=== PATIENT | female | born 1965 | race Caucasian/White ===

== ENCOUNTER → 2022-08-24 | Outpatient (CLI) | payer OTHER, SELFPAY ==
--- NOTE | 2022-08-24 | IMM_PTH ---
PATIENT: EMIGDIO KAPOOR LOC: [facility] U#:[id number] AGE/SX: 57/F ROOM: RE08/24/[address]: Dr. Lilly Mae MD : 1965 BED: DIS: 08/24/2022 SPEC #: [id number] RECD: 08/26/22 11:33 STATUS: JESS REQ #: [id number] RAMIRO: 08/24/22 00:[address]: Lilly Mae DEPT: IMMUNOHISTOCHEMISTRY RECD BY: Isabel Pan ENTERED: 08/26/22 11:35 SP TYPE: IMMUNO OTHR DR: No Primary Care Phys Tissues: Left breast, NOS Procedures: CALPONIN-1 (add) CK5-6 (add) CK8 (add) TERRAZAS-2 (add) E-CAD (add) HER2 WALLACE (add) KI-67 (add) P53 (add) CA (add) P40 (add) ER (initial) PHYSICIAN & INSTITUTION [address] [address] SPECIMEN INFORMATION: Tissue Source: Left breast mass at 1 o?clock Clinical Info: Left breast mass Specimen Number: [id number] CPT code: 00904, 94973 x7, 47822 x3 METHODOLOGY: Deparaffinized sections of prefer/formalin-fixed tissue or PAP/DQ stained slides are incubated with monoclonal/polyclonal antibodies/oligonucleotide probes. Localization is made via biotin free immunoperoxidase method. Appropriate controls are performed and reacted as expected. Results on target cell population are indicated in the following table: RESULTS: ANTIBODY / CLONE RESULT P53 (DO-7) negative, null pattern Ki-67 (30-9) positive, 30% CK8 (49tacxF11) positive CK5-6 (D5 & 1684) negative Calponin-1 (UX481L) negative P40 (BC28) negative E-Cad (ECH-6) positive TERRAZAS-2 (SP21) positive MORPHOMETRIC ANALYSIS ER (clone 6F11) >95%, strong intensity CA (clone 16/1E2) >95%, moderate to strong intensity Her-2Neu (clone CB11) 0 The prognostic test for HER2 is performed on formalin-fixed paraffin embedded tissue. A 3+ (positive) staining pattern is defined as intense, homogeneous, complete, circumferential membranous staining in >10% of contiguous tumor cells. A similar weak (2+) staining pattern is interpreted as equivocal. MARIANA follow-up testing is recommended for all equivocal cases. Positivity/negativity for ER/CA is reported if > or < 1% of the tumor cells are immuno- reactive, respectively. The ASCO/CAP criteria is used for scoring. Reference: Journal of Clinical Oncology, 2013; 31:0620-6174 & 2010; 16:0180-7660. Duration of fixation: 29.5 Hrs; Sample Adequate: Yes. These assays have not been validated on decalcified tissues. Results should be interpreted with caution given the likelihood of false negativity on decalcified specimens. These tests were developed and their performance characteristics determined by [facility]. They may not have been cleared or approved by the U.S. Food and Drug Administration. The FDA has determined that such clearance or approval is not necessary. The above immunohistochemical/dualISH markers are ordered and reviewed by the Pathologist. INTERPRETATION: Left breast mass at 1 o?clock, needle core biopsy: Invasive ductal carcinoma, nuclear grade 1. Positive for estrogen receptors (favorable prognostic indicator). Positive for progesterone receptors (favorable prognostic indicator). Negative for overexpression of RLD9ocf. AM:channing 08/27/2022
--- NOTE | 2022-08-24 14:00 | BRBX_PTH ---
PATIENT: EMIGDIO KAPOOR LOC: [facility] U#:[id number] AGE/SX: 57/F ROOM: RE08/24/[address]: Dr. Lilly Mae MD : 1965 BED: DIS: 08/24/2022 SPEC #: [id number] RECD: 08/24/22 16:38 STATUS: JESS REJovi #: [id number] RAMIRO: 08/24/22 14:[address]: Lilly Mae DEPT: SURGICAL PATHOLOGY RECD BY: Jamila Doty ENTERED: 08/25/22 07:50 SP TYPE: BREAST BX OTHR DR: No Primary Care Phys Tissues: Left breast, NOS Procedures: Surgery Specimen Level IV HEADER OPERATION: Biopsy left breast mass PRE-OP DIAGNOSIS: Left breast mass TISSUE SUBMITTED: Left breast mass tissue 1 o?clock, 2.0 cm from nipple MICROSCOPIC DIAGNOSIS Left breast mass at 1 o?clock, needle core biopsy: Invasive ductal carcinoma with the following characteristics: Nuclear grade ? 1 Maximal length ? 7.0 millimeters Other findings ? ductal carcinoma in situ (nuclear grade 1). See comment. AM:channing 08/26/2022 COMMENT Immunohistochemistry ([id number]) supports the above diagnosis. Case has been reviewed in consultation with Dr. Garrett who concurs with the above diagnosis. IDC:HAIR MICROSCOPIC DESCRIPTION Slides are reviewed. GROSS DESCRIPTION Received in fixative is one container labeled with the patient's name and designated left breast. The specimen consists of multiple elongated fragments of porter-yellow fibroadipose tissue that in aggregate measure 1.0 x 0.6 x 0.1 cm. The entire specimen is submitted in one cassette. / HAIR:channing 08/25/2022 TC:0 CPT: 67944
== END | disposition home or self-care (01) ==
LOC: LABSPEC 16:45
PROVIDERS: Referring Provider Surgery; Visit Provider Surgery
DX: N63.20 Unspecified lump in the left breast, unspecified quadrant (principal)
CPT/HCPCS: 88305; 88341; 88342

== ENCOUNTER → 2022-09-09 | Outpatient (CLI) | payer OTHER, SELFPAY ==
--- NOTE | 2022-09-09 12:37 | MRI_ITS ---
STUDY: BILATERAL BREAST MR WITHOUT AND WITH CONTRAST REASON FOR EXAM: Female, 57 years old. Breast cancer. Workup. TECHNIQUE: Multi-sequence multi-echo imaging of both breasts was performed with a dedicated breast coil. T1-weighted and T2-weighted images were performed before the administration of contrast. T1-weighted images were also performed after the intravenous administration of 25 mL of Clariscan. COMPARISON: Screening mammogram dated May 12, 2021, screening mammogram dated July 08, 2022, diagnostic mammogram dated August 12, 2022, left breast ultrasound dated August 12, 2022 and ultrasound-guided biopsy images dated August 24, 2022. FINDINGS: LEFT BREAST: Fatty replaced glandular tissue. 13 cm in diameter irregular enhancing mass at the 1:00 to 2:00 position of the left breast 7 cm behind the nipple corresponding to the mammographic and ultrasonographic findings. LEFT BREAST: Fatty replaced glandular tissue. No abnormal enhancing masses or areas of non-mass enhancement in the left breast. Shotty nodes in both axillae. No abnormal lymph nodes identified.. There is No abnormality in the visualized regions of the chest or liver. MRI/Breast Bilateral W/O and W IMPRESSION: 1.3 cm irregular enhancing mass at the 1:00 to 2:00 position of the left breast 7 cm behind the nipple corresponding to the index lesion noted on mammogram and ultrasound. Shotty lymph nodes in both axillary regions. No abnormal lymph nodes identified. CATEGORY: BIRADS Category 6: Known Biopsy-Proven Malignancy - Appropriate Action Should Be Taken. A letter regarding these results will be sent to the patient by the facility within 30 days. Electronically Signed: Travis Corbin MD at 10:46 EDT ,
[2022-09-09 13:07] LABS: CREATININE FINGERSTICK < 0.9 mg/dL (0.55-1.02); EGFR FINGERSTICK > 60.0000 mL/min (>60)
== END | disposition home or self-care (01) ==
PROVIDERS: PCP Nurse Practitioner Family; Referring Provider Surgery; Visit Provider Surgery
DX: C50.919 Malignant neoplasm of unspecified site of unspecified female breast (principal)
CPT/HCPCS: 77049; A9575; A4216; C8908

== ENCOUNTER 2022-09-30 08:39 | Day surgery (SDC) | payer OTHER, SELFPAY ==
--- NOTE | 2022-09-30 | IMM_PTH ---
PATIENT: EMIGDIO [place]APOOR [place] [facility] [place][id number] AGE/SX: 57/F ROOM: RE09/30/[address]: Dr. Lilly Mae MD : 1965 BED: DIS: 09/30/2022 SPEC #: [id number] RECD: 10/05/22 13:49 STATUS: JESS REQ #: [id number] RAMIRO: 09/30/22 00:[address]: Lilly Mae DEPT: IMMUNOHISTOCHEMISTRY RECD BY: Isabel Pan ENTERED: 10/05/22 13:49 SP TYPE: IMMUNO OTHR DR: Suresh Mcmullen, COMMUNICATIONS DIRECTOR-C Tissues: A - Axillary lymph node, NOS Procedures: CK8 (initial) Pankeratin (add) PHYSICIAN & INSTITUTION [place] [address] SPECIMEN INFORMATION: Tissue Source: A - Left axillary sentinel lymph node Clinical Info: Left breast cancer Specimen Number: [id number] CPT code: 13507, 50520 METHODOLOGY: Deparaffinized sections of prefer/formalin-fixed tissue or PAP/DQ stained slides are incubated with monoclonal/polyclonal antibodies/oligonucleotide probes. Localization is made via biotin free immunoperoxidase method. Appropriate controls are performed and reacted as expected. Results on target cell population are indicated in the following table: RESULTS: ANTIBODY / CLONE RESULT Block A CK8 (68ubzgZ72) negative AE1-3 (AE1/AE3/PCK26) negative These tests were developed and their performance characteristics determined by [facility]. They may not have been cleared or approved by the U.S. Food and Drug Administration. The FDA has determined that such clearance or approval is not necessary. The above immunohistochemical/dualISH markers are ordered and reviewed by the Pathologist. INTERPRETATION: A. Left axillary sentinel lymph node, biopsy: One out of one lymph node, negative for carcinoma. AM:channing 10/07/2022
--- NOTE | 2022-09-30 | AXNB_PTH ---
PATIENT: EMIGDIO KAPOOR LOC: [facility] U#:[id number] AGE/SX: 57/F ROOM: RE09/30/[address]: Dr. Lilly Mae MD : 1965 BED: DIS: 09/30/2022 SPEC #: [id number] RECD: 09/30/22 12:46 STATUS: JESS REJovi #: [id number] RAMIRO: 09/30/22 00:[address]: Lilly Mae DEPT: SURGICAL PATHOLOGY RECD BY: Isabel Pan ENTERED: 09/30/22 13:18 SP TYPE: AX NODE BX OTHR DR: Suresh Mcmullen, OPERATIONS MANAGER STATION-C Tissues: A - Axillary lymph node, NOS B - Left breast, NOS C - Left breast, NOS Procedures: Frozen Section (charge) Surgery Specimen Level IV Surgery Specimen Level V HEADER OPERATION: Left breast ultrasound wire loc with radiotracer with blue dye PRE-OP DIAGNOSIS: Left breast cancer TISSUE SUBMITTED: A - Left axillary sentinel node, frozen section, B - Left breast lump, long suture - lateral, short suture - superior, C - Left breast, new superior margin short stitch is new superior margin long stitch lateral FROZEN SECTION DIAGNOSIS A. Left axillary sentinel lymph node, biopsy: One lymph node, negative for metastatic carcinoma. SJ:channing 09/30/2022 MICROSCOPIC DIAGNOSIS A. Left axillary sentinel lymph node, biopsy: One out of one lymph node negative for metastatic carcinoma. See comment. B. Left breast, lumpectomy: Invasive ductal carcinoma. See cancer template below. C. Left breast, new superior margin, biopsy: Focal atypical intraductal hyperplasia. Usual intraductal hyperplasia. Mild fibrocystic change. Focal intraductal papilloma. No evidence of malignancy. AM:channing 10/05/2022 COMMENT A. Immunohistochemistry ([id number]) supports the above diagnosis. B. INVASIVE BREAST CANCER SUMMARY: Procedure - excision with wire guidance Specimen: Type - partial breast Size - 4.0 x 3.5 x 2.0 cm Laterality - left breast Tumor: Site - not specified Size - 1.2 x 1.2 x 1.0 cm Histologic type - invasive ductal carcinoma. Focality - single focus of carcinoma. Histologic Grade (Maryann grade): Glandular/tubular differentiation - score 3 Nuclear pleomorphism - score 2 Mitotic count - score 1 Overall grade - 1 (score of 6) Ductal carcinoma in situ - not present Lobular carcinoma in situ (LCIS) - not present Tumor extension: Skin - not applicable Nipple - not applicable Skeletal muscle - not present Margins: Distance of invasive carcinoma from closest margin (superior margin) - 10 mm from (inclusive of specimen C. Lymph nodes: Number of sentinel lymph nodes examined - 1 Total number of lymph nodes examined (sentinel and nonsentinel) - 1 Number of lymph nodes with macrometastases, micrometastases and isolated tumor cells - 0 Treatment effect - unknown Lymphvascular invasion - not identified Additional pathologic findings - usual intraductal hyperplasia with focal atypical intraductal hyperplasia, intraductal papilloma, fibrocystic change. Ancillary studies - previously performed ([id number] / [id number]) ER - positive (>95%, strong intensity) LA - positive (>95%, moderate to strong intensity) Her2 cristal - negative (0) Ki67 - positive (30%) Microcalcifications - present and associated with non-neoplastic tissue. Clinical history - mass of left breast. PATHOLOGIC STAGE: T1c N0 Mx The above summary is in compliance with [employer] [place] [employer] (CAP) Cancer Protocols Checklist and [place] Joint Committee on Cancer (AJCC), Staging Manual, 8th Ed. Case has been reviewed in consultation with Dr. Garrett who concurs with the above diagnosis. IDC:SJ MICROSCOPIC DESCRIPTION Slides are reviewed. GROSS DESCRIPTION A - Received fresh for frozen section diagnosis labeled with the patient's name is a specimen designated left axillary sentinel lymph node. The specimen consists of a pink-porter nodule measuring 1.5 x 1.0 x 0.7 cm. The specimen is bisected and submitted entirely for frozen section diagnosis in one cassette. / :channing 09/30/2022 B - Received fresh for intraoperative consultation labeled with the patient's name is a specimen designated left breast. The specimen consists of a piece of fibroadipose tissue with needle localization measuring 3.5 x 4.0 x 2.0 cm. The specimen is oriented as long suture - lateral, short suture - superior. The specimen is inked as follows: anterior - yellow, posterior - black, superior - blue, inferior - green, medial - red and lateral - orange. Serial sections reveal a porter, indurated tumor mass measuring 1.2 x 1.2 x 1.0 cm. This mass is 0.2 cm away from the closest superior margin. This information is conveyed to the surgeon intraoperatively. The rest of the specimen reveal porter-yellow adipose cut surfaces with scant fibrous areas. The entire specimen is submitted in 11 cassettes as follows: 1 & 2 - perpendicular margin, 3-5 - entire tumor closest superior margin, 6-11 - rest of the specimen. Sections are submitted after overnight fixation. / :channing 10/01/2022 C - Received in fixative is one container labeled with the patient's name and designated new left breast superior margin, long stitch - lateral, short stitch - superior. The specimen consists of a piece of yellow fibroadipose tissue measuring 3.0 x 2.0 x 1.0 cm. The new superior margin is inked blue, old margin is inked black, medial margin - red and lateral margin - orange. Sections do not reveal any mass lesion. The entire specimen is submitted in four cassettes from lateral to medial anterior. Sections will be submitted after overnight fixation. / SJ:channing 10/01/2022 TC:0 [facility]: 33263 x2, 32830 ADDENDUM ADDENDUM ADDENDUM ADDENDUM ADDENDUM ADDENDUM ADDENDUM ADDENDUM 10/23/2022 11:13 ADDENDUM 10/23/2022 11:13 ADDENDUM 10/23/2022 11:13 ADDENDUM 10/23/2022 11:13 ADDENDUM 10/23/2022 11:13 An order for Oncotype testing was received from Dr. Sorenson. This necessitated case review, block and slide selection by pathologist at [facility]. Breast Cancer Recurrence Score = 2 Results of the complete Oncotype testing ([employer] report) are viewable in EMR under: Reports - Pathology - Lab Pathology Report, Scanned.
--- NOTE | 2022-09-30 07:28 | NM_ITS ---
PROCEDURE: NUCLEAR MEDICINE Injection [place] Node - LEFT breast(s). REASON FOR EXAM: Female, 57 years old. History of left breast cancer. TECHNIQUE: [place] node localization using radionuclide methods of the LEFT breast(s) was performed following subcutaneous administration of 1.1 mCi of of sulfur colloid Tc-99m. FINDINGS: 1.1 mCi of technetium labeled sulfur colloid was injected subcutaneously in the periareolar region of the left breast in 4 equal aliquots. NM/Lymph Node Injection Only IMPRESSION: Subcutaneous injection of technetium labeled sulfur colloid for sentinel node imaging. Electronically Signed: Gagan Weathers MD at 10:21 EDT ,
[2022-09-30 09:11] VITALS: BP 151/72; PULSE 72; RESP 18; TEMP 36.8; O2SAT 98; BMI 44.2
[2022-09-30] MEDS: Lactated Ringers 1,000 ML 15 ML IV (09:25)
--- NOTE | 2022-09-30 10:12 | PCM.HP.BLA ---
History and Physical Date of Admission: 09/30/22 Date of Service: 09/17/22 MR#: [id number] Acct: [id number] Name: EMIGDIO KAPOOR Rep #: [id number] : 1965 Provider: Dr. Lilly Mae MD Age/Sex: 57/F Location: [facility] Status: Signed Intake Intake Visit Reasons: BIRADS 5 MRI F/U Chief Complaint: birads 5 Allergies No Known Allergies Allergy (Unverified 09/17/22 13:58) Medications cholecalciferol (vitamin D3) 125 mcg (5,000 unit) capsule 5,000 unit PO 08/24/22 [History Confirmed 09/17/22] cyanocobalamin (vitamin B-12) 1,000 mcg tablet 1,000 mcg PO 08/24/22 [History Confirmed 09/17/22] losartan 100 mg tablet 100 mg PO 08/24/22 [History Confirmed 09/17/22] zinc gluconate 50 mg tablet 50 mg PO DAILY 08/24/22 [History Confirmed 09/17/22] PFSH Medical History (Updated 09/18/22 @ 12:[address] Lilly Mae MD) Hypertension Surgical History (Updated 09/18/22 @ 12:[address] Lilly Mae MD) S/P section S/P tonsillectomy Family History (Updated 08/24/22 @ 15:39 by María Starr) Sister Thyroid disorder Social History (Updated 08/24/22 @ 15:40 by María Starr) Smoking Status: Former smoker alcohol intake: current HPI HPI HPI: 57-year-old female presents to discuss breast MRI results and surgical options for her left invasive ductal breast cancer. Patient's MRI did showed the 1 area we were aware of previously?did not comment on any abnormal lymph nodes called bilateral axillary lymph nodes shotty. Exam Const General: cooperative, healthy appearing and comfortable [facility] Head: normocephalic and atraumatic Neck Neck: supple Chest Other: Left breast?biopsy site healing well still some resolving ecchymosis. Assessment and Plan Assessment and Plan (1) Breast cancer, left breast: Status: Acute Plan I have given the patient options for initial surgical treatment. Options are the following: lumpectomy followed by radiation therapy vs. mastectomy vs. mastectomy followed by immediate reconstruction. I have described the procedures to the patient. I have described the advantages and disadvantages of the options, but I have told the patient that among the options, the survival rate for breast cancer is the same. I have told the patient that with all the surgeries that a sentinel lymph node biopsy is required. I have described the procedure of sentinel lymph node biopsy to the patient. I have told the patient that if the biopsy is positive for metastatic disease, then a full axillary lymph node dissection is required. I have told the patient that adjuvant chemotherapy will be required should the lymph nodes reveal metastatic disease. Also, a full lymph node dissection will increase the risk for lymphedema, especially if there are 4 or more lymph nodes positive for metastatic disease and radiation to the axilla is also required. I have told the patient the risks of surgery, including but not limited to: infection, bleeding, scar tissue, seroma and persistent seroma, lymph leak, injury to any blood vessels, injury to any nerves (particularly the long thoracic, the thoracodorsal, and the second intercostal brachial and the resultant sequelae), lymphedema, cosmetic deformity, dysesthesias, wound infections, further surgery (especially if margins are not clear), complications of anesthesia, etc. the patient understands. Patient is planned to undergo an left breast ultrasound-guided wire lumpectomy with sentinel lymph node biopsy with nuclear tracer and blue dye and possible axillary lymph node dissection. I have answered all the patient?s questions at this point to her satisfaction and she has no further questions. Lilly Mae M.D. Pager: [phone] [facility] [address] [place] [address], [address] [place] [address] Office: [phone] Coding Level of Care Code Off vis,est,level 4 Diagnoses Breast cancer, left breast C50.912 09/18/22 1252 <Electronically signed by Lilly Mae MD> Date Lilly Mae MD
[2022-09-30] MEDS: 0.9% Normal Saline (Pres. free 10 ML Vial (10:40)
[2022-09-30] MEDS: Isosulfan Blue 1% 5 ML Vial (11:45)
--- NOTE | 2022-09-30 13:12 | BI_ITS ---
SURGICAL BREAST SPECIMEN RADIOGRAPH CLINICAL: Document presence of tissue clip marker in biopsy specimen. FINDINGS: Specimen shows presence of tissue clip marker. Electronically Signed: Gagan Weathers MD at 8:58 EDT , BI/Breast Biopsy Specimen IMPRESSION: undefined
--- NOTE | 2022-09-30 13:17 | OP.PCM_ITS ---
Report of Operation Date of Procedure: 09/30/22 Pre-Operative Diagnosis: Left breast cancer Post-Operative Diagnosis: Same Surgery/Procedure Performed:: Left ultrasound-guided wire needle localization, sentinel lymph node biopsy with Lymphazurin and nuclear tracer Description of Surgical Findings:: 1 out of 1 sentinel node negative?blue and hot --10 count was 1173 Surgeon: Lilly Mae dimensional inspector: Phylicia Guzman Type of Anesthesia: General/Supplemental Anesthesiologist: Ze Palmer Special Medications: Ancef 3 g IV x1 Specimen's removed: 1. [place] lymph node?left, 2. Left lumpectomy Estimated Blood Loss (mL): 10 cc Fluids Replaced: per anesthesia Description of Procedure: Synoptic Portion: Element Response Options Operation performed with curative intent. Yes Tracer(s) used to identify sentinel nodes in the upfront surgery (non- neoadjuvant) setting (select all that apply). Lymphazurin and nuclear tracer Tracer(s) used to identify sentinel nodes in the neoadjuvant setting (select all that apply). N/A All nodes (colored or non-colored) present at the end of a dye-filled lymphatic channel were removed. Yes All significantly radioactive nodes were removed. Yes All palpably suspicious nodes were removed. Yes Biopsy-proven positive nodes marked with clips prior to chemotherapy were identified and removed. N/AA In radiology the breast tissue was injected with TC-9 9 sulfur colloid. 120 minutes later the patient was taken to the operating room and general anesthesia was induced. 5 cc of Lymphazurin 1% blue dye was injected in the 4 quadrants periareolar along with 10 cc of normal saline. This was massaged gently for 5 minutes. The left breast and axilla were prepped and draped in usual sterile fashion. A timeout was completed verifying correct patient, procedure, site, positioning, special equipment prior to beginning procedure. Handheld gamma probe was used to identify the location of the hottest spot in the axilla. Prior to the incision, the counts were 5. The incision was made in the blue and hot node was identified. The probe was placed in contact with the node in the 10 count was 1173. The bed of the node measured 5 counts. No additional blue or hot nodes were detected. Ultrasound used to place the Kopan's needle just inferior to the mass. Picture was taken. A curvilinear incision was planned in such a way as to minimize the amount of dissection to reach the mass. Flaps were raised in the location of the wire confirmed. The wire was delivered into the wound. 2 silk [id number]-[id number] stay suture was placed around the wire and used for traction. Dissection was then taken down circumferentially, taking care to include the entire localization needle and wide margin of grossly normal tissue. The specimen and entire localizing wire were removed. The specimen was oriented and sent to radiology with the localization studies. Confirmation was received that the entire target lesion had been resected. The cavities were irrigated. Hemostasis was checked. The breast and axillary incisions were closed with interrupted sutures of 3-0 Vicryl and subcuticular sutures of 4-0 Monocryl. No attempt was made to close the space. A dressing of fluff gauze and supportive bra placed. The patient tolerated procedure well was taken to the postanesthesia care in stable condition. Complications none
[2022-09-30] MEDS: Bupivacaine 0.25% 30 ML Vial (13:21)
--- NOTE | 2022-09-30 13:22 | EX.PCM.DISCH ---
Discharge Instructions Diet Discharge Diet: No restrictions Activity Discharge Activity: May Not Drive (for 2-3 days or while taking narcotic pain meds.) May shower in (days): 1 Lifting Restrictions: 10 pounds for 1 week. Dressing / Incision Call your doctor if your incision/area has: Continuous Slow Oozing, Sudden Increased Bleeding, Increased Pain/ Swelling and Increased Redness Call your doctor if you observe: Fever of 101 or Higher Suture Line Care: Avoid Pulling/Pushing and Avoid Pinching/Bending Remove Dressing in: 1 day Additional Dressing/Incision Instructions:: Remove bulky dressing tomorrow. May leave op-site dressing for 3-4 days. Dermabond (glue) was used at the axillary incision this may start to peel off in about 5 days. Okay to remove Steri-Strips from the breast incision in 7 to 10 days. Follow Up Care Please Follow Up With: Lilly Mae MD When: Please call [phone] for an appointment to be seen in 2 week. Test Results: Test results from this visit will be discussed in further detail at your follow-up appointment, if applicable. Discharge Plan Admission Attending Provider: Lilly Mae Primary Care Provider: Suresh Mcmullen NP Discharge Orders/Prescriptions Prescriptions: New oxycodone-acetaminophen 5-325 mg tablet 1 - 2 tab PO Q6H PRN (Reason: pain) 3 Days Qty: 14 0RF Continued losartan 100 mg tablet 100 mg PO DAILY Patient Comments: take 1 tablet by mouth once daily cholecalciferol (vitamin D3) 125 mcg (5,000 unit) capsule 5,000 unit PO DAILY Patient Comments: take 1 capsule by mouth once daily cyanocobalamin (vitamin B-12) 1,000 mcg tablet 1,000 mcg PO DAILY Patient Comments: take 1 tablet by mouth once daily zinc gluconate 50 mg tablet 50 mg PO DAILY Referrals / Follow Up: Suresh Mcmullen NP, [employer] [Primary Care Provider] - Disposition Disposition (needs filled in before D/C Order can be placed): Home, Self Care
[2022-09-30 14:04] VITALS: BP 131/80; BP 151/72; PULSE 94; RESP 16; TEMP 36.7; O2SAT 97
[2022-09-30 14:18] VITALS: BP 121/79; BP 151/72; PULSE 91; RESP 16; O2SAT 94
[2022-09-30 14:37] VITALS: BP 103/83; BP 151/72; PULSE 86; RESP 16; O2SAT 93
[2022-09-30 14:40] VITALS: BP 123/80; BP 151/72; PULSE 78; RESP 16; TEMP 36.6; O2SAT 94
[2022-09-30 14:59] VITALS: BP 151/72
== END 2022-09-30 15:54 | disposition home or self-care (01) ==
LOC: SDC 08:40 → AC 08:42
PROVIDERS: PCP Nurse Practitioner Family; Referring Provider Nurse Practitioner Family; Visit Provider Surgery
PROC: (CPT 19301; principal; 2022-09-30 11:15)
DX: C50.912 Malignant neoplasm of unspecified site of left female breast (principal); I10 Essential (primary) hypertension; G47.30 Sleep apnea, unspecified; Z79.899 Other long term (current) drug therapy; Z87.891 Personal history of nicotine dependence
CPT/HCPCS: 19285; 19301; 00400; 38792; 76098; 88305; 88307; 88331; 88341; 88342; A4648; A9541; J7120; J2405; J3490; Q9968

== ENCOUNTER 2022-10-22 13:39 | Outpatient (CLI) | payer OTHER, SELFPAY ==
--- NOTE | 2022-10-22 13:47 | BD_ITS ---
STUDY: DUAL ENERGY X-RAY ABSORPTIOMETRY / DXA REASON FOR EXAM: Female, 57 years old. SCREENING TECHNIQUE: Bone Mineral Density (BMD) measurements of lumbar spine and bilateral hips were obtained. COMPARISON: None. FINDINGS: Lumbar Spine (L1-L4): g/cm2 (0.938) / T-score (-1.0) / Z-score (0.3) Findings are suggestive of normal bone density with a low fracture risk. Left Femur Total: g/cm2 (0.919) / T-score (-0.2) / Z-score (0.7) Left Femoral Neck: g/cm2 (0.633) / T-score (-1.9) / Z-score (-0.7) Right Femur Total: g/cm2 (0.920) / T-score (-0.2) / Z-score (0.7) Right Femoral Neck: g/cm2 (0.770) / T-score (-0.7) / Z-score (0.5) BD/Dexa Bone Density Study IMPRESSION: The patient is considered osteopenic as outlined below according to World Shan Organization (WHO) criteria with a moderate fracture risk. Reference Information: The T-score is the number of standard deviations above or below the standard which is normal for young adults at their peak bone mineral density. The World Health Organization (WHO) interprets the T-scores as follows: Above -1 Normal bone density Between -1 and -2.5 Osteopenia Equal to / or below -2.5 Osteoporosis As a practical clinical guideline, osteopenia may be graded as follows: Mild -1 through -1.5 Moderate -1.6 through -2.0 Severe -2.1 through -2.4 The Z-score is the number of standard deviations above or below age-matched controls. A Z-score of less than -1.5 would be considered abnormal. References: 1. NIH Osteoporosis and Related Bone Diseases www osteo.org 2. International Society for Clinical Densitometry www iscd.org 3. National Osteoporosis Foundation www nof.org Electronically Signed: Gagan Weathers MD at 11:52 EDT ,
== END 2022-10-22 23:59 | disposition home or self-care (01) ==
PROVIDERS: PCP Nurse Practitioner Family; Referring Provider Internal Medicine Hematology & Oncology; Visit Provider Internal Medicine Hematology & Oncology
DX: M85.80 Other specified disorders of bone density and structure, unspecified site (principal)
CPT/HCPCS: 77080

== ENCOUNTER 2022-12-12 13:13 | Emergency (ER) | payer OTHER, SELFPAY ==
[2022-12-12 13:15] VITALS: BP 133/119; PULSE 113; RESP 18; TEMP 36.4; O2SAT 95
[2022-12-12 13:54] VITALS: BMI 43.9
--- NOTE | 2022-12-12 14:28 | EX.ED.DYSGE1 ---
HPI History of Present Illness Chief Complaint: Cellulitis Informant: patient Onset/Context/Timing Onset: Yesterday Narrative Narrative: Patient presents with cellulitis to the right lower extremity. She states she had a fever yesterday up to 101. When she got from a nap today she noted redness and warmth to her right lower leg. She went to urgent care who then sent her to the emergency room. Patient does have a history of breast cancer and is finishing up radiation treatments. She is not on chemotherapy or any agents to affect her immune system. [facility] Medical History Alcohol use Breast cancer CPAP (continuous positive airway pressure) dependence Hypertension Injury of head and neck Loss of consciousness Post-menopausal Sleep apnea Smoker Wears glasses Home Medications cholecalciferol (vitamin D3) 125 mcg (5,000 unit) capsule 5,000 unit PO DAILY 08/24/22 [History Last Taken Unknown] cyanocobalamin (vitamin B-12) 1,000 mcg tablet 1,000 mcg PO DAILY 08/24/22 [History Last Taken Unknown] losartan 100 mg tablet 100 mg PO DAILY 08/24/22 [History Last Taken 09/30/22 09:09] zinc gluconate 50 mg tablet 50 mg PO DAILY 08/24/22 [History Last Taken Unknown] calcium carbonate 600 mg calcium (1,500 mg) tablet 600 mg PO DAILY 12/02/22 [History Last Taken Unknown] cephalexin 500 mg capsule 500 mg PO Q6 #40 CAPSULES 12/12/22 [Rx Last Taken Unknown] sulfamethoxazole 800 mg-trimethoprim 160 mg tablet (Bactrim DS) 1 tab PO BID #20 tabs 12/12/22 [Rx Last Taken Unknown] Allergy/AdvReac Type Severity Reaction Status Date / Time No Known Allergies Allergy Verified 12/12/22 13:17 Family History Sister Thyroid disorder Surgical History Hx of hysterectomy S/P section S/P lumpectomy, left breast S/P tonsillectomy Social History Smoking Status: Former smoker alcohol intake: current alcohol intake frequency: a few times a week substance use type: does not use ROS ROS ED Constitutional Constitutional ED: Reports fever(s); Denies chills Eyes Eyes: Denies change in vision or discharge from eye(s) ENT ENT ED: Denies discharge from eye(s), rhinorrhea or sore throat Cardiovascular Cardiovascular: Denies chest pain or palpitations Respiratory/Chest Respiratory/Chest: Denies cough or dyspnea Gastrointestinal Gastrointestinal: Denies abdominal pain, diarrhea, nausea or vomiting Genitourinary Genitourinary ED: Denies dysuria Musculoskeletal Musculoskeletal: Denies back pain Integumentary Reports rash; Denies Abrasions Neurologic Neurologic: Denies headache(s) or weakness Psychiatric Psychiatric: Denies anxiety or depression Allergic/Immunologic Allergic/Immunologic ED: Denies lip swelling or urticaria EXAM Physical Exam Const Vital Signs: 12/12/22 13:15 Temperature 97.5 F L Temperature Source Temporal Pulse Rate 113 H Respiratory Rate 18 Blood Pressure 133/119 H Blood Pressure Mean 123 Pulse Ox 95 Oxygen Delivery Method Room Air Positive well nourished and well developed General Appearance ED: well developed HEENT Reports normocephalic and head/scalp atraumatic Eyes PERRL and EOMs intact bilaterally Neck supple Chest Wall inspection of chest normal and palpation of chest normal Resp normal respiratory effort and clear to auscultation bilaterally Cardio regular rate and regular rhythm GI normal to inspection, nondistended, normoactive bowel sounds Palpation: soft Extremity Extremity Narrative: Bilateral lower extremity edema, symmetric. Right lower extremity is erythematous and warm to the touch between the knee and the ankle. No erythema noted on her foot. No open wounds appreciated. Neuro oriented x3 and no sensory deficits noted Sensorium / Orientation: alert Motor Exam: strength 5/5 throughout Psych mental status grossly normal Skin Skin Narrative: As noted above. MDM MDM MDM Narrative Medical decision making narrative: Lab work will be obtained along blood cultures. Patient given Bactrim and Keflex. She presents on a Wednesday when I do not have anyone available for venous ultrasound. I will have her return tomorrow for a venous ultrasound of the leg. History & Record Review Discussion w/independent historian: Patient Additional record(s) reviewed:: Prior labs Lab Data Attestation: I reviewed the patient's lab results. Labs: Laboratory Results - last 24 hr 12/12/22 14:40 WBC 10.5 RBC 4.73 Hgb 16.2 H Hct 49.5 H MCV 104.7 H MCH 34.2 H MCHC 32.7 RDW Std Deviation 51.0 H RDW Coeff of [place] 13.1 Plt Count 174 MPV 10.9 Immature Gran % (Auto) 0.600 Neut % (Auto) 83.1 H Lymph % (Auto) 8.1 L [place] % (Auto) 7.3 Eos % (Auto) 0.7 Baso % (Auto) 0.2 Absolute Neuts (auto) 8.7 H Absolute Lymphs (auto) 0.85 Nucleated RBC % 0 Sodium 138 Potassium 4.3 Chloride 106 Carbon Dioxide 29.0 Anion Gap 3 L BUN 6 L Creatinine 0.68 Estim Creat Clear Calc 90.97 Est GFR (MDRD) Af Amer 114 Est GFR (MDRD) Non-Af 94 BUN/Creatinine Ratio 8.8 L Glucose 98 Calcium 9.2 Treatment and Re-Evaluation :: CBC was normal white count at 10.5 with 83% neutrophils. Hemoglobin is concentrated at 16.2. This appears consistent with her prior values. Chemistry studies are unremarkable. Patient has been given Bactrim and Keflex here. Blood cultures are pending. I will have her return tomorrow for a venous ultrasound of her leg to ensure no clot. Area of erythema is outlined with a surgical marker. Return instructions given. Discharge Plan Triage Chief Complaint: Cellulitis ED Provider: Constance Haas Dx/Rx/DC Orders Clinical Impression: Cellulitis Instructions: ED Cellulitis Prescriptions: New sulfamethoxazole-trimethoprim [Bactrim DS] 800-160 mg tablet 1 tab PO BID Qty: 20 0RF cephalexin 500 mg capsule 500 mg PO Q6 Qty: 40 0RF No Action losartan 100 mg tablet 100 mg PO DAILY Patient Comments: take 1 tablet by mouth once daily cholecalciferol (vitamin D3) 125 mcg (5,000 unit) capsule 5,000 unit PO DAILY Patient Comments: take 1 capsule by mouth once daily cyanocobalamin (vitamin B-12) 1,000 mcg tablet 1,000 mcg PO DAILY Patient Comments: take 1 tablet by mouth once daily zinc gluconate 50 mg tablet 50 mg PO DAILY calcium carbonate 600 mg calcium (1,500 mg) tablet 600 mg PO DAILY Other Ambulatory Orders: Venous Duplex US, Unilateral (Stat) Facility: [facility] - Location: [facility] Ordered By: Dr. Constance Haas Primary Care Provider: Suresh Mcmullen NP Referrals: Suresh Mcmullen NP, [employer] [Primary Care Provider] - 1 Week Disposition Disposition: Home, Self Care
[2022-12-12 14:54] LABS: Absolute Lymphocyte Count 0.85 X10^3/uL (0.83-4.51); Absolute Neutrophil Count 8.7 X10^3/uL (2.0-7.7); Basophil# 0.02 X10^3/uL; Basophil% 0.2 % (0-1); Eosinophil# 0.07 X10^3/uL; Eosinophils% 0.7 % (0-5); Hematocrit 49.5 % (37-47); Hemoglobin 16.2 g/dL (12.0-15.0); Lymphocyte # 0.85 X10^3/ul (0.83-4.51); Lymphocyte % 8.1 % (19-41); Mean Corp Hgb Conc 32.7 g/dL (32-36); Mean Corpuscular Hgb 34.2 pg (27.0-32.0); Mean Corpuscular Volume 104.7 fL (81-99); Mean Platelet Vol. 10.9 fl (6.2-12.0); Monocyte# 0.77 X10^3/uL; Monocyte% 7.3 % (0-10); NRBC Flagged by Analyzer 0 % (0-5); Neutrophil # 8.73 X10^3/uL (2.7-7.7); Neutrophil % 83.1 % (47-70); Platelet Count 174 K/mm3 (150-450); RBC Distribution Width CV 13.1 % (11.6-14.6); Red Blood Count 4.73 M/mm3 (4.2-5.4); White Blood Count 10.5 K/mm3 (4.4-11.0)
[2022-12-12] MEDS: Cephalexin 250 MG Capsule 500 MG PO (14:56)
[2022-12-12] MEDS: Smz/Tmp Ds Tablet 1 TABLET PO (14:56)
[2022-12-12 15:08] LABS: Anion Gap 3 (5-15); BUN 6 mg/dL (7-18); BUN/Creat Ratio 8.8 RATIO (10-20); Calcium,Total 9.2 mg/dL (8.5-10.1); Chloride 106 mmol/L (98-107); Creatinine, Serum 0.68 mg/dL (0.55-1.02); EST Glomerular Filtration Rate 94 mL/min (>60); Est Glom Filt Rate - Afr Amer 114 mL/min (>60); Estimated Creatinine Clearance 90.97 ml/min; Glucose 98 mg/dL (74-106); Potassium 4.3 mmol/L (3.5-5.1); Sodium Level 138 mmol/L (136-145)
[2022-12-12 15:46] VITALS: BP 145/82; PULSE 85; RESP 18; O2SAT 93
== END 2022-12-12 15:53 | disposition home or self-care (01) ==
PROVIDERS: Emergency Provider Emergency Medicine; PCP Nurse Practitioner Family; Visit Provider Emergency Medicine
DX: L03.115 Cellulitis of right lower limb (principal); I10 Essential (primary) hypertension; R60.0 Localized edema; Z79.899 Other long term (current) drug therapy; Z87.891 Personal history of nicotine dependence
CPT/HCPCS: 80048; 85025; 87040; 99284

== ENCOUNTER → 2022-12-13 | Outpatient (CLI) | payer OTHER, SELFPAY ==
--- NOTE | 2022-12-13 11:02 | VDLE_ITS ---
Reason For Study: RLE SWELING RIGHT GSV is normal. CFV is compressible, spontaneous, phasic, competent and demonstrates normal augmentation. FV is compressible, spontaneous, phasic, competent and demonstrates normal augmentation. POP V is compressible, spontaneous, phasic, competent and demonstrates normal augmentation. T/P Trunk is compressible. PTV is compressible. RT PerV is compressible. Procedure This is a venous duplex using B-mode, color flow and spectral Doppler. Exam performed in department. The exam was diagnostic. A preliminary report was called and/or faxed to [facility] MCMULLEN [employer] @ [phone] @ 11:40 AM. VL/Venous Duplex US, Unilateral Interpretation Summary Deep veins of the right lower extremity are patent and compressible segmentally . There is no evidence of right lower extremity deep vein thrombosis. Valvular competence ally ears intact within the proximal deep venous system on the right . The right great saphenous vein a ppears patent and compressible segmentally. Ordering Physician: Constance Haas Referring Physician: Suresh Mcmullen Performed By: Marion Allen, SERGEY, RVT
== END | disposition home or self-care (01) ==
LOC: US 11:02
PROVIDERS: PCP Nurse Practitioner Family; Visit Provider Emergency Medicine
DX: M79.89 Other specified soft tissue disorders (principal)
CPT/HCPCS: 93971

== ENCOUNTER → 2023-07-12 | Outpatient (CLI) | payer OTHER, SELFPAY ==
--- NOTE | 2023-07-12 07:04 | BI_ITS ---
MAMMOGRAPHY - BILATERAL SCREENING REASON FOR EXAM: Female, 57 years old. Routine annual screening examination. PERTINENT HISTORY: Personal history of breast cancer. Prior left lumpectomy with radiation treatment. TECHNIQUE: Digital bilateral breast juan (3D mammographic acquisition) in the CC and MLO projections. 2-D mediolateral oblique (MLO) and craniocaudad (CC) views of both breasts were obtained. CAD: Full Field Digital Mammography with Computer Added Detection was performed. COMPARISON: Comparison is made with prior outside examination dated July 08, 2022 and September 30, 2022. FINDINGS: Breast Composition: There are scattered areas of fibroglandular density. There are no dominant masses or suspicious calcifications. The patient status post lumpectomy in the upper lateral aspect of the left breast. The previously seen tiny nodular density has been resected. Postsurgical scarring is present at that site. Surgical clips are also seen in the left axilla. No other significant abnormalities are identified. BI/SCRN MAMM (CAD)W/JUAN BILAT IMPRESSION: Status post lumpectomy in the upper lateral aspect of the left breast with resultant postoperative scarring at the operative site. Surgical clips are also seen in the left axilla. Yearly follow-up mammogram recommended. (A) ASSESSMENT CATEGORY: BIRADS Category 2: Benign. A letter regarding these results will be sent to the patient by the facility within 30 days. Approximately 10% of breast cancers are not detected by mammography. A normal mammogram should not delay biopsy of a clinically suspicious abnormality. [id number] Electronically Signed: Gagan Weathers MD at 8:17 EDT ,
== END | disposition home or self-care (01) ==
LOC: OPBI 07:04
PROVIDERS: PCP Nurse Practitioner Family; Referring Provider Internal Medicine Hematology & Oncology; Visit Provider Internal Medicine Hematology & Oncology
DX: Z12.31 Encounter for screening mammogram for malignant neoplasm of breast (principal); Z85.3 Personal history of malignant neoplasm of breast
CPT/HCPCS: 77063; 77067

== ENCOUNTER → 2025-02-21 | Outpatient (CLI) | payer BC, SELFPAY ==
[2025-02-21 11:06] LABS: Immature Granulocytes Count 0.030 X10^3/uL (0.0-0.0); Mean Corp Hgb Conc 33.6 g/dL (32-36); Mean Corpuscular Volume 103.1 fL (81-99); Mean Platelet Vol. 11.1 fl (6.2-12.0); NRBC Flagged by Analyzer 0 % (0-5); Platelet Count 182 K/mm3 (150-450); RBC Distribution Width CV 13.8 % (11.6-14.6); RBC Distribution Width SD 53.6 fl (35.1-43.9); Red Blood Count 5.49 M/mm3 (4.2-5.4); White Blood Count 7.5 K/mm3 (4.4-11.0)
[2025-02-21 11:08] LABS: Hematocrit 56.6 % (37-47)
[2025-02-21 11:10] LABS: Hemoglobin 19.0 g/dL (12.0-15.0)
--- OUTSIDE RECORDS SUMMARY | 2025-02-21 11:11 | XMS RPT_ITS | CCD ---
Author Organization 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 Lilly Mae Attending Provider Benedict ASSISTANT COMMUNITY DIRECTOR, ASSISTANT COMMUNITY DIRECTOR-C Suresh Primary Care Provider Benedict ASSISTANT COMMUNITY DIRECTOR, ASSISTANT COMMUNITY DIRECTOR-C Suresh Referring Provider Dr. Lilly Mae Other Provider Dr. Noy Sorenson Attending Provider Dr. Bear Kapadia Attending Provider Dr. Bear Kapadia Referring Provider Benedict ASSISTANT COMMUNITY DIRECTOR, ASSISTANT COMMUNITY DIRECTOR-C Suresh Primary Care Provider Benedict ASSISTANT COMMUNITY DIRECTOR, ASSISTANT COMMUNITY DIRECTOR-C Suresh Referring Provider Dr. Noy Sorenson Attending Provider Dr. Lilly Mae Attending Provider Dr. Bear Kapadia Attending Provider Martha Ayala MD Primary Care Provider Martín SURETY BOND AGENT.Alisson RANGEL Unavailable Benedict SURETY BOND AGENT.Ganesh RANGELsse Unavailable ALISSON RESENDIZ Attending Unavailable MARTHA AYALA Primary Care Unavailable ZAIRE SIMMONS JR Attending Unavailable MARTHA AYALA Primary Care Unavailable HERNANDEZ RASCON Attending Unavailable ALISSON RESENDIZ Referring Unavailable MARTHA AYALA Primary Care Unavailable MARTHA AYALA Primary Care Unavailable ALISSON RESENDIZ Attending Unavailable MARTHA AYALA Primary Care Unavailable ALISSON RESENDIZ Referring Unavailable ALISSON RESENDIZ Attending Unavailable MARTHA AYALA Primary Care Unavailable Benedict, Suresh Primary Care Unavailable Isckarus, Mansour Attending Unavailable Benedict, Suresh Referring Unavailable Benedict, Suresh Primary Care Unavailable Bear Kapadia Attending Unavailable Benedict, Suresh Referring Unavailable Isckarus, Mansour Attending Unavailable Isckarus, Mansour Referring Unavailable Bear Kapadia Consulting Unavailable Benedict, Suresh Primary Care Unavailable Bear Kapadia Attending Unavailable Benedict, Suresh Primary Care Unavailable Benedict, Suresh Referring Unavailable Isckarus, Mansour Attending Unavailable Benedict, Suresh Primary Care Unavailable Benedict, Suresh Primary Care Unavailable Lilly Mae Attending Unavailable Benedict, Suresh Referring Unavailable Allergies Allergy Classification Reported Allergen(s) Allergy Type Date of Onset Reaction(s) Facility (18 sources) Erythromycin; Translations: [ERYTHROMYCIN] Drug Allergy 3 Other: See Comments [facility] (17 sources) Sulfamethoxazole / Trimethoprim; Translations: [SULFAMETHOXAZOLE-TR IMETHOPRIM] Drug Allergy 3 Rash [facility] (1 source) Sulfamethoxazole Drug Allergy 4 [facility] (1 source) Trimethoprim Drug Allergy 4 [facility] (1 source) Sulfamethoxazole Drug Allergy 4 [facility] (1 source) Trimethoprim Drug Allergy 4 [facility] Medications Current Medications Medication Drug Class(es) Dates Sig (Normalized) Sig (Original) amLODIPine 5 mg oral tablet (7 sources) Dihydropyridine Calcium Channel Gerry Start: 12-30-2023 End: 03-21-2025 take 1 tablet by mouth once daily amLODIPine (NORVASC) 5 mg tablet Indications: Essential hypertension Take 1 tablet by mouth once daily. 90 tablet 3 03/21/2024 03/21/2025 Active anastrozole 1 mg oral tablet (1 source) Aromatase Inhibitor Start: 12-24-2022 take 1 mg by mouth once daily Anastrozole Active 1 MG PO DAILY 90 December 24, 2022 12:00am Calcium (16 sources) Phosphate Binder, Calcium take 2 tablets by mouth once daily CALCIUM ORAL Take 2 tablets by mouth once daily. 1200 MG. Active take 2 tablets by mouth once yovany ly CALCIUM ORAL Take 2 tablets by mouth once daily. 1200 MG. 0 Active Comment on above: Take 2 tablets by mo ut once daily. 1200 MG. calcium carbonate 1500 mg oral tablet (3 sources) Start: 12-03-19 take 600 mg by mouth once daily Calcium Carbonate Active 600 MG PO DAILY December 02, 2022 12:00am cholecalciferol 0.125 mg oral capsule (20 sources) Vitamin D Start: 06-24-19 End: 01-27-20 take 1 capsule by mouth once daily Cholecalciferol, Vitamin D3, 125 mcg (5,000 unit) cap Indications: Vitamin D deficiency Take 1 capsule by mouth once daily. 90 capsule 3 01/27/2024 Active Comment on above: take 1 capsule by mo uth once daily Take 1 capsule by mo ut once daily. clindamycin 300 mg oral capsule (3 sources) Lincosamide Antibacterial Start: 12-25-19 take 300 mg by mouth every eight hours Clindamycin Hcl Active 300 MG PO Q8H December 24, 2022 12:00am Start: 12-23-2022 End: 01-02-2023 take 1 capsule by mouth three times daily clindamycin (CLEOCIN) 300 mg capsule Indications: Cellulitis, unspecified cellulitis site Take 1 capsule by mouth three times daily for 10 days. 30 capsule 0 12/23/2022 01/02/2023 Active Comment on above: Take 1 capsule by mo ut three times daily for 10 days. CPAP (20 sources) Start: 10-05-2018 CPAP CPAP 8 cm H2O, mask(pt pref), chin strap, heated tubing & humidity, filters. Lifetime supplies. Dx: G47.33. (Please provide supplies) 1 Device 10/05/2018 Active Start: 10-05-2018 CPAP CPAP 8 cm H2O, mask(pt pref), chin strap, heated tubing & humidity, filters. Lifetime supplies. Dx: G47.33. (Please provide supplies) 1 Device 0 10/05/2018 Active Comment on above: CPAP 8 cmH2O, mask(p t pref), chin strap, heated tubing & humidity, filters. Lifetime supplies. Dx: G47.33. (Please provide supplies) CPAP/BIPAP/OTHER (14 sources) Start: 02-05-2023 End: 06-22-2050 CPAP/BIPAP/OTHER CPAP 8 cmH2O [facility] 1 Each 02/05/2023 06/22/2050 Active Start: 02-05-2023 End: 06-22-2050 CPAP/BIPAP/OTHER CPAP 8 cmH2 O [facility] 1 Each 0 02/05/2023 06/22/2050 Active Comment on above: CPAP 8 cmH2O [facility] fluticasone propionate 0.05 mg/actuat metered dose nasal spray (20 sources) Corticosteroid Start : 09-30 take 2 spray(s) by mouth once daily fluticasone (FLONASE) 50 mcg/actuation nasal spray Indications: Cough Use 2 Sprays in each nostril once daily. Rinse mouth after use. 1 Bottle 3 09/30/2018 Active Comment on above: Use 2 Sprays in each nostril once daily. Rinse mouth after use. hydroCHLOROthiazide 12.5 mg oral capsule (7 sources) Thiazide Diuretic Start : 12-29 End: 03-21 take 1 capsule by mouth once daily hydroCHLOROthiazide 12.5 mg capsule Indications: Essential hypertension , Lower leg edema Take 1 capsule by mouth once daily. 90 capsule 3 03/21/2024 03/21/2025 Active losartan potassium 100 mg oral tablet (20 sources) Angiotensin 2 Receptor Gerry Start : 06-29 End: 07-07 take 1 tablet by mouth once daily losartan (COZAAR) 100 mg tablet Indications: Essential hypertension Take 1 tablet by mouth once daily. 90 tablet 3 07/07/2024 07/07/2025 Active Start: 06-23-2021 End: 06-29-2022 take 1 tablet by mouth once daily losartan (COZAAR) 50 mg tablet Indications: Essential hypertension take 1 tablet by mouth once daily 90 tablet 0 06/25/2022 06/29/2022 Discontinued Comment on above: take 1 tablet by brigida th once daily Take 1 tablet by brigida th once daily. MULTIVITAMIN ORAL (20 sources) MULTIVITAMIN ORA L Take by mouth. Active MULTIVITAMIN ORA L Take by mouth. 0 Active Comment on above: Take by mouth. polyethylene glycol 3350 211365 mg / potassium chloride 2980 mg / sodium bicarbonate 6720 mg / sodium chloride 5840 mg / sodium sulfate 36882 mg powder for oral solution (1 source) Osmotic Laxative Start: 06-29-2022 End: 06-29-2022 peg 3350-electrolytes (COLYTE) 240-22.72-6.72 -5.84 gram solution Indications: Special screening for malignant neoplasms, colon Take 4,000 mL by mouth one time only for 1 dose. 4000 mL 0 06/29/2022 06/29/2022 Active Comment on above: Take 4,000 mL by brigida th one time only for 1 dose. predniSONE 10 mg oral tablet (4 sources) Start: 12-24-2022 Prednisone Active 10 MG PO As Directed December 24, 2022 12:00am see taper instructions Start: 12-23-2022 End: 01-04-2023 predniSONE (DELTASONE) 10 mg tablet Indications: Allergic reaction, initial encounter Take 6 tabs for 3 days, then 4 tabs for 3 days, then 2 tabs for 3 days then 1 tab for 3 days with food. 39 tablet 0 12/23/2022 01/04/2023 Comment on above: Take 6 tabs for 3 da ys, then 4 tabs for 3 days, then 2 tabs for 3 days then 1 tab for 3 days with food. vitamin b12 1 mg oral tablet (20 sources) Vitamin B12 Start: 06-30-2021 End: 01-27-2024 take 1 tablet by mouth once daily cyanocobalamin (VITAMIN B-12) 1,000 mcg tab Indications: Vitamin B12 deficiency Take 1 tablet by mouth once daily. 90 tablet 3 01/27/2024 Active Comment on above: Take 1 tablet by brigida th once daily. Zinc (20 sources) take 1 tablet by mouth once daily ZINC ORAL Take 1 tablet by mouth once daily. Active take 1 tablet by mouth once anita y ZINC ORAL Take 1 tablet by mouth once daily. 0 Active Comment on above: Take 1 tablet by brigida th once daily. zinc gluconate 50 mg oral tablet (4 sources) Start: 08-24-2022 take 50 mg by mouth once daily Zinc Gluconate Active 50 MG PO DAILY August 24, 2022 12:00am Completed/Discontinued Medications Medication Drug Class(es) Dates Sig (Normalized) Sig (Original) acetaminophen 325 mg / oxyCODONE hydrochloride 5 mg oral tablet (4 sources) Opioid Agonist Start: 09-30-2022 End: 10-14-2022 take 1 tablet by mouth every six hours Oxycodone-Acetamin ophen Discontinued 1 - 2 TABLET PO EVERY 6 HOURS 14 September 30, 2022 October 14, 2022 3:44pm cephalexin 500 mg oral capsule (3 sources) Cephalosporin Antibacterial Start: 12-12-2022 End: 12-24-2022 take 500 mg by mouth every six hours Cephalexin Discontinued 500 MG PO EVERY 6 HOURS 40 December 12, 2022 12:00am December 24, 2022 3:00pm sulfamethoxazole 800 mg / trimethoprim 160 mg oral tablet (3 sources) Dihydrofolate Reductase Inhibitor Antibacterial, Sulfonamide Antimicrobial Start: 12-12-2022 End: 12-24-2022 take 1 tablet by mouth twice daily Sulfamethoxazole-T rimethoprim (Bactrim Ds) 800-160 mg tablet Discontinued 1 TABLET PO TWICE A DAY December 12, 2022 12:00am December 24, 2022 3:01pm 1 ml triamcinolone acetonide 40 mg/ml injection (1 source) Corticosteroid Start: 12-23-2022 End: 12-23-2022 triamcinolone acetonide 40 mg injection (KeNALog 40) Problems Active Problems Problem Classification Problem Date Documented Date Episodic/Chronic Abdominal pain (2 sources) Indigestion; Translations: [Epigastric pain] Onset: 07-07-2024 07-07-2024 Episodic Allergic reactions (3 sources) Allergic reaction; Translations: [Allergy, unspecified, initial encounter] 12-23-2022 Episodic Anxiety disorders (11 sources) Mixed anxiety and depressive disorder; Translations: [Anxiety disorder, unspecified] Onset: 06-20-2014 07-23-2023 Chronic Cancer of breast (20 sources) Malignant tumor of breast ; Translations: [Malignant neoplasm of unspecified site of left female breast] Onset: 09-14-2022 09-18-2022 Chronic Disorders of lipid metabolism (3 sources) Hyperlipidemia; Translations: [Hyperlipidemia, unspecified] Onset: 12-30-2023 12-30-2023 Chronic Essential hypertension (20 sources) Essential hypertension; Translations: [Essential (primary) hypertension] Onset: 06-01-2018 Chronic Malaise and fatigue (1 source) Fatigue; Translations: [Other fatigue] 06-29-2023 Episodic Nutritional deficiencies (3 sources) Vitamin D deficiency; Translations: [Vitamin D deficiency, unspecified] Chronic Nutritional deficiencies (3 sources) Cobalamin deficiency; Translations: [Deficiency of other specified B group vitamins] Episodic Other connective tissue disease (1 source) Cramp in lower limb; Translations: [Cramp and spasm] 02-09-2024 Episodic Other nutritional; endocrine; and metabolic disorders (20 sources) Morbid obesity; Translations: [Morbid (severe) obesity due to excess calories] Onset: 04-17-2018 04-17-2018 Chronic Other nutritional; endocrine; and metabolic disorders (11 sources) Body mass index 30+ - obesity; Translations: [Body mass index (BMI) 37.0-37.9, adult] Onset: 10-13-2013 07-23-2023 Chronic Other nutritional; endocrine; and metabolic disorders (1 source) Severe obesity; Translations: [Morbid (severe) obesity due to excess calories] 08-06-2023 Chronic Other nutritional; endocrine; and metabolic disorders (1 source) Morbid (severe) obesity due to excess calories; Translations: [Class 3 severe obesity with body mass index (BMI) of 40.0 to 44.9 in adult, unspecified obesity type, unspecified whether serious comorbidity present (HCC)] Onset: 08-06-2023 Chronic Other nutritional; endocrine; and metabolic disorders (1 source) Body mass index (BMI) 40.0-44.9, adult; Translations: [Class 3 severe obesity with body mass index (BMI) of 40.0 to 44.9 in adult, unspecified obesity type, unspecified whether serious comorbidity present (HCC)] Onset: 08-06-2023 Chronic Other nutritional; endocrine; and metabolic disorders (3 sources) History of Graves' disease; Translations: [Personal history of other endocrine, nutritional and metabolic disease] 12-30-2023 Episodic Other screening for suspected conditions (not mental disorders or infectious disease) (17 sources) Patient encounter status; Translations: [Encounter for screening mammogram for malignant neoplasm of breast] Onset: 07-23-2023 Episodic Residual codes; unclassified (20 sources) Obstructive sleep apnea syndrome; Translations: [Obstructive sleep apnea (adult) (pediatric)] Onset: 12-16-2017 12-16-2017 Chronic Residual codes; unclassified (2 sources) Obstructive sleep apnea (adult) (pediatric); Translations: [JOEY (obstructive sleep apnea)] Onset: 02-22-2023 Chronic Residual codes; unclassified (10 sources) Other specified postprocedural states; Translations: [Other postprocedural status] 10-16-2022 Episodic Residual codes; unclassified (3 sources) Edema of lower leg ; Translations: [Localized edema] 12-30-2023 Episodic Past or Other Problems Problem Classification Problem Date Documented Da te Episodic/Chronic Cancer of breast (3 sources) History of malignant neoplasm of breast; Translations: [Personal history of malignant neoplasm of breast] Onset: 12-30-2023 12-30-2023 Episodic Nonmalignant breast conditions (20 sources) Calcification of breast; Translations: [Mammographic calcification found on diagnostic imaging of breast] Onset: 06-22-2012 07-23-2023 Episodic Other aftercare (12 sources) Prophylactic aromatase inhibitors given; Translations: [emt intermediate (current) use of aromatase inhibitors] Onset: 07-23-2023 04-29-2023 Episodic Other bone disease and musculoskeletal deformities (12 sources) Osteopenia; Translations: [Other specified disorders of bone density and structure, unspecified site] Onset: 11-11-2022 04-29-2023 Episodic Other connective tissue disease (1 source) Cramp and spasm; Translations: [Leg cramp] Onset: 02-09-2024 Episodic Other nutritional; endocrine; and metabolic disorders (1 source) Personal history of other endocrine, nutritional and metabolic disease; Translations: [History of Graves' disease] Onset: 12-30-2023 Episodic Residual codes; unclassified (13 sources) History of left mastectomy; Translations: [Other specified postprocedural states] Onset: 11-13-2022 10-19-2022 Episodic Residual codes; unclassified (1 source) Localized edema; Translations: [Lower leg edema] Onset: 12-30-2023 Episodic Residual codes; unclassified (1 source) Estrogen receptor positive status [ER+]; Translations: [Estrogen receptor positive status [ER+]] Onset: 03-13-2024 Episodic Skin and subcutaneous tissue infections (16 sources) Cellulitis; Translations: [Cellulitis, unspecified] Onset: 12-17-2022 12-12-2022 Episodic Unclassified (1 source) Patient encounter status 07-07-2024 Results Test Name Value Interpretation Reference Range Facility CNOVon 07-07-2024 CNOV Office Visit (FAMPWS ) -------- EMIGDIO HAIDER ([id number]) 1965 F Date Time Provider Department 07/07/24 7:20 AM ALISSON RESENDIZ [facility] During your visit today, we recorded the following information about you: Pulse Respiration Blood pressure Weight 87/minute 16/minute 140/86 128.7 kg Height 1.665 m Alisson Resendiz APRN.PROFESSIONAL VOLLEYBALL PLAYER 07/07/2024 9:37 AM Signed This is a 58 year old female who presents today with: Patient presents with: Wellness HISTORY OF PRESENT ILLNESS: Emigdio Haider is a 58 year old female. Patient presents with: Wellness Wellness exam Diet: Eating a well balanced diet. Exercise: Walking a couple days per week. Vision: Had exam, wearing glasses. Dental: Had exam. Sleep: 7-8 hours per night. Mood: Increased stress with getting a new job. No SI/HI. GI virus this past Wednesday. Stomach still upset. Intermittent nausea. No vomiting or diarrhea. No heartburn but has noticed increased burping. BM this morning. Denies abdominal pain or urinary symptoms. HTN: Taking amlodipine 5 mg, hydrochlorothiazide 12.5 mg, and losartan 100 mg daily. Checking blood pressure at home, 130/70's. Denies chest pain, palpitations, dizziness, or edema. History of breast cancer, follow up yearly. Gets calcium infusion every 6 months. JOEY: CPAP, sleeping well. Waking up feeling refreshed. History of graves disease in the past, thyroid functioning was normal in the fall. TSH will be elevated at times, monitoring through labs. Mammogram: July 2023 w/juan normal. History of full hysterectomy. Colonoscopy: Due, order is in place. Vaccines: Denies wanting any vaccines at this time. PAST MEDICAL HISTORY: PAST MEDICAL HISTORY Diagnosis Date Breast cancer (HCC) Essential hypertension History of radiation therapy JOEY (obstructive sleep apnea) DME [facility] Standard fx. [phone] PAST SURGICAL HISTORY Procedure Laterality Date HYSTERECTOMY 2011 Total Hysterectomy-Dr. Gamble in [place] PAST SURGICAL HISTORY OF 09/30/2022 Lumpectomy at [facility] TONSILLECTOMY HX 1970 ALLERGIES Bactrim [Sulfamethoxazole-Trimet hoprim] and Erythromycin MEDICATIONS Current Outpatient Medications Medication Sig amLODIPine (NORVASC) 5 mg tablet Take 1 tablet by mouth once daily. hydroCHLOROthiazide 12.5 mg capsule Take 1 capsule by mouth once daily. Cholecalciferol, Vitamin D3, 125 mcg (5,000 unit) cap Take 1 capsule by mouth once daily. cyanocobalamin (VITAMIN B-12) 1,000 mcg tab Take 1 tablet by mouth once daily. losartan (COZAAR) 100 mg tablet Take 1 tablet by mouth once daily. CPAP/BIPAP/OTHER CPAP 8 cmH2O DME [facility] CALCIUM ORAL Take 2 tablets by mouth once daily. 1200 MG. ZINC ORAL Take 1 tablet by mouth once daily. CPAP CPAP 8 cmH2O, mask(pt pref), chin strap, heated tubing AND humidity, filters. Lifetime supplies. Dx: G47.33. (Please provide supplies) fluticasone (FLONASE) 50 mcg/actuation nasal spray Use 2 Sprays in each nostril once daily. Rinse mouth after use. MULTIVITAMIN ORAL Take by mouth. No current facility-administered medications for this visit. FAMILY HISTORY Problem Relation Age of Onset No Known Problems Mother No Known Problems Father Thyroid Sister No Known Problems Brother No Known Problems Sister Social History Tobacco Use Smoking status: Never Smokeless tobacco: Never Vaping Use Vaping status: Never Used Substance Use Topics Alcohol use: Yes Alcohol/week: 7.0 standard drinks of alcohol Types: 7 Glasses of Wine (5oz) per week Drug use: No REVIEW OF SYSTEMS GENERAL: No weight loss, malaise or fevers/chills HEENT: Negative for frequent or significant headaches, No changes in hearing or vision. NECK: Negative for lumps, goiter, pain and significant neck swelling RESPIRATORY: Negative for cough, hemoptysis, wheezing, dyspnea or shortness of breath CARDIOVASCULAR: Negative for chest pain, leg swelling, orthopnea, or palpitations GI: + Burping, nausea : No history of dysuria, frequency or incontinence MUSCULOSKELETAL: Negative for joint pain or swelling. SKIN: Negative for lesions, rash, and itching ENDOCRINE: Negative for cold or heat intolerance, polyuria, polydipsia and goiter NEURO: No history of headaches, syncope, paralysis, seizures or tremors MOOD: Negative for depression, anxiety, or suicidal ideation. EXAM: BP 140/86 Pulse 87 Resp 16 Ht 166.5 cm (5' 5.55") Wt 128.7 kg (283 lb 11.7 oz) SpO2 96% BMI 46.43 kg/m? PHYSICAL EXAM: General Appearance: Well appearing, alert, in no acute distress, well-hydrated, well nourished. Skin: Skin color, texture, turgor normal, no suspicious rashes or lesions. Head: Normocephalic, no masses, lesions, tenderness or abnormalities. Eyes: Anicteric sclera. Pupils are equally round and reactive to light. Extraocular movements are intact. Ears: External ears selwyn (more content not included)... Normal [facility] Radiation Oncology Visiton 1 05-14-2023 Radiation Oncology Visit [facility] [address] [place] [address]. [place] [address] OFFICE VISIT Date of Service: 03/13/24901 MR#: [id number] Acct: [id number] Name: EMIGDIO HAIDER GOLDEN Rep #: [id number] : 1965 From: Bear Kapadia DO Age/Sex: 58/F Location: [facility] [place] [facility] Status: Signed Intake Vital Signs 10/12/23 09:05 01/24/24 14:31 03/13/24 09:06 Height 5 ft 8 in 5 ft 8 in 5 ft 8 in Weight: 279 lb 4 oz BMI 42.4 BP 142/91 H Blood Pressure Location Rt brachial Position Sitting Respiration 18 Pulse 97 Pulse Source Monitor Temp 97.8 F Temperature Source Temporal Artery Pulse Oximetry (%) 95 Oxygen Delivery Method room air Intake Visit Reasons: 5 MONTH F/U BREAST Is patient in pain?: No Allergies sulfamethoxazole (From Sulfamethoxazole-Trimeth oprim) Allergy (Intermediate, Verified 03/13/24 09:05) Rash trimethoprim (From Sulfamethoxazole-Trimeth oprim) Allergy (Intermediate, Verified 03/13/24 09:05) Rash Medications ???Medication ???Instructions ???Recorded ???Confirmed ???Type cholecalciferol (vitamin D3) 125 5,000 unit PO DAILY 08/24/22 10/12/23 History mcg (5,000 unit) capsule cyanocobalamin (vitamin B-12) 1,000 mcg PO DAILY 08/24/22 10/12/23 History 1,000 mcg tablet zinc gluconate 50 mg tablet 50 mg PO DAILY 08/24/22 10/12/23 History calcium carbonate 600 mg PO DAILY 12/02/22 10/12/23 History losartan 100 mg tablet 125 mg PO DAILY 01/24/24 01/24/24 History anastrozole 1 mg tablet 1 mg PO DAILY #90 tabs 01/27/24 Rx amlodipine 5 mg tablet 5 mg PO QDAY 03/13/24 03/13/24 History ferrous sulfate 325 mg (65 mg 325 mg PO QDAY 03/13/24 03/13/24 History iron) tablet (FeroSul) hydrochlorothiazide 12.5 mg capsule 12.5 mg PO QDAY 03/13/24 03/13/24 History PFSH PFSH Medical History Use of aromatase inhibitors Osteopenia Breast cancer Wears glasses Post-menopausal Alcohol use Injury of head and neck Loss of consciousness Smoker CPAP (continuous positive airway pressure) dependence Sleep apnea Hypertension Home Medications ???Medication ???Instructions ???Recorded ???Last Taken ???Type cholecalciferol (vitamin D3) 125 5,000 unit PO DAILY 08/24/22 Unknown History mcg (5,000 unit) capsule cyanocobalamin (vitamin B-12) 1,000 mcg PO DAILY 08/24/22 Unknown History 1,000 mcg tablet zinc gluconate 50 mg tablet 50 mg PO DAILY 08/24/22 Unknown History calcium carbonate 600 mg PO DAILY 12/02/22 Unknown History losartan 100 mg tablet 125 mg PO DAILY 01/24/24 Unknown History anastrozole 1 mg tablet 1 mg PO DAILY #90 tabs 01/27/24 Unknown Rx amlodipine 5 mg tablet 5 mg PO QDAY 03/13/24 Unknown History ferrous sulfate 325 mg (65 mg 325 mg PO QDAY 03/13/24 Unknown History iron) tablet (FeroSul) hydrochlorothiazide 12.5 mg capsule 12.5 mg PO QDAY 03/13/24 Unknown History Allergy/AdvReac Type Severity Reaction Status Date / Time sulfamethoxazole (From Allergy Intermediate Rash Verified 03/13/24 09:05 Sulfamethoxazole-Trimeth oprim) trimethoprim (From Allergy Intermediate Rash Verified 03/13/24 09:05 Sulfamethoxazole-Trimeth oprim) Family History Sister Thyroid disorder Surgical History S/P lumpectomy, left breast Hx of hysterectomy S/P section S/P tonsillectomy Social History Smoking Status: Former smoker alcohol intake: current alcohol intake frequency: a few times a week substance use type: does not use Diagnosis: Emigdio Haider is a 58-year-old female diagnosed with pathologic stage IA (pT1c pN0 (sn) M0) grade 1 invasive ductal carcinoma (ER > 95%, MN > 95%, HER2 0+ IHC) of the left breast status post bilateral screening mammogram (07/09/2022), left diagnostic mammogram and ultrasound (08/12/2022), core needle biopsy of the left breast (08/24/2022), bilateral breast MRI (09/09/2022), completion of left breast lumpectomy and sentinel lymph node biopsy (09/30/2022), and evaluation by medical oncology (10/14/2022). From 11/23/2022 ??? 12/15/2022 she received adjuvant radiation therapy to the left breast. History of Present Illness: 07/09/2022: Patient completed bilateral screening mammography.??? This demonstrated focal asymmetry in the left breast upper outer aspect middle depth is indeterminant and additional views are recommended.??? BI-RADS Category 0. 08/12/2022: Patient completed left diagnostic mammogram which demonstrated a 1.2 cm irregular focal asymmetry with a spiculated margin in the left breast at the 1:00 middle depth position, no other abnormalities are noted.??? Patient completed limited ultrasound of the left breast.??? This (more content not included)... [facility] 02-10-2024 CNPN Telephone (FAMPWS) -------- EMIGDIO HAIDER ([id number]) 1965 F Date Time Provider Department 02/10/24 ALISSON RESENDIZ [facility] During your visit today, we recorded the following information about you: Alisson Resendiz APRN.CNP 02/10/2024 4:31 PM Signed Can you please call the patient and let her know that I reviewed her lab results. Electrolytes were normal. As discussed during office visit I would like her to ensure that she is getting adequate water during the day especially with using the hydrochlorothiazide. TSH was just mildly elevated. If she is not having any symptoms we can continue to monitor this and recheck labs in 6 to 8 weeks. Can you please ask if she ever saw an corporate risk analyst in the past? Thank you lAisson Resendiz APRN.Keira Henson MA 02/10/2024 4:45 PM Signed Pt notified. She denies any sx at this time, would prefer to just recheck labs as planned in June since she is not having any issues. She has seen Endo in [place] in past for Grave's Disease. WALT Singer Ashley, APRN.CNP 02/11/2024 2:30 PM Signed Noted, thank you Alisson Resendiz APRN.PROFESSIONAL VOLLEYBALL PLAYER Allergies As of Date: 02/10/2024 Noted Allergy Reaction BACTRIM (SULFAMETHOXAZOLE-TRIMET H*12/28/2022 2 - Rash ERYTHROMYCIN 08/18/2022 14 - Other: See Comments Comments: Happened when she was younger, cannot remember the reaction. Date Reviewed: 02/09/2024 Reviewed by: Renate Riley LPN - Fully Assessed Reason for Visit: Results [95] Cmt: Labs Prescriptions as of 02/11/2024 - Cholecalciferol, Vitamin D3, 125 mcg (5,000 unit) cap Take 1 capsule by mouth once daily. - cyanocobalamin (VITAMIN B-12) 1,000 mcg tab Take 1 tablet by mouth once daily. - amLODIPine (NORVASC) 5 mg tablet Take 1 tablet by mouth once daily. - losartan (COZAAR) 100 mg tablet Take 1 tablet by mouth once daily. - hydroCHLOROthiazide 12.5 mg capsule Take 1 capsule by mouth once daily. - CPAP/BIPAP/OTHER CPAP 8 cmH2O [facility] - CALCIUM ORAL Take 2 tablets by mouth once daily. 1200 MG. - ZINC ORAL Take 1 tablet by mouth once daily. - CPAP CPAP 8 cmH2O, mask(pt pref), chin strap, heated tubing AND humidity, filters. Lifetime supplies. Dx: G47.33. (Please provide supplies) - fluticasone (FLONASE) 50 mcg/actuation nasal spray Use 2 Sprays in each nostril once daily. Rinse mouth after use. - MULTIVITAMIN ORAL Take by mouth. Problem List As Of Date 02/10/2024 Noted Resolved JOEY (obstructive sleep apnea) [G47.33] 12/16/2017 Morbid obesity (HCC) [E66.01] 04/17/2018 Essential hypertension [I10] 06/01/2018 Anxiety and depression [F41.9, F32.A] 06/20/2014 Diagnosed: 07/23/2023 BMI 37.0-37.9, adult [Z68.37] 10/13/2013 Diagnosed: 07/23/2023 Breast calcification, right [R92.1] 06/22/2012 Diagnosed: 07/23/2023 Cellulitis [L03.90] 12/17/2022 Diagnosed: 07/23/2023 History of left mastectomy [Z90.12] 11/13/2022 Diagnosed: 07/23/2023 Malignant neoplasm of breast (HCC) [C50.919] 09/14/2022 Diagnosed: 07/23/2023 Mass of breast [N63.0] 08/29/2022 Diagnosed: 07/23/2023 Osteopenia [M85.80] 11/11/2022 Diagnosed: 07/23/2023 Prophylactic use of aromatase inhibitors [Z79.8*07/23/2023 Diagnosed: 07/23/2023 Encounter Status:Closed by ALISSON RESENDIZ on 02/11/24 Normal [facility] CNOVon 02-09-2024 CNOV Office Visit (FAMPWS ) -------- EMIGDIO HAIDER ([id number]) 1965 F Date Time Provider Department 02/09/24 7:40 AM [facility] During your visit today, we recorded the following information about you: Pulse Respiration Blood pressure Weight 100/minute 16/minute 126/86 125.2 kg Alisson Resendiz APRN.PROFESSIONAL VOLLEYBALL PLAYER 02/09/2024 8:11 AM Signed This is a 58 year old female who presents today with: Patient presents with: Follow Up: 1 month follow B HISTORY OF PRESENT ILLNESS: Emigdio Haider is a 58 year old female. Patient presents with: Follow Up: 1 month follow B Here in the office for 1 month blood pressure check. Last month added on Amlodipine 5 mg and HCTZ 12.5 mg daily. Still taking Losartan 100 mg daily. Checking blood pressure at home, 102/80's. The HCTZ has helped with lower leg swelling. Has noticed some night time cramping in bilateral calves. Refers that she does not drink much water. Denies chest pain, palpitations, or dizziness. PAST MEDICAL HISTORY: PAST MEDICAL HISTORY Diagnosis Date Breast cancer (HCC) Essential hypertension History of radiation therapy JOEY (obstructive sleep apnea) [facility] fx. [phone] PAST SURGICAL HISTORY Procedure Laterality Date HYSTERECTOMY 2011 Total Hysterectomy-Dr. Gamble in [place] PAST SURGICAL HISTORY OF 09/30/2022 Lumpectomy at [facility] TONSILLECTOMY HX 1970 ALLERGIES Bactrim [Sulfamethoxazole-Trimet hoprim] and Erythromycin MEDICATIONS Current Outpatient Medications Medication Sig Cholecalciferol, Vitamin D3, 125 mcg (5,000 unit) cap Take 1 capsule by mouth once daily. cyanocobalamin (VITAMIN B-12) 1,000 mcg tab Take 1 tablet by mouth once daily. amLODIPine (NORVASC) 5 mg tablet Take 1 tablet by mouth once daily. losartan (COZAAR) 100 mg tablet Take 1 tablet by mouth once daily. hydroCHLOROthiazide 12.5 mg capsule Take 1 capsule by mouth once daily. CPAP/BIPAP/OTHER CPAP 8 cmH2O [facility] CALCIUM ORAL Take 2 tablets by mouth once daily. 1200 MG. ZINC ORAL Take 1 tablet by mouth once daily. CPAP CPAP 8 cmH2O, mask(pt pref), chin strap, heated tubing AND humidity, filters. Lifetime supplies. Dx: G47.33. (Please provide supplies) fluticasone (FLONASE) 50 mcg/actuation nasal spray Use 2 Sprays in each nostril once daily. Rinse mouth after use. MULTIVITAMIN ORAL Take by mouth. No current facility-administered medications for this visit. FAMILY HISTORY Problem Relation Age of Onset No Known Problems Mother No Known Problems Father Thyroid Sister No Known Problems Brother No Known Problems Sister Social History Tobacco Use Smoking status: Never Smokeless tobacco: Never Vaping Use Vaping status: Never Used Substance Use Topics Alcohol use: Yes Alcohol/week: 7.0 standard drinks of alcohol Types: 7 Glasses of Wine (5oz) per week Drug use: No REVIEW OF SYSTEMS GENERAL: No weight loss, malaise or fevers/chills HEENT: Negative for frequent or significant headaches, No changes in hearing or vision. NECK: Negative for lumps, goiter, pain and significant neck swelling RESPIRATORY: Negative for cough, hemoptysis, wheezing, dyspnea or shortness of breath CARDIOVASCULAR: Negative for chest pain, leg swelling, orthopnea, or palpitations GI: No nausea, vomiting, or diarrhea/constipation. No hematochezia/melena. No heartburn or reflux symptoms. : No history of dysuria, frequency or incontinence MUSCULOSKELETAL: + Calf cramping SKIN: Negative for lesions, rash, and itching ENDOCRINE: Negative for cold or heat intolerance, polyuria, polydipsia and goiter NEURO: No history of headaches, syncope, paralysis, seizures or tremors MOOD: Negative for depression, anxiety, or suicidal ideation. EXAM: BP 126/86 Pulse 100 Resp 16 Wt 125.2 kg (276 lb) SpO2 97% BMI 44.62 kg/m? PHYSICAL EXAM: General Appearance: Well appearing, alert, in no acute distress, well-hydrated, well nourished. Skin: Skin color, texture, turgor normal, no suspicious rashes or lesions. Head: Normocephalic, no masses, lesions, tenderness or abnormalities. Eyes: Anicteric sclera. Extraocular movements are intact. Lungs: Lungs clear to auscultation. No wheezing, rhonchi, rales. Heart: RRR without murmur, gallop, or rubs. No ectopy. Extremities: +1 non-pitting edema noted to lower legs bilaterally. No erythema. Peripheral Pulses: Normal, Capillary refill <2secs, strong peripheral pulses, Pulses palpable. Neurologic: Gait normal. Sensation grossly intact.. ASSESSMENT/PLAN: 1. Essential hypertension - ICD9: 401.9, ICD10: I10 (primary diagnosis) - Controlled - Continue current medications - Recommend home blood pressure monitoring, to bring results to next visit - Encouraged sodium restriction, DASH or Mediterranean diet - Recommend regular aerobic exercise - Discussed need for and bene (more content not included)... Normal [facility] Comprehensive metabolic 2000 panelon 02-09-2024 Albumin [Mass/Vol] 3.9 g/dL Normal 3.9-4.9 [facility] Comment on above: Order Comment: Speci men Type: BLOOD SPECIMENOrdering Facility: [facility] Address: [address] [place] [address] Performed By: #### 2 4323-8, 3023-7, , 3 ####[facility] LABIA [id number] [place] [address] [place] ALP [Catalytic activity/Vol] 166 U/L High 34-123 [facility] Comment on above: Order Comment: Speci men Type: BLOOD SPECIMENOrdering Facility: [facility] Address: [address] [place] [address] Performed By: #### 2 4323-8, 4-7, 99992-9, 3 ####[facility] LABCLIA [id number] [place] [address] [place] ALT [Catalytic activity/Vol] 33 U/L Normal 7-38 [facility] Comment on above: Order Comment: Speci men Type: BLOOD SPECIMENOrdering Facility: [facility] Address: [address] [place] [address] Performed By: #### 2 4323-8, 3024-7, 15998-8, 6-3 ####[facility] LABCLIA [id number] [address] [address] [place] Anion gap [Moles/Vol] 15 mmol/L Normal 8-15 [facility] Comment on above: Order Comment: Speci men Type: BLOOD SPECIMENOrdering Facility: [facility] Address: [address] [place], [place] [address] Performed By: #### 2 4323-8, 3024-7, 69218-9, 6-3 ####[facility] LABCLIA [id number] [address] [address] [place] AST [Catalytic activity/Vol] 31 U/L Normal 13-35 [facility] Comment on above: Order Comment: Speci men Type: BLOOD SPECIMENOrdering Facility: [facility] Address: [address] [place] [address] Performed By: #### 2 4323-8, 3024-7, 82570-0, 6-3 ####[facility] LABCLIA [id number] [address] [address] [place] Bilirubin [Mass/Vol] 0.5 mg/dL Normal 0.2-1.3 [facility] Comment on above: Order Comment: Speci men Type: BLOOD SPECIMENOrdering Facility: [facility] Address: [address] [place] [address] Performed By: #### 2 4323-8, 4-7, 68319-3, 3015-3 ####[facility] LABCLIA [id number] [address] [address] [place] Calcium [Mass/Vol] 9.5 mg/dL Normal 8.5-10.2 [facility] Comment on above: Order Comment: Speci men Type: BLOOD SPECIMENOrdering Facility: [facility] Address: [address] [place] [address] Performed By: #### 2 4323-8, 3024-7, 51301-4, 6-3 ####[facility] LABCLIA [id number] [address] [address] [place] Chloride [Moles/Vol] 98 mmol/L Normal 98-107 [facility] Comment on above: Order Comment: Speci men Type: BLOOD SPECIMENOrdering Facility: [facility] Address: [address] [place] [address] Performed By: #### 2 4323-8, 3024-7, , 3015-3 ####[facility] LABCLIA [id number] [place] [address] [place] CO2 [Moles/Vol] 25 mmol/L Normal 22-30 [facility] Comment on above: Order Comment: Speci men Type: BLOOD SPECIMENOrdering Facility: [facility] Address: [address] [place] [address] Performed By: #### 2 4323-8, 3024-7, , 3015-3 ####[facility] LABCLIA [id number] [address] [address] [place] Creatinine [Mass/Vol] 0.61 mg/dL Normal 0.58-0.96 [facility] Comment on above: Order Comment: Speci men Type: BLOOD SPECIMENOrdering Facility: [facility] Address: [address] [place] [address] Performed By: #### 2 4323-8, 3024-7, , 3015-3 ####[facility] LABCLIA [id number] [address] [address] [place] Creatinine and Glomerular filtration rate.predicted panel (S/P/Bld) 103 mL/min/1.73m??? Normal >=60 [facility] Comment on above: Order Comment: Sybil pagan Type: BLOOD SPECIMENOrdering Facility: [facility] Address: [address] [place] [address] Result Comment: Padmini mated Glomerular Filtration Rate (eGFR) is calculated using the 2020 CKD-EPI creatinine equation. This equation utilizes serum creatinine, sex, and age as parameters. The creatinine assay has traceable calibration to isotope dilution-mass spectrometry. Refer to KDIGO guidelines for clinical interpretation. In patients with unstable renal function, e.g. those with acute kidney injury, the eGFR may not accurately reflect actual GFR. Performed By: #### 2 4323-8, 3024-7, 68848-7, 3015-3 ####[facility] LABIA [id number] [place] [address] [place] Glucose [Mass/Vol] 82 mg/dL Normal 74-99 [facility] Comment on above: Order Comment: Sybil pagan Type: BLOOD SPECIMENOrdering Facility: [facility] Address: [address] [place] [address] Result Comment: The [place] Diabetes Association (ADA) provides guidance for cutoff values for fasting glucose and random glucose. The ADA defines fasting as no caloric intake for at least 8 hours. Fasting plasma glucose results between 100 to 125 mg/dL indicate increased risk for diabetes (prediabetes). Fasting plasma glucose results greater than or equal to 126 mg/dL meet the criteria for diagnosis of diabetes. In the absence of unequivocal hyperglycemia, results should be confirmed by repeat testing. In a patient with classic symptoms of hyperglycemia or hyperglycemic crisis, random plasma glucose results greater than or equal to 200 mg/dL meet the criteria for diagnosis of diabetes. Reference: Standards of Medical Care in Diabetes 2016, [place] Diabetes Association. Diabetes Care. 2016.39(Suppl 1). Performed By: #### 2 4323-8, 3024-7, 85780-5, 3015-3 ####[facility] LABCLIA [id number] [address] [address] [place] Potassium [Moles/Vol] 4.0 mmol/L Normal 3.7-5.1 [facility] Comment on above: Order Comment: Speci men Type: BLOOD SPECIMENOrdering Facility: [facility] Address: [address] [place], [place] [address] Performed By: #### 2 4323-8, 3023-7, , 3015-3 ####[facility] LABCLIA [id number] [address] [address] [place] Protein [Mass/Vol] 7.1 g/dL Normal 6.3-8.0 [facility] Comment on above: Order Comment: Speci men Type: BLOOD SPECIMENOrdering Facility: [facility] Address: [address] [place] [address] Performed By: #### 2 4323-8, 3023-7, , 3 ####[facility] LABIA [id number] [place] [address] [place] Sodium [Moles/Vol] 138 mmol/L Normal 136-144 [facility] Comment on above: Order Comment: Speci men Type: BLOOD SPECIMENOrdering Facility: [facility] Address: [address] [place] [address] Performed By: #### 2 4323-8, 3023-7, , 3 ####[facility] LABIA [id number] [place] [id number] [place] Urea nitrogen [Mass/Vol] 7 mg/dL Normal 7-21 [facility] Comment on above: Order Comment: Speci men Type: BLOOD SPECIMENOrdering Facility: [facility] Address: [address] [place] [address] Performed By: #### 2 4323-8, 3023-7, , 3015-3 ####[facility] LABIA [id number] [address] [address] [place] Magnesium SerPl-mCncon 02-08 Magnesium [Mass/Vol] 1.8 mg/dL Normal 1.7-2.3 [facility] Comment on above: Order Comment: Speci men Type: BLOOD SPECIMENOrdering Facility: [facility] Address: [address] [place] [address] Performed By: #### 2 4323-8, 3024-7, 38133-6, 6-3 ####[facility] LABCLIA [id number] [place] [address] [place] T4 Free SerPl-mCncon 024 Free T4 [Mass/Vol] 1.1 ng/dL Normal 0.9-1.7 [facility] Comment on above: Order Comment: Speci men Type: BLOOD SPECIMENOrdering Facility: [facility] Address: [address] [place] [address] Performed By: #### 2 4323-8, 3024-7, 37125-9, 6-3 ####[facility] LABCLIA [id number] [place] [id number] [place] TSH SerPl-aCncon 02-09-2024 TSH Qn 4.260 m[IU]/L High 0.270-4.200 [facility] Comment on above: Order Comment: Speci men Type: BLOOD SPECIMENOrdering Facility: [facility] Address: [address] [place] [address] Performed By: #### 2 4323-8, 3024-7, 50007-5, 6-3 ####[facility] LABCLIA [id number] [place] [id number] [place] Oncology Visit Reporton 01-04 Oncology Visit Report [facility] [address] [place] [address] OFFICE VISIT Date of Service: 01/24/24 1426 MR#: [id number] Acct: [id number] Name: BARBBETZYEMIGDIO GOLDEN Rep #: [id number] : 1965 From: Noy Sorenson MD Age/Sex: 58/F Location: [facility] [place] Status: Signed HPI Subjective Date of Service 01/24/24 Chief Complaint Breast cancer History of Present Illness 58-year-old female, postmenopausal (status post hysterectomy and bilateral salpingo-oophorectomy) who presented after an abnormal screening mammogram. No first-degree relatives with breast cancer and she has been vigilant with annual screening mammography. August 24, 2022 Left breast mass at 1 o???clock, needle core biopsy: Invasive ductal carcinoma with the following characteristics: Nuclear grade ??? 1 Maximal length ??? 7.0 millimeters Other findings ??? ductal carcinoma in situ (nuclear grade 1) ANTIBODY / CLONE RESULT P53 (DO-7) negative, null pattern Ki-67 (30-9) positive, 30% CK8 (57ulhbW65) positive CK5-6 (D5 1684) negative Calponin-1 (WF630I) negative P40 (BC28) negative E-Cad (ECH-6) positive TERRAZAS-2 (SP21) positive MORPHOMETRIC ANALYSIS ER (clone 6F11) >95%, strong intensity MN (clone 16/1E2) >95%, moderate to strong intensity Her-2Neu (clone CB11) 0 September 30, 2022 left breast lumpectomy with left axillary sentinel lymph node dissection: FROZEN SECTION DIAGNOSIS A. Left axillary sentinel lymph node, biopsy: One lymph node, negative for metastatic carcinoma. SJ:channing 09/30/2022 MICROSCOPIC DIAGNOSIS A. Left axillary sentinel lymph node, biopsy: One out of one lymph node negative for metastatic carcinoma. See comment. B. Left breast, lumpectomy: Invasive ductal carcinoma. See cancer template below. C. Left breast, new superior margin, biopsy: Focal atypical intraductal hyperplasia. Usual intraductal hyperplasia. Mild fibrocystic change. Focal intraductal papilloma. No evidence of malignancy. AM:channing 10/05/2022 COMMENT A. Immunohistochemistry ([id number]) supports the above diagnosis. B. INVASIVE BREAST CANCER SUMMARY: Procedure - excision with wire guidance Specimen: Type - partial breast Size ??? 4.0 x 3.5 x 2.0 cm Laterality - left breast Tumor: Site ??? not specified Size ??? 1.2 x 1.2 x 1.0 cm Histologic type - invasive ductal carcinoma. Focality - single focus of carcinoma. Histologic Grade (Maryann grade): Glandular/tubular differentiation - score 3 Nuclear pleomorphism - score 2 Mitotic count ??? score 1 Overall grade - 1 (score of 6) Ductal carcinoma in situ ??? not present Lobular carcinoma in situ (LCIS) ??? not present Tumor extension: Skin ??? not applicable Nipple - not applicable Skeletal muscle ??? not present Margins: Distance of invasive carcinoma from closest margin (superior margin) - 10 mm from (inclusive of specimen C. Lymph nodes: Number of sentinel lymph nodes examined - 1 Total number of lymph nodes examined (sentinel and nonsentinel) - 1 Number of lymph nodes with macrometastases, micrometastases and isolated tumor cells - 0 Treatment effect ??? unknown Lymphvascular invasion ??? not identified Additional pathologic findings ??? usual intraductal hyperplasia with focal atypical intraductal hyperplasia, intraductal papilloma, fibrocystic change. Ancillary studies - previously performed ([id number] / [id number]) ER ??? positive (>95%, strong intensity) MN - positive (>95%, moderate to strong intensity) Her2 cristal ??? negative (0) Ki67 ??? positive (30%) Microcalcifications ??? present and associated with non-neoplastic tissue. Clinical history ??? mass of left breast. PATHOLOGIC STAGE: T1c N0 Mx Oncotype Dx score of 2 (low risk) Treatment summary and response: * September 30, 2022 left breast lumpectomy with left axillary sentinel lymph node dissection. * 11/23/2022 ??? 12/15/2022: received adjuvant radiation therapy to the left breast consisting of 4256 cGy delivered in 16 fractions. She was treated with a 3D conformal treatment plan using 10 and 15 MV photons. * December 2022: Adjuvant anastrozole PFSH Medical History Use of aromatase inhibitors Osteopenia Breast cancer Wears glasses Post-menopausal Alcohol use Injury of head and neck Loss of consciousness Smoker CPAP (continuous positive airway pressure) dependence Sleep apnea Hypertension Surgical History S/P lumpectomy, left breast Hx of hysterectomy S/P section S/P tonsillectomy Family History Sister Thyroid disorder Social History Smoking Status: Former smoker alcohol intake: current alcohol intake frequency: a few times a week substan (more content not included)... Normal [facility] CNOVon 12-30-2023 [facility] Office Visit (FAMPWS ) -------- EMIGDIO HAIDER ([id number]) 1965 F Date Time Provider Department 12/30/23 7:00 AM ALISSON RESENDIZ [facility] During your visit today, we recorded the following information about you: Pulse Respiration Blood pressure Weight 86/minute 16/minute 150/100 126.1 kg Height 1.675 m Alisson Resendiz APRN.PROFESSIONAL VOLLEYBALL PLAYER 12/30/2023 7:57 AM Signed This is a 58 year old female who presents today with: Patient presents with: 6 Month Exam HISTORY OF PRESENT ILLNESS: Emigdio Haider is a 58 year old female. Patient presents with: 6 Month Exam 6 month follow up HTN: Taking Cozaar 100 mg daily. Not currently checking blood pressure at home. Denies chest pain, palpitations, or dizziness. BP elevated today, did not take medication this morning. Usually takes with lunch. Has noticed some lower leg swelling. Refers that she stands most of the day at work. Has compression socks. Denies shortness of breath. History of breast cancer, follow up yearly. Gets calcium infusion every 6 months. JOEY: CPAP, sleeping well. Waking up feeling refreshed. History of graves disease in the past, thyroid functioning was normal in June Mammogram: July 2023 w/juan normal. History of full hysterectomy. Colonoscopy: Due, order is in place. Vaccines: Denies wanting any vaccines at this time. PAST MEDICAL HISTORY: PAST MEDICAL HISTORY Diagnosis Date Breast cancer (HCC) Essential hypertension History of radiation therapy JOEY (obstructive sleep apnea) DME [facility] fx. [phone] PAST SURGICAL HISTORY Procedure Laterality Date HYSTERECTOMY 2011 Total Hysterectomy-Dr. Gamble in [place] PAST SURGICAL HISTORY OF 09/30/2022 Lumpectomy at [facility] TONSILLECTOMY HX 1970 ALLERGIES Bactrim [Sulfamethoxazole-Trimet hoprim] and Erythromycin MEDICATIONS Current Outpatient Medications Medication Sig losartan (COZAAR) 100 mg tablet Take 1 tablet by mouth once daily. CPAP/BIPAP/OTHER CPAP 8 cmH2O [facility] CALCIUM ORAL Take 2 tablets by mouth once daily. 1200 MG. cyanocobalamin (VITAMIN B-12) 1,000 mcg tab Take 1 tablet by mouth once daily. Cholecalciferol, Vitamin D3, 125 mcg (5,000 unit) cap Take 1 capsule by mouth once daily. ZINC ORAL Take 1 tablet by mouth once daily. CPAP CPAP 8 cmH2O, mask(pt pref), chin strap, heated tubing AND humidity, filters. Lifetime supplies. Dx: G47.33. (Please provide supplies) fluticasone (FLONASE) 50 mcg/actuation nasal spray Use 2 Sprays in each nostril once daily. Rinse mouth after use. MULTIVITAMIN ORAL Take by mouth. No current facility-administered medications for this visit. FAMILY HISTORY Problem Relation Age of Onset No Known Problems Mother No Known Problems Father Thyroid Sister No Known Problems Brother No Known Problems Sister Social History Tobacco Use Smoking status: Never Smokeless tobacco: Never Vaping Use Vaping status: Never Used Substance Use Topics Alcohol use: Yes Alcohol/week: 7.0 standard drinks of alcohol Types: 7 Glasses of Wine (5oz) per week Drug use: No REVIEW OF SYSTEMS GENERAL: No weight loss, malaise or fevers/chills HEENT: Negative for frequent or significant headaches, No changes in hearing or vision. NECK: Negative for lumps, goiter, pain and significant neck swelling RESPIRATORY: Negative for cough, hemoptysis, wheezing, dyspnea or shortness of breath CARDIOVASCULAR: Negative for chest pain, orthopnea, or palpitations + Lower leg edema GI: No nausea, vomiting, or diarrhea/constipation. No hematochezia/melena. No heartburn or reflux symptoms. : No history of dysuria, frequency or incontinence MUSCULOSKELETAL: Negative for joint pain or swelling. SKIN: Negative for lesions, rash, and itching ENDOCRINE: Negative for cold or heat intolerance, polyuria, polydipsia and goiter NEURO: No history of headaches, syncope, paralysis, seizures or tremors MOOD: Negative for depression, anxiety, or suicidal ideation. EXAM: BP 169/116 Pulse 86 Resp 16 Ht 167.5 cm (5' 5.95") Wt 126.1 kg (278 lb) SpO2 97% BMI 44.95 kg/m? BP 150/100 Pulse 86 Resp 16 Ht 167.5 cm (5' 5.95") Wt 126.1 kg (278 lb) SpO2 97% BMI 44.95 kg/m? PHYSICAL EXAM: General Appearance: Well appearing, alert, in no acute distress, well-hydrated, well nourished. Skin: Skin color, texture, turgor normal, no suspicious rashes or lesions. Head: Normocephalic, no masses, lesions, tenderness or abnormalities. Eyes: Anicteric sclera. Extraocular movements are intact. Lungs: Lungs clear to auscultation. No wheezing, rhonchi, rales. Heart: RRR without murmur, gallop, or rubs. No ectopy. Extremities: +2 nonpitting edema to lower legs bilaterally, no erythema or color change noted. Musculoskeletal: No joint swelling, deformity, or tenderness. Peripheral Pulses: Normal, Capillary refill (more content not included)... Normal [facility] Surgery Visit Reporton 11-17 Surgery Visit Report [facility] [address] [place] [address] OFFICE VISIT Date of Service: 11/17/23 MR#: [id number] Acct: [id number] Name: EMIGDIO HAIDER GOLDEN Rep #: [id number] : 1965 Provider: Dr. Lilly gresham MD Age/Sex: 58/F Location: [facility] Status: Signed Intake Vital Signs 07/14/23 13:51 11/01/23 14:46 Height 5 ft 8 in 5 ft 8 in Intake Visit Reasons: 6 M BREAST CHECK Chief Complaint: Breast cancer Allergies sulfamethoxazole (From Sulfamethoxazole-Trimeth oprim) Allergy (Intermediate, Verified 11/01/23 14:00) Rash trimethoprim (From Sulfamethoxazole-Trimeth oprim) Allergy (Intermediate, Verified 11/01/23 14:00) Rash [facility] Medical History Use of aromatase inhibitors Osteopenia Breast cancer Wears glasses Post-menopausal Alcohol use Injury of head and neck Loss of consciousness Smoker CPAP (continuous positive airway pressure) dependence Sleep apnea Hypertension Surgical History S/P lumpectomy, left breast Hx of hysterectomy S/P section S/P tonsillectomy Family History Sister Thyroid disorder Social History Smoking Status: Former smoker alcohol intake: current alcohol intake frequency: a few times a week substance use type: does not use HPI HPI HPI: 58-year-old female presents status post left lumpectomy and sentinel lymph node biopsy. Status post radiation. Patient is doing well has no complaints or issues with incisions. Exam Const General: cooperative, healthy appearing and no acute distress [facility] Head: normal to inspection Chest Other: Breast inspection: Minimal tanning to the left breast Left breast: Incision healing well, residual minimal tanning from radiation, no mass on exam, no nipple discharge. Left axillary incision also healing well no lymphadenopathy on exam Resp Effort Inspection: normal respiratory effort Cardio Rate: regular rate GI Inspection: non-distended Palpation: soft Skin General: no rashes or lesions noted Neuro General: patient oriented x3 Extrem General: no clubbing, cyanosis or edema Psych Affect: normal affect Assessment and Plan Assessment and Plan (1) S/P lumpectomy, left breast: Status: Acute Comment: SNL- neg x 1 (2) Breast cancer, left breast: Status: Acute Qualifiers: Breast location: central portion of breast Estrogen receptor status: positive Patient sex: female Qualified Code(s): C50.112 - Malignant neoplasm of central portion of left female breast; Z17.0 - Estrogen receptor positive status [ER+] Plan Patient's incisions healing well patient has no complaints. Follow-up in 1 year. Patient is agreeable with plan. Lilly Mae M.D. Pager: [phone] [facility] [address] [place] [address], Outpatient Pavilion, [address] [place] [address] Office: [phone] Coding Level of Care Code Off vis,est,level 3 Diagnoses S/P lumpectomy, left breast Z98.890 Malignant neoplasm of central portion of left breast in female, estrogen receptor positive C50.112; Z17.0 Breast location: central portion of breast Estrogen receptor status: positive Patient sex: female 11/18/23 1120 Date Lilly Landonignchelsea Signature: Date (if applicable) CC: Normal [facility] Basic Metabolic Profile (BMP )on 11-01-2023 BUN/CRE 11.6 RATIO Normal 10-20 [facility] Comment on above: Performed By: #### L 500.2500 #### [facility] [address] [place], [address] CA,Total 9.3 mg/dL Normal 8.5-10.1 [facility] Comment on above: Performed By: #### L 500.2500 #### [facility] [address] [place], [address] Chloride [Moles/Vol] 105 mmol/L Normal 98-107 [facility] Comment on above: Performed By: #### L 500.2500 #### [facility] [address] [place], [address] CO2 [Moles/Vol] 29.0 mmol/L Normal 21.0-32.0 [facility] Comment on above: Performed By: #### L 500.2500 #### [facility] [address] [place], [address] Creatinine [Mass/Vol] 0.69 mg/dL Normal 0.55-1.02 [facility] Comment on above: Result Comment: The validity of the calculated GFR GFRAA in patients over 70 years has not been determined. Clinical correlation is essential. Performed By: #### L 500.2500 #### [facility] [address] [place], [address] ECRCL 123.04 ml/min Normal [facility] Comment on above: Performed By: #### L 500.2500 #### [facility] [address] [place], [address] EST GFR - AA 112 mL/min Normal >60 [facility] Comment on above: Result Comment: Afri can Taiwanese GFR Calc Performed By: #### L 500.2500 #### [facility] [address] [place], [address] GAP 4 Low 5-15 [facility] Comment on above: Performed By: #### L 500.2500 #### [facility] [address] [place], [address] GFR/1.73 sq M.predicted among non-blacks MDRD (S/P/Bld) [Vol rate/Area] 92 mL/min/{1.73_m2} Normal >60 [facility] Comment on above: Result Comment: Non- GFR Calc Performed By: #### L 500.2500 #### [facility] [address] [place], [address] Glucose [Mass/Vol] 99 mg/dL Normal 74-106 [facility] Comment on above: Performed By: #### L 500.2500 #### [facility] [address] [place], [address] Potassium [Moles/Vol] 3.4 mmol/L Low 3.5-5.1 [facility] Comment on above: Performed By: #### L 500.2500 #### [facility] [address] [place], [address] Sodium [Moles/Vol] 138 mmol/L Normal 136-145 [facility] Comment on above: Performed By: #### L 500.2500 #### [facility] [address] [place], [id number] Urea nitrogen [Mass/Vol] 8 mg/dL Normal 7-18 [facility] Comment on above: Performed By: #### L 500.2500 #### [facility] [address] [place], [address] Oncology Visit Reporton 10-04 Oncology Visit Report [facility] [address] [place], [place] [address] OFFICE VISIT Date of Service: 11/01/23 1357 MR#: [id number] Acct: [id number] Name: EMIGDIO HAIDER GOLDEN Rep #: [id number] : 1965 From: Noy Sorenson MD Age/Sex: 58/F Location: [facility] Status: Signed HPI Subjective Date of Service 11/01/23 Chief Complaint Breast cancer History of Present Illness 58-year-old female, postmenopausal (status post hysterectomy and bilateral salpingo-oophorectomy) who presented after an abnormal screening mammogram. No first-degree relatives with breast cancer and she has been vigilant with annual screening mammography. August 24, 2022 Left breast mass at 1 o???clock, needle core biopsy: Invasive ductal carcinoma with the following characteristics: Nuclear grade ??? 1 Maximal length ??? 7.0 millimeters Other findings ??? ductal carcinoma in situ (nuclear grade 1) ANTIBODY / CLONE RESULT P53 (DO-7) negative, null pattern Ki-67 (30-9) positive, 30% CK8 ([id number]) positive CK5-6 (D5 1684) negative Calponin-1 (LG655W) negative P40 (BC28) negative E-Cad (ECH-6) positive TERRAZAS-2 (SP21) positive MORPHOMETRIC ANALYSIS ER (clone 6F11) >95%, strong intensity MN (clone 16/1E2) >95%, moderate to strong intensity Her-2Neu (clone CB11) 0 September 30, 2022 left breast lumpectomy with left axillary sentinel lymph node dissection: FROZEN SECTION DIAGNOSIS A. Left axillary sentinel lymph node, biopsy: One lymph node, negative for metastatic carcinoma. SJ:channing 09/30/2022 MICROSCOPIC DIAGNOSIS A. Left axillary sentinel lymph node, biopsy: One out of one lymph node negative for metastatic carcinoma. See comment. B. Left breast, lumpectomy: Invasive ductal carcinoma. See cancer template below. C. Left breast, new superior margin, biopsy: Focal atypical intraductal hyperplasia. Usual intraductal hyperplasia. Mild fibrocystic change. Focal intraductal papilloma. No evidence of malignancy. AM:channing 10/05/2022 COMMENT A. Immunohistochemistry ([id number]) supports the above diagnosis. B. INVASIVE BREAST CANCER SUMMARY: Procedure - excision with wire guidance Specimen: Type - partial breast Size ??? 4.0 x 3.5 x 2.0 cm Laterality - left breast Tumor: Site ??? not specified Size ??? 1.2 x 1.2 x 1.0 cm Histologic type - invasive ductal carcinoma. Focality - single focus of carcinoma. Histologic Grade ([place] grade): Glandular/tubular differentiation - score 3 Nuclear pleomorphism - score 2 Mitotic count ??? score 1 Overall grade - 1 (score of 6) Ductal carcinoma in situ ??? not present Lobular carcinoma in situ (LCIS) ??? not present Tumor extension: Skin ??? not applicable Nipple - not applicable Skeletal muscle ??? not present Margins: Distance of invasive carcinoma from closest margin (superior margin) - 10 mm from (inclusive of specimen C. Lymph nodes: Number of sentinel lymph nodes examined - 1 Total number of lymph nodes examined (sentinel and nonsentinel) - 1 Number of lymph nodes with macrometastases, micrometastases and isolated tumor cells - 0 Treatment effect ??? unknown Lymphvascular invasion ??? not identified Additional pathologic findings ??? usual intraductal hyperplasia with focal atypical intraductal hyperplasia, intraductal papilloma, fibrocystic change. Ancillary studies - previously performed ([id number] / [id number]) ER ??? positive (>95%, strong intensity) MN - positive (>95%, moderate to strong intensity) Her2 cristal ??? negative (0) Ki67 ??? positive (30%) Microcalcifications ??? present and associated with non-neoplastic tissue. Clinical history ??? mass of left breast. PATHOLOGIC STAGE: T1c N0 Mx Oncotype Dx score of 2 (low risk) Treatment summary and response: * September 30, 2022 left breast lumpectomy with left axillary sentinel lymph node dissection. * 11/23/2022 ??? 12/15/2022: received adjuvant radiation therapy to the left breast consisting of 4256 cGy delivered in 16 fractions. She was treated with a 3D conformal treatment plan using 10 and 15 MV photons. * December 2022: Adjuvant anastrozole PFSH Medical History Use of aromatase inhibitors Osteopenia Breast cancer Wears glasses Post-menopausal Alcohol use Injury of head and neck Loss of consciousness Smoker CPAP (continuous positive airway pressure) dependence Sleep apnea Hypertension Surgical History S/P lumpectomy, left breast Hx of hysterectomy S/P section S/P tonsillectomy Family History Sister Thyroid disorder Social History Smoking Status: Former smoker alcohol intake: current alcohol intake frequency: a few times a week substan (more content not included)... Normal [facility] Radiation Oncology Visiton 0 10-12-2023 Radiation Oncology Visit [facility] [address] [place] [address] OFFICE VISIT Date of Service: 10/12/23900 MR#: [id number] Acct: [id number] Name: EMIGDIO HAIDER GOLDEN Rep #: [id number] : 1965 From: Bear Kapadia DO Age/Sex: 58/F Location: [facility] Status: Signed Intake Vital Signs 06/10/23 09:26 07/14/23 13:51 10/12/23 09:05 Height 5 ft 8 in 5 ft 8 in 5 ft 8 in Weight: 287 lb 276 lb 9 oz BMI 43.6 42.0 BP 150/92 H 156/94 H Blood Pressure Location Lt brachial Rt brachial Position Sitting Sitting Respiration 18 16 Pulse 107 H 81 Pulse Source Monitor Monitor Temp 98.0 F 97.9 F Temperature Source Temporal Artery Temporal Artery Pulse Oximetry (%) 96 94 Oxygen Delivery Method room air room air Intake Visit Reasons: 4 MONTH F/U BREAST Is patient in pain?: No Allergies sulfamethoxazole (From Sulfamethoxazole-Trimeth oprim) Allergy (Intermediate, Verified 10/12/23 09:04) Rash trimethoprim (From Sulfamethoxazole-Trimeth oprim) Allergy (Intermediate, Verified 10/12/23 09:04) Rash Medications ???Medication ???Instructions ???Recorded ???Confirmed ???Type cholecalciferol (vitamin D3) 125 5,000 unit PO DAILY 08/24/22 10/12/23 History mcg (5,000 unit) capsule cyanocobalamin (vitamin B-12) 1,000 mcg PO DAILY 08/24/22 10/12/23 History 1,000 mcg tablet losartan 100 mg tablet 100 mg PO DAILY 08/24/22 10/12/23 History zinc gluconate 50 mg tablet 50 mg PO DAILY 08/24/22 10/12/23 History calcium carbonate 600 mg PO DAILY 12/02/22 10/12/23 History anastrozole 1 mg tablet 1 mg PO DAILY #90 tabs 12/24/22 10/12/23 Rx clindamycin HCl 300 mg capsule 300 mg PO Q8H 12/24/22 10/12/23 History prednisone 10 mg tablet 10 mg PO DIRECTED 12/24/22 10/12/23 History PFSH PFSH Medical History Use of aromatase inhibitors Osteopenia Breast cancer Wears glasses Post-menopausal Alcohol use Injury of head and neck Loss of consciousness Smoker CPAP (continuous positive airway pressure) dependence Sleep apnea Hypertension Home Medications ???Medication ???Instructions ???Recorded ???Last Taken ???Type cholecalciferol (vitamin D3) 125 5,000 unit PO DAILY 08/24/22 Unknown History mcg (5,000 unit) capsule cyanocobalamin (vitamin B-12) 1,000 mcg PO DAILY 08/24/22 Unknown History 1,000 mcg tablet losartan 100 mg tablet 100 mg PO DAILY 08/24/22 09/30/22 09:09 History zinc gluconate 50 mg tablet 50 mg PO DAILY 08/24/22 Unknown History calcium carbonate 600 mg PO DAILY 12/02/22 Unknown History anastrozole 1 mg tablet 1 mg PO DAILY #90 tabs 12/24/22 Unknown Rx clindamycin HCl 300 mg capsule 300 mg PO Q8H 12/24/22 Unknown History prednisone 10 mg tablet 10 mg PO DIRECTED 12/24/22 Unknown History Allergy/AdvReac Type Severity Reaction Status Date / Time sulfamethoxazole (From Allergy Intermediate Rash Verified 10/12/23 09:04 Sulfamethoxazole-Trimeth oprim) trimethoprim (From Allergy Intermediate Rash Verified 10/12/23 09:04 Sulfamethoxazole-Trimeth oprim) Family History Sister Thyroid disorder Surgical History S/P lumpectomy, left breast Hx of hysterectomy S/P section S/P tonsillectomy Social History Smoking Status: Former smoker alcohol intake: current alcohol intake frequency: a few times a week substance use type: does not use Diagnosis: Emigdio Haider is a 58-year-old female diagnosed with pathologic stage IA (pT1c pN0 (sn) M0) grade 1 invasive ductal carcinoma (ER > 95%, MN > 95%, HER2 0+ IHC) of the left breast status post bilateral screening mammogram (07/09/2022), left diagnostic mammogram and ultrasound (08/12/2022), core needle biopsy of the left breast (08/24/2022), bilateral breast MRI (09/09/2022), completion of left breast lumpectomy and sentinel lymph node biopsy (09/30/2022), and evaluation by medical oncology (10/14/2022). From 11/23/2022 ??? 12/15/2022 she received adjuvant radiation therapy to the left breast. History of Present Illness: 07/09/2022: Patient completed bilateral screening mammography.??? This demonstrated focal asymmetry in the left breast upper outer aspect middle depth is indeterminant and additional views are recommended.??? BI-RADS Category 0. 08/12/2022: Patient completed left diagnostic mammogram which demonstrated a 1.2 cm irregular focal asymmetry with a spiculated margin in the left breast at the 1:00 middle depth position, no other abnormalities are noted.??? Patient completed limited ultrasound of the left breast.??? This demonstrated a 1.2 x 0.9 x 1.1 cm irregular mass in the left breast at the 1 o'clock po (more content not included)... Normal [facility] CNOVon 08-06-2023 CNOV Office Visit (YUMI ) -------- EMIGDIO HAIDER ([id number]) 1965 F Date Time Provider Department 08/06/23 3:20 PM ZAIRE SIMMONS JR During your visit today, we recorded the following information about you: Pulse Respiration Blood pressure Weight 101/minute 16/minute 126/72 128.1 kg Zaire Simmons Jr., MD 08/06/2023 4:04 PM Signed ESTABLISHED PATIENT VISIT CHIEF COMPLAINT: Follow Up JOEY HISTORY OF PRESENT ILLNESS: Emigdio Haider is a 58 year old female, BMI 42.94 kg/m2 with a PMH significant for JOEY. I have never sen patient in the past but records suggest patient seen by both Dr. Gonsalez in 2019 and Nahomy Gipson CNP on 02/05/23. Per note of Nahomy Gipson CNP: G47.33 JOEY on CPAP (primary encounter diagnosis) I10 Essential hypertension E66.01 Morbid obesity (HCC) Emigdio Haider is a 57 year old female with PMH of HTN, obesity who has moderate JOEY which is controlled with CPAP 8 cmH2O (residual AHI 0.9). She uses CPAP all night, every night. She is compliant and reports subjective benefits (better sleep, more rested, no snoring). - Continue CPAP at 8cmH2O. [facility]. Her Respironics machine had been recalled, she received a new CPAP about 2 mos ago. - Remember to clean your mask and equipment regularly, as directed. - You should be eligible for new supplies approximately every 3-6 months, depending on your insurance coverage. Contact your Durable Medical Equipment (DME) company for new supplies as needed. - Follow up in 1 yr We have no PAP data download available for review. Patient did get her PAP device refurbished but was not provided a new device. Still on CPAP 8 cmH2O. Patient feels doing fine with PAP. Some days feels a bit more tired but thinks may get less sleep on such nights. Typically going to bed about 10PM. Falling asleep in about <30 minutes. Wakes briefly at 4AM due to cats. Goes back to sleep and wakes to start the day about 6AM. Upon waking feels pretty good. Not tired during the day.No dozing off driving. ESS = 04/28 today (did not complete survey today). 7 pound weight loss since last visit. Cannot sleep without PAP. REVIEW OF SYSTEMS GENERAL:No weight loss, malaise or fevers. HEENT:Negative for frequent or significant headaches, No changes in hearing or vision, no nose bleeds or other nasal problems RESPIRATORY: Negative for cough, wheezing or shortness of breath. CARDIOVASCULAR: Negative for chest pain, leg swelling or palpitations. LAB/IMAGING: Those performed since patient's last visit have been reviewed. WBC (k/uL) Date Value 10/04/2020 7.04 RBC (m/uL) Date Value 10/04/2020 4.79 Hemoglobin (g/dL) Date Value 10/04/2020 15.8 (H) Hematocrit (%) Date Value 10/04/2020 48.9 (H) MCV (fL) Date Value 10/04/2020 102.1 (H) MCH (pG) Date Value 10/04/2020 33.0 MCHC (g/dL) Date Value 10/04/2020 32.3 RDW-CV (%) Date Value 10/04/2020 13.1 Platelet Count (k/uL) Date Value 10/04/2020 225 MPV (fL) Date Value 10/04/2020 11.7 Glucose (mg/dL) Date Value 06/29/2023 86 BUN (mg/dL) Date Value 06/29/2023 6 (L) Creatinine (mg/dL) Date Value 06/29/2023 0.59 Sodium (mmol/L) Date Value 06/29/2023 137 Potassium (mmol/L) Date Value 06/29/2023 4.0 Chloride (mmol/L) Date Value 06/29/2023 102 CO2 (mmol/L) Date Value 06/29/2023 23 Protein, Total (g/dL) Date Value 06/29/2023 7.3 Albumin (g/dL) Date Value 06/29/2023 4.2 Calcium, Total (mg/dL) Date Value 06/29/2023 10.2 Alkaline Phosphatase (U/L) Date Value 06/29/2023 122 Bilirubin, Total (mg/dL) Date Value 06/29/2023 0.6 AST (U/L) Date Value 06/29/2023 24 ALT (U/L) Date Value 06/29/2023 27 Hep C Antibody IA (no units) Date Value 12/16/2017 Negative MEDICATIONS: losartan (COZAAR) 100 mg tablet Take 1 tablet by mouth once daily. CPAP/BIPAP/OTHER CPAP 8 cmH2O [facility] CALCIUM ORAL Take 2 tablets by mouth once daily. 1200 MG. cyanocobalamin (VITAMIN B-12) 1,000 mcg tab Take 1 tablet by mouth once daily. Cholecalciferol, Vitamin D3, 125 mcg (5,000 unit) cap Take 1 capsule by mouth once daily. ZINC ORAL Take 1 tablet by mouth once daily. CPAP CPAP 8 cmH2O, mask(pt pref), chin strap, heated tubing AND humidity, filters. Lifetime supplies. Dx: G47.33. (Please provide supplies) fluticasone (FLONASE) 50 mcg/actuation nasal spray Use 2 Sprays in each nostril once daily. Rinse mouth after use. MULTIVITAMIN ORAL Take by mouth. HISTORIES PAST MEDICAL HISTORY Diagnosis Date Breast cancer (HCC) Essential hypertension History of radiation therapy JOEY (obstructive sleep apnea) [facility] AzaelAdeola Pierce fx. [phone] FAMILY HISTORY Problem Relation Age of Onset No Known Problems Mother No Known Problems Father Thyroid Sister No Known Problems Brother No Known Problems Sister SOCIAL HISTORY Social Hi (more content not included)... Normal [facility] 07-26-2023 CLAIREN Telephone (SLEWST) -------- ANTWONEMIGDIO ([id number]) 1965 F Date Time Provider Department 07/26/23 JENIFER GIPSON During your visit today, we recorded the following information about you: Shellie Dickey LPN 07/26/2023 2:55 PM Signed [employer] message sent patient SD Card CPAP download. LEN Day Lorinda, LPN 08/05/2023 4:49 PM Signed Faxed download compliance (SD card ) request, patient notified prior to drop off. Shellie Dickey LPN Allergies As of Date: 07/26/2023 Noted Allergy Reaction BACTRIM (SULFAMETHOXAZOLE-TRIMET H*12/28/2022 2 - Rash ERYTHROMYCIN 08/18/2022 14 - Other: See Comments Comments: Happened when she was younger, cannot remember the reaction. Date Reviewed: 07/23/2023 Reviewed by: April Barahona MA - Fully Assessed Prescriptions as of 08/05/2023 - losartan (COZAAR) 100 mg tablet Take 1 tablet by mouth once daily. - CPAP/BIPAP/OTHER CPAP 8 cmH2O [facility] - CALCIUM ORAL Take 2 tablets by mouth once daily. 1200 MG. - cyanocobalamin (VITAMIN B-12) 1,000 mcg tab Take 1 tablet by mouth once daily. - Cholecalciferol, Vitamin D3, 125 mcg (5,000 unit) cap Take 1 capsule by mouth once daily. - ZINC ORAL Take 1 tablet by mouth once daily. - CPAP CPAP 8 cmH2O, mask(pt pref), chin strap, heated tubing AND humidity, filters. Lifetime supplies. Dx: G47.33. (Please provide supplies) - fluticasone (FLONASE) 50 mcg/actuation nasal spray Use 2 Sprays in each nostril once daily. Rinse mouth after use. - MULTIVITAMIN ORAL Take by mouth. Problem List As Of Date 07/26/2023 Noted Resolved JOEY (obstructive sleep apnea) [G47.33] 12/16/2017 Morbid obesity (HCC) [E66.01] 04/17/2018 Essential hypertension [I10] 06/01/2018 Anxiety and depression [F41.9, F32.A] 06/20/2014 BMI 37.0-37.9, adult [Z68.37] 10/13/2013 Breast calcification, right [R92.1] 06/22/2012 Cellulitis [L03.90] 12/17/2022 History of left mastectomy [Z90.12] 11/13/2022 Malignant neoplasm of breast (HCC) [C50.919] 09/14/2022 Mass of breast [N63.0] 08/29/2022 Osteopenia [M85.80] 11/11/2022 Prophylactic use of aromatase inhibitors [Z79.8*07/23/2023 Encounter Status:Closed by SHELLIE DICKEY on 08/05/23 [facility] CNOVon 07-23-2023 CNOV Office Visit (GENSWS ) -------- EMIGDIO HAIDER ([id number]) 1965 F Date Time Provider Department 07/23/23 1:30 PM HERNANDEZ RASCON GENSWS During your visit today, we recorded the following information about you: Temperature Pulse Blood pressure Weight 97.4 degrees 114/minute 142/86 129.8 kg April Barahona MA 07/23/2023 1:43 PM Signed REVIEW OF SYSTEMS: General: The patient denies fatigue, denies weight loss, denies weight gain, denies feeling hot, and denies feelings of cold. Eyes: The patient denies glaucoma, denies eye injury/surgery, wears glasses or contacts. Ear/Nose/Throat: The patient denies allergies, denies hayfever, denies ear infections, and denies bloody noses. Cardiovascular: The patient denies chest pain, denies heart disease, NOTES high blood pressure,denies cardiac stent, denies prior heart attack, denies irregular heart beat, denies high cholesterol, denies poor circulation, denies heart failure, other cardiac issues, denies claudication, denies cold feet, denies peripheral arterial stent. Respiratory: The patient denies tuberculosis, denies pneumonia, denies frequent cough, denies pulmonary embolism, denies shortness of breath, and denies coughing up blood. Gastrointestinal: The patient denies difficulty swallowing, denies acid reflux, denies ulcers, denies vomiting, denies jaundice/hepatitis, denies gallbladder problems, denies black or tarry stools, denies hemorrhoids, denies bleeding from rectum, denies diverticulitis, denies constipation, denies diarrhea, denies loss of stool control, and denies hernias. Kidney/Bladder: The patient denies kidney stones, denies urine infections, and denies bloody urine. Skin: The patient denies a history of skin cancer, denies bleeding/changing moles, and denies a history of skin rash. Neurologic: The patient denies a history of epilepsy/convulsions, denies headaches, denies head/spinal injuries, and denies stroke/TIA. Psychiatric: The patient denies psychiatric medications, denies depression, and denies voices, denies substance abuse. Endocrine: The patient denies thyroid disorders, denies diabetes, and denies hormonal problems. Hematologic: The patient denies a history of bruising, denies bleeding, and denies anemia, denies blood clots. Infections: The patient denies a history of measles and mumps, denies rheumatic fever, and denies sexually transmitted diseases. Musculoskeletal: The patient denies back pain/injury, denies back problems, denies sciatica, denies knee/foot trouble, denies arthritis, or denies gout. When was patient's last Mammogram screening? 07/12/2023 Last Colonoscopy: 2011 [facility] Scanlon Richard T, MD 07/25/2023 5:55 AM Signed HISTORY AND PHYSICAL Emigdio Rizvisukhjinder 1965 REFERRING PHYSICIAN: Alisson Resendiz APRN.C* CHIEF COMPLAINT: Colon Consult HPI: The patient is a 58 year old female referred for endoscopy. Emigdio notes no history of colon complaints. The patient notes no history of upper GI complaints. Emigdio has undergone prior endoscopy. She presents for screening colonoscopy. The patient is being seen by me today at the request of Dr. Martha Ayala MD for my opinion and advice regarding screening colonoscopy. PAST MEDICAL HISTORY Diagnosis Date Breast cancer (HCC) Essential hypertension History of radiation therapy JOEY (obstructive sleep apnea) D[facility] Standard fx. [phone] PAST SURGICAL HISTORY Procedure Laterality Date HYSTERECTOMY 2011 Total Hysterectomy-Dr. Gamble in [place] PAST SURGICAL HISTORY OF 09/30/2022 Lumpectomy at [facility] TONSILLECTOMY HX 1970 Current Outpatient Medications Medication Sig losartan (COZAAR) 100 mg tablet Take 1 tablet by mouth once daily. CPAP/BIPAP/OTHER CPAP 8 cmH2O [facility] CALCIUM ORAL Take 2 tablets by mouth once daily. 1200 MG. cyanocobalamin (VITAMIN B-12) 1,000 mcg tab Take 1 tablet by mouth once daily. Cholecalciferol, Vitamin D3, 125 mcg (5,000 unit) cap Take 1 capsule by mouth once daily. ZINC ORAL Take 1 tablet by mouth once daily. CPAP CPAP 8 cmH2O, mask(pt pref), chin strap, heated tubing AND humidity, filters. Lifetime supplies. Dx: G47.33. (Please provide supplies) fluticasone (FLONASE) 50 mcg/actuation nasal spray Use 2 Sprays in each nostril once daily. Rinse mouth after use. MULTIVITAMIN ORAL Take by mouth. No current facility-administered medications for this visit. ALLERGIES: Bactrim [Sulfamethoxazole-Trimet hoprim] and Erythromycin PERSONAL HISTORY: Social History Tobacco Use Smoking status: Never Smokeless tobacco: Never Vaping Use Vaping Use: Never used Substance Use Topics Alcohol use: Yes Alcohol/week: 7.0 standard drinks of alcohol Types: 7 Glasses of Wine (5oz) per week Drug use: No FAMILY HISTORY: FAMILY HISTORY Problem Relation (more content not included)... Normal [facility] 07-23-2023 LATRICIA Telephone ([employer]) -------- EMIGDIO HAIDER ([id number]) 1965 F Date Time Provider Department 07/23/23 HERNANDEZ RASCON During your visit today, we recorded the following information about you: Yessenia Dejesus 07/23/2023 2:37 PM Signed 12/13/2023 COLON SANTAMARIA Allergies As of Date: 07/23/2023 Noted Allergy Reaction BACTRIM (SULFAMETHOXAZOLE-TRIMET H*12/28/2022 2 - Rash ERYTHROMYCIN 08/18/2022 14 - Other: See Comments Comments: Happened when she was younger, cannot remember the reaction. Date Reviewed: 07/23/2023 Reviewed by: April Barahona MA - Fully Assessed Reason for Visit: 12/13/2023 COLON SANTAMARIA [Other] Prescriptions as of 02/08/2024 - Cholecalciferol, Vitamin D3, 125 mcg (5,000 unit) cap Take 1 capsule by mouth once daily. - cyanocobalamin (VITAMIN B-12) 1,000 mcg tab Take 1 tablet by mouth once daily. - amLODIPine (NORVASC) 5 mg tablet Take 1 tablet by mouth once daily. - losartan (COZAAR) 100 mg tablet Take 1 tablet by mouth once daily. - hydroCHLOROthiazide 12.5 mg capsule Take 1 capsule by mouth once daily. - CPAP/BIPAP/OTHER CPAP 8 cmH2O [facility] - CALCIUM ORAL Take 2 tablets by mouth once daily. 1200 MG. - ZINC ORAL Take 1 tablet by mouth once daily. - CPAP CPAP 8 cmH2O, mask(pt pref), chin strap, heated tubing AND humidity, filters. Lifetime supplies. Dx: G47.33. (Please provide supplies) - fluticasone (FLONASE) 50 mcg/actuation nasal spray Use 2 Sprays in each nostril once daily. Rinse mouth after use. - MULTIVITAMIN ORAL Take by mouth. Problem List As Of Date 07/23/2023 Noted Resolved JOEY (obstructive sleep apnea) [G47.33] 12/16/2017 Morbid obesity (HCC) [E66.01] 04/17/2018 Essential hypertension [I10] 06/01/2018 Anxiety and depression [F41.9, F32.A] 06/20/2014 Diagnosed: 07/23/2023 BMI 37.0-37.9, adult [Z68.37] 10/13/2013 Diagnosed: 07/23/2023 Breast calcification, right [R92.1] 06/22/2012 Diagnosed: 07/23/2023 Cellulitis [L03.90] 12/17/2022 Diagnosed: 07/23/2023 History of left mastectomy [Z90.12] 11/13/2022 Diagnosed: 07/23/2023 Malignant neoplasm of breast (HCC) [C50.919] 09/14/2022 Diagnosed: 07/23/2023 Mass of breast [N63.0] 08/29/2022 Diagnosed: 07/23/2023 Osteopenia [M85.80] 11/11/2022 Diagnosed: 07/23/2023 Prophylactic use of aromatase inhibitors [Z79.8*07/23/2023 Diagnosed: 07/23/2023 Encounter Status:Closed by CHAPARRO CASTILLO on 02/08/24 [facility] Absolute lymphocyte countOrd ered By: Noy Sorenson on 04-14-2023 Lymphocytes Auto (Unsp spec) [#/Vol] 1.93 10*3/uL 0.83-4.51 [facility] Basophil percentageOrdered B y: Noy Sorenson on 04-14-2023 Basophils/100 WBC (Bld) 0.6 % 0-1 [facility] Bilirubin [Mass/Vol] 0.50 mg/dL 0.20-1.00 [facility] Comment on above: For patients on eltr ombopag therapy, use of Dimension [place]off TBIL is not recommended. Chloride [Moles/Vol] 107 mmol/L 98-107 [facility] Eosinophils/100 WBC (Bld) 1.5 % 0-5 [facility] Glucose [Mass/Vol] 95 mg/dL 74-106 [facility] Neutrophils (Bld) [#/Vol] 8.7 10*3/uL 2.0-7.7 [facility] Neutrophils/100 WBC (Bld) 75.1 % 47-70 [facility] Potassium [Moles/Vol] 4.0 mmol/L 3.5-5.1 [facility] Protein [Mass/Vol] 7.6 g/dL 6.4-8.2 [facility] Sodium [Moles/Vol] 140 mmol/L 136-145 [facility] WBC (Bld) [#/Vol] 11.5 10*3/uL 4.4-11.0 [facility] Blood erythrocytes count (nu mber/volume)Ordered By: Noy Sorenson on 04-14-2023 RBC (Bld) [#/Vol] 4.87 10*6/uL 4.2-5.4 [facility] Blood hemoglobin measurement (mass/volume)Ordered By: Noy Sorenson on 04-14-2023 Hemoglobin (Bld) [Mass/Vol] 16.5 g/dL 12.0-15.0 [facility] Blood lymphocytes/100 leukoc ytesOrdered By: Noy Sorenson on 04-14-2023 Lymphocytes/100 WBC (Bld) 16.8 % 19-41 [facility] Blood monocytes/100 leukocyt esOrdered By: Noy Sorenson on 04-14-2023 Monocytes/100 WBC (Bld) 5.5 % 0-10 [facility] Blood platelet mean volumeOr dered By: Noy Sorenson on 04-14-2023 Platelet mean volume (Bld) [Entitic vol] 10.3 fL 6.2-12.0 [facility] Determination of erythrocyte mean corpuscular volume (MCV)Ordered By: Noy Sorenson on 04-14-2023 MCV (RBC) [Entitic vol] 102.7 fL 81-99 [facility] Hematocrit Auto (Bld) [Volum e fraction]Ordered By: Noy Sorenson on 04-14-2023 Hematocrit (Bld) [Volume fraction] 50.0 % 37-47 [facility] Laboratory - Chemistry and C hemistry - challengeOrdered By: Noy Sorenson on 04-14-2023 ALP [Catalytic activity/Vol] 164 U/L 45-117 [facility] ALT [Catalytic activity/Vol] 26 U/L 13-56 [facility] CO2 [Moles/Vol] 28.0 mmol/L 21.0-32.0 [facility] Globulin (S) [Mass/Vol] 4.1 g/dL 2.2-4.2 [facility] Urea nitrogen/Creatinine [Mass ratio] 9.4 mg/mg 10-20 [facility] Laboratory - Hematology and Cell countsOrdered By: Noy Sorenson on 04-14-2023 Erythrocyte distribution width (RBC) [Entitic vol] 48.8 fL 35.1-43.9 [facility] Erythrocyte distribution width (RBC) [Ratio] 12.9 % 11.6-14.6 [facility] Immature granulocytes/100 WBC (Bld) 0.500 % 0.0-0.9 [facility] Comment on above: IG% - Immature Granu locytes (promyelocytes, myelocytes and metamyelocytes) > 1% indicates that a LEFT SHIFT is Present. MCH (RBC) [Entitic mass] 33.9 pg 27.0-32.0 [facility] Nucleated RBC/100 WBC (Bld) [Ratio] 0 % 0-5 [facility] MCHC Auto (RBC) [Mass/Vol]Or dered By: Noy Sorenson on 04-14-2023 MCHC (RBC) [Mass/Vol] 33.0 g/dL 32-36 [facility] No Panel InformationOrdered By: Noy Sorenson on 04-14-2023 Estimated GFR (MDRD) Amer 88 mL/min >60 [facility] Comment on above: GFR Calc Estimated GFR (MDRD) Non-Af Amer 73 mL/min >60 [facility] Comment on above: Non- GFR Calc Platelets bldOrdered By: Casimiro Sorenson on 04-14-2023 Platelets (Bld) [#/Vol] 232 10*3/uL 150-450 [facility] Serum or plasma albumin isabel urement (mass/volume)Ordered By: Noy Sorenson on 04-14-2023 Albumin [Mass/Vol] 3.5 g/dL 3.2-5.0 [facility] Serum or plasma albumin/glob ulin mass ratioOrdered By: Noy Sorenson on 04-14-2023 Albumin/Globulin [Mass ratio] 0.9 {ratio} 0.9-2.4 [facility] Serum or plasma calcium isabel urement (mass/volume)Ordered By: Noy Sorenson on 04-14-2023 Calcium [Mass/Vol] 9.4 mg/dL 8.5-10.1 [facility] Serum or plasma creatinine m easurement (mass/volume)Ordered By: Noy Sorenson on 04-14-2023 Creatinine [Mass/Vol] 0.85 mg/dL 0.55-1.02 [facility] Comment on above: The validity of the calculated GFR & GFRAA in patients over 70 years has not been determined. Clinical correlation is essential. Serum or plasma urea nitroge n measurement (mass/volume)Ordered By: Noy Sorenson on 04-14-2023 Urea nitrogen [Mass/Vol] 8 mg/dL 7-18 [facility] Thin prep Papanicolaou smear with manual screeningOrdered By: Noy Sorenson on 04-14-2023 Thin prep Papanicolaou smear with manual screening 17 U/L 15-37 [facility] Thin prep Papanicolaou smear with manual screening 5 5-15 [facility] Absolute lymphocyte countOrd ered By: Constance Haas on 12-12-2022 Lymphocytes Auto (Unsp spec) [#/Vol] 0.85 10*3/uL 0.83-4.51 [facility] Basophil percentageOrdered B y: Constance Haas on 12-12-2022 Basophils/100 WBC (Bld) 0.2 % 0-1 [facility] Chloride [Moles/Vol] 106 mmol/L 98-107 [facility] Eosinophils/100 WBC (Bld) 0.7 % 0-5 [facility] Glucose [Mass/Vol] 98 mg/dL 74-106 [facility] Neutrophils (Bld) [#/Vol] 8.7 10*3/uL 2.0-7.7 [facility] Neutrophils/100 WBC (Bld) 83.1 % 47-70 [facility] Potassium [Moles/Vol] 4.3 mmol/L 3.5-5.1 [facility] Sodium [Moles/Vol] 138 mmol/L 136-145 [facility] WBC (Bld) [#/Vol] 10.5 10*3/uL 4.4-11.0 [facility] Blood erythrocytes count (nu mber/volume)Ordered By: Constance Haas on 12-12-2022 RBC (Bld) [#/Vol] 4.73 10*6/uL 4.2-5.4 [facility] Blood hemoglobin measurement (mass/volume)Ordered By: Constance Haas on 12-12-2022 Hemoglobin (Bld) [Mass/Vol] 16.2 g/dL 12.0-15.0 [facility] Blood lymphocytes/100 leukoc ytesOrdered By: Constance Haas on 12-12-2022 Lymphocytes/100 WBC (Bld) 8.1 % 19-41 [facility] Blood monocytes/100 leukocyt esOrdered By: Constance Haas on 12-12-2022 Monocytes/100 WBC (Bld) 7.3 % 0-10 [facility] Blood platelet mean volumeOr dered By: Constance Haas on 12-12-2022 Platelet mean volume (Bld) [Entitic vol] 10.9 fL 6.2-12.0 [facility] Determination of erythrocyte mean corpuscular volume (MCV)Ordered By: Constance Haas on 12-12-2022 MCV (RBC) [Entitic vol] 104.7 fL 81-99 [facility] Hematocrit Auto (Bld) [Volum e fraction]Ordered By: Constance Haas on 12-12-2022 Hematocrit (Bld) [Volume fraction] 49.5 % 37-47 [facility] Laboratory - Chemistry and C hemistry - challengeOrdered By: Constance Haas on 12-12-2022 CO2 [Moles/Vol] 29.0 mmol/L 21.0-32.0 [facility] Urea nitrogen/Creatinine [Mass ratio] 8.8 mg/mg 10-20 [facility] Laboratory - Hematology and Cell countsOrdered By: Constance Haas on 12-12-2022 Erythrocyte distribution width (RBC) [Entitic vol] 51.0 fL 35.1-43.9 [facility] Erythrocyte distribution width (RBC) [Ratio] 13.1 % 11.6-14.6 [facility] Immature granulocytes/100 WBC (Bld) 0.600 % 0.0-0.9 [facility] Comment on above: IG% - Immature Granu locytes (promyelocytes, myelocytes and metamyelocytes) > 1% indicates that a LEFT SHIFT is Present. MCH (RBC) [Entitic mass] 34.2 pg 27.0-32.0 [facility] Nucleated RBC/100 WBC (Bld) [Ratio] 0 % 0-5 [facility] MCHC Auto (RBC) [Mass/Vol]Or dered By: Constance Haas on 12-12-2022 MCHC (RBC) [Mass/Vol] 32.7 g/dL 32-36 [facility] No Panel InformationOrdered By: Constance Haas on 12-12-2022 Estimated Creatinine Clearance Calc 90.97 ml/min [facility] Estimated GFR (MDRD) Amer 114 mL/min >60 [facility] Comment on above: GFR Calc Estimated GFR (MDRD) Non-Af Amer 94 mL/min >60 [facility] Comment on above: Non- GFR Calc Platelets bldOrdered By: Trish Haas on 12-12-2022 Platelets (Bld) [#/Vol] 174 10*3/uL 150-450 [facility] Serum or plasma calcium isabel urement (mass/volume)Ordered By: Constance Haas on 12-12-2022 Calcium [Mass/Vol] 9.2 mg/dL 8.5-10.1 [facility] Serum or plasma creatinine m easurement (mass/volume)Ordered By: Constance Haas on 12-12-2022 Creatinine [Mass/Vol] 0.68 mg/dL 0.55-1.02 [facility] Comment on above: The validity of the calculated GFR & GFRAA in patients over 70 years has not been determined. Clinical correlation is essential. Serum or plasma urea nitroge n measurement (mass/volume)Ordered By: Constance Haas on 12-12-2022 Urea nitrogen [Mass/Vol] 6 mg/dL 7-18 [facility] Thin prep Papanicolaou smear with manual screeningOrdered By: Constance Haas on 12-12-2022 Thin prep Papanicolaou smear with manual screening 3 5-15 [facility] Absolute lymphocyte countOrd ered By: Noy Sorenson on 10-14-2022 Lymphocytes Auto (Unsp spec) [#/Vol] 2.19 10*3/uL 0.83-4.51 [facility] Basophil percentageOrdered B y: Noy Sorenson on 10-14-2022 Basophils/100 WBC (Bld) 0.5 % 0-1 [facility] Bilirubin [Mass/Vol] 0.50 mg/dL 0.20-1.00 [facility] Comment on above: For patients on eltr ombopag therapy, use of Dimension [place] TBIL is not recommended. Chloride [Moles/Vol] 106 mmol/L 98-107 [facility] Eosinophils/100 WBC (Bld) 0.9 % 0-5 [facility] Glucose [Mass/Vol] 91 mg/dL 74-106 [facility] Neutrophils (Bld) [#/Vol] 8.7 10*3/uL 2.0-7.7 [facility] Neutrophils/100 WBC (Bld) 73.9 % 47-70 [facility] Potassium [Moles/Vol] 4.0 mmol/L 3.5-5.1 [facility] Protein [Mass/Vol] 7.8 g/dL 6.4-8.2 [facility] Sodium [Moles/Vol] 138 mmol/L 136-145 [facility] WBC (Bld) [#/Vol] 11.8 10*3/uL 4.4-11.0 [facility] Blood erythrocytes count (nu mber/volume)Ordered By: Noy Sorenson on 10-14-2022 RBC (Bld) [#/Vol] 4.94 10*6/uL 4.2-5.4 [facility] Blood hemoglobin measurement (mass/volume)Ordered By: Noy Sorenson on 10-14-2022 Hemoglobin (Bld) [Mass/Vol] 16.9 g/dL 12.0-15.0 [facility] Blood lymphocytes/100 leukoc ytesOrdered By: Noy Sorenson on 10-14-2022 Lymphocytes/100 WBC (Bld) 18.6 % 19-41 [facility] Blood monocytes/100 leukocyt esOrdered By: Noy Sorenson on 10-14-2022 Monocytes/100 WBC (Bld) 5.5 % 0-10 [facility] Blood platelet mean volumeOr dered By: Noy Sorenson on 10-14-2022 Platelet mean volume (Bld) [Entitic vol] 11.0 fL 6.2-12.0 [facility] Determination of erythrocyte mean corpuscular volume (MCV)Ordered By: Noy Sorenson on 10-14-2022 MCV (RBC) [Entitic vol] 102.0 fL 81-99 [facility] Hematocrit Auto (Bld) [Volum e fraction][facility]: [facility] on 10-14-2022 Hematocrit (Bld) [Volume fraction] 50.4 % 37-47 [facility] Laboratory - Chemistry and C hemistry - challengeOrdered By: [facility] on 10-14-2022 ALP [Catalytic activity/Vol] 138 U/L 45-117 [facility] ALT [Catalytic activity/Vol] 28 U/L 13-56 [facility] CO2 [Moles/Vol] 27.0 mmol/L 21.0-32.0 [facility] Globulin (S) [Mass/Vol] 4.3 g/dL 2.2-4.2 [facility] Urea nitrogen/Creatinine [Mass ratio] 9.5 mg/mg 10-20 [facility] Laboratory - Hematology and Cell countsOrdered By: [facility] Yas on 10-14-2022 Erythrocyte distribution width (RBC) [Entitic vol] 47.8 fL 35.1-43.9 [facility] Erythrocyte distribution width (RBC) [Ratio] 12.7 % 11.6-14.6 [facility] Immature granulocytes/100 WBC (Bld) 0.600 % 0.0-0.9 [facility] Comment on above: IG% - Immature Granu locytes (promyelocytes, myelocytes and metamyelocytes) > 1% indicates that a LEFT SHIFT is Present. MCH (RBC) [Entitic mass] 34.2 pg 27.0-32.0 [facility] Nucleated RBC/100 WBC (Bld) [Ratio] 0 % 0-5 [facility] MCHC Auto (RBC) [Mass/Vol]Or dered By: [facility] on 10-14-2022 MCHC (RBC) [Mass/Vol] 33.5 g/dL 32-36 [facility] No Panel InformationOrdered By: Noy Sorenson on 10-14-2022 Estimated GFR (MDRD) Amer 125 mL/min >60 [facility] Comment on above: GFR Calc Estimated GFR (MDRD) Non-Af Amer 103 mL/min >60 [facility] Comment on above: Non- GFR Calc Platelets bldOrdered By: Casimiro joiner Yas on 10-14-2022 Platelets (Bld) [#/Vol] 227 10*3/uL 150-450 [facility] Serum or plasma albumin isabel urement (mass/volume)Ordered By: Noy Sorenson on 10-14-2022 Albumin [Mass/Vol] 3.5 g/dL 3.2-5.0 [facility] Serum or plasma albumin/glob ulin mass ratioOrdered By: [facility] on 10-14-2022 Albumin/Globulin [Mass ratio] 0.8 {ratio} 0.9-2.4 [facility] Serum or plasma calcium isabel urement (mass/volume)Ordered By: Noy Sorenson on 10-14-2022 Calcium [Mass/Vol] 9.6 mg/dL 8.5-10.1 [facility] Serum or plasma creatinine m easurement (mass/volume)Ordered By: Noy Sorenson on 10-14-2022 Creatinine [Mass/Vol] 0.63 mg/dL 0.55-1.02 [facility] Comment on above: The validity of the calculated GFR & GFRAA in patients over 70 years has not been determined. Clinical correlation is essential. Serum or plasma urea nitroge n measurement (mass/volume)Ordered By: Noy Sorenson on 10-14-2022 Urea nitrogen [Mass/Vol] 6 mg/dL 7-18 [facility] Thin prep Papanicolaou smear with manual screeningOrdered By: Noy Sorenson on 10-14-2022 Thin prep Papanicolaou smear with manual screening 17 U/L 15-37 [facility] Thin prep Papanicolaou smear with manual screening 5 5-15 [facility] Basophil percentageOrdered B y: Lilly Mae on 09-09-2022 Basophil percentage < 0.9 mg/dL 0.55-1.02 [facility] No Panel InformationOrdered By: Lilly Mae on 09-09-2022 Bedside Estimated GFR (eGFR) > 60.0000 mL/min >60 [facility] VALENTINE DIAG W JUAN LEFTon 08-12 [facility] US BREAST LTD LEFTon 023 [facility] VALENTINE SCREENINGon 07-08-2022 [facility] Vital Signs Date Time Vital Sign Value Performing Clinician Facility 07-07-2024 07:05-0400 Body height 166.5 cm Alisson Resendiz SURETY BOND AGENT.PROFESSIONAL VOLLEYBALL PLAYER Work Phone: [facility] 07-07-2024 07:05-0400 Body mass index (BMI) [Ratio] 46.43 kg/m2 Alisson Quintanahosanna SURETY BOND AGENT.PROFESSIONAL VOLLEYBALL PLAYER Work Phone: [facility] 07-07-2024 07:05-0400 Body weight 128.7 kg Alisson Resendiz SURETY BOND AGENT.PROFESSIONAL VOLLEYBALL PLAYER Work Phone: [facility] 07-07-2024 07:05-0400 Diastolic blood pressure 86 mm[Hg] Alisson Quintanahof SURETY BOND AGENT.PROFESSIONAL VOLLEYBALL PLAYER Work Phone: [facility] 07-07-2024 07:05-0400 Heart rate 87 /min Alisson Manf [employer]RETY BOND AGENT.PROFESSIONAL VOLLEYBALL PLAYER Work Phone: [facility] 07-07-2024 07:05-0400 Respiratory rate 16 /min Alisson Resendiz SURETY BOND AGENT.PROFESSIONAL VOLLEYBALL PLAYER Work Phone: [facility] 07-07-2024 07:05-0400 SaO2% (BldA) [Mass fraction] 96 % Alisson Resendiz SURETY BOND AGENT.PROFESSIONAL VOLLEYBALL PLAYER Work Phone: [facility] 07-07-2024 07:05-0400 Systolic blood pressure 140 mm[Hg] Alisson Quintanahof SURETY BOND AGENT.PROFESSIONAL VOLLEYBALL PLAYER Work Phone: [facility] 02-09-2024 07:30-0500 Body mass index (BMI) [Ratio] 44.62 kg/m2 Alisson Quintanahosanna SURETY BOND AGENT.PROFESSIONAL VOLLEYBALL PLAYER Work Phone: [facility] 02-09-2024 07:30-0500 Body weight 125.19 kg Alisson Tannhof SURETY BOND AGENT.PROFESSIONAL VOLLEYBALL PLAYER Work Phone: [facility] 02-09-2024 07:30-0500 Diastolic blood pressure 86 mm[Hg] Alisson Tannhof SURETY BOND AGENT.PROFESSIONAL VOLLEYBALL PLAYER Work Phone: [facility] 02-09-2024 07:30-0500 Heart rate 100 /min Alisson Tannhof SURETY BOND AGENT.PROFESSIONAL VOLLEYBALL PLAYER Work Phone: [facility] 02-09-2024 07:30-0500 Respiratory rate 16 /min Alisson Tannhof SURETY BOND AGENT.PROFESSIONAL VOLLEYBALL PLAYER Work Phone: [facility] 02-09-2024 07:30-0500 SaO2% (BldA) [Mass fraction] 97 % Alisson Tannhof SURETY BOND AGENT.PROFESSIONAL VOLLEYBALL PLAYER Work Phone: [facility] 02-09-2024 07:30-0500 Systolic blood pressure 126 mm[Hg] Alisson Tannhof SURETY BOND AGENT.PROFESSIONAL VOLLEYBALL PLAYER Work Phone: [facility] 12-30-2023 07:54-0400 Diastolic blood pressure 100 mm[Hg] Alisson Tannhof SURETY BOND AGENT.PROFESSIONAL VOLLEYBALL PLAYER Work Phone: [facility] 12-30-2023 07:54-0400 Systolic blood pressure 150 mm[Hg] Alisson Tannhof SURETY BOND AGENT.PROFESSIONAL VOLLEYBALL PLAYER Work Phone: [facility] 12-30-2023 07:08-0400 Body height 167.5 cm Alisson Tannhof SURETY BOND AGENT.PROFESSIONAL VOLLEYBALL PLAYER Work Phone: [facility] 12-30-2023 07:08-0400 Body mass index (BMI) [Ratio] 44.95 kg/m2 Alisson Tannhof SURETY BOND AGENT.PROFESSIONAL VOLLEYBALL PLAYER Work Phone: [facility] 12-30-2023 07:08-0400 Body weight 126.1 kg Alisson Tannhof SURETY BOND AGENT.PROFESSIONAL VOLLEYBALL PLAYER Work Phone: [facility] 12-30-2023 07:08-0400 Heart rate 86 /min Alisson Tannhof SURETY BOND AGENT.PROFESSIONAL VOLLEYBALL PLAYER Work Phone: [facility] 12-30-2023 07:08-0400 Respiratory rate 16 /min Alisson Quintanaluciasanna SURETY BOND AGENT.PROFESSIONAL VOLLEYBALL PLAYER Work Phone: [facility] 12-30-2023 07:08-0400 SaO2% (BldA) [Mass fraction] 97 % Alisson Resendiz SURETY BOND AGENT.PROFESSIONAL VOLLEYBALL PLAYER Work Phone: [facility] 08-06-2023 15:24-0400 Body mass index (BMI) [Ratio] 42.94 kg/m2 Zaire Simmons Jr., MD Work Phone: [facility] 08-06-2023 15:24-0400 Body weight 128.1 kg Zaire Simmons Jr., MD Work Phone: [facility] 08-06-2023 15:24-0400 Diastolic blood pressure 72 mm[Hg] Zaire Simmons Jr., MD Work Phone: [facility] 08-06-2023 15:24-0400 Heart rate 101 /min Zaire Simmons Jr., MD Work Phone: [facility] 08-06-2023 15:24-0400 Respiratory rate 16 /min Zaire Simmons Jr., MD Work Phone: [facility] 08-06-2023 15:24-0400 SaO2% (BldA) [Mass fraction] 97 % Zaire Simmons Jr., MD Work Phone: [facility] 08-06-2023 15:24-0400 Systolic blood pressure 126 mm[Hg] Zaire Simmons Jr., MD Work Phone: [facility] 07-23-2023 13:30-0400 Body temperature 97.39 [degF] Hernandez Rascon MD Work Phone: [facility] 07-23-2023 13:30-0400 Body weight 129.82 kg Hernandez Rascon MD Work Phone: [facility] 07-23-2023 13:30-0400 Diastolic blood pressure 86 mm[Hg] Hernandez Rascon MD Work Phone: [facility] 07-23-2023 13:30-0400 Heart rate 114 /min Hernandez Rascon MD Work Phone: [facility] 07-23-2023 13:30-0400 SaO2% (BldA) [Mass fraction] 96 % Hernandez Rascon MD Work Phone: [facility] 07-23-2023 13:30-0400 Systolic blood pressure 142 mm[Hg] Hernandez Rascon MD Work Phone: [facility] 07-14-2023 13:51-0400 Body height 172.72 cm ASSISTANT COMMUNITY DIRECTOR-C Suresh Benedict ASSISTANT COMMUNITY DIRECTOR Work Phone: [facility] 07-14-2023 13:51-0400 Body mass index (BMI) [Ratio] 43.6 kg/m2 ASSISTANT COMMUNITY DIRECTOR-C Suresh Benedict ASSISTANT COMMUNITY DIRECTOR Work Phone: [facility] 07-14-2023 13:51-0400 Body temperature 98 [degF] ASSISTANT COMMUNITY DIRECTOR-C Suresh Benedict ASSISTANT COMMUNITY DIRECTOR Work Phone: [facility] 07-14-2023 13:51-0400 Body weight 130.18 kg ASSISTANT COMMUNITY DIRECTOR-C Suresh Benedict ASSISTANT COMMUNITY DIRECTOR Work Phone: [facility] 07-14-2023 13:51-0400 Diastolic blood pressure 92 mm[Hg] ASSISTANT COMMUNITY DIRECTOR-C Suresh Benedict ASSISTANT COMMUNITY DIRECTOR Work Phone: [facility] 07-14-2023 13:51-0400 Heart rate 107 /min ASSISTANT COMMUNITY DIRECTOR-C Suresh Benedict ASSISTANT COMMUNITY DIRECTOR Work Phone: [facility] 07-14-2023 13:51-0400 Respiratory rate 18 /min ASSISTANT COMMUNITY DIRECTOR-C Suresh Benedict ASSISTANT COMMUNITY DIRECTOR Work Phone: [facility] 07-14-2023 13:51-0400 SaO2% (BldA) [Mass fraction] 96 % ASSISTANT COMMUNITY DIRECTOR-C Suresh Benedict ASSISTANT COMMUNITY DIRECTOR Work Phone: [facility] 07-14-2023 13:51-0400 Systolic blood pressure 150 mm[Hg] ASSISTANT COMMUNITY DIRECTOR-Klarissa Mcmullen ASSISTANT COMMUNITY DIRECTOR Work Phone: [facility] 06-29-2023 06:53-0400 Body weight 131.09 kg Alissonshahid Quintanahof SURETY BOND AGENT.PROFESSIONAL VOLLEYBALL PLAYER Work Phone: [facility] 06-29-2023 06:53-0400 Diastolic blood pressure 90 mm[Hg] Alisson Tannhof SURETY BOND AGENT.PROFESSIONAL VOLLEYBALL PLAYER Work Phone: [facility] 06-29-2023 06:53-0400 Heart rate 94 /min Alisson Tannhof SURETY BOND AGENT.PROFESSIONAL VOLLEYBALL PLAYER Work Phone: [facility] 06-29-2023 06:53-0400 Respiratory rate 16 /min Alisson Marianohof SURETY BOND AGENT.PROFESSIONAL VOLLEYBALL PLAYER Work Phone: [facility] 06-29-2023 06:53-0400 SaO2% (BldA) [Mass fraction] 98 % Alissonshahid Quintanahof SURETY BOND AGENT.PROFESSIONAL VOLLEYBALL PLAYER Work Phone: [facility] 06-29-2023 06:53-0400 Systolic blood pressure 150 mm[Hg] Alisson Marianohof SURETY BOND AGENT.PROFESSIONAL VOLLEYBALL PLAYER Work Phone: [facility] 06-10-2023 09:26-0500 Body mass index (BMI) [Ratio] 43.8 kg/m2 ASSISTANT COMMUNITY DIRECTOR-Klarissa Mcmullen ASSISTANT COMMUNITY DIRECTOR Work Phone: [facility] 06-10-2023 09:26-0500 Body temperature 98.2 [degF] ASSISTANT COMMUNITY DIRECTOR-C Suresh Mcmullen ASSISTANT COMMUNITY DIRECTOR Work Phone: [facility] 06-10-2023 09:26-0500 Body weight 130.74 kg ASSISTANT COMMUNITY DIRECTOR-Klarissa Mcmullen ASSISTANT COMMUNITY DIRECTOR Work Phone: [facility] 06-10-2023 09:26-0500 Diastolic blood pressure 83 mm[Hg] ASSISTANT COMMUNITY DIRECTOR-Klarissa Mcmullen ASSISTANT COMMUNITY DIRECTOR Work Phone: [facility] 06-10-2023 09:26-0500 Heart rate 84 /min ASSISTANT COMMUNITY DIRECTOR-Klarissa Mcmullen ASSISTANT COMMUNITY DIRECTOR Work Phone: [facility] 06-10-2023 09:26-0500 Respiratory rate 18 /min ASSISTANT COMMUNITY DIRECTOR-C Suresh Benedict ASSISTANT COMMUNITY DIRECTOR Work Phone: [phone] [place] [address] 06-10-2023 09:26-0500 SaO2% (BldA) [Mass fraction] 95 % ASSISTANT COMMUNITY DIRECTOR-C Suresh Benedict ASSISTANT COMMUNITY DIRECTOR Work Phone: [phone] [place] [address] 06-10-2023 09:26-0500 Systolic blood pressure 139 mm[Hg] ASSISTANT COMMUNITY DIRECTOR-C Suresh Benedict ASSISTANT COMMUNITY DIRECTOR Work Phone: 6([phone] [place] [address] 04-29-2023 14:54-0500 Diastolic blood pressure 79 mm[Hg] ASSISTANT COMMUNITY DIRECTOR-C Suresh Benedict ASSISTANT COMMUNITY DIRECTOR Work Phone: 2(331)[phone] [place] [address] 04-29-2023 14:54-0500 Heart rate 74 /min ASSISTANT COMMUNITY DIRECTOR-C Suresh Benedict ASSISTANT COMMUNITY DIRECTOR Work Phone: 2([phone])[phone] [place] [address] 04-29-2023 14:54-0500 Respiratory rate 16 /min ASSISTANT COMMUNITY DIRECTOR-C Suresh Benedict ASSISTANT COMMUNITY DIRECTOR Work Phone: [phone] [place] [address] 04-29-2023 14:54-0500 Systolic blood pressure 137 mm[Hg] ASSISTANT COMMUNITY DIRECTOR-C Suresh Benedict ASSISTANT COMMUNITY DIRECTOR Work Phone: 0(166)[phone] [place] [address] 04-29-2023 13:59-0500 Body mass index (BMI) [Ratio] 43 kg/m2 ASSISTANT COMMUNITY DIRECTOR-C Suresh Benedict ASSISTANT COMMUNITY DIRECTOR Work Phone: 1([phone] [place] [address] 04-29-2023 13:59-0500 Body temperature 97.7 [degF] ASSISTANT COMMUNITY DIRECTOR-C Suresh Benedict ASSISTANT COMMUNITY DIRECTOR Work Phone: [phone] [place] [address] 04-29-2023 13:59-0500 SaO2% (BldA) [Mass fraction] 96 % ASSISTANT COMMUNITY DIRECTOR-C Suresh Benedict ASSISTANT COMMUNITY DIRECTOR Work Phone: 2([phone] [place] [address] 04-14-2023 13:54-0500 Body mass index (BMI) [Ratio] 43.8 kg/m2 ASSISTANT COMMUNITY DIRECTOR-C Suresh Benedict ASSISTANT COMMUNITY DIRECTOR Work Phone: 0([phone] [place] [address] 04-14-2023 13:54-0500 Body temperature 98.3 [degF] ASSISTANT COMMUNITY DIRECTOR-C Suresh Benedict ASSISTANT COMMUNITY DIRECTOR Work Phone: [facility] 04-14-2023 13:54-0500 Body weight 130.74 kg ASSISTANT COMMUNITY DIRECTOR-C Suresh Benedict ASSISTANT COMMUNITY DIRECTOR Work Phone: [facility] 04-14-2023 13:54-0500 Diastolic blood pressure 83 mm[Hg] ASSISTANT COMMUNITY DIRECTOR-C Suresh Benedict ASSISTANT COMMUNITY DIRECTOR Work Phone: [facility] 04-14-2023 13:54-0500 Heart rate 109 /min ASSISTANT COMMUNITY DIRECTOR-C Suresh Benedict ASSISTANT COMMUNITY DIRECTOR Work Phone: [facility] 04-14-2023 13:54-0500 Respiratory rate 18 /min ASSISTANT COMMUNITY DIRECTOR-C Suresh Benedict ASSISTANT COMMUNITY DIRECTOR Work Phone: [facility] 04-14-2023 13:54-0500 SaO2% (BldA) [Mass fraction] 92 % ASSISTANT COMMUNITY DIRECTOR-C Suresh Benedict ASSISTANT COMMUNITY DIRECTOR Work Phone: [facility] 04-14-2023 13:54-0500 Systolic blood pressure 128 mm[Hg] ASSISTANT COMMUNITY DIRECTOR-C Suresh Benedict ASSISTANT COMMUNITY DIRECTOR Work Phone: [facility] 02-05-2023 13:12-0400 Body weight 130.64 kg Jenifer Leonela SURETY BOND AGENT.PROFESSIONAL VOLLEYBALL PLAYER Work Phone: [facility] 02-05-2023 13:12-0400 Diastolic blood pressure 86 mm[Hg] Jenifer Leonela SURETY BOND AGENT.PROFESSIONAL VOLLEYBALL PLAYER Work Phone: [facility] 02-05-2023 13:12-0400 Heart rate 107 /min Jenifer Leonela SURETY BOND AGENT.PROFESSIONAL VOLLEYBALL PLAYER Work Phone: [facility] 02-05-2023 13:12-0400 Respiratory rate 16 /min Jenifer Leonela SURETY BOND AGENT.PROFESSIONAL VOLLEYBALL PLAYER Work Phone: [facility] 02-05-2023 13:12-0400 SaO2% (BldA) [Mass fraction] 99 % Jenifer Leonela SURETY BOND AGENT.PROFESSIONAL VOLLEYBALL PLAYER Work Phone: [facility] 02-05-2023 13:12-0400 Systolic blood pressure 142 mm[Hg] Jenifer Leonela SURETY BOND AGENT.PROFESSIONAL VOLLEYBALL PLAYER Work Phone: [facility] 12-28-2022 07:24-0400 Body temperature 97.3 [degF] Suresh Benedict SURETY BOND AGENT.PROFESSIONAL VOLLEYBALL PLAYER Work Phone: [facility] 12-28-2022 07:24-0400 Body weight 130.73 kg Suresh Benedict SURETY BOND AGENT.PROFESSIONAL VOLLEYBALL PLAYER Work Phone: [facility] 12-28-2022 07:24-0400 Diastolic blood pressure 77 mm[Hg] Suresh Benedict SURETY BOND AGENT.PROFESSIONAL VOLLEYBALL PLAYER Work Phone: [facility] 12-28-2022 07:24-0400 Heart rate 81 /min Suresh Benedict SURETY BOND AGENT.PROFESSIONAL VOLLEYBALL PLAYER Work Phone: [facility] 12-28-2022 07:24-0400 Respiratory rate 16 /min Suresh Benedict SURETY BOND AGENT.PROFESSIONAL VOLLEYBALL PLAYER Work Phone: [facility] 12-28-2022 07:24-0400 SaO2% (BldA) [Mass fraction] 96 % Suresh Benedict SURETY BOND AGENT.PROFESSIONAL VOLLEYBALL PLAYER Work Phone: [facility] 12-28-2022 07:24-0400 Systolic blood pressure 129 mm[Hg] Suresh Benedict SURETY BOND AGENT.PROFESSIONAL VOLLEYBALL PLAYER Work Phone: [facility] 12-23-2022 16:08-0400 Body weight 131.09 kg Alisson Resendiz SURETY BOND AGENT.PROFESSIONAL VOLLEYBALL PLAYER Work Phone: [facility] 12-23-2022 16:08-0400 Diastolic blood pressure 90 mm[Hg] Alisson Manf SURETY BOND AGENT.PROFESSIONAL VOLLEYBALL PLAYER Work Phone: [facility] 12-23-2022 16:08-0400 Heart rate 102 /min Alisson Manf SURETY BOND AGENT.PROFESSIONAL VOLLEYBALL PLAYER Work Phone: [facility] 12-23-2022 16:08-0400 Respiratory rate 16 /min Alisson Resendiz SURETY BOND AGENT.PROFESSIONAL VOLLEYBALL PLAYER Work Phone: [facility] 12-23-2022 16:08-0400 SaO2% (BldA) [Mass fraction] 98 % Alisson Resendiz SURETY BOND AGENT.PROFESSIONAL VOLLEYBALL PLAYER Work Phone: [facility] 12-23-2022 16:08-0400 Systolic blood pressure 160 mm[Hg] Alisson Resendiz SURETY BOND AGENT.PROFESSIONAL VOLLEYBALL PLAYER Work Phone: [facility] 12-15-2022 13:02-0400 Body height 172.72 cm ASSISTANT COMMUNITY DIRECTOR-C Suresh Benedict ASSISTANT COMMUNITY DIRECTOR Work Phone: [facility] 12-15-2022 13:02-0400 Body mass index (BMI) [Ratio] 43.8 kg/m2 ASSISTANT COMMUNITY DIRECTOR-C Suresh Benedict ASSISTANT COMMUNITY DIRECTOR Work Phone: [facility] 12-15-2022 13:02-0400 Body weight 130.77 kg ASSISTANT COMMUNITY DIRECTOR-C Suresh Benedict ASSISTANT COMMUNITY DIRECTOR Work Phone: [facility] 12-15-2022 13:02-0400 Diastolic blood pressure 74 mm[Hg] ASSISTANT COMMUNITY DIRECTOR-C Suresh Benedict ASSISTANT COMMUNITY DIRECTOR Work Phone: [facility] 12-15-2022 13:02-0400 Heart rate 84 /min ASSISTANT COMMUNITY DIRECTOR-C Suresh Benedict ASSISTANT COMMUNITY DIRECTOR Work Phone: [facility] 12-15-2022 13:02-0400 Respiratory rate 16 /min ASSISTANT COMMUNITY DIRECTOR-C Suresh Benedict ASSISTANT COMMUNITY DIRECTOR Work Phone: [facility] 12-15-2022 13:02-0400 SaO2% (BldA) [Mass fraction] 94 % ASSISTANT COMMUNITY DIRECTOR-C Suresh Benedict ASSISTANT COMMUNITY DIRECTOR Work Phone: [facility] 12-15-2022 13:02-0400 Systolic blood pressure 159 mm[Hg] ASSISTANT COMMUNITY DIRECTOR-C Suresh Benedict ASSISTANT COMMUNITY DIRECTOR Work Phone: [facility] 12-12-2022 15:46-0400 Diastolic blood pressure 82 mm[Hg] ASSISTANT COMMUNITY DIRECTOR-C Suresh Benedict ASSISTANT COMMUNITY DIRECTOR Work Phone: [facility] 12-12-2022 15:46-0400 Heart rate 85 /min ASSISTANT COMMUNITY DIRECTOR-C Suresh Benedict ASSISTANT COMMUNITY DIRECTOR Work Phone: 5([phone] [place] [address] 12-12-2022 15:46-0400 Respiratory rate 18 /min ASSISTANT COMMUNITY DIRECTOR-C Suresh Benedict ASSISTANT COMMUNITY DIRECTOR Work Phone: 7([phone] [place] [address] 12-12-2022 15:46-0400 SaO2% (BldA) [Mass fraction] 93 % ASSISTANT COMMUNITY DIRECTOR-C Suresh Benedict ASSISTANT COMMUNITY DIRECTOR Work Phone: 3([phone] [place] [address] 12-12-2022 15:46-0400 Systolic blood pressure 145 mm[Hg] ASSISTANT COMMUNITY DIRECTOR-C Suresh Benedict ASSISTANT COMMUNITY DIRECTOR Work Phone: 2([phone] [place] [address] 12-12-2022 13:54-0400 Body mass index (BMI) [Ratio] 43.9 kg/m2 ASSISTANT COMMUNITY DIRECTOR-C Suresh Benedict ASSISTANT COMMUNITY DIRECTOR Work Phone: 1(373)[phone] [place] [address] 12-12-2022 13:54-0400 Body weight 131 kg ASSISTANT COMMUNITY DIRECTOR-C Suresh Benedict ASSISTANT COMMUNITY DIRECTOR Work Phone: 5([phone] [place] [address] 12-12-2022 13:15-0400 Body height 172.72 cm ASSISTANT COMMUNITY DIRECTOR-C Suresh Benedict ASSISTANT COMMUNITY DIRECTOR Work Phone: 8([phone] [place] [address] 12-12-2022 13:15-0400 Body temperature 97.5 [degF] ASSISTANT COMMUNITY DIRECTOR-C Suresh Benedict ASSISTANT COMMUNITY DIRECTOR Work Phone: 8([phone] [place] [address] 12-09-2022 12:16-0400 Body mass index (BMI) [Ratio] 44.4 kg/m2 ASSISTANT COMMUNITY DIRECTOR-C Suresh Benedict ASSISTANT COMMUNITY DIRECTOR Work Phone: 4([phone] [place] [address] 12-09-2022 12:16-0400 Body temperature 98.1 [degF] ASSISTANT COMMUNITY DIRECTOR-C Suresh Benedict ASSISTANT COMMUNITY DIRECTOR Work Phone: 7(308)[phone] [place] [address] 12-09-2022 12:16-0400 Body weight 132.67 kg ASSISTANT COMMUNITY DIRECTOR-C Suresh Benedict ASSISTANT COMMUNITY DIRECTOR Work Phone: [facility] 12-09-2022 12:16-0400 Diastolic blood pressure 107 mm[Hg] ASSISTANT COMMUNITY DIRECTOR-C Suresh Benedict ASSISTANT COMMUNITY DIRECTOR Work Phone: 4([phone] [place] [address] 12-09-2022 12:16-0400 Heart rate 97 /min ASSISTANT COMMUNITY DIRECTOR-C Suresh Benedict ASSISTANT COMMUNITY DIRECTOR Work Phone: 7([phone])395-283898 [place] [address] 12-09-2022 12:16-0400 Respiratory rate 18 /min ASSISTANT COMMUNITY DIRECTOR-C Suresh Benedict ASSISTANT COMMUNITY DIRECTOR Work Phone: 2([phone] [place] [address] 12-09-2022 12:16-0400 SaO2% (BldA) [Mass fraction] 96 % ASSISTANT COMMUNITY DIRECTOR-C Suresh Benedict ASSISTANT COMMUNITY DIRECTOR Work Phone: 1(557)689-389798 [place] [address] 12-09-2022 12:16-0400 Systolic blood pressure 165 mm[Hg] ASSISTANT COMMUNITY DIRECTOR-C Suresh Benedict ASSISTANT COMMUNITY DIRECTOR Work Phone: [phone] [place] [address] 12-02-2022 10:26-0400 Body mass index (BMI) [Ratio] 44.4 kg/m2 ASSISTANT COMMUNITY DIRECTOR-C Suresh Benedict ASSISTANT COMMUNITY DIRECTOR Work Phone: 3([phone] [place] [address] 12-02-2022 10:26-0400 Body temperature 97.7 [degF] ASSISTANT COMMUNITY DIRECTOR-C Suresh Benedict ASSISTANT COMMUNITY DIRECTOR Work Phone: 7([phone] [place] [address] 12-02-2022 10:26-0400 Body weight 132.47 kg ASSISTANT COMMUNITY DIRECTOR-C Suresh Benedict ASSISTANT COMMUNITY DIRECTOR Work Phone: 3([phone] [place] [address] 12-02-2022 10:26-0400 Diastolic blood pressure 100 mm[Hg] ASSISTANT COMMUNITY DIRECTOR-C Suresh Benedict ASSISTANT COMMUNITY DIRECTOR Work Phone: 8(461)[phone] [place] [address] 12-02-2022 10:26-0400 Heart rate 86 /min ASSISTANT COMMUNITY DIRECTOR-C Suresh Benedict ASSISTANT COMMUNITY DIRECTOR Work Phone: 1([phone] [place] [address] 12-02-2022 10:26-0400 Respiratory rate 16 /min ASSISTANT COMMUNITY DIRECTOR-C Suresh Benedict ASSISTANT COMMUNITY DIRECTOR Work Phone: 7([phone] [place] [address] 12-02-2022 10:26-0400 SaO2% (BldA) [Mass fraction] 95 % ASSISTANT COMMUNITY DIRECTOR-C Suresh Benedict ASSISTANT COMMUNITY DIRECTOR Work Phone: [facility] 12-02-2022 10:26-0400 Systolic blood pressure 156 mm[Hg] ASSISTANT COMMUNITY DIRECTOR-C Suresh Benedict ASSISTANT COMMUNITY DIRECTOR Work Phone: [phone] [place] [address] 11-25-2022 08:18-0400 Body mass index (BMI) [Ratio] 44.3 kg/m2 ASSISTANT COMMUNITY DIRECTOR-C Suresh Benedict ASSISTANT COMMUNITY DIRECTOR Work Phone: 7(726)872-572098 [place] [address] 11-25-2022 08:18-0400 Body temperature 98 [degF] ASSISTANT COMMUNITY DIRECTOR-C Suresh Benedict ASSISTANT COMMUNITY DIRECTOR Work Phone: 5(566)617-478298 [place] [address] 11-25-2022 08:18-0400 Body weight 132.25 kg ASSISTANT COMMUNITY DIRECTOR-C Suresh Benedict ASSISTANT COMMUNITY DIRECTOR Work Phone: 2(520)193-325398 [place] [address] 11-25-2022 08:18-0400 Diastolic blood pressure 96 mm[Hg] ASSISTANT COMMUNITY DIRECTOR-C Suresh Benedict ASSISTANT COMMUNITY DIRECTOR Work Phone: 3(000)271-696598 [place] [address] 11-25-2022 08:18-0400 Heart rate 89 /min ASSISTANT COMMUNITY DIRECTOR-C Suresh Benedict ASSISTANT COMMUNITY DIRECTOR Work Phone: 7(485)281-471298 [place] [address] 11-25-2022 08:18-0400 Respiratory rate 18 /min ASSISTANT COMMUNITY DIRECTOR-C Suresh Benedict ASSISTANT COMMUNITY DIRECTOR Work Phone: 2(972)417-273498 [place] [address] 11-25-2022 08:18-0400 SaO2% (BldA) [Mass fraction] 95 % ASSISTANT COMMUNITY DIRECTOR-C Suresh Benedict ASSISTANT COMMUNITY DIRECTOR Work Phone: 7(888)509-763698 [place] [address] 11-25-2022 08:18-0400 Systolic blood pressure 144 mm[Hg] ASSISTANT COMMUNITY DIRECTOR-C Suresh Benedict ASSISTANT COMMUNITY DIRECTOR Work Phone: 9(149)318-602298 [place] [address] 11-18-2022 13:38-0400 Body mass index (BMI) [Ratio] 44.5 kg/m2 ASSISTANT COMMUNITY DIRECTOR-C Suresh Benedict ASSISTANT COMMUNITY DIRECTOR Work Phone: 8(468)125-577398 [place] [address] 11-18-2022 13:38-0400 Body temperature 97.5 [degF] ASSISTANT COMMUNITY DIRECTOR-C Suresh Benedict ASSISTANT COMMUNITY DIRECTOR Work Phone: [facility] 11-18-2022 13:38-0400 Body weight 132.9 kg ASSISTANT COMMUNITY DIRECTOR-C Suresh Benedict ASSISTANT COMMUNITY DIRECTOR Work Phone: [facility] 11-18-2022 13:38-0400 Diastolic blood pressure 97 mm[Hg] ASSISTANT COMMUNITY DIRECTOR-C Suresh Benedict ASSISTANT COMMUNITY DIRECTOR Work Phone: [facility] 11-18-2022 13:38-0400 Heart rate 98 /min ASSISTANT COMMUNITY DIRECTOR-C Suresh Benedict ASSISTANT COMMUNITY DIRECTOR Work Phone: 6(004)245-844898 [place] [address] 11-18-2022 13:38-0400 Respiratory rate 18 /min ASSISTANT COMMUNITY DIRECTOR-C Suresh Benedict ASSISTANT COMMUNITY DIRECTOR Work Phone: 8(947)578-239398 [place] [address] 11-18-2022 13:38-0400 SaO2% (BldA) [Mass fraction] 98 % ASSISTANT COMMUNITY DIRECTOR-C Suresh Benedict ASSISTANT COMMUNITY DIRECTOR Work Phone: 1(700)421-371416 [place] [address] 11-18-2022 13:38-0400 Systolic blood pressure 165 mm[Hg] ASSISTANT COMMUNITY DIRECTOR-C Suresh Benedict ASSISTANT COMMUNITY DIRECTOR Work Phone: [facility] 11-03-2022 13:06-0400 Body mass index (BMI) [Ratio] 44.4 kg/m2 ASSISTANT COMMUNITY DIRECTOR-C Suresh Benedict ASSISTANT COMMUNITY DIRECTOR Work Phone: [facility] 11-03-2022 13:06-0400 Body temperature 97.7 [degF] ASSISTANT COMMUNITY DIRECTOR-C Suresh Benedict ASSISTANT COMMUNITY DIRECTOR Work Phone: [facility] 11-03-2022 13:06-0400 Body weight 132.61 kg ASSISTANT COMMUNITY DIRECTOR-C Suresh Benedict ASSISTANT COMMUNITY DIRECTOR Work Phone: [facility] 11-03-2022 13:06-0400 Diastolic blood pressure 97 mm[Hg] ASSISTANT COMMUNITY DIRECTOR-C Suresh Benedict ASSISTANT COMMUNITY DIRECTOR Work Phone: [facility] 11-03-2022 13:06-0400 Heart rate 85 /min ASSISTANT COMMUNITY DIRECTOR-C Suresh Benedict ASSISTANT COMMUNITY DIRECTOR Work Phone: 1(469)124-159216 [place] [address] 11-03-2022 13:06-0400 Respiratory rate 16 /min ASSISTANT COMMUNITY DIRECTOR-C Suresh Benedict ASSISTANT COMMUNITY DIRECTOR Work Phone: 1(953)600-267298 [place] [address] 11-03-2022 13:06-0400 SaO2% (BldA) [Mass fraction] 97 % ASSISTANT COMMUNITY DIRECTOR-C Suresh Benedict ASSISTANT COMMUNITY DIRECTOR Work Phone: 4(875)993-900098 [place] [address] 11-03-2022 13:06-0400 Systolic blood pressure 154 mm[Hg] ASSISTANT COMMUNITY DIRECTOR-C Suresh Benedict ASSISTANT COMMUNITY DIRECTOR Work Phone: 6(873)089-004698 [place] [address] 10-14-2022 15:43-0400 Body mass index (BMI) [Ratio] 44.2 kg/m2 ASSISTANT COMMUNITY DIRECTOR-C Suresh Benedict ASSISTANT COMMUNITY DIRECTOR Work Phone: 0(897)187-872498 [place] [address] 10-14-2022 15:43-0400 Body temperature 98 [degF] ASSISTANT COMMUNITY DIRECTOR-C Suresh Benedict ASSISTANT COMMUNITY DIRECTOR Work Phone: 4(328)032-879098 [place] [address] 10-14-2022 15:43-0400 Body weight 131.99 kg ASSISTANT COMMUNITY DIRECTOR-C Suresh Benedict ASSISTANT COMMUNITY DIRECTOR Work Phone: 8(236)801-111498 [place] [address] 10-14-2022 15:43-0400 Diastolic blood pressure 82 mm[Hg] ASSISTANT COMMUNITY DIRECTOR-C Suresh Benedict ASSISTANT COMMUNITY DIRECTOR Work Phone: 4(588)253-895498 [place] [address] 10-14-2022 15:43-0400 Heart rate 83 /min ASSISTANT COMMUNITY DIRECTOR-C Suresh Benedict ASSISTANT COMMUNITY DIRECTOR Work Phone: 8(196)375-413798 [place] [address] 10-14-2022 15:43-0400 Respiratory rate 17 /min ASSISTANT COMMUNITY DIRECTOR-C Suresh Benedict ASSISTANT COMMUNITY DIRECTOR Work Phone: 3(323)521-070898 [place] [address] 10-14-2022 15:43-0400 SaO2% (BldA) [Mass fraction] 96 % ASSISTANT COMMUNITY DIRECTOR-C Suresh Benedict ASSISTANT COMMUNITY DIRECTOR Work Phone: 2(111)843-689616 [place] [address] 10-14-2022 15:43-0400 Systolic blood pressure 130 mm[Hg] ASSISTANT COMMUNITY DIRECTOR-C Suresh Benedict ASSISTANT COMMUNITY DIRECTOR Work Phone: 8(395)679-699216 [place] [address] 09-30-2022 14:40-0400 Body temperature 97.9 [degF] ASSISTANT COMMUNITY DIRECTOR-C Suresh Cril ASSISTANT COMMUNITY DIRECTOR Work Phone: 4(816)135-794498 [place] [address] 09-30-2022 14:40-0400 Diastolic blood pressure 80 mm[Hg] ASSISTANT COMMUNITY DIRECTOR-C Suresh Cril ASSISTANT COMMUNITY DIRECTOR Work Phone: 5(402)366-018216 [place] [address] 09-30-2022 14:40-0400 Heart rate 78 /min ASSISTANT COMMUNITY DIRECTOR-C Suresh Cril ASSISTANT COMMUNITY DIRECTOR Work Phone: 9(735)859-640698 [place] [address] 09-30-2022 14:40-0400 Respiratory rate 16 /min ASSISTANT COMMUNITY DIRECTOR-C Suresh Cril ASSISTANT COMMUNITY DIRECTOR Work Phone: 5([phone])136-713698 [place] [address] 09-30-2022 14:40-0400 SaO2% (BldA) [Mass fraction] 94 % ASSISTANT COMMUNITY DIRECTOR-C Suresh Mcmullen ASSISTANT COMMUNITY DIRECTOR Work Phone: 8(801)057-404216 [place] [address] 09-30-2022 14:40-0400 Systolic blood pressure 123 mm[Hg] ASSISTANT COMMUNITY DIRECTOR-C Suresh Mcmullen ASSISTANT COMMUNITY DIRECTOR Work Phone: 3(535)020-256798 [place] [address] 09-30-2022 14:04-0400 Inhaled oxygen flow rate 2 L/min ASSISTANT COMMUNITY DIRECTOR-C Suresh Benedict ASSISTANT COMMUNITY DIRECTOR Work Phone: 0(139)319-747798 [place] [address] 09-30-2022 09:11-0400 Body height 172.72 cm ASSISTANT COMMUNITY DIRECTOR-C Suresh Mcmullen ASSISTANT COMMUNITY DIRECTOR Work Phone: 2(772)839-455298 [place] [address] 09-30-2022 09:11-0400 Body mass index (BMI) [Ratio] 44.2 kg/m2 ASSISTANT COMMUNITY DIRECTOR-C Suresh Benedict ASSISTANT COMMUNITY DIRECTOR Work Phone: 4(250)380-725416 [place] [address] 09-30-2022 09:11-0400 Body weight 132 kg ASSISTANT COMMUNITY DIRECTOR-C Suresh Cril ASSISTANT COMMUNITY DIRECTOR Work Phone: 0([phone])592-204698 [place] [address] 08-24-2022 15:41-0400 Body mass index (BMI) [Ratio] 44.1 kg/m2 ASSISTANT COMMUNITY DIRECTOR-C Suresh Benedict ASSISTANT COMMUNITY DIRECTOR Work Phone: [facility] 08-24-2022 15:41-0400 Body weight 131.54 kg ASSISTANT COMMUNITY DIRECTOR-C Suresh Benedict ASSISTANT COMMUNITY DIRECTOR Work Phone: [facility] 08-24-2022 15:41-0400 Respiratory rate 18 /min ASSISTANT COMMUNITY DIRECTOR-C Suresh Benedict ASSISTANT COMMUNITY DIRECTOR Work Phone: [facility] 07-31-2022 08:11-0400 Body temperature 97.7 [degF] Suresh Benedict SURETY BOND AGENT.PROFESSIONAL VOLLEYBALL PLAYER Work Phone: [facility] 07-31-2022 08:11-0400 Body weight 132.45 kg Suresh Benedict SURETY BOND AGENT.PROFESSIONAL VOLLEYBALL PLAYER Work Phone: [facility] 07-31-2022 08:11-0400 Diastolic blood pressure 82 mm[Hg] Suresh Benedict SURETY BOND AGENT.PROFESSIONAL VOLLEYBALL PLAYER Work Phone: [facility] 07-31-2022 08:11-0400 Heart rate 93 /min Suresh Benedict SURETY BOND AGENT.PROFESSIONAL VOLLEYBALL PLAYER Work Phone: [facility] 07-31-2022 08:11-0400 Respiratory rate 16 /min Suresh Benedict SURETY BOND AGENT.PROFESSIONAL VOLLEYBALL PLAYER Work Phone: [facility] 07-31-2022 08:11-0400 SaO2% (BldA) [Mass fraction] 99 % Suresh Benedict SURETY BOND AGENT.PROFESSIONAL VOLLEYBALL PLAYER Work Phone: [facility] 07-31-2022 08:11-0400 Systolic blood pressure 134 mm[Hg] Suresh Benedict SURETY BOND AGENT.PROFESSIONAL VOLLEYBALL PLAYER Work Phone: [facility] 06-29-2022 11:56-0400 Diastolic blood pressure 94 mm[Hg] Suresh Benedict SURETY BOND AGENT.PROFESSIONAL VOLLEYBALL PLAYER Work Phone: [facility] 06-29-2022 11:56-0400 Systolic blood pressure 152 mm[Hg] Suresh Benedict SURETY BOND AGENT.PROFESSIONAL VOLLEYBALL PLAYER Work Phone: [facility] 06-29-2022 11:30-0400 Body height 167.6 cm Suresh Benedict SURETY BOND AGENT.PROFESSIONAL VOLLEYBALL PLAYER Work Phone: [facility] 06-29-2022 11:30-0400 Body temperature 97 [degF] Suresh Mcmullen SURETY BOND AGENT.PROFESSIONAL VOLLEYBALL PLAYER Work Phone: [facility] 06-29-2022 11:30-0400 Body weight 131.09 kg Suresh Mcmullen SURETY BOND AGENT.PROFESSIONAL VOLLEYBALL PLAYER Work Phone: [facility] 06-29-2022 11:30-0400 Heart rate 79 /min Suresh Mcmullen SURETY BOND AGENT.PROFESSIONAL VOLLEYBALL PLAYER Work Phone: [facility] 06-29-2022 11:30-0400 Respiratory rate 16 /min Suresh Mcmullen SURETY BOND AGENT.PROFESSIONAL VOLLEYBALL PLAYER Work Phone: [facility] 06-29-2022 11:30-0400 SaO2% (BldA) [Mass fraction] 97 % Suresh Mcmullen SURETY BOND AGENT.PROFESSIONAL VOLLEYBALL PLAYER Work Phone: [facility] Encounters Encounter Date Encounter Type Care Provider Facility Start: 07-07-2024 End: 07-07-2024 Office outpatient visit 40 minutes Alisson Resendiz APRN.CNP Work Phone: [facility] Comment on above: Wellness examination (Primary Dx); Dyspepsia; Essential hypertension; Dyslipidemia, goal LDL below 100; History of Graves' disease; History of breast cancer; JOEY (obstructive sleep apnea); Encounter for screening mammogram for breast cancer Start: 07-07-2024 End: 07-07-2024 Patient encounter status Alisson Resendiz APRN.CNP Work Phone: [facility] Start: 07-07-2024 End: 07-07-2024 ambulatory [facility] Facility:[facility] Start: 07-07-2024 Encounter for genera l adult medical examination without abnormal findings ALISSON RESENDIZ [facility] Start: 03-21-2024 End: 03-21-2024 Refill Alisson Resendiz APRN.CNP Work Phone: [facility] Comment on above: Refill Request Start: 03-13-2024 End: 03-13-2024 ambulatory Suresh Mcmullen Facility:[facility] Start: 02-10-2024 End: 02-11-2024 Telephone encounter Alisson Martín GONZALESPROFESSIONAL VOLLEYBALL PLAYER Work Phone: [facility] Comment on above: Results (Labs ) Start: 02-09-2024 End: 02-09-2024 Patient encounter procedure Alisson Resendiz SURETY BOND AGENT.PROFESSIONAL VOLLEYBALL PLAYER Work Phone: [facility] Comment on above: Essential hypertensi on (Primary Dx); Lower leg edema; Leg cramp; History of Graves' disease Start: 02-09-2024 End: 02-09-2024 ambulatory MARTHA AYALA Facility:[facility] Start: 01-27-2024 End: 01-27-2024 Refill Martha Ayala MD Work Phone: [facility] Comment on above: Refill Request Start: 01-24-2024 End: 01-24-2024 ambulatory Suresh Cril Facility:[facility] Start: 12-30-2023 End: 12-30-2023 ambulatory ALISSON RESENDIZ Facility:[facility] Start: 12-30-2023 End: 12-30-2023 Patient encounter procedure 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 Work Phone: [facility] Comment on above: Essential hypertensi on (Primary Dx); Lower leg edema; History of Graves' disease; JOEY (obstructive sleep apnea); Dyslipidemia, goal LDL below 100; Screening for diabetes mellitus; History of breast cancer Start: 11-17-2023 End: 11-17-2023 ambulatory Suresh Cril Facility:[facility] Start: 11-01-2023 End: 11-01-2023 ambulatory Suresh Benedict Facility:[facility] Start: 10-12-2023 End: 10-12-2023 ambulatory Bear Kapadia Facility:[facility] Start: 08-06-2023 End: 08-06-2023 Patient encounter procedure Zaire Simmons MD Work Phone: Neurology Comment on above: JOEY on CPAP (Primary Dx); Class 3 severe obesity with body mass index (BMI) of 40.0 to 44.9 in adult, unspecified obesity type, unspecified whether serious comorbidity present (HCC) Start: 08-06-2023 End: 08-06-2023 ambulatory ZAIRE Ru SIMMONS JR Facility:[facility] Start: 07-26-2023 ambulatory Alisson Resendiz APRN.PROFESSIONAL VOLLEYBALL PLAYER Work Phone: [facility] Comment on above: Last doctor visit Start: 07-26-2023 Telephone encounter Jenifer Steel kaykay BLANCHARD.PROFESSIONAL VOLLEYBALL PLAYER Work Phone: Neurology Start: 07-23-2023 End: 02-08-2024 Telephone encounter Hernandez Rascon MD Work Phone: General Surgery Comment on above: 12/13/2023 COLON MEDIN A Start: 07-23-2023 End: 07-23-2023 ambulatory HERNANDEZ RASCON Facility:[facility] Start: 07-23-2023 End: 07-23-2023 Patient encounter procedure Hernandez Rascon MD Work Phone: General Surgery Comment on above: Screening for colon cancer Start: 07-14-2023 End: 07-14-2023 Patient encounter procedure ASSISTANT COMMUNITY DIRECTOR-C Suresh Mcmullen ASSISTANT COMMUNITY DIRECTOR Work Phone: [facility] Work Phone: Start: 07-12-2023 End: 07-12-2023 ambulatory ASSISTANT COMMUNITY DIRECTOR-C Suresh Mcmullen ASSISTANT COMMUNITY DIRECTOR Work Phone: [facility] Work Phone: Start: 07-12-2023 End: 07-12-2023 Patient encounter procedure ASSISTANT COMMUNITY DIRECTOR-C Suresh Mcmullen ASSISTANT COMMUNITY DIRECTOR Work Phone: [facility]-Outpatient Breast Imaging Work Phone: Start: 06-29-2023 End: 06-29-2023 Patient encounter procedure Alisson Resendiz APRN.PROFESSIONAL VOLLEYBALL PLAYER Work Phone: [facility] Comment on above: Essential hypertensi on (Primary Dx); Allergic reaction, initial encounter; Other fatigue; Vitamin D deficiency; Vitamin B12 deficiency; JOEY (obstructive sleep apnea); Screening for colon cancer; Screening cholesterol level; Screening for diabetes mellitus Start: 06-10-2023 End: 06-10-2023 Patient encounter procedure ASSISTANT COMMUNITY DIRECTOR-Klarissa Mcmullen ASSISTANT COMMUNITY DIRECTOR Work Phone: [facility] Work Phone: Start: 05-17-2023 End: 05-17-2023 Patient encounter procedure ASSISTANT COMMUNITY DIRECTOR-Klarissa Mcmullen ASSISTANT COMMUNITY DIRECTOR Work Phone: [facility] Work Phone: Start: 04-29-2023 Registered Recurring ASSISTANT COMMUNITY DIRECTOR-Klarissa Mcmullen ASSISTANT COMMUNITY DIRECTOR Work Phone: [facility] Start: 04-14-2023 End: 04-14-2023 Patient encounter procedure ASSISTANT COMMUNITY DIRECTOR-Klarissa Mcmullen ASSISTANT COMMUNITY DIRECTOR Work Phone: [facility] Work Phone: Start: 02-22-2023 ambulatory Jenifer Gipson APRN.PROFESSIONAL VOLLEYBALL PLAYER Work Phone: Neurology Comment on above: CPAP supplies Start: 02-05-2023 End: 02-05-2023 Patient encounter procedure Jenifer Gipson APRN.PROFESSIONAL VOLLEYBALL PLAYER Work Phone: Neurology Comment on above: JOEY on CPAP (Primary Dx); Essential hypertension; Morbid obesity (HCC) Start: 01-04-2023 ambulatory Suresh VANG RN.PROFESSIONAL VOLLEYBALL PLAYER Work Phone: [facility] Start: 01-04-2023 Patient encounter procedure Suresh Mcmullen APRN.PROFESSIONAL VOLLEYBALL PLAYER Work Phone: [facility] Comment on above: Referral to Pulmonar y doctor Start: 12-28-2022 End: 12-28-2022 Office outpatient visit 25 minutes Suresh Mcmullen APRN.PROFESSIONAL VOLLEYBALL PLAYER Work Phone: [facility] Comment on above: Essential hypertensi on (Primary Dx); Allergic reaction, initial encounter; Cellulitis, unspecified cellulitis site; Screening for lipid disorders Start: 12-23-2022 End: 12-23-2022 Patient encounter procedure Alisson Resendiz APRN.PROFESSIONAL VOLLEYBALL PLAYER Work Phone: [facility] Comment on above: Allergic reaction, i nitial encounter (Primary Dx); Cellulitis, unspecified cellulitis site Start: 12-15-2022 End: 12-15-2022 Patient encounter procedure ASSISTANT COMMUNITY DIRECTOR-C Suresh Mcmullen ASSISTANT COMMUNITY DIRECTOR Work Phone: [facility] Work Phone: Start: 12-15-2022 Registered Recurring ASSISTANT COMMUNITY DIRECTOR-C Brook fatemeh Mcmullen ASSISTANT COMMUNITY DIRECTOR [facility] Start: 12-13-2022 End: 12-13-2022 ambulatory ASSISTANT COMMUNITY DIRECTOR-C Suresh Cril ASSISTANT COMMUNITY DIRECTOR Work Phone: [facility] Work Phone: Start: 12-13-2022 End: 12-13-2022 Patient encounter procedure ASSISTANT COMMUNITY DIRECTOR-C Suresh Mcmullen ASSISTANT COMMUNITY DIRECTOR Work Phone: [facility] [place] Work Phone: Start: 12-12-2022 End: 12-12-2022 Emergency department patient visit ASSISTANT COMMUNITY DIRECTOR-C Suresh Mcmullen ASSISTANT COMMUNITY DIRECTOR Work Phone: [facility]-Emergency Department Work Phone: Start: 12-11-2022 Registered Recurring ASSISTANT COMMUNITY DIRECTOR-C Brook fatemeh Cril ASSISTANT COMMUNITY DIRECTOR [facility] Start: 12-09-2022 End: 12-09-2022 Patient encounter procedure ASSISTANT COMMUNITY DIRECTOR-C Suresh Benedict ASSISTANT COMMUNITY DIRECTOR Work Phone: [facility] Work Phone: Start: 12-02-2022 End: 12-02-2022 Patient encounter procedure ASSISTANT COMMUNITY DIRECTOR-C Suresh Benedict ASSISTANT COMMUNITY DIRECTOR Work Phone: [facility] Work Phone: Start: 11-25-2022 End: 11-25-2022 Patient encounter procedure ASSISTANT COMMUNITY DIRECTOR-C Suresh Benedict ASSISTANT COMMUNITY DIRECTOR Work Phone: [facility] Work Phone: Start: 11-23-2022 Non-patient / Non-visit ASSISTANT COMMUNITY DIRECTOR-C J nachoe Benedict ASSISTANT COMMUNITY DIRECTOR Work Phone: [facility] Start: 11-19-2022 Non-patient / Non-visit ASSISTANT COMMUNITY DIRECTOR-C J esse Benedict ASSISTANT COMMUNITY DIRECTOR Work Phone: [facility] Start: 11-18-2022 Non-patient / Non-visit ASSISTANT COMMUNITY DIRECTOR-C J esse Benedict ASSISTANT COMMUNITY DIRECTOR Work Phone: [facility] Start: 11-18-2022 End: 11-18-2022 Patient encounter procedure ASSISTANT COMMUNITY DIRECTOR-C Suresh Mcmullen ASSISTANT COMMUNITY DIRECTOR Work Phone: [facility] Work Phone: Start: 11-13-2022 End: 11-13-2022 Patient encounter procedure ASSISTANT COMMUNITY DIRECTOR-C Suresh Benedict ASSISTANT COMMUNITY DIRECTOR Work Phone: [facility] Work Phone: Start: 11-10-2022 Non-patient / Non-visit ASSISTANT COMMUNITY DIRECTOR-C Ru griffithe Benedict ASSISTANT COMMUNITY DIRECTOR Work Phone: [facility] Start: 11-03-2022 End: 11-03-2022 Patient encounter procedure ASSISTANT COMMUNITY DIRECTOR-C Suresh Mcmullen ASSISTANT COMMUNITY DIRECTOR Work Phone: [facility] Work Phone: Start: 10-30-2022 End: 10-30-2022 Patient encounter procedure ASSISTANT COMMUNITY DIRECTOR-C Suresh Benedict ASSISTANT COMMUNITY DIRECTOR Work Phone: [facility] Work Phone: Start: 10-23-2022 End: 10-23-2022 Patient encounter procedure ASSISTANT COMMUNITY DIRECTOR-C Suresh Benedict ASSISTANT COMMUNITY DIRECTOR Work Phone: [facility] Work Phone: Start: 10-22-2022 End: 10-22-2022 Patient encounter procedure ASSISTANT COMMUNITY DIRECTOR-C Suresh Benedict ASSISTANT COMMUNITY DIRECTOR Work Phone: [facility]-Outpatient Bone Densitometry Work Phone: Start: 10-16-2022 End: 10-16-2022 Patient encounter procedure ASSISTANT COMMUNITY DIRECTOR-C Suresh Mcmullen ASSISTANT COMMUNITY DIRECTOR Work Phone: [facility] Work Phone: Start: 10-14-2022 End: 10-14-2022 Patient encounter procedure ASSISTANT COMMUNITY DIRECTOR-C Suresh Mcmullen ASSISTANT COMMUNITY DIRECTOR Work Phone: [facility] Work Phone: Start: 09-30-2022 Non-patient / Non-visit ASSISTANT COMMUNITY DIRECTOR-Klarissa Mcmullen ASSISTANT COMMUNITY DIRECTOR Work Phone: [facility] Start: 09-30-2022 End: 09-30-2022 Admission to same day surgery center ASSISTANT COMMUNITY DIRECTOR-Klarissa Mcmullen ASSISTANT COMMUNITY DIRECTOR Work Phone: [facility]-Surgical Day Care Start: 09-30-2022 End: 09-30-2022 ambulatory ASSISTANT COMMUNITY DIRECTOR-C Suresh Mcmullen ASSISTANT COMMUNITY DIRECTOR Work Phone: [facility] Work Phone: Start: 09-17-2022 End: 09-17-2022 Patient encounter procedure ASSISTANT COMMUNITY DIRECTOR-C Suresh Mcmullen ASSISTANT COMMUNITY DIRECTOR Work Phone: [facility] Work Phone: Start: 09-09-2022 End: 09-09-2022 Patient encounter procedure ASSISTANT COMMUNITY DIRECTOR-C Suresh Mcmullen ASSISTANT COMMUNITY DIRECTOR Work Phone: [facility] Work Phone: Start: 08-24-2022 End: 08-24-2022 Patient encounter procedure ASSISTANT COMMUNITY DIRECTOR-C Suresh Mcmullen ASSISTANT COMMUNITY DIRECTOR Work Phone: [facility]-Laboratory, Specimen Work Phone: Start: 08-24-2022 End: 08-24-2022 Patient encounter procedure ASSISTANT COMMUNITY DIRECTOR-C Suresh Mcmullen NP Work Phone: [facility] Work Phone: Start: 08-12-2022 End: 08-12-2022 Subsequent hospital visit by physician Diagnostic Mammo [facility] Comment on above: Abnormal mammogram [ R92.8] Start: 07-31-2022 ambulatory Suresh VANG RN.PROFESSIONAL VOLLEYBALL PLAYER Work Phone: [facility] Comment on above: Colonscopy Start: 07-31-2022 End: 07-31-2022 Office outpatient visit 15 minutes Suresh Mcmullen APRN.PROFESSIONAL VOLLEYBALL PLAYER Work Phone: [facility] Comment on above: Essential hypertensi on (Primary Dx) Start: 07-10-2022 Telephone encounter Janie Stanton MD Work Phone: Mammography Comment on above: Mammogram Result Talib l [place] Start: 07-09-2022 Documentation procedure Mammog aida Coordinator [facility] Start: 07-09-2022 Letter encounter Mammography Coordinator [facility] Department Start: 07-09-2022 Telephone encounter Martha will MD Work Phone: [facility] [place] Comment on above: Results; Appointment Start: 07-08-2022 End: 07-08-2022 Subsequent hospital visit by physician Screen Mammo [facility] Comment on above: Encounter for screen ing mammogram for breast cancer [Z12.31] Start: 06-29-2022 End: 06-29-2022 Patient encounter status Suresh Mcmullen APRN.PROFESSIONAL VOLLEYBALL PLAYER Work Phone: [facility] [place] Start: 06-29-2022 End: 06-29-2022 Periodic preventive med est patient 40-64yrs Suresh Mcmullen APRN.CNP Work Phone: [facility] [place] Comment on above: Wellness examination (Primary Dx); Essential hypertension; JOEY (obstructive sleep apnea); Morbid obesity (HCC); Vitamin B12 deficiency; Vitamin D deficiency; Special screening for malignant neoplasms, colon Start: 06-25-2022 Refill Suresh VANG RN.PROFESSIONAL VOLLEYBALL PLAYER Work Phone: [facility] [place] Comment on above: Refill Request Start: 06-24-2022 ambulatory Martha velasquez MD Work Phone: [facility] [place] Procedures Date Procedure Procedure Detail Performing Clinician Start: 07-12-2023 Screening mammography ASSISTANT COMMUNITY DIRECTOR-C Suresh Mcmullen N P Work Phone: Start: 06-29-2023 Lipid 1996 panel - Serum or Plasma Hernandez Rascon MD Work Phone: Start: 10-22-2022 Dual energy X-ray absorptiometry ASSISTANT COMMUNITY DIRECTOR-C Suresh Mcmullen ASSISTANT COMMUNITY DIRECTOR Work Phone: Start: 09-30-2022 Specimen mammography ASSISTANT COMMUNITY DIRECTOR-C Suresh Mcmullen ASSISTANT COMMUNITY DIRECTOR Work Phone: Start: 09-30-2022 Breast, Lumpectomy,SN w/ Neoprobe (Left) ASSISTANT COMMUNITY DIRECTOR-C Suresh Mcmullen ASSISTANT COMMUNITY DIRECTOR Work Phone: Start: 09-30-2022 Radionuclide sentinel lymph node study ASSISTANT COMMUNITY DIRECTOR-C Suresh Mcmullen ASSISTANT COMMUNITY DIRECTOR Work Phone: Start: 09-09-2022 MRI of bilateral breasts with contrast ASSISTANT COMMUNITY DIRECTOR-Klarissa Mcmullen ASSISTANT COMMUNITY DIRECTOR Work Phone: Start: 08-12-2022 Us breast uni real time with image limited Martha Ayala MD Work Phone: Start: 08-12-2022 Digital breast tomosynthesis unilateral Martha Ayala MD Work Phone: Start: 07-08-2022 End: 07-08-2022 Mammography Bulk Order Provider Start: 05-12-2021 Mammography Suresh Benedict SURETY BOND AGENT.PROFESSIONAL VOLLEYBALL PLAYER Work Phone: Start: 12-16-2017 Lipid 1996 panel - Serum or Plasma Alisson Resendiz SURETY BOND AGENT.PROFESSIONAL VOLLEYBALL PLAYER Work Phone: Start: 01-26-2012 Colonoscopy Suresh Benedict SURETY BOND AGENT.PROFESSIONAL VOLLEYBALL PLAYER Work Phone: H/O: section S/P sectio n ASSISTANT COMMUNITY DIRECTOR-C Suresh Mcmullen ASSISTANT COMMUNITY DIRECTOR Work Phone: Plan of Treatment Date Care Activity Detail Author Start: 06-28-2028 Lipid panel Lipid Screening [facility] Start: 06-01-2028 Urine microalbumin profile [facility] Start: 02-08-2027 Diabetes Screening Diabetes Screenin g [facility] Start: 06-28-2026 Diabetes Screening Diabetes Screenin g [facility] Start: 07-07-2025 Annual PCP Team Golf Ball Trimmer mathieu Disease Visit Annual PCP Team Chronic Disease Visit [facility] Start: 07-07-2025 Pneumococcal Vaccine : 50+ (1 of 1 - PCV) Pneumococcal Vaccine: 50+ (1 of 1 - PCV) [facility] Comment on above: Postponed from 07/22 (Declined at this time) Start: 07-07-2025 Shingrix Vaccine (1 of 2) Campos grix Vaccine (1 of 2) [facility] Comment on above: Postponed from 07/22 (Declined at this time) Start: 06-29-2025 DIABETES SCREEN DIABETES SCREEN [facility] Start: 06-29-2025 Diabetes Screening Diabetes Screenhi g [facility] Start: 02-08-2025 Annual PCP Team Golf Ball Trimmer mathieu Disease Visit Annual PCP Team Chronic Disease Visit [facility] Start: 12-29-2024 Annual PCP Team Golf Ball Trimmer mathieu Disease Visit Annual PCP Team Chronic Disease Visit [facility] Start: 12-29-2024 Covid-19 Vaccine ( season) Covid-19 Vaccine ( season) [facility] Comment on above: Postponed from 12/04 (Declined at this time) Start: 10-02-2024 Influenza vaccination Influenza Vacc ine (#1) [facility] Comment on above: Postponed from 12/04 (Declined at this time) Start: 08-07-2024 End: 08-07-2024 Patient encounter procedure Neurology Comment on above: 1 year JOEY Start: 08-05-2024 BP Controlled (<130/80) BP Controlle d (<130/80) [facility] Start: 07-07-2024 End: 10-06-2024 Comprehensive metabolic 2000 panel - Serum or Plasma COMPREHENSIVE METABOLIC PANEL Lab Routine Dyslipidemia, goal LDL below 100 Expected: 07/07/2024, Expires: 10/06/2024 [facility] Comment on above: Expected: 07/07/2024 , Expires: 10/06/2024 Start: 07-07-2024 End: 10-06-2024 Lipid 1996 panel - Serum or Plasma LIPID PANEL, FASTING Lab Routine Dyslipidemia, goal LDL below 100 Expected: 07/07/2024, Expires: 10/06/2024 [facility] Comment on above: Expected: 07/07/2024 , Expires: 10/06/2024 Start: 07-07-2024 End: 10-06-2024 Thyrotropin [Units/volume] in Serum or Plasma THYROID STIMULATING HORMONE Lab Routine History of Graves' disease Expected: 07/07/2024, Expires: 10/06/2024 [facility] Comment on above: Expected: 07/07/2024 , Expires: 10/06/2024 Start: 07-07-2024 End: 10-06-2024 Thyroxine (T4) free [Mass/volume] in Serum or Plasma T4 FREE/FREE THYROXINE Lab Routine History of Graves' disease Expected: 07/07/2024, Expires: 10/06/2024 [facility] Comment on above: Expected: 07/07/2024 , Expires: 10/06/2024 Start: 07-05-2024 End: 07-05-2024 Patient encounter procedure 07/05/2024 7:00 AM EDT Office Visit Family Rhina Pelayo [address] [place] [address] Alisson Resendiz APRN.PROFESSIONAL VOLLEYBALL PLAYER [address] [place] [address] 6 month follow up Family [facility] Comment on above: 6 month follow up Start: 07-04-2024 Screening for malign ant neoplasm of breast Mammogram Screening [facility] Start: 06-28-2024 Annual PCP Team Golf Ball Trimmer mathieu Disease Visit Annual PCP Team Chronic Disease Visit [facility] Start: 06-28-2024 End: 09-27-2024 Comprehensive metabolic 2000 panel - Serum or Plasma COMPREHENSIVE METABOLIC PANEL Lab Routine Dyslipidemia, goal LDL below 100 Expected: 06/28/2024, Expires: 09/27/2024 [facility] Work Phone: Comment on above: Expected: 06/28/2024 , Expires: 09/27/2024 Start: 06-28-2024 Covid-19 Vaccine () Covid-19 Vaccine () [facility] Comment on above: Postponed from 12/04 (Declined at this time) Start: 06-28-2024 End: 09-27-2024 Hemoglobin A1c in Blood HEMOGLOBIN A1C Lab Routine Screening for diabetes mellitus Expected: 06/28/2024, Expires: 09/27/2024 [facility] Comment on above: Expected: 06/28/2024 , Expires: 09/27/2024 Start: 06-28-2024 End: 09-27-2024 Lipid 1996 panel - Serum or Plasma LIPID PANEL BASIC Lab Routine Dyslipidemia, goal LDL below 100 Expected: 06/28/2024, Expires: 09/27/2024 [facility] Comment on above: Expected: 06/28/2024 , Expires: 09/27/2024 Start: 06-28-2024 Shingrix Vaccine (1 of 2) Campos grix Vaccine (1 of 2) [facility] Comment on above: Postponed from 07/22 (Declined at this time) Start: 06-28-2024 End: 09-27-2024 Thyrotropin [Units/volume] in Serum or Plasma THYROID STIMULATING HORMONE Lab Routine History of Graves' disease Expected: 06/28/2024, Expires: 09/27/2024 [facility] Comment on above: Expected: 06/28/2024 , Expires: 09/27/2024 Start: 06-28-2024 End: 09-27-2024 Thyroxine (T4) free [Mass/volume] in Serum or Plasma T4 FREE/FREE THYROXINE Lab Routine History of Graves' disease Expected: 06/28/2024, Expires: 09/27/2024 [facility] Comment on above: Expected: 06/28/2024 , Expires: 09/27/2024 Start: 06-28-2024 End: 09-27-2024 Triiodothyronine (T3) Free [Mass/volume] in Serum or Plasma T3, FREE Lab Routine History of Graves' disease Expected: 06/28/2024, Expires: 09/27/2024 [facility] Comment on above: Expected: 06/28/2024 , Expires: 09/27/2024 Start: 02-09-2024 End: 05-10-2024 Comprehensive metabolic 2000 panel - Serum or Plasma [facility] Work Phone: Comment on above: Expected: 02/09/2024 , Expires: 05/10/2024 Start: 02-09-2024 End: 05-10-2024 Magnesium [Mass/volume] in Serum or Plasma [facility] Comment on above: Expected: 02/09/2024 , Expires: 05/10/2024 Start: 02-09-2024 End: 05-10-2024 Thyrotropin [Units/volume] in Serum or Plasma [facility] Comment on above: Expected: 02/09/2024 , Expires: 05/10/2024 Start: 02-09-2024 End: 05-10-2024 Thyroxine (T4) free [Mass/volume] in Serum or Plasma [facility] Comment on above: Expected: 02/09/2024 , Expires: 05/10/2024 Start: 02-09-2024 End: 02-09-2024 Patient encounter procedure 02/09/2024 7:40 AM EST Office Visit [facility] [place] [address] [facility] [place] [address] Alissno Resendiz, SANTO.PROFESSIONAL VOLLEYBALL PLAYER [address] [place] [address] 1 month BP check Family Rhina [facility]ayo Comment on above: 1 month BP check Start: 12-30-2023 End: 12-30-2023 Patient encounter procedure 12/30/2023 7:00 AM EDT Office Visit [facility] [place] [address] [facility] [place] [address] Alisson Resendiz, SURETY BOND AGENT.PROFESSIONAL VOLLEYBALL PLAYER [address] [facility] [place] [address] 6 month follow up Family Rhina Pelayo Comment on above: 6 month follow up Start: 12-29-2023 Annual PCP Team Golf Ball Trimmer mathieu Disease Visit Annual PCP Team Chronic Disease Visit [facility] Start: 12-29-2023 BP Controlled (<130/80) BP Controlle d (<130/80) [facility] Start: 12-24-2023 Annual PCP Team Golf Ball Trimmer mathieu Disease Visit Annual PCP Team Chronic Disease Visit [facility] Start: 12-13-2023 End: 12-13-2023 Patient encounter procedure 12/13/2023 1:30 PM EDT Appointment [facility] [address] [place] [address] Hernandez Rascon MD [address] [address] colon [facility] Comment on above: colon Start: 12-05-2023 Influenza vaccination Influenz a Vaccine (Season Ended) [facility] Start: 10-03-2023 Influenza vaccination Influenza Vacc ine (#1) [facility] Comment on above: Postponed from 12/04 (Declined at this time) Start: 08-06-2023 End: 08-06-2023 Patient encounter procedure Neurology Comment on above: 6 Month F/U-JOEY 6 Month F/U-JOEY faxe karthik Peralta Start: 08-01-2023 ANNUAL PCP TEAM CHIEF REVENUE OFFICER MATHIEU DISEASE VISIT ANNUAL PCP TEAM CHRONIC DISEASE VISIT [facility] Start: 07-09-2023 Mammography [facility] Start: 07-09-2023 Screening for malign ant neoplasm of breast Mammogram Screening [facility] Start: 06-30-2023 ANNUAL PCP TEAM CHIEF REVENUE OFFICER MATHIEU DISEASE VISIT ANNUAL PCP TEAM CHRONIC DISEASE VISIT [facility] Start: 06-30-2023 COVID-19 VACCINE (#1) COVID-19 VACCI NE (#1) [facility] Comment on above: Postponed from 01/21 (Declined at this time) Start: 06-29-2023 End: 09-28-2023 25-hydroxyvitamin D3 [Mass/volume] in Serum or Plasma [facility] Work Phone: Comment on above: Expected: 06/29/2023 , Expires: 09/28/2023 Start: 06-29-2023 End: 09-28-2023 Cobalamin (Vitamin B12) [Mass/volume] in Serum or Plasma [facility] Work Phone: Comment on above: Expected: 06/29/2023 , Expires: 09/28/2023 Start: 06-29-2023 End: 09-28-2023 Comprehensive metabolic 2000 panel - Serum or Plasma [facility] Work Phone: Comment on above: Expected: 06/29/2023 , Expires: 09/28/2023 Start: 06-29-2023 DIABETES SCREEN DIABETES SCREEN [facility] Start: 06-29-2023 End: 09-28-2023 Folate [Mass/volume] in Serum or Plasma [facility] Work Phone: Comment on above: Expected: 06/29/2023 , Expires: 09/28/2023 Start: 06-29-2023 End: 09-28-2023 Hemoglobin A1c in Blood [facility] Work Phone: Comment on above: Expected: 06/29/2023 , Expires: 09/28/2023 Start: 06-29-2023 End: 09-28-2023 Lipid 1996 panel - Serum or Plasma [facility] Work Phone: Comment on above: Expected: 06/29/2023 , Expires: 09/28/2023 Start: 06-29-2023 End: 09-28-2023 Thyrotropin [Units/volume] in Serum or Plasma [facility] Work Phone: Comment on above: Expected: 06/29/2023 , Expires: 09/28/2023 Start: 06-29-2023 End: 09-28-2023 Thyroxine (T4) free [Mass/volume] in Serum or Plasma [facility] Work Phone: Comment on above: Expected: 06/29/2023 , Expires: 09/28/2023 Start: 06-28-2023 End: 08-28-2023 Comprehensive metabolic 2000 panel - Serum or Plasma COMP METABOLIC PANEL Lab Routine Essential hypertension Expected: 06/28/2023 (Approximate), Expires: 08/28/2023 [facility] Work Phone: Comment on above: Expected: 06/28/2023 (Approximate), Expires: 08/28/2023 Start: 06-28-2023 End: 08-28-2023 Lipid 1996 panel - Serum or Plasma LIPID PANEL BASIC Lab Routine Screening for lipid disorders Expected: 06/28/2023 (Approximate), Expires: 08/28/2023 [facility] Work Phone: Comment on above: Expected: 06/28/2023 (Approximate), Expires: 08/28/2023 Start: 01-30-2023 End: 04-01-2023 Basic metabolic 2000 panel - Serum or Plasma BASIC METABOLIC PNL Lab Routine Essential hypertension Expected: 01/30/2023 (Approximate), Expires: 04/01/2023 [facility] Work Phone: Comment on above: Expected: 01/30/2023 (Approximate), Expires: 04/01/2023 Start: 12-16-2022 Lipid 1996 panel - S tessa or Plasma Lipid Screening [facility] Start: 12-16-2022 Lipid panel Lipid Screening [facility] Start: 12-16-2022 LIPID SCREEN LIPID SCREEN [facility] Start: 12-12-2022 US.doppler Lower ext remity vein [facility] Start: 12-12-2022 End: 12-12-2022 Blood culture [facility] Start: 12-12-2022 Bacteria identified in Blood by Culture Blood Culture [facility] Start: 12-04-2022 Influenza vaccination C [facility] Start: 10-02-2022 Influenza vaccination INFLUENZA (#1) [facility] Comment on above: Postponed from 12/04 (Declined at this time) Start: 09-30-2022 Anes integ extremiti es ant trunk & perineum nos ANESTH SKIN EXT/PER/ATRUNK [facility] Start: 09-30-2022 Inj radioactive trac er for id of sentinel node RA TRACER ID OF SENTINL NODE [facility] Start: 09-30-2022 Mastectomy partial PARTIAL MASTECTOM Y [facility] Start: 09-30-2022 Perq breast loc minoo ce placemt 1st lesio us imag PERQ DEV BREAST 1ST US IMAG [facility] Start: 09-30-[facility]22 [facility] Start: 09-30-2022 Specimen mammography Breast Biopsy S denise [facility] Start: 06-29-2022 End: 08-29-2022 25-hydroxyvitamin D3 [Mass/volume] in Serum or Plasma [facility] Work Phone: Comment on above: Expected: 06/29/2022 , Expires: 08/29/2022 Start: 06-29-2022 End: 08-29-2022 Basic metabolic 2000 panel - Serum or Plasma [facility] Work Phone: Comment on above: Expected: 06/29/2022 , Expires: 08/29/2022 Start: 06-29-2022 End: 08-29-2022 Cobalamin (Vitamin B12) [Mass/volume] in Serum or Plasma [facility] Work Phone: Comment on above: Expected: 06/29/2022 , Expires: 08/29/2022 Start: 05-12-2022 Mammography MAMMOGRAM [facility] Start: 04-05-2022 DEPRESSION ASSESSMENT DEPRESSION ASS ESSMENT [facility] Start: 01-25-2022 Colonoscopy COLONOSCOPY [facility] Start: 01-25-2022 COLORECTAL CANCER SCREENING COLORECTAL CANCER SCREENING [facility] Start: 01-25-2022 Screening for malign ant neoplasm of colon [facility] Start: 12-04-2021 Influenza vaccination INFLUENZA (#1) [facility] Start: 11-08-2021 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 Start: 2009 FECAL OCCULT BLOOD FECAL OCCULT BLOO D [facility] Start: 2009 Screening for malign ant neoplasm of colon [facility] Start: 2009 SIGMOIDOSCOPY SIGMOIDOSCOPY [facility] Start: 1982 HIV SCREENING HIV SCREENING [facility] Start: 01-21-1965 COVID-19 VACCINE (#1) COVID-19 VACCI NE (#1) [facility] CBC W Auto Different ial panel - Blood [facility] End: 08-06-2025 DBT Breast - bilateral screening VALENTINE SCREENING W JUAN Radiology Routine Encounter for screening mammogram for breast cancer 1 Occurrences starting 07/07/2024 until 08/06/2025 [facility] Work Phone: Comment on above: 1 Occurrences starti ng 07/07/2024 until 08/06/2025 End: 08-08-2023 VALENTINE DIAGNOSTIC LEFT VALENTINE DIAGNOSTIC LEFT Radiology Routine Abnormal mammogram 1 Occurrences starting 07/09/2022 until 08/08/2023 [facility] Work Phone: Comment on above: 1 Occurrences starti ng 07/09/2022 until 08/08/2023 End: 07-24-2023 VALENTINE SCREENING VALENTINE SCREENING Radiology Routine Encounter for screening mammogram for breast cancer 1 Occurrences starting 06/24/2022 until 07/24/2023 [facility] Work Phone: Comment on above: 1 Occurrences starti ng 06/24/2022 until 07/24/2023 Patient Education ED Cellulitis [facility] Work Phone: Patient referral [facility] Work Phone: End: 06-30-2023 Screening colonoscopy COLONOSCOPY SCREENING Endoscopy Routine Special screening for malignant neoplasms, colon 1 Occurrences starting 06/29/2022 until 06/30/2023 [facility] Work Phone: Comment on above: 1 Occurrences starti ng 06/29/2022 until 06/30/2023 End: 2024 Screening colonoscopy COLONOSCOPY SCREENING Endoscopy Routine Screening for colon cancer 1 Occurrences starting 07/23/2023 until 2024 [facility] Work Phone: Comment on above: 1 Occurrences starti ng 07/23/2023 until 2024 End: 08-08-2023 US BREAST LTD LEFT US BREAST LTD LEFT Radiology Routine Abnormal mammogram 1 Occurrences starting 07/09/2022 until 08/08/2023 [facility] Work Phone: Comment on above: 1 Occurrences starti ng 07/09/2022 until 08/08/2023 [facility] Immunizations Immunization Date Immunization Notes Care Provider Murali landrum 12-29-2019 influenza, injectabl e, quadrivalent, contains preservative Suresh Benedict SURETY BOND AGENT.[facility] Work Phone: [facility] Work Phone: 12-29-2019 influenza virus vaccine, unspecified formulation Alisson Resendiz SURETY BOND AGENT.PROFESSIONAL VOLLEYBALL PLAYER Work Phone: [facility] 06-01-2018 tetanus toxoid, redu trey diphtheria toxoid, and acellular pertussis vaccine, adsorbed Suresh Benedict SURETY BOND AGENT.PROFESSIONAL VOLLEYBALL PLAYER Work Phone: [facility] 12-16-2017 influenza, injectabl e, quadrivalent, contains preservative Suresh Benedict SURETY BOND AGENT.PROFESSIONAL VOLLEYBALL PLAYER Work Phone: [facility] 01-04-2016 influenza, seasonal, injectable, preservative free Suresh Benedict SURETY BOND AGENT.PROFESSIONAL VOLLEYBALL PLAYER Work Phone: [facility] Work Phone: 01-04-2015 influenza, seasonal, injectable Suresh Benedict SURETY BOND AGENT.PROFESSIONAL VOLLEYBALL PLAYER Work Phone: [facility] Work Phone: 01-19-2014 influenza, injectabl e, quadrivalent, preservative free Suresh Benedict SURETY BOND AGENT.PROFESSIONAL VOLLEYBALL PLAYER Work Phone: [facility] Work Phone: 01-17-2013 influenza, seasonal, injectable, preservative free Suresh Benedict SURETY BOND AGENT.PROFESSIONAL VOLLEYBALL PLAYER Work Phone: [facility] Work Phone: 02-03-2012 influenza, seasonal, injectable, preservative free Suresh Benedict SURETY BOND AGENT.[facility] Work Phone: [facility] Work Phone: 10-04-2007 haemophilus influenz ae type b conjugate and Hepatitis B vaccine Suresh Benedict SURETY BOND AGENT.[facility] Work Phone: [facility] Work Phone: 05-06-2007 haemophilus influenz ae type b conjugate and Hepatitis B vaccine Suresh Benedict SURETY BOND AGENT.[facility] Work Phone: [facility] Work Phone: 04-05-2007 haemophilus influenz ae type b conjugate and Hepatitis B vaccine Suresh Benedict SURETY BOND AGENT.[facility] Work Phone: [facility] Work Phone: 10-03-2006 hepatitis A vaccine, adult dosage Suresh Benedict SURETY BOND AGENT.[facility] Work Phone: [facility] Work Phone: 04-05-2006 diphtheria, tetanus toxoids and acellular pertussis vaccine Suresh Benedict SURETY BOND AGENT.[facility] Work Phone: [facility] Work Phone: 04-05-2006 hepatitis A vaccine, adult dosage Suresh Benedict SURETY BOND AGENT.[facility] Work Phone: [facility] Work Phone: 04-05-2006 measles, mumps and rubella virus vaccine Suresh Benedict SURETY BOND AGENT.[facility] Work Phone: [facility] Work Phone: 04-05-2006 trivalent poliovirus vaccine, live, oral Suresh Benedict SURETY BOND AGENT.[facility] Work Phone: [facility] Work Phone: Payers Date Payer Category Payer [facility] BLUE CARD PPO OOS [id number] 2023 Private Health Insurance MMO SUP [employer] PPO [id number] 2023 Unknown [id number] 2022 Self-pay 2022 Unknown [id number] 2020 Unknown [id number] Unknown [facility] [id number] Unknown [employer]MO [employer]IST[employer] [id number] Unknown [id number] Unknown [id number] Unknown [id number] Unknown [id number] Unknown [id number] Unknown [id number] Social History Date Type Detail Facility Start: 12-16-2017 End: 06-29-2022 Tobacco smoking status NHIS Never smoked tobacco [facility] Start: 12-16-2017 End: 06-29-2022 Tobacco use and exposure Smokeless tobacco non-user [facility] Start: 11-08-2020 End: 07-07-2024 Alcohol intake Current drinker of alcohol (finding) [facility] Start: 11-08-2020 End: 08-18-2022 Alcohol intake [facility] Start: 05-03-2019 End: 06-28-2022 History SDOH Alcohol Frequency 2 [facility] Start: 05-03-2019 End: 06-28-2022 History SDOH Alcohol Std Drinks 1 [facility] Start: 05-03-2019 End: 06-28-2022 History SDOH Social Connections Living 3 [facility] Start: 05-03-2019 History SDOH Financial 5 [facility] Start: 05-03-2019 Education 16 [facility] Start: 1965 Sex Assigned At Not on file C [facility] Start: 06-28-2022 History SDOH Financial 4 [facility] Start: 09-23-2022 End: 05-17-2023 Tobacco smoking status OKIS Unknown if ever smoked [facility] Start: 1965 Sex Assigned At Female W [facility] Start: 06-28-2022 End: 08-18-2022 Social connection and isolation panel [facility] Do you belong to any clubs or organizations such as anglican groups, unions, fraternal or athletic groups, or school groups? No [facility] Are you now , , , , never or living with a partner? [facility] How often to you hav e a drink containing alcohol? Monthly or less [facility] How many standard dr inks containing alcohol do you have on a typical day? 1 or 2 [facility] How often do you hav e 6 or more drinks on 1 occasion? Never [facility] How hard is it for y ou to pay for the very basics like food, housing, medical care, and heating Not very hard [facility] Adult Depression Screening Assessment 0 [facility] Work Phone: Do you feel stress - tense, restless, nervous, or anxious, or unable to sleep at night because your mind is troubled all the time - these days [OSQ] Not at all [facility] (I/We) worried wheth er (my/our) food would run out before (I/we) got money to buy more. Never true [facility] How often do you hav e 6 or more drinks on 1 occasion? Less than monthly [facility] Do you feel stress - tense, restless, nervous, or anxious, or unable to sleep at night because your mind is troubled all the time - these days [OSQ] Only a little [facility] NEGATED: Highlighted row [facility] Medical Equipment Procedure Code Equipment Code Equipment Origin al Text Equipment Identifier Dates Ligation clip, metallic [id number] FDA Start: 09-30-2022 Ligation clip, metallic [id number] FDA Start: 09-30-2022 Ligation clip, metallic [id number] FDA Start: 09-30-2022 Goals Date Patient Goal Desired Activity /State Mental Status Date Assessment Result Facility 04-29-2023 Cognitive function Voice/Name [facility] Work Phone: 09-30-2022 Cognitive function Voice/Name [facility] Work Phone: Clinical Notes 06-25-2022 to 07-07-2024 Patient InstructionsAlisson Resendiz APRN.CNP - 07/07/2024 7:20 AM EDTTelephone Encounter - Suresh Mcmullen APRN.CNP - 03/21/2024 11:25 AM ESTPatient InstructionsPatient InstructionsPatient Instructions Note Date & Type Note Facility 07-07-2024 Instructions Alisson Resendiz APRN.CNP - 07/07/2024 7:25 AM EDT Monitor BP at home, goal 130/80 or less. Watch salt and processed foods in the diet Continue to take all medication as prescribed. Recommend using pepcid 20 mg daily, may increase twice daily if needed. Stay well hydrated. Monitor symptoms Get labs completed Continue to eat a well balanced diet and get some form of exercise. Due for Mammogram and colonoscopy Follow up in 6 months or sooner as needed. Health Promotion: - Eat healthy -- go to [email or web address] to get started - Have a yearly physical - Mammogram yearly after age 40 - Get at least 30 minutes of physical activity daily - Get at least 7 to 8 hours of sleep each night - Reach and maintain a healthy weight - Get help to quit or don't start smoking - Limit alcohol use to one drink or less - Do not use illegal drugs or misuse prescription drugs - Wear a helmet when riding a bike and wear protective gear for sports - Wear a seatbelt in cars and not text and drive - Wear sunscreen documented in this encounter [facility] 07-07-2024 History of Present illness Narrative This is a 58 year old female who presents today with: Patient presents with: Wellness HISTORY OF PRESENT ILLNESS: Emigdio Haider is a 58 year old female. Patient presents with: Wellness Wellness exam Diet: Eating a well balanced diet. Exercise: Walking a couple days per week. Vision: Had exam, wearing glasses. Dental: Had exam. Sleep: 7-8 hours per night. Mood: Increased stress with getting a new job. No SI/HI. GI virus this past Wednesday. Stomach still upset. Intermittent nausea. No vomiting or diarrhea. No heartburn but has noticed increased burping. BM this morning. Denies abdominal pain or urinary symptoms. HTN: Taking amlodipine 5 mg, hydrochlorothiazide 12.5 mg, and losartan 100 mg daily. Checking blood pressure at home, 130/70's. Denies chest pain, palpitations, dizziness, or edema. History of breast cancer, follow up yearly. Gets calcium infusion every 6 months. JOEY: CPAP, sleeping well. Waking up feeling refreshed. History of graves disease in the past, thyroid functioning was normal in the fall. TSH will be elevated at times, monitoring through labs. Mammogram: July 2023 w/juan normal. History of full hysterectomy. Colonoscopy: Due, order is in place. Vaccines: Denies wanting any vaccines at this time. PAST MEDICAL HISTORY: PAST MEDICAL HISTORY Diagnosis Date Breast cancer (HCC) Essential hypertension History of radiation therapy JOEY (obstructive sleep apnea) [facility] fx. [phone] PAST SURGICAL HISTORY Procedure Laterality Date HYSTERECTOMY 2011 Total Hysterectomy-Dr. Gamble in [place] PAST SURGICAL HISTORY OF 09/30/2022 Lumpectomy at [facility] TONSILLECTOMY HX 1970 ALLERGIES Bactrim [Sulfamethoxazole-Trimethoprim] and Erythromycin MEDICATIONS Current Outpatient Medications Medication Sig amLODIPine (NORVASC) 5 mg tablet Take 1 tablet by mouth once daily. hydroCHLOROthiazide 12.5 mg capsule Take 1 capsule by mouth once daily. Cholecalciferol, Vitamin D3, 125 mcg (5,000 unit) cap Take 1 capsule by mouth once daily. cyanocobalamin (VITAMIN B-12) 1,000 mcg tab Take 1 tablet by mouth once daily. losartan (COZAAR) 100 mg tablet Take 1 tablet by mouth once daily. CPAP/BIPAP/OTHER CPAP 8 cmH2O [facility] CALCIUM ORAL Take 2 tablets by mouth once daily. 1200 MG. ZINC ORAL Take 1 tablet by mouth once daily. CPAP CPAP 8 cmH2O, mask(pt pref), chin strap, heated tubing & humidity, filters. Lifetime supplies. Dx: G47.33. (Please provide supplies) fluticasone (FLONASE) 50 mcg/actuation nasal spray Use 2 Sprays in each nostril once daily. Rinse mouth after use. MULTIVITAMIN ORAL Take by mouth. No current facility-administered medications for this visit. FAMILY HISTORY Problem Relation Age of Onset No Known Problems Mother No Known Problems Father Thyroid Sister No Known Problems Brother No Known Problems Sister Social History Tobacco Use Smoking status: Never Smokeless tobacco: Never Vaping Use Vaping status: Never Used Substance Use Topics Alcohol use: Yes Alcohol/week: 7.0 standard drinks of alcohol Types: 7 Glasses of Wine (5oz) per week Drug use: No REVIEW OF SYSTEMS GENERAL: No weight loss, malaise or fevers/chills HEENT: Negative for frequent or significant headaches, No changes in hearing or vision. NECK: Negative for lumps, goiter, pain and significant neck swelling RESPIRATORY: Negative for cough, hemoptysis, wheezing, dyspnea or shortness of breath CARDIOVASCULAR: Negative for chest pain, leg swelling, orthopnea, or palpitations GI: + Burping, nausea : No history of dysuria, frequency or incontinence MUSCULOSKELETAL: Negative for joint pain or swelling. SKIN: Negative for lesions, rash, and itching ENDOCRINE: Negative for cold or heat intolerance, polyuria, polydipsia and goiter NEURO: No history of headaches, syncope, paralysis, seizures or tremors MOOD: Negative for depression, anxiety, or suicidal ideation. EXAM: BP 140/86 Pulse 87 Resp 16 Ht 166.5 cm (5' 5.55") Wt 128.7 kg (283 lb 11.7 oz) SpO2 96% BMI 46.43 kg/m PHYSICAL EXAM: General Appearance: Well appearing, alert, in no acute distress, well-hydrated, well nourished. Skin: Skin color, texture, turgor normal, no suspicious rashes or lesions. Head: Normocephalic, no masses, lesions, tenderness or abnormalities. Eyes: Anicteric sclera. Pupils are equally round and reactive to light. Extraocular movements are intact. Ears: External ears normal, canals clear. TMs pearly nicholas. Neck: Supple, no adenopathy; thyroid symmetric, normal size, no bruits. Lungs: Lungs clear to auscultation. No wheezing, rhonchi, rales. Heart: RRR without murmur, gallop, or rubs. No ectopy. Abdomen: Abdomen soft. Bowel sounds normal. No masses, organomegaly, Negative CVA tenderness. + Epigastric tenderness with palpation Extremities: No deformities, edema, skin discoloration, clubbing or cyanosis. Good capillary refill. Musculoskeletal: No joint swelling, deformity, or tenderness. Peripheral Pulses: Normal, Capillary refill <2secs, strong peripheral pulses, Pulses palpable. Neurologic: Gait normal. Reflexes normal and symmetric. Sensation grossly intact. Mood: Pleasant, engaged, good eye contact. ASSESSMENT/PLAN: 1. Wellness examination - ICD9: V70.0, ICD10: Z00.00 (primary diagnosis) - Counseled on healthy diet and regular exercise - Discussed need and benefit for weight loss. BMI 46.42 kg/(m^2) - Colorectal cancer screening - ordered colonoscopy - Breast cancer screening - ordered mammogram - Follow up for annual exam in one year 2. Dyspepsia - ICD9: 536.8, ICD10: R10.13 - Begin treatment with Pepcid 20 mg BID - Increase fiber in diet 3. Essential hypertension - ICD9: 401.9, ICD10: I10 - Uncontrolled - Continue current medications - Recommend home blood pressure monitoring, to bring results to next visit - Encouraged sodium restriction, DASH or Mediterranean diet - Recommend regular aerobic exercise - Discussed need for and benefit of weight loss. BMI 46.42 kg/(m^2) - LOSARTAN 100 MG TABLET 4. Dyslipidemia, goal LDL below 100 - ICD9: 272.4, ICD10: E78.5 - Control undetermined, due for labs - Counseled on healthy diet and regular exercise - COMPREHENSIVE METABOLIC PANEL - LIPID PANEL, FASTING 5. History of Graves' disease - ICD9: V12.29, ICD10: Z86.39 - THYROID STIMULATING HORMONE - T4 FREE/FREE THYROXINE 6. History of breast cancer - ICD9: V10.3, ICD10: Z85.3 - Stable, keep scheduled appointments with oncology. 7. JOEY (obstructive sleep apnea) - ICD9: 327.23, ICD10: G47.33 - Stable, continue with CPAP. 8. Encounter for screening mammogram for breast cancer - ICD9: V76.12, ICD10: Z12.31 - [facility] SCREENING W JUAN Follow-up in 6 months or sooner pending test results Discussed treatment plan and patient voices understanding. Patient's questions answered appropriately. Medications and potential side effects were discussed and patient voices understanding. Alisson Resendiz APRN.CLAIRE This note was partially generated using FRS voice recognition system. Note was reviewed for accuracy. There may be minor misspellings or grammar miscues with FRS voice recognition. documented in this encounter [facility] 07-07-2024 Note HNO ID: [id number] Author: ALISSON RESENDIZ APRN.PROFESSIONAL VOLLEYBALL PLAYER Service: ? Author Type: Nurse Practitioner Type: Progress Notes Filed: 07/07/2024 09:37 Note Text: This is a 58 year old female who presents today with: Patient presents with: Wellness HISTORY OF PRESENT ILLNESS: Emigdio Haider is a 58 year old female. Patient presents with: Wellness Wellness exam Diet: Eating a well balanced diet. Exercise: Walking a couple days per week. Vision: Had exam, wearing glasses. Dental: Had exam. Sleep: 7-8 hours per night. Mood: Increased stress with getting a new job. No SI/HI. GI virus this past Wednesday. Stomach still upset. Intermittent nausea. No vomiting or diarrhea. No heartburn but has noticed increased burping. BM this morning. Denies abdominal pain or urinary symptoms. HTN: Taking amlodipine 5 mg, hydrochlorothiazide 12.5 mg, and losartan 100 mg daily. Checking blood pressure at home, 130/70's. Denies chest pain, palpitations, dizziness, or edema. History of breast cancer, follow up yearly. Gets calcium infusion every 6 months. JOEY: CPAP, sleeping well. Waking up feeling refreshed. History of graves disease in the past, thyroid functioning was normal in the fall. TSH will be elevated at times, monitoring through labs. Mammogram: July 2023 w/juan normal. History of full hysterectomy. Colonoscopy: Due, order is in place. Vaccines: Denies wanting any vaccines at this time. PAST MEDICAL HISTORY: PAST MEDICAL HISTORY Diagnosis Date Breast cancer (HCC) Essential hypertension History of radiation therapy JOEY (obstructive sleep apnea) [facility] fx. [phone] PAST SURGICAL HISTORY Procedure Laterality Date HYSTERECTOMY 2011 Total Hysterectomy-Dr. Gamble in [place] PAST SURGICAL HISTORY OF 09/30/2022 Lumpectomy at [facility] TONSILLECTOMY HX 1970 ALLERGIES Bactrim [Sulfamethoxazole-Trimethoprim] and Erythromycin MEDICATIONS Current Outpatient Medications Medication Sig amLODIPine (NORVASC) 5 mg tablet Take 1 tablet by mouth once daily. hydroCHLOROthiazide 12.5 mg capsule Take 1 capsule by mouth once daily. Cholecalciferol, Vitamin D3, 125 mcg (5,000 unit) cap Take 1 capsule by mouth once daily. cyanocobalamin (VITAMIN B-12) 1,000 mcg tab Take 1 tablet by mouth once daily. losartan (COZAAR) 100 mg tablet Take 1 tablet by mouth once daily. CPAP/BIPAP/OTHER CPAP 8 cmH2O DME [facility] CALCIUM ORAL Take 2 tablets by mouth once daily. 1200 MG. ZINC ORAL Take 1 tablet by mouth once daily. CPAP CPAP 8 cmH2O, mask(pt pref), chin strap, heated tubing AND humidity, filters. Lifetime supplies. Dx: G47.33. (Please provide supplies) fluticasone (FLONASE) 50 mcg/actuation nasal spray Use 2 Sprays in each nostril once daily. Rinse mouth after use. MULTIVITAMIN ORAL Take by mouth. No current facility-administered medications for this visit. FAMILY HISTORY Problem Relation Age of Onset No Known Problems Mother No Known Problems Father Thyroid Sister No Known Problems Brother No Known Problems Sister Social History Tobacco Use Smoking status: Never Smokeless tobacco: Never Vaping Use Vaping status: Never Used Substance Use Topics Alcohol use: Yes Alcohol/week: 7.0 standard drinks of alcohol Types: 7 Glasses of Wine (5oz) per week Drug use: No REVIEW OF SYSTEMS GENERAL: No weight loss, malaise or fevers/chills HEENT: Negative for frequent or significant headaches, No changes in hearing or vision. NECK: Negative for lumps, goiter, pain and significant neck swelling RESPIRATORY: Negative for cough, hemoptysis, wheezing, dyspnea or shortness of breath CARDIOVASCULAR: Negative for chest pain, leg swelling, orthopnea, or palpitations GI: + Burping, nausea : No history of dysuria, frequency or incontinence MUSCULOSKELETAL: Negative for joint pain or swelling. SKIN: Negative for lesions, rash, and itching ENDOCRINE: Negative for cold or heat intolerance, polyuria, polydipsia and goiter NEURO: No history of headaches, syncope, paralysis, seizures or tremors MOOD: Negative for depression, anxiety, or suicidal ideation. EXAM: BP 140/86 Pulse 87 Resp 16 Ht 166.5 cm (5' 5.55") Wt 128.7 kg (283 lb 11.7 oz) SpO2 96% BMI 46.43 kg/m? PHYSICAL EXAM: General Appearance: Well appearing, alert, in no acute distress, well-hydrated, well nourished. Skin: Skin color, texture, turgor normal, no suspicious rashes or lesions. Head: Normocephalic, no masses, lesions, tenderness or abnormalities. Eyes: Anicteric sclera. Pupils are equally round and reactive to light. Extraocular movements are intact. Ears: External ears normal, canals clear. TMs pearly nicholas. Neck: Supple, no adenopathy; thyroid symmetric, normal size, no bruits. Lungs: Lungs clear to auscultation. No wheezing, rhonchi, rales. Heart: RRR without murmur, gallop, or rubs. No ectopy. Abdomen: Abdomen soft. Bowel sounds normal. No mas (more content not included)... [facility] 03-21-2024 Telephone encounter Note The following approved medication requests have been transmitted electronically. Requested Prescriptions Pending Prescriptions Disp Refills amLODIPine (NORVASC) 5 mg tablet 90 tablet 3 Sig: Take 1 tablet by mouth once daily. hydroCHLOROthiazide 12.5 mg capsule 90 capsule 3 Sig: Take 1 capsule by mouth once daily. Suresh Mcmullen APRN.CNP [facility] 03-21-2024 Miscellaneous Notes The following approved medication requests have been transmitted electronically. Requested Prescriptions Pending Prescriptions Disp Refills amLODIPine (NORVASC) 5 mg tablet 90 tablet 3 Sig: Take 1 tablet by mouth once daily. hydroCHLOROthiazide 12.5 mg capsule 90 capsule 3 Sig: Take 1 capsule by mouth once daily. Suresh Mcmullen APRN.CNP Prescription Refill Information The patient has been identified by name and date of : Yes Caregiver verified no other encounters exist for this prescription request: Yes Caregiver confirmed with patient/requestor that no other refills are due, in the near future, with this provider at this time: No The last office visit in the department: 02/09/24 Does the patient have a future office visit with this provider/department: Yes Requested Prescriptions Pending Prescriptions Disp Refills amLODIPine (NORVASC) 5 mg tablet 90 tablet 1 Sig: Take 1 tablet by mouth once daily. hydroCHLOROthiazide 12.5 mg capsule 90 capsule 1 Sig: Take 1 capsule by mouth once daily. Keira Sullivan MA March 21, 2024 11:11 AM documented in this encounter [facility] 03-21-2024 Telephone encounter Note Prescription Refill Information The patient has been identified by name and date of : Yes Caregiver verified no other encounters exist for this prescription request: Yes Caregiver confirmed with patient/requestor that no other refills are due, in the near future, with this provider at this time: No The last office visit in the department: 02/09/24 Does the patient have a future office visit with this provider/department: Yes Requested Prescriptions Pending Prescriptions Disp Refills amLODIPine (NORVASC) 5 mg tablet 90 tablet 1 Sig: Take 1 tablet by mouth once daily. hydroCHLOROthiazide 12.5 mg capsule 90 capsule 1 Sig: Take 1 capsule by mouth once daily. Keira Sullivan MA March 21, 2024 11:11 AM [facility] 02-11-2024 Telephone encounter Note Noted, thank you Alisson Resendiz APRN.PROFESSIONAL VOLLEYBALL PLAYER [facility] 02-11-2024 Miscellaneous Notes Noted, thank you Alisson Resendiz APRN.PROFESSIONAL VOLLEYBALL PLAYER Pt notified. She denies any sx at this time, would prefer to just recheck labs as planned in June since she is not having any issues. She has seen Endo in [place] in past for Grave's Disease. Keira Sullivan MA Can you please call the patient and let her know that I reviewed her lab results. Electrolytes were normal. As discussed during office visit I would like her to ensure that she is getting adequate water during the day especially with using the hydrochlorothiazide. TSH was just mildly elevated. If she is not having any symptoms we can continue to monitor this and recheck labs in 6 to 8 weeks. Can you please ask if she ever saw an corporate risk analyst in the past? Thank you Alisson Resendiz APRN.CNP documented in this encounter [facility] 02-10-2024 Telephone encounter Note Pt notified. She denies any sx at this time, would prefer to just recheck labs as planned in June since she is not having any issues. She has seen Endo in [place] in past for Grave's Disease. Keira Sullivan MA [facility] 02-10-2024 Telephone encounter Note Can you please call the patient and let her know that I reviewed her lab results. Electrolytes were normal. As discussed during office visit I would like her to ensure that she is getting adequate water during the day especially with using the hydrochlorothiazide. TSH was just mildly elevated. If she is not having any symptoms we can continue to monitor this and recheck labs in 6 to 8 weeks. Can you please ask if she ever saw an corporate risk analyst in the past? Thank you Alisson Resendiz APRN.CNP [facility] 02-09-2024 Instructions Alisson Resendiz APRN.CNP - 02/09/2024 7:45 AM EST Get labs completed today Recommend increasing water intake Continue to take all medication as prescribed Work on eating a well balanced diet and get some form of exercise. Watch salt and processed foods in the diet. Follow up as scheduled or sooner pending test results. documented in this encounter [facility] 02-09-2024 History of Present illness Narrative This is a 58 year old female who presents today with: Patient presents with: Follow Up: 1 month follow B HISTORY OF PRESENT ILLNESS: Emigdio Haider is a 58 year old female. Patient presents with: Follow Up: 1 month follow B Here in the office for 1 month blood pressure check. Last month added on Amlodipine 5 mg and HCTZ 12.5 mg daily. Still taking Losartan 100 mg daily. Checking blood pressure at home, 102/80's. The HCTZ has helped with lower leg swelling. Has noticed some night time cramping in bilateral calves. Refers that she does not drink much water. Denies chest pain, palpitations, or dizziness. PAST MEDICAL HISTORY: PAST MEDICAL HISTORY Diagnosis Date Breast cancer (HCC) Essential hypertension History of radiation therapy JOEY (obstructive sleep apnea) DME [facility] fx. [phone] PAST SURGICAL HISTORY Procedure Laterality Date HYSTERECTOMY 2011 Total Hysterectomy-Dr. Gamble in [place] PAST SURGICAL HISTORY OF 09/30/2022 Lumpectomy at [facility] TONSILLECTOMY HX 1970 ALLERGIES Bactrim [Sulfamethoxazole-Trimethoprim] and Erythromycin MEDICATIONS Current Outpatient Medications Medication Sig Cholecalciferol, Vitamin D3, 125 mcg (5,000 unit) cap Take 1 capsule by mouth once daily. cyanocobalamin (VITAMIN B-12) 1,000 mcg tab Take 1 tablet by mouth once daily. amLODIPine (NORVASC) 5 mg tablet Take 1 tablet by mouth once daily. losartan (COZAAR) 100 mg tablet Take 1 tablet by mouth once daily. hydroCHLOROthiazide 12.5 mg capsule Take 1 capsule by mouth once daily. CPAP/BIPAP/OTHER CPAP 8 cmH2O [facility] CALCIUM ORAL Take 2 tablets by mouth once daily. 1200 MG. ZINC ORAL Take 1 tablet by mouth once daily. CPAP CPAP 8 cmH2O, mask(pt pref), chin strap, heated tubing & humidity, filters. Lifetime supplies. Dx: G47.33. (Please provide supplies) fluticasone (FLONASE) 50 mcg/actuation nasal spray Use 2 Sprays in each nostril once daily. Rinse mouth after use. MULTIVITAMIN ORAL Take by mouth. No current facility-administered medications for this visit. FAMILY HISTORY Problem Relation Age of Onset No Known Problems Mother No Known Problems Father Thyroid Sister No Known Problems Brother No Known Problems Sister Social History Tobacco Use Smoking status: Never Smokeless tobacco: Never Vaping Use Vaping status: Never Used Substance Use Topics Alcohol use: Yes Alcohol/week: 7.0 standard drinks of alcohol Types: 7 Glasses of Wine (5oz) per week Drug use: No REVIEW OF SYSTEMS GENERAL: No weight loss, malaise or fevers/chills HEENT: Negative for frequent or significant headaches, No changes in hearing or vision. NECK: Negative for lumps, goiter, pain and significant neck swelling RESPIRATORY: Negative for cough, hemoptysis, wheezing, dyspnea or shortness of breath CARDIOVASCULAR: Negative for chest pain, leg swelling, orthopnea, or palpitations GI: No nausea, vomiting, or diarrhea/constipation. No hematochezia/melena. No heartburn or reflux symptoms. : No history of dysuria, frequency or incontinence MUSCULOSKELETAL: + Calf cramping SKIN: Negative for lesions, rash, and itching ENDOCRINE: Negative for cold or heat intolerance, polyuria, polydipsia and goiter NEURO: No history of headaches, syncope, paralysis, seizures or tremors MOOD: Negative for depression, anxiety, or suicidal ideation. EXAM: BP 126/86 Pulse 100 Resp 16 Wt 125.2 kg (276 lb) SpO2 97% BMI 44.62 kg/m PHYSICAL EXAM: General Appearance: Well appearing, alert, in no acute distress, well-hydrated, well nourished. Skin: Skin color, texture, turgor normal, no suspicious rashes or lesions. Head: Normocephalic, no masses, lesions, tenderness or abnormalities. Eyes: Anicteric sclera. Extraocular movements are intact. Lungs: Lungs clear to auscultation. No wheezing, rhonchi, rales. Heart: RRR without murmur, gallop, or rubs. No ectopy. Extremities: +1 non-pitting edema noted to lower legs bilaterally. No erythema. Peripheral Pulses: Normal, Capillary refill <2secs, strong peripheral pulses, Pulses palpable. Neurologic: Gait normal. Sensation grossly intact.. ASSESSMENT/PLAN: 1. Essential hypertension - ICD9: 401.9, ICD10: I10 (primary diagnosis) - Controlled - Continue current medications - Recommend home blood pressure monitoring, to bring results to next visit - Encouraged sodium restriction, DASH or Mediterranean diet - Recommend regular aerobic exercise - Discussed need for and benefit of weight loss. BMI 44.62 kg/(m^2) 2. Lower leg edema - ICD9: 782.3, ICD10: R60.0 - Stable, continue with HCTZ - Recommend wearing compression socks and working on lifestyle changes at home. 3. Leg cramp - ICD9: 729.82, ICD10: R25.2 - Get labs completed to check for any electrolyte abnormalities. - Recommend increasing water intake. - COMPREHENSIVE METABOLIC PANEL - MAGNESIUM 4. History of Graves' disease - ICD9: V12.29, ICD10: Z86.39 - THYROID STIMULATING HORMONE - T4 FREE/FREE THYROXINE Follow-up as scheduled or sooner pending test results. Discussed treatment plan and patient voices understanding. Patient's questions answered appropriately. Medications and potential side effects were discussed and patient voices understanding. Alisson Resendiz APRN.CLAIRE This note was partially generated using FRS voice recognition system. Note was reviewed for accuracy. There may be minor misspellings or grammar miscues with FRS voice recognition. documented in this encounter [facility] 02-09-2024 Note HNO ID: [id number] Author: ALISSON RESENDIZ APRN.CLAIRE Service: ? Author Type: Nurse Practitioner Type: Progress Notes Filed: 02/09/2024 08:11 Note Text: This is a 58 year old female who presents today with: Patient presents with: Follow Up: 1 month follow B HISTORY OF PRESENT ILLNESS: Emigdio Haider is a 58 year old female. Patient presents with: Follow Up: 1 month follow B Here in the office for 1 month blood pressure check. Last month added on Amlodipine 5 mg and HCTZ 12.5 mg daily. Still taking Losartan 100 mg daily. Checking blood pressure at home, 102/80's. The HCTZ has helped with lower leg swelling. Has noticed some night time cramping in bilateral calves. Refers that she does not drink much water. Denies chest pain, palpitations, or dizziness. PAST MEDICAL HISTORY: PAST MEDICAL HISTORY Diagnosis Date Breast cancer (HCC) Essential hypertension History of radiation therapy JOEY (obstructive sleep apnea) DME [facility] fx. [phone] PAST SURGICAL HISTORY Procedure Laterality Date HYSTERECTOMY 2011 Total Hysterectomy-Dr. Gamble in [place] PAST SURGICAL HISTORY OF 09/30/2022 Lumpectomy at [facility] TONSILLECTOMY HX 1970 ALLERGIES Bactrim [Sulfamethoxazole-Trimethoprim] and Erythromycin MEDICATIONS Current Outpatient Medications Medication Sig Cholecalciferol, Vitamin D3, 125 mcg (5,000 unit) cap Take 1 capsule by mouth once daily. cyanocobalamin (VITAMIN B-12) 1,000 mcg tab Take 1 tablet by mouth once daily. amLODIPine (NORVASC) 5 mg tablet Take 1 tablet by mouth once daily. losartan (COZAAR) 100 mg tablet Take 1 tablet by mouth once daily. hydroCHLOROthiazide 12.5 mg capsule Take 1 capsule by mouth once daily. CPAP/BIPAP/OTHER CPAP 8 cmH2O [facility] CALCIUM ORAL Take 2 tablets by mouth once daily. 1200 MG. ZINC ORAL Take 1 tablet by mouth once daily. CPAP CPAP 8 cmH2O, mask(pt pref), chin strap, heated tubing AND humidity, filters. Lifetime supplies. Dx: G47.33. (Please provide supplies) fluticasone (FLONASE) 50 mcg/actuation nasal spray Use 2 Sprays in each nostril once daily. Rinse mouth after use. MULTIVITAMIN ORAL Take by mouth. No current facility-administered medications for this visit. FAMILY HISTORY Problem Relation Age of Onset No Known Problems Mother No Known Problems Father Thyroid Sister No Known Problems Brother No Known Problems Sister Social History Tobacco Use Smoking status: Never Smokeless tobacco: Never Vaping Use Vaping status: Never Used Substance Use Topics Alcohol use: Yes Alcohol/week: 7.0 standard drinks of alcohol Types: 7 Glasses of Wine (5oz) per week Drug use: No REVIEW OF SYSTEMS GENERAL: No weight loss, malaise or fevers/chills HEENT: Negative for frequent or significant headaches, No changes in hearing or vision. NECK: Negative for lumps, goiter, pain and significant neck swelling RESPIRATORY: Negative for cough, hemoptysis, wheezing, dyspnea or shortness of breath CARDIOVASCULAR: Negative for chest pain, leg swelling, orthopnea, or palpitations GI: No nausea, vomiting, or diarrhea/constipation. No hematochezia/melena. No heartburn or reflux symptoms. : No history of dysuria, frequency or incontinence MUSCULOSKELETAL: + Calf cramping SKIN: Negative for lesions, rash, and itching ENDOCRINE: Negative for cold or heat intolerance, polyuria, polydipsia and goiter NEURO: No history of headaches, syncope, paralysis, seizures or tremors MOOD: Negative for depression, anxiety, or suicidal ideation. EXAM: BP 126/86 Pulse 100 Resp 16 Wt 125.2 kg (276 lb) SpO2 97% BMI 44.62 kg/m? PHYSICAL EXAM: General Appearance: Well appearing, alert, in no acute distress, well-hydrated, well nourished. Skin: Skin color, texture, turgor normal, no suspicious rashes or lesions. Head: Normocephalic, no masses, lesions, tenderness or abnormalities. Eyes: Anicteric sclera. Extraocular movements are intact. Lungs: Lungs clear to auscultation. No wheezing, rhonchi, rales. Heart: RRR without murmur, gallop, or rubs. No ectopy. Extremities: +1 non-pitting edema noted to lower legs bilaterally. No erythema. Peripheral Pulses: Normal, Capillary refill <2secs, strong peripheral pulses, Pulses palpable. Neurologic: Gait normal. Sensation grossly intact.. ASSESSMENT/PLAN: 1. Essential hypertension - ICD9: 401.9, ICD10: I10 (primary diagnosis) - Controlled - Continue current medications - Recommend home blood pressure monitoring, to bring results to next visit - Encouraged sodium restriction, DASH or Mediterranean diet - Recommend regular aerobic exercise - Discussed need for and benefit of weight loss. BMI 44.62 kg/(m2) 2. Lower leg edema - ICD9: 782.3, ICD10: R60.0 - Stable, continue with HCTZ - Recommend wearing compression socks and working on lifestyle changes at home. 3. Leg cramp - ICD9: 729.82, ICD10: R25.2 - Get labs completed t (more content not included)... [facility] 01-27-2024 Telephone encounter Note OK to refill as ordered Martha Ayala MD [facility] 01-27-2024 Miscellaneous Notes OK to refill as ordered Martha Ayala MD Prescription Refill Information The patient has been identified by name and date of : Yes Caregiver verified no other encounters exist for this prescription request: Yes Caregiver confirmed with patient/requestor that no other refills are due, in the near future, with this provider at this time: Yes The last office visit in the department: 12-30-23 Does the patient have a future office visit with this provider/department: Yes Requested Prescriptions Pending Prescriptions Disp Refills Cholecalciferol, Vitamin D3, 125 mcg (5,000 unit) cap 90 capsule 3 Sig: Take 1 capsule by mouth once daily. cyanocobalamin (VITAMIN B-12) 1,000 mcg tab 90 tablet 3 Sig: Take 1 tablet by mouth once daily. Madeline Guerrero January 27, 2024 10:42 AM documented in this encounter [facility] 01-27-2024 Telephone encounter Note Prescription Refill Information The patient has been identified by name and date of : Yes Caregiver verified no other encounters exist for this prescription request: Yes Caregiver confirmed with patient/requestor that no other refills are due, in the near future, with this provider at this time: Yes The last office visit in the department: 12-30-23 Does the patient have a future office visit with this provider/department: Yes Requested Prescriptions Pending Prescriptions Disp Refills Cholecalciferol, Vitamin D3, 125 mcg (5,000 unit) cap 90 capsule 3 Sig: Take 1 capsule by mouth once daily. cyanocobalamin (VITAMIN B-12) 1,000 mcg tab 90 tablet 3 Sig: Take 1 tablet by mouth once daily. Madeline Guerrero January 27, 2024 10:42 AM [facility] 12-30-2023 Instructions Alisson Resendiz APRN.CNP - 12/30/2023 7:21 AM EDT Get repeat fasting labs in 6 months prior to next visit. No food 10-12 hours prior. May have black coffee and water Continue with Cozaar, add on Amlodipine 5 mg daily and HCTZ 12.5 mg (water pill) Monitor blood pressure at home, goal 130/80 or less. Recommend elevating the legs and using compression socks. Watch salt and processed foods in the diet. Try to get some form of exercise. Keep scheduled appointments with specialist. documented in this encounter [facility] 12-30-2023 History of Present illness Narrative This is a 58 year old female who presents today with: Patient presents with: 6 Month Exam HISTORY OF PRESENT ILLNESS: Emigdio Haider is a 58 year old female. Patient presents with: 6 Month Exam 6 month follow up HTN: Taking Cozaar 100 mg daily. Not currently checking blood pressure at home. Denies chest pain, palpitations, or dizziness. BP elevated today, did not take medication this morning. Usually takes with lunch. Has noticed some lower leg swelling. Refers that she stands most of the day at work. Has compression socks. Denies shortness of breath. History of breast cancer, follow up yearly. Gets calcium infusion every 6 months. JOEY: CPAP, sleeping well. Waking up feeling refreshed. History of graves disease in the past, thyroid functioning was normal in June Mammogram: July 2023 w/juan normal. History of full hysterectomy. Colonoscopy: Due, order is in place. Vaccines: Denies wanting any vaccines at this time. PAST MEDICAL HISTORY: PAST MEDICAL HISTORY Diagnosis Date Breast cancer (HCC) Essential hypertension History of radiation therapy JOEY (obstructive sleep apnea) DME [facility] fx. [phone] PAST SURGICAL HISTORY Procedure Laterality Date HYSTERECTOMY 2011 Total Hysterectomy-Dr. Gamble in [place] PAST SURGICAL HISTORY OF 09/30/2022 Lumpectomy at [facility] TONSILLECTOMY HX 1970 ALLERGIES Bactrim [Sulfamethoxazole-Trimethoprim] and Erythromycin MEDICATIONS Current Outpatient Medications Medication Sig losartan (COZAAR) 100 mg tablet Take 1 tablet by mouth once daily. CPAP/BIPAP/OTHER CPAP 8 cmH2O [facility] CALCIUM ORAL Take 2 tablets by mouth once daily. 1200 MG. cyanocobalamin (VITAMIN B-12) 1,000 mcg tab Take 1 tablet by mouth once daily. Cholecalciferol, Vitamin D3, 125 mcg (5,000 unit) cap Take 1 capsule by mouth once daily. ZINC ORAL Take 1 tablet by mouth once daily. CPAP CPAP 8 cmH2O, mask(pt pref), chin strap, heated tubing & humidity, filters. Lifetime supplies. Dx: G47.33. (Please provide supplies) fluticasone (FLONASE) 50 mcg/actuation nasal spray Use 2 Sprays in each nostril once daily. Rinse mouth after use. MULTIVITAMIN ORAL Take by mouth. No current facility-administered medications for this visit. FAMILY HISTORY Problem Relation Age of Onset No Known Problems Mother No Known Problems Father Thyroid Sister No Known Problems Brother No Known Problems Sister Social History Tobacco Use Smoking status: Never Smokeless tobacco: Never Vaping Use Vaping status: Never Used Substance Use Topics Alcohol use: Yes Alcohol/week: 7.0 standard drinks of alcohol Types: 7 Glasses of Wine (5oz) per week Drug use: No REVIEW OF SYSTEMS GENERAL: No weight loss, malaise or fevers/chills HEENT: Negative for frequent or significant headaches, No changes in hearing or vision. NECK: Negative for lumps, goiter, pain and significant neck swelling RESPIRATORY: Negative for cough, hemoptysis, wheezing, dyspnea or shortness of breath CARDIOVASCULAR: Negative for chest pain, orthopnea, or palpitations + Lower leg edema GI: No nausea, vomiting, or diarrhea/constipation. No hematochezia/melena. No heartburn or reflux symptoms. : No history of dysuria, frequency or incontinence MUSCULOSKELETAL: Negative for joint pain or swelling. SKIN: Negative for lesions, rash, and itching ENDOCRINE: Negative for cold or heat intolerance, polyuria, polydipsia and goiter NEURO: No history of headaches, syncope, paralysis, seizures or tremors MOOD: Negative for depression, anxiety, or suicidal ideation. EXAM: BP 169/116 Pulse 86 Resp 16 Ht 167.5 cm (5' 5.95") Wt 126.1 kg (278 lb) SpO2 97% BMI 44.95 kg/m BP 150/100 Pulse 86 Resp 16 Ht 167.5 cm (5' 5.95") Wt 126.1 kg (278 lb) SpO2 97% BMI 44.95 kg/m PHYSICAL EXAM: General Appearance: Well appearing, alert, in no acute distress, well-hydrated, well nourished. Skin: Skin color, texture, turgor normal, no suspicious rashes or lesions. Head: Normocephalic, no masses, lesions, tenderness or abnormalities. Eyes: Anicteric sclera. Extraocular movements are intact. Lungs: Lungs clear to auscultation. No wheezing, rhonchi, rales. Heart: RRR without murmur, gallop, or rubs. No ectopy. Extremities: +2 nonpitting edema to lower legs bilaterally, no erythema or color change noted. Musculoskeletal: No joint swelling, deformity, or tenderness. Peripheral Pulses: Normal, Capillary refill <2secs, strong peripheral pulses, Pulses palpable. Neurologic: Gait normal. Sensation grossly intact. ASSESSMENT/PLAN: 1. Essential hypertension - ICD9: 401.9, ICD10: I10 (primary diagnosis) - Uncontrolled - Continue current medications - Start hydrochlorothiazide, amlodipine - Recommend home blood pressure monitoring, to bring results to next visit - Encouraged sodium restriction, DASH or Mediterranean diet - Recommend regular aerobic exercise - Discussed need for and benefit of weight loss. BMI 44.95 kg/(m^2) - Follow up in 1 month. - AMLODIPINE 5 MG TABLET - LOSARTAN 100 MG TABLET - HYDROCHLOROTHIAZIDE 12.5 MG CAPSULE 2. Lower leg edema - ICD9: 782.3, ICD10: R60.0 - Start hydrochlorothiazide 12.5 mg daily. - Recommend wearing compression socks and elevating the legs when possible. - Instructed to watch salt and processed foods in the diet. - HYDROCHLOROTHIAZIDE 12.5 MG CAPSULE 3. History of Graves' disease - ICD9: V12.29, ICD10: Z86.39 - THYROID STIMULATING HORMONE - T4 FREE/FREE THYROXINE - T3, FREE 4. JOEY (obstructive sleep apnea) - ICD9: 327.23, ICD10: G47.33 - Stable, continue with CPAP 5. Dyslipidemia, goal LDL below 100 - ICD9: 272.4, ICD10: E78.5 - Control undetermined, due for labs - Counseled on healthy diet and regular exercise - COMPREHENSIVE METABOLIC PANEL - LIPID PANEL BASIC 6. Screening for diabetes mellitus - ICD9: V77.1, ICD10: Z13.1 - HEMOGLOBIN A1C 7. History of breast cancer - ICD9: V10.3, ICD10: Z85.3 - Stable, keep scheduled appointments with oncology Follow-up in 1 month or sooner as needed. Discussed treatment plan and patient voices understanding. Patient's questions answered appropriately. Medications and potential side effects were discussed and patient voices understanding. Alisson Resendiz APRN.CNP This note was partially generated using FRS voice recognition system. Note was reviewed for accuracy. There may be minor misspellings or grammar miscues with FRS voice recognition. documented in this encounter [facility] 12-30-2023 Note HNO ID: [id number] Author: ALISSON RESENDIZ APRN.CNP Service: ? Author Type: Nurse Practitioner Type: Progress Notes Filed: 12/30/2023 07:57 Note Text: This is a 58 year old female who presents today with: Patient presents with: 6 Month Exam HISTORY OF PRESENT ILLNESS: Emigdio Haider is a 58 year old female. Patient presents with: 6 Month Exam 6 month follow up HTN: Taking Cozaar 100 mg daily. Not currently checking blood pressure at home. Denies chest pain, palpitations, or dizziness. BP elevated today, did not take medication this morning. Usually takes with lunch. Has noticed some lower leg swelling. Refers that she stands most of the day at work. Has compression socks. Denies shortness of breath. History of breast cancer, follow up yearly. Gets calcium infusion every 6 months. JOEY: CPAP, sleeping well. Waking up feeling refreshed. History of graves disease in the past, thyroid functioning was normal in June Mammogram: July 2023 w/juan normal. History of full hysterectomy. Colonoscopy: Due, order is in place. Vaccines: Denies wanting any vaccines at this time. PAST MEDICAL HISTORY: PAST MEDICAL HISTORY Diagnosis Date Breast cancer (HCC) Essential hypertension History of radiation therapy JOEY (obstructive sleep apnea) [facility] fx. [phone] PAST SURGICAL HISTORY Procedure Laterality Date HYSTERECTOMY 2011 Total Hysterectomy-Dr. Gamble in [place] PAST SURGICAL HISTORY OF 09/30/2022 Lumpectomy at [facility] TONSILLECTOMY HX 1970 ALLERGIES Bactrim [Sulfamethoxazole-Trimethoprim] and Erythromycin MEDICATIONS Current Outpatient Medications Medication Sig losartan (COZAAR) 100 mg tablet Take 1 tablet by mouth once daily. CPAP/BIPAP/OTHER CPAP 8 cmH2O DME [facility] CALCIUM ORAL Take 2 tablets by mouth once daily. 1200 MG. cyanocobalamin (VITAMIN B-12) 1,000 mcg tab Take 1 tablet by mouth once daily. Cholecalciferol, Vitamin D3, 125 mcg (5,000 unit) cap Take 1 capsule by mouth once daily. ZINC ORAL Take 1 tablet by mouth once daily. CPAP CPAP 8 cmH2O, mask(pt pref), chin strap, heated tubing AND humidity, filters. Lifetime supplies. Dx: G47.33. (Please provide supplies) fluticasone (FLONASE) 50 mcg/actuation nasal spray Use 2 Sprays in each nostril once daily. Rinse mouth after use. MULTIVITAMIN ORAL Take by mouth. No current facility-administered medications for this visit. FAMILY HISTORY Problem Relation Age of Onset No Known Problems Mother No Known Problems Father Thyroid Sister No Known Problems Brother No Known Problems Sister Social History Tobacco Use Smoking status: Never Smokeless tobacco: Never Vaping Use Vaping status: Never Used Substance Use Topics Alcohol use: Yes Alcohol/week: 7.0 standard drinks of alcohol Types: 7 Glasses of Wine (5oz) per week Drug use: No REVIEW OF SYSTEMS GENERAL: No weight loss, malaise or fevers/chills HEENT: Negative for frequent or significant headaches, No changes in hearing or vision. NECK: Negative for lumps, goiter, pain and significant neck swelling RESPIRATORY: Negative for cough, hemoptysis, wheezing, dyspnea or shortness of breath CARDIOVASCULAR: Negative for chest pain, orthopnea, or palpitations + Lower leg edema GI: No nausea, vomiting, or diarrhea/constipation. No hematochezia/melena. No heartburn or reflux symptoms. : No history of dysuria, frequency or incontinence MUSCULOSKELETAL: Negative for joint pain or swelling. SKIN: Negative for lesions, rash, and itching ENDOCRINE: Negative for cold or heat intolerance, polyuria, polydipsia and goiter NEURO: No history of headaches, syncope, paralysis, seizures or tremors MOOD: Negative for depression, anxiety, or suicidal ideation. EXAM: BP 169/116 Pulse 86 Resp 16 Ht 167.5 cm (5' 5.95") Wt 126.1 kg (278 lb) SpO2 97% BMI 44.95 kg/m? BP 150/100 Pulse 86 Resp 16 Ht 167.5 cm (5' 5.95") Wt 126.1 kg (278 lb) SpO2 97% BMI 44.95 kg/m? PHYSICAL EXAM: General Appearance: Well appearing, alert, in no acute distress, well-hydrated, well nourished. Skin: Skin color, texture, turgor normal, no suspicious rashes or lesions. Head: Normocephalic, no masses, lesions, tenderness or abnormalities. Eyes: Anicteric sclera. Extraocular movements are intact. Lungs: Lungs clear to auscultation. No wheezing, rhonchi, rales. Heart: RRR without murmur, gallop, or rubs. No ectopy. Extremities: +2 nonpitting edema to lower legs bilaterally, no erythema or color change noted. Musculoskeletal: No joint swelling, deformity, or tenderness. Peripheral Pulses: Normal, Capillary refill <2secs, strong peripheral pulses, Pulses palpable. Neurologic: Gait normal. Sensation grossly intact. ASSESSMENT/PLAN: 1. Essential hypertension - ICD9: 401.9, ICD10: I10 (primary diagnosis) - Uncontrolled - Continue current medications - Start hydrochlorothiazide, amlodi (more content not included)... [facility] 08-06-2023 Note HNO ID: [id number] Author: ZAIRE SIMMONS JR, MD Service: ? Author Type: Physician Type: Progress Notes Filed: 08/06/2023 16:04 Note Text: ESTABLISHED PATIENT VISIT CHIEF COMPLAINT: Follow Up JOEY HISTORY OF PRESENT ILLNESS: Emgidio Haider is a 58 year old female, BMI 42.94 kg/m2 with a PMH significant for JOEY. I have never sen patient in the past but records suggest patient seen by both Dr. Gonsalez in 2019 and Nahomy Gipson CNP on 02/05/23. Per note of Nahomy Gipson [employer]: G47.33 JOEY on CPAP (primary encounter diagnosis) I10 Essential hypertension E66.01 Morbid obesity (HCC) Emigdio Haider is a 57 year old female with PMH of HTN, obesity who has moderate JOEY which is controlled with CPAP 8 cmH2O (residual AHI 0.9). She uses CPAP all night, every night. She is compliant and reports subjective benefits (better sleep, more rested, no snoring). - Continue CPAP at 8cmH2O. [facility]. Her Respironics machine had been recalled, she received a new CPAP about 2 mos ago. - Remember to clean your mask and equipment regularly, as directed. - You should be eligible for new supplies approximately every 3-6 months, depending on your insurance coverage. Contact your Durable Medical Equipment (DME) company for new supplies as needed. - Follow up in 1 yr We have no PAP data download available for review. Patient did get her PAP device refurbished but was not provided a new device. Still on CPAP 8 cmH2O. Patient feels doing fine with PAP. Some days feels a bit more tired but thinks may get less sleep on such nights. Typically going to bed about 10PM. Falling asleep in about <30 minutes. Wakes briefly at 4AM due to cats. Goes back to sleep and wakes to start the day about 6AM. Upon waking feels pretty good. Not tired during the day.No dozing off driving. ESS = 04/28 today (did not complete survey today). 7 pound weight loss since last visit. Cannot sleep without PAP. REVIEW OF SYSTEMS GENERAL:No weight loss, malaise or fevers. HEENT:Negative for frequent or significant headaches, No changes in hearing or vision, no nose bleeds or other nasal problems RESPIRATORY: Negative for cough, wheezing or shortness of breath. CARDIOVASCULAR: Negative for chest pain, leg swelling or palpitations. LAB/IMAGING: Those performed since patient's last visit have been reviewed. WBC (k/uL) Date Value 10/04/2020 7.04 RBC (m/uL) Date Value 10/04/2020 4.79 Hemoglobin (g/dL) Date Value 10/04/2020 15.8 (H) Hematocrit (%) Date Value 10/04/2020 48.9 (H) MCV (fL) Date Value 10/04/2020 102.1 (H) MCH (pG) Date Value 10/04/2020 33.0 MCHC (g/dL) Date Value 10/04/2020 32.3 RDW-CV (%) Date Value 10/04/2020 13.1 Platelet Count (k/uL) Date Value 10/04/2020 225 MPV (fL) Date Value 10/04/2020 11.7 Glucose (mg/dL) Date Value 06/29/2023 86 BUN (mg/dL) Date Value 06/29/2023 6 (L) Creatinine (mg/dL) Date Value 06/29/2023 0.59 Sodium (mmol/L) Date Value 06/29/2023 137 Potassium (mmol/L) Date Value 06/29/2023 4.0 Chloride (mmol/L) Date Value 06/29/2023 102 CO2 (mmol/L) Date Value 06/29/2023 23 Protein, Total (g/dL) Date Value 06/29/2023 7.3 Albumin (g/dL) Date Value 06/29/2023 4.2 Calcium, Total (mg/dL) Date Value 06/29/2023 10.2 Alkaline Phosphatase (U/L) Date Value 06/29/2023 122 Bilirubin, Total (mg/dL) Date Value 06/29/2023 0.6 AST (U/L) Date Value 06/29/2023 24 ALT (U/L) Date Value 06/29/2023 27 Hep C Antibody IA (no units) Date Value 12/16/2017 Negative MEDICATIONS: losartan (COZAAR) 100 mg tablet Take 1 tablet by mouth once daily. CPAP/BIPAP/OTHER CPAP 8 cmH2O [facility] CALCIUM ORAL Take 2 tablets by mouth once daily. 1200 MG. cyanocobalamin (VITAMIN B-12) 1,000 mcg tab Take 1 tablet by mouth once daily. Cholecalciferol, Vitamin D3, 125 mcg (5,000 unit) cap Take 1 capsule by mouth once daily. ZINC ORAL Take 1 tablet by mouth once daily. CPAP CPAP 8 cmH2O, mask(pt pref), chin strap, heated tubing AND humidity, filters. Lifetime supplies. Dx: G47.33. (Please provide supplies) fluticasone (FLONASE) 50 mcg/actuation nasal spray Use 2 Sprays in each nostril once daily. Rinse mouth after use. MULTIVITAMIN ORAL Take by mouth. HISTORIES PAST MEDICAL HISTORY Diagnosis Date Breast cancer (HCC) Essential hypertension History of radiation therapy JEOY (obstructive sleep apnea) DME Neha Pelayo fx. [phone] FAMILY HISTORY Problem Relation Age of Onset No Known Problems Mother No Known Problems Father Thyroid Sister No Known Problems Brother No Known Problems Sister SOCIAL HISTORY Social History Tobacco Use Smoking status: Never Smokeless tobacco: Never Vaping Use Vaping Use: Never used Substance Use Topics Alcohol use: Yes Alcohol/week: 7.0 standard drinks of alcohol Types: 7 Glasses of Wine (5oz) per week Drug use: No PHYSICAL EXAMINATION BP 1 (more content not included)... [facility] 08-06-2023 History of Present illness Narrative ESTABLISHED PATIENT VISIT CHIEF COMPLAINT: Follow Up JOEY HISTORY OF PRESENT ILLNESS: Emigdio Haider is a 58 year old female, BMI 42.94 kg/m2 with a PMH significant for JOEY. I have never sen patient in the past but records suggest patient seen by both Dr. Gonsalez in 2019 and Nahomy Gipson CNP on 02/05/23. Per note of Nahomy Gipson CNP: G47.33 JOEY on CPAP (primary encounter diagnosis) I10 Essential hypertension E66.01 Morbid obesity (HCC) Emigdio Haider is a 57 year old female with PMH of HTN, obesity who has moderate JOEY which is controlled with CPAP 8 cmH2O (residual AHI 0.9). She uses CPAP all night, every night. She is compliant and reports subjective benefits (better sleep, more rested, no snoring). - Continue CPAP at 8cmH2O. [facility]. Her Respironics machine had been recalled, she received a new CPAP about 2 mos ago. - Remember to clean your mask and equipment regularly, as directed. - You should be eligible for new supplies approximately every 3-6 months, depending on your insurance coverage. Contact your Durable Medical Equipment (DME) company for new supplies as needed. - Follow up in 1 yr We have no PAP data download available for review. Patient did get her PAP device refurbished but was not provided a new device. Still on CPAP 8 cmH2O. Patient feels doing fine with PAP. Some days feels a bit more tired but thinks may get less sleep on such nights. Typically going to bed about 10PM. Falling asleep in about <30 minutes. Wakes briefly at 4AM due to cats. Goes back to sleep and wakes to start the day about 6AM. Upon waking feels pretty good. Not tired during the day.No dozing off driving. ESS = 04/28 today (did not complete survey today). 7 pound weight loss since last visit. Cannot sleep without PAP. REVIEW OF SYSTEMS GENERAL:No weight loss, malaise or fevers. HEENT:Negative for frequent or significant headaches, No changes in hearing or vision, no nose bleeds or other nasal problems RESPIRATORY: Negative for cough, wheezing or shortness of breath. CARDIOVASCULAR: Negative for chest pain, leg swelling or palpitations. LAB/IMAGING: Those performed since patient's last visit have been reviewed. WBC (k/uL) Date Value 10/04/2020 7.04 RBC (m/uL) Date Value 10/04/2020 4.79 Hemoglobin (g/dL) Date Value 10/04/2020 15.8 (H) Hematocrit (%) Date Value 10/04/2020 48.9 (H) MCV (fL) Date Value 10/04/2020 102.1 (H) MCH (pG) Date Value 10/04/2020 33.0 MCHC (g/dL) Date Value 10/04/2020 32.3 RDW-CV (%) Date Value 10/04/2020 13.1 Platelet Count (k/uL) Date Value 10/04/2020 225 MPV (fL) Date Value 10/04/2020 11.7 Glucose (mg/dL) Date Value 06/29/2023 86 BUN (mg/dL) Date Value 06/29/2023 6 (L) Creatinine (mg/dL) Date Value 06/29/2023 0.59 Sodium (mmol/L) Date Value 06/29/2023 137 Potassium (mmol/L) Date Value 06/29/2023 4.0 Chloride (mmol/L) Date Value 06/29/2023 102 CO2 (mmol/L) Date Value 06/29/2023 23 Protein, Total (g/dL) Date Value 06/29/2023 7.3 Albumin (g/dL) Date Value 06/29/2023 4.2 Calcium, Total (mg/dL) Date Value 06/29/2023 10.2 Alkaline Phosphatase (U/L) Date Value 06/29/2023 122 Bilirubin, Total (mg/dL) Date Value 06/29/2023 0.6 AST (U/L) Date Value 06/29/2023 24 ALT (U/L) Date Value 06/29/2023 27 Hep C Antibody IA (no units) Date Value 12/16/2017 Negative MEDICATIONS: losartan (COZAAR) 100 mg tablet Take 1 tablet by mouth once daily. CPAP/BIPAP/OTHER CPAP 8 cmH2O [facility] CALCIUM ORAL Take 2 tablets by mouth once daily. 1200 MG. cyanocobalamin (VITAMIN B-12) 1,000 mcg tab Take 1 tablet by mouth once daily. Cholecalciferol, Vitamin D3, 125 mcg (5,000 unit) cap Take 1 capsule by mouth once daily. ZINC ORAL Take 1 tablet by mouth once daily. CPAP CPAP 8 cmH2O, mask(pt pref), chin strap, heated tubing & humidity, filters. Lifetime supplies. Dx: G47.33. (Please provide supplies) fluticasone (FLONASE) 50 mcg/actuation nasal spray Use 2 Sprays in each nostril once daily. Rinse mouth after use. MULTIVITAMIN ORAL Take by mouth. HISTORIES PAST MEDICAL HISTORY Diagnosis Date Breast cancer (HCC) Essential hypertension History of radiation therapy JOEY (obstructive sleep apnea) DME Neha Pelayo fx. [phone] FAMILY HISTORY Problem Relation Age of Onset No Known Problems Mother No Known Problems Father Thyroid Sister No Known Problems Brother No Known Problems Sister SOCIAL HISTORY Social History Tobacco Use Smoking status: Never Smokeless tobacco: Never Vaping Use Vaping Use: Never used Substance Use Topics Alcohol use: Yes Alcohol/week: 7.0 standard drinks of alcohol Types: 7 Glasses of Wine (5oz) per week Drug use: No PHYSICAL EXAMINATION BP 126/72 Pulse 101 Resp 16 Wt 128.1 kg (282 lb 6.4 oz) SpO2 97% BMI 42.94 kg/m GENERAL EXAM: General appearance: NAD, pleasant. HEENT: NC/AT, nasal congestion absent, no oral lesions, membranes moist. Borden IV. NECK: ROM nml. Lungs: CTA bilaterally. CV: RRR nl S1, S2 NEUROLOGICAL EXAM: General: Awake, alert, oriented x3 (person,place,time), fluent, no dysarthria; comprehension, naming, repetition intact. CN: PERRL, EOMI and without nystagmus, VFF to confrontation, facial sensation and strength are normal and symmetric, hearing is intact to finger rub bilaterally, palate and tongue movements are intact and symmetric. SCM and trapezius strength normal. Motor: Normal tone, bulk and strength (5/5) bilaterally (throughout extremities x4). Gait: Stable. Assessment and Plan: ASSESSMENT/PLAN: 1. JOEY on CPAP - ICD9: 327.23, ICD10: G47.33 (primary diagnosis) 2. Class 3 severe obesity with body mass index (BMI) of 40.0 to 44.9 in adult, unspecified obesity type, unspecified whether serious comorbidity present (HCC) - ICD9: 278.01, V85.41, ICD10: E66.01, Z68.41 Patient with known history of JOEY - controlled on PAP of 8 cmH2O based on PAP data download late last year - would expect AHI to be still controlled given no weight changes or change in meds. Await download and will contact pt if any concerns with those results. Otherwise encouraged compliance. Reminded pt to clean and replace equipment regularly. Advised pt not to drive or operate heavy machinery if sleepy. Encouraged weight loss. Follow up 1 year. Note pt may choose to change DMEs and will contact us if decides to do so. I spent a total of 24 minutes on the date of the service which included preparing to see the patient, [id number] patient care, completing clinical documentation, obtaining and/or reviewing separately obtained history, performing a medically appropriate examination, and counseling and educating the patient/family/caregiver. Zaire Simmons MD documented in this encounter [facility] 08-05-2023 Telephone encounter Note Faxed download compliance (SD card ) request, patient notified prior to drop off. Shellie Dickey LPN [facility] 08-05-2023 Miscellaneous Notes Faxed download compliance (SD card ) request, patient notified prior to drop off. Shellie Dickey LPN MyChart message sent patient SD Card CPAP download. Shellie Dickey LPN documented in this encounter [facility] 07-26-2023 Telephone encounter Note yoonewhart message sent patient SD Card CPAP download. Shellie Dickey LPN [facility] 07-26-2023 Telephone encounter Note Faxed DENISE, GEN SURG OV, recent labs & consult with facesheet to Dr. Collins's office: [phone]. Zabrina Escobedo MA [facility] 07-26-2023 Miscellaneous Notes Faxed DENISE, GEN SURG OV, recent labs & consult with facesheet to Dr. Collins's office: [phone]. Zabrina Escobedo MA documented in this encounter [facility] 07-23-2023 Telephone encounter Note 12/13/2023 COLON SANTAMARIA [facility] 07-23-2023 Miscellaneous Notes 12/13/2023 COLON SANTAMARIA documented in this encounter [facility] 07-23-2023 Note HNO ID: [id number] Author: HERNANDEZ RASCON MD Service: ? Author Type: Physician Type: Progress Notes Filed: 07/25/2023 05:55 Note Text: HISTORY AND PHYSICAL Emigdio Haider 1965 REFERRING PHYSICIAN: Alisson Resendiz APRN.C* CHIEF COMPLAINT: Colon Consult HPI: The patient is a 58 year old female referred for endoscopy. Emigdio notes no history of colon complaints. The patient notes no history of upper GI complaints. Emigdio has undergone prior endoscopy. She presents for screening colonoscopy. The patient is being seen by me today at the request of Dr. Martha Ayala MD for my opinion and advice regarding screening colonoscopy. PAST MEDICAL HISTORY Diagnosis Date Breast cancer (HCC) Essential hypertension History of radiation therapy JOEY (obstructive sleep apnea) [facility] fx. [phone] PAST SURGICAL HISTORY Procedure Laterality Date HYSTERECTOMY 2011 Total Hysterectomy-Dr. Gamble in [place] PAST SURGICAL HISTORY OF 09/30/2022 Lumpectomy at [facility] TONSILLECTOMY HX 1970 Current Outpatient Medications Medication Sig losartan (COZAAR) 100 mg tablet Take 1 tablet by mouth once daily. CPAP/BIPAP/OTHER CPAP 8 cmH2O [facility] CALCIUM ORAL Take 2 tablets by mouth once daily. 1200 MG. cyanocobalamin (VITAMIN B-12) 1,000 mcg tab Take 1 tablet by mouth once daily. Cholecalciferol, Vitamin D3, 125 mcg (5,000 unit) cap Take 1 capsule by mouth once daily. ZINC ORAL Take 1 tablet by mouth once daily. CPAP CPAP 8 cmH2O, mask(pt pref), chin strap, heated tubing AND humidity, filters. Lifetime supplies. Dx: G47.33. (Please provide supplies) fluticasone (FLONASE) 50 mcg/actuation nasal spray Use 2 Sprays in each nostril once daily. Rinse mouth after use. MULTIVITAMIN ORAL Take by mouth. No current facility-administered medications for this visit. ALLERGIES: Bactrim [Sulfamethoxazole-Trimethoprim] and Erythromycin PERSONAL HISTORY: Social History Tobacco Use Smoking status: Never Smokeless tobacco: Never Vaping Use Vaping Use: Never used Substance Use Topics Alcohol use: Yes Alcohol/week: 7.0 standard drinks of alcohol Types: 7 Glasses of Wine (5oz) per week Drug use: No FAMILY HISTORY: FAMILY HISTORY Problem Relation Age of Onset No Known Problems Mother No Known Problems Father Thyroid Sister No Known Problems Brother No Known Problems Sister REVIEW OF SYMPTOMS: The review of systems data was entered by the nurse and reviewed by me Nursing Notes: April Barahona MA 07/23/2023 1:43 PM Signed REVIEW OF SYSTEMS: General: The patient denies fatigue, denies weight loss, denies weight gain, denies feeling hot, and denies feelings of cold. Eyes: The patient denies glaucoma, denies eye injury/surgery, wears glasses or contacts. Ear/Nose/Throat: The patient denies allergies, denies hayfever, denies ear infections, and denies bloody noses. Cardiovascular: The patient denies chest pain, denies heart disease, NOTES high blood pressure,denies cardiac stent, denies prior heart attack, denies irregular heart beat, denies high cholesterol, denies poor circulation, denies heart failure, other cardiac issues, denies claudication, denies cold feet, denies peripheral arterial stent. Respiratory: The patient denies tuberculosis, denies pneumonia, denies frequent cough, denies pulmonary embolism, denies shortness of breath, and denies coughing up blood. Gastrointestinal: The patient denies difficulty swallowing, denies acid reflux, denies ulcers, denies vomiting, denies jaundice/hepatitis, denies gallbladder problems, denies black or tarry stools, denies hemorrhoids, denies bleeding from rectum, denies diverticulitis, denies constipation, denies diarrhea, denies loss of stool control, and denies hernias. Kidney/Bladder: The patient denies kidney stones, denies urine infections, and denies bloody urine. Skin: The patient denies a history of skin cancer, denies bleeding/changing moles, and denies a history of skin rash. Neurologic: The patient denies a history of epilepsy/convulsions, denies headaches, denies head/spinal injuries, and denies stroke/TIA. Psychiatric: The patient denies psychiatric medications, denies depression, and denies voices, denies substance abuse. Endocrine: The patient denies thyroid disorders, denies diabetes, and denies hormonal problems. Hematologic: The patient denies a history of bruising, denies bleeding, and denies anemia, denies blood clots. Infections: The patient denies a history of measles and mumps, denies rheumatic fever, and denies sexually transmitted diseases. Musculoskeletal: The patient denies back pain/injury, denies back problems, denies sciatica, denies knee/foot trouble, denies arthritis, or denies gout. When was patient's last Mammogram screening? 07/12/2023 Last Colonoscopy: 2011 April Barahona MA PHYSICAL EXAMINATION: General (more content not included)... [facility] 07-23-2023 History of Present illness Narrative HISTORY AND PHYSICAL Emigdio Haider 1965 REFERRING PHYSICIAN: Alisson Resendiz APRN.C* CHIEF COMPLAINT: Colon Consult HPI: The patient is a 58 year old female referred for endoscopy. Emigdio notes no history of colon complaints. The patient notes no history of upper GI complaints. Emigdio has undergone prior endoscopy. She presents for screening colonoscopy. The patient is being seen by me today at the request of Dr. Martha Ayala MD for my opinion and advice regarding screening colonoscopy. PAST MEDICAL HISTORY Diagnosis Date Breast cancer (HCC) Essential hypertension History of radiation therapy JOEY (obstructive sleep apnea) [facility] fx. [phone] PAST SURGICAL HISTORY Procedure Laterality Date HYSTERECTOMY 2011 Total Hysterectomy-Dr. Gamble in [place] PAST SURGICAL HISTORY OF 09/30/2022 Lumpectomy at [facility] TONSILLECTOMY HX 1970 Current Outpatient Medications Medication Sig losartan (COZAAR) 100 mg tablet Take 1 tablet by mouth once daily. CPAP/BIPAP/OTHER CPAP 8 cmH2O [facility] CALCIUM ORAL Take 2 tablets by mouth once daily. 1200 MG. cyanocobalamin (VITAMIN B-12) 1,000 mcg tab Take 1 tablet by mouth once daily. Cholecalciferol, Vitamin D3, 125 mcg (5,000 unit) cap Take 1 capsule by mouth once daily. ZINC ORAL Take 1 tablet by mouth once daily. CPAP CPAP 8 cmH2O, mask(pt pref), chin strap, heated tubing & humidity, filters. Lifetime supplies. Dx: G47.33. (Please provide supplies) fluticasone (FLONASE) 50 mcg/actuation nasal spray Use 2 Sprays in each nostril once daily. Rinse mouth after use. MULTIVITAMIN ORAL Take by mouth. No current facility-administered medications for this visit. ALLERGIES: Bactrim [Sulfamethoxazole-Trimethoprim] and Erythromycin PERSONAL HISTORY: Social History Tobacco Use Smoking status: Never Smokeless tobacco: Never Vaping Use Vaping Use: Never used Substance Use Topics Alcohol use: Yes Alcohol/week: 7.0 standard drinks of alcohol Types: 7 Glasses of Wine (5oz) per week Drug use: No FAMILY HISTORY: FAMILY HISTORY Problem Relation Age of Onset No Known Problems Mother No Known Problems Father Thyroid Sister No Known Problems Brother No Known Problems Sister REVIEW OF SYMPTOMS: The review of systems data was entered by the nurse and reviewed by me Nursing Notes: April Barahona MA 07/23/2023 1:43 PM Signed REVIEW OF SYSTEMS: General: The patient denies fatigue, denies weight loss, denies weight gain, denies feeling hot, and denies feelings of cold. Eyes: The patient denies glaucoma, denies eye injury/surgery, wears glasses or contacts. Ear/Nose/Throat: The patient denies allergies, denies hayfever, denies ear infections, and denies bloody noses. Cardiovascular: The patient denies chest pain, denies heart disease, NOTES high blood pressure,denies cardiac stent, denies prior heart attack, denies irregular heart beat, denies high cholesterol, denies poor circulation, denies heart failure, other cardiac issues, denies claudication, denies cold feet, denies peripheral arterial stent. Respiratory: The patient denies tuberculosis, denies pneumonia, denies frequent cough, denies pulmonary embolism, denies shortness of breath, and denies coughing up blood. Gastrointestinal: The patient denies difficulty swallowing, denies acid reflux, denies ulcers, denies vomiting, denies jaundice/hepatitis, denies gallbladder problems, denies black or tarry stools, denies hemorrhoids, denies bleeding from rectum, denies diverticulitis, denies constipation, denies diarrhea, denies loss of stool control, and denies hernias. Kidney/Bladder: The patient denies kidney stones, denies urine infections, and denies bloody urine. Skin: The patient denies a history of skin cancer, denies bleeding/changing moles, and denies a history of skin rash. Neurologic: The patient denies a history of epilepsy/convulsions, denies headaches, denies head/spinal injuries, and denies stroke/TIA. Psychiatric: The patient denies psychiatric medications, denies depression, and denies voices, denies substance abuse. Endocrine: The patient denies thyroid disorders, denies diabetes, and denies hormonal problems. Hematologic: The patient denies a history of bruising, denies bleeding, and denies anemia, denies blood clots. Infections: The patient denies a history of measles and mumps, denies rheumatic fever, and denies sexually transmitted diseases. Musculoskeletal: The patient denies back pain/injury, denies back problems, denies sciatica, denies knee/foot trouble, denies arthritis, or denies gout. When was patient's last Mammogram screening? 07/12/2023 Last Colonoscopy: 2011 April Barahona [place] PHYSICAL EXAMINATION: General: The patient is 58 year old female, well nourished, well hydrated in no acute distress. The patient is oriented to time, place, and person. VITALS: Blood pressure 142/86, pulse 114, temperature 36.3 C (97.4 F), weight 129.8 kg (286 lb 3.2 oz), SpO2 96%. Body mass index is 43.52 kg/m . HEENT: Normal cephalic, ataumatic, pupils are equally round, sclera are anicteric, mucous membranes are moist, oropharynx is clear. Neck has no masses, asymmetry or lymphadenopathy. Thyroid is unremarkable. Respiratory: Clear to auscultation and percussion. Normal respiratory excursion and pattern. Cardiac: Examination is regular rate and rhythm. Abdominal exam: Soft, nontender, with no palpable masses. No hepatosplenomegaly. No palpable hernias. Rectal exam: exam deferred Extremities: no clubbing, cyanosis or edema. No adenopathy. Other: LABORATORY VALUES: As Noted RADIOLOGIC STUDIES: As Noted Assessment IMPRESSION: screening colonoscopy PLAN: I plan to perform lower endoscopy. We discussed the risks and benefits of the planned endoscopy. I have informed the patient that complications can occur including failure to complete the endoscopy and perforation. The patient had the opportunity to ask questions concerning the planned endoscopy. My staff has also explained the procedure to the patient in understandable terms and has given the patient printed material concerning the procedure. The patient freely consents to surgery. I plan to use golytely bowel preparation for endoscopy I plan for monitored anesthetic care. Diagnoses: (Z12.11) Screening for colon cancer My findings have been communicated to Dr. Martha Ayala MD via shared medical record. This note will be forwarded to Dr. Martha Ayala MD. Return to Clinic: The patient is instructed to follow-up with me as needed. Hernandez Rascon MD documented in this encounter [facility] 07-23-2023 Nurse Note REVIEW OF SYSTEMS: General: The patient denies fatigue, denies weight loss, denies weight gain, denies feeling hot, and denies feelings of cold. Eyes: The patient denies glaucoma, denies eye injury/surgery, wears glasses or contacts. Ear/Nose/Throat: The patient denies allergies, denies hayfever, denies ear infections, and denies bloody noses. Cardiovascular: The patient denies chest pain, denies heart disease, NOTES high blood pressure,denies cardiac stent, denies prior heart attack, denies irregular heart beat, denies high cholesterol, denies poor circulation, denies heart failure, other cardiac issues, denies claudication, denies cold feet, denies peripheral arterial stent. Respiratory: The patient denies tuberculosis, denies pneumonia, denies frequent cough, denies pulmonary embolism, denies shortness of breath, and denies coughing up blood. Gastrointestinal: The patient denies difficulty swallowing, denies acid reflux, denies ulcers, denies vomiting, denies jaundice/hepatitis, denies gallbladder problems, denies black or tarry stools, denies hemorrhoids, denies bleeding from rectum, denies diverticulitis, denies constipation, denies diarrhea, denies loss of stool control, and denies hernias. Kidney/Bladder: The patient denies kidney stones, denies urine infections, and denies bloody urine. Skin: The patient denies a history of skin cancer, denies bleeding/changing moles, and denies a history of skin rash. Neurologic: The patient denies a history of epilepsy/convulsions, denies headaches, denies head/spinal injuries, and denies stroke/TIA. Psychiatric: The patient denies psychiatric medications, denies depression, and denies voices, denies substance abuse. Endocrine: The patient denies thyroid disorders, denies diabetes, and denies hormonal problems. Hematologic: The patient denies a history of bruising, denies bleeding, and denies anemia, denies blood clots. Infections: The patient denies a history of measles and mumps, denies rheumatic fever, and denies sexually transmitted diseases. Musculoskeletal: The patient denies back pain/injury, denies back problems, denies sciatica, denies knee/foot trouble, denies arthritis, or denies gout. When was patient's last Mammogram screening? 07/12/2023 Last Colonoscopy: 2011 April Barahona MA documented in this encounter [facility] 06-29-2023 Instructions Alisson Resendiz APRN.CLAIRE - 06/29/2023 7:06 AM EDT Get labs completed today Keep scheduled appt for mammogram Follow up with General surgery to discuss colonoscopy Continue to take all medication as prescribed Follow up in 6 months or sooner pending test results. documented in this encounter [facility] 06-29-2023 History of Present illness Narrative This is a 57 year old female who presents today with: Patient presents with: 6 Month Exam HISTORY OF PRESENT ILLNESS: Emigdio Haider is a 57 year old female. Patient presents with: 6 Month Exam 6 month follow up HTN: Taking Cozaar 100 mg daily. Not currently checking blood pressure at home. Denies chest pain, palpitations, dizziness, or edema. BP elevated today, did not take medication this morning. Usually takes with breakfast. Allergic reaction: Reaction to Bactrim, had cellulitis to the right lower leg. Refers still some discoloration. No pain or swelling. Fatigue the past several months. Denies any difficulty swallowing, palpitations, or cold/heat intolerance. History of vitamin D and B12 deficiency. JOEY: CPAP, sleeping well. Mammogram: Appt next month Colonoscopy: about 10 years ago. Vaccines: Denies wanting any vaccines at this time. PAST MEDICAL HISTORY: PAST MEDICAL HISTORY Diagnosis Date JOEY (obstructive sleep apnea) DME Neha Pelayo fx. [phone] PAST SURGICAL HISTORY Procedure Laterality Date HYSTERECTOMY 2011 Total Hysterectomy-Dr. Gamble in [place] TONSILLECTOMY HX 1970 ALLERGIES Bactrim [Sulfamethoxazole-Trimethoprim] and Erythromycin MEDICATIONS Current Outpatient Medications Medication Sig losartan (COZAAR) 100 mg tablet Take 1 tablet by mouth once daily. CPAP/BIPAP/OTHER CPAP 8 cmH2O DME [facility] CALCIUM ORAL Take 2 tablets by mouth once daily. 1200 MG. cyanocobalamin (VITAMIN B-12) 1,000 mcg tab Take 1 tablet by mouth once daily. Cholecalciferol, Vitamin D3, 125 mcg (5,000 unit) cap Take 1 capsule by mouth once daily. ZINC ORAL Take 1 tablet by mouth once daily. CPAP CPAP 8 cmH2O, mask(pt pref), chin strap, heated tubing & humidity, filters. Lifetime supplies. Dx: G47.33. (Please provide supplies) fluticasone (FLONASE) 50 mcg/actuation nasal spray Use 2 Sprays in each nostril once daily. Rinse mouth after use. MULTIVITAMIN ORAL Take by mouth. No current facility-administered medications for this visit. FAMILY HISTORY Problem Relation Age of Onset No Known Problems Mother No Known Problems Father Thyroid Sister No Known Problems Brother No Known Problems Sister Social History Tobacco Use Smoking status: Never Smokeless tobacco: Never Vaping Use Vaping Use: Never used Substance Use Topics Alcohol use: Yes Alcohol/week: 7.0 standard drinks of alcohol Types: 7 Glasses of Wine (5oz) per week Drug use: No REVIEW OF SYSTEMS GENERAL: + Fatigue HEENT: Negative for frequent or significant headaches, No changes in hearing or vision. NECK: Negative for lumps, goiter, pain and significant neck swelling RESPIRATORY: Negative for cough, hemoptysis, wheezing, dyspnea or shortness of breath CARDIOVASCULAR: Negative for chest pain, leg swelling, orthopnea, or palpitations GI: No nausea, vomiting, or diarrhea/constipation. No hematochezia/melena. No heartburn or reflux symptoms. : No history of dysuria, frequency or incontinence MUSCULOSKELETAL: Negative for joint pain or swelling. SKIN: Negative for lesions, rash, and itching ENDOCRINE: Negative for cold or heat intolerance, polyuria, polydipsia and goiter NEURO: No history of headaches, syncope, paralysis, seizures or tremors MOOD: Negative for depression, anxiety, or suicidal ideation. EXAM: BP 150/90 Pulse 94 Resp 16 Wt 131.1 kg (289 lb) SpO2 98% BMI 43.94 kg/m PHYSICAL EXAM: General Appearance: Well appearing, alert, in no acute distress, well-hydrated, well nourished. Skin: Skin color, texture, turgor normal, no suspicious rashes or lesions. Head: Normocephalic, no masses, lesions, tenderness or abnormalities. Eyes: Anicteric sclera. Extraocular movements are intact. Lungs: Lungs clear to auscultation. No wheezing, rhonchi, rales. Heart: RRR without murmur, gallop, or rubs. No ectopy. Extremities: mild ruddiness noted to lower legs bilaterally. Musculoskeletal: No joint swelling, deformity, or tenderness. Peripheral Pulses: Normal, Capillary refill <2secs, strong peripheral pulses, Pulses palpable. Neurologic: Gait normal. Sensation grossly intact. ASSESSMENT/PLAN: 1. Essential hypertension - ICD9: 401.9, ICD10: I10 (primary diagnosis) - Controlled - Factors affecting control: Did not take medication this morning - Continue current medications - Recommend home blood pressure monitoring, to bring results to next visit - Encouraged sodium restriction, DASH or Mediterranean diet - Recommend regular aerobic exercise - Discussed need for and benefit of weight loss. BMI 43.94 kg/(m^2) - COMP METABOLIC PANEL 2. Allergic reaction, initial encounter - ICD9: 995.3, ICD10: T78.40XA - Stable 3. Other fatigue - ICD9: 780.79, ICD10: R53.83 - TSH BLD - T4 FREE/FREE THYROX 4. Vitamin D deficiency - ICD9: 268.9, ICD10: E55.9 - VITAMIN D 25 HYDROXY 5. Vitamin B12 deficiency - ICD9: 266.2, ICD10: E53.8 - VITAMIN B12 BLOOD - FOLATE SERUM 6. JOEY (obstructive sleep apnea) - ICD9: 327.23, ICD10: G47.33 - Stable, continue with CPAP. 7. Screening for colon cancer - ICD9: V76.51, ICD10: Z12.11 - CONSULT TO GENERAL SURGERY 8. Screening cholesterol level - ICD9: V77.91, ICD10: Z13.220 - LIPID PANEL BASIC 9. Screening for diabetes mellitus - ICD9: V77.1, ICD10: Z13.1 - HGB A1C Follow-up in 6 months or sooner pending test results. Discussed treatment plan and patient voices understanding. Patient's questions answered appropriately. Medications and potential side effects were discussed and patient voices understanding. Alisson Resendiz APRN.CNP This note was partially generated using FRS voice recognition system. Note was reviewed for accuracy. There may be minor misspellings or grammar miscues with [employer] voice recognition. documented in this encounter [facility] 02-22-2023 Miscellaneous Notes My Chart message patient requested CPAP Rx to be sent to a [facility] [phone]. Chart updated, orders faxed on 02/22/2023 33 pages, [employer] message sent to patient . Shellie Dickey LPN documented in this encounter [facility] 02-05-2023 Instructions Jenifer Gipson APRN.CNP - 02/05/2023 2:08 PM EDT PAP Supply Guidelines Below are the guidelines for reordering your supplies. You will be responsible for your deductible, co-payments, and out of pocket expenses. Item Medicare & Commercial Insurance Medicaid & HCAP Nasal Mask (no headgear) 1 every 3 months 1 per year Nasal Mask Cushion 1 every month 2 per year Full Face Mask (no headgear) 1 every 3 months 1 per year Full Face Mask Cushion 1 every month *Self-Pay Nasal Pillows 2 every month 2 per year Headgear 1 every 6 months 1 per year Chin Strap 1 every 6 months 2 per year Tubing 1 every 3 months 1 per year Filters: Reusable 1 every 6 months 4 per year Filters: Disposable 2 every month 1 per month Humidifier Chamber(disposable) 1 every 6 months *Self-Pay documented in this encounter [facility] 02-05-2023 History of Present illness Narrative Images from the original note were not included. [facility] New Patient Evaluation PATIENT NAME: Emigdio Haider DATE OF SERVICE: February 04, 2023 CONSULTING PROVIDER: REASON FOR CONSULT: sends the patient for an opinion about JOEY. My findings and recommendations will be transmitted electronically via shared medical record to the consulting provider. Saw Dr Gonsalez 04/20/18 for JOEY HPI: Emigdio Haider is a 57 year old female. Sleep-related history: Review of data from her machine: avg 7.6 hrs, 100% of days, AHI 0.9 Has [facility], took SD card to [facility] yesterday for download. Uses PAP all night, every night. CPAP 8 cmH2O SLEEP-WAKE SCHEDULE Bedtime: 9-10 PM. She does not have a hard time falling asleep. Wake time: 4:30- 6AM, with an alarm. When she awakes to urinate After falling asleep: she does not usually wake up during the night. On weekends, she maintains the same sleep schedule. Average total sleep time (in a 24 hour period): 8 hours. SLEEP-RELATED DETAILS Preferred sleep position: side Breathing disturbances and other behaviors during sleep: snoring. Snoring abolished with CPAP. Bruxism: Yes when stressed GERD or aspiration: No Waking up with heart pounding or racing: No Anxiety or rumination: No (only if really stressed) She does not report having an urge to move the legs in the evening (when resting) that is accompanied or caused by uncomfortable and/or unpleasant sensations in the legs. She has not been told that she has leg kicking during sleep. She denies any history of parasomnias. Daytime sleepiness is not a problem. She does not report sleep paralysis or sleep-related hallucinations or cataplexy WAKE-RELATED DETAILS She works but is not a shift worker. She does not have difficulty with memory or concentration. She denies falling asleep or dozing off when driving. She does take naps. Frequency: daily, Duration: 20. Naps are refreshing. She does drink 2 caffeinated beverages per day. There has not been a recent change in weight. Patient Questionnaires Sleep Scores Sleep Questions 01/30/2023 Reason for visit: Sleep apnea Average hours slept in 24 hours: 8 Average hours of CPAP per night: 7 Percent of nights CPAP used at least 4 hours: 100 Accidents or near accidents due to drowsy drivin [place] Sleepiness Scale 01/30/2023 Score 1 (No daytime sleepiness) PROMIS CAT Sleep Disturbance 01/30/2023 PROMIS Sleep Disturbance T-Score 45 (within normal limits) PROMIS Sleep Disturbance Percentile 69 % PHQ-9 06/28/2022 01/30/2023 Score 0 0 PROMIS Global Health - (T-Scores - the mean of general population = 50. Five points is a clinically meaningful difference.) 05/03/2019 06/28/2022 01/30/2023 Physical T-Score 44.9 54.1 54.1 Mental T-Score 56 53.3 53.3 PRIOR SLEEP STUDIES: 11/12/16 PSG in [place], AHI 22 PAST MEDICAL HISTORY Diagnosis Date JOEY (obstructive sleep apnea) [facility] Faithfatemeh Pelayo fx. [phone] PAST SURGICAL HISTORY Procedure Laterality Date HYSTERECTOMY 2011 Total Hysterectomy-Dr. Gamble in [place] TONSILLECTOMY HX 1970 ACTIVE PROBLEM LIST Joey (Obstructive Sleep Apnea) Morbid Obesity (Hcc) Essential Hypertension Allergies As of Date: 02/05/2023 Allergen Noted Reaction BACTRIM [SULFAMETHOXAZOLE-TRIMETH*12/29/19 23 Rash ERYTHROMYCIN 08/18/2022 Other: See Comments Fully Assessed 02/05/2023 CURRENT MEDICATIONS: CALCIUM ORAL Take 2 tablets by mouth once daily. 1200 MG. cyanocobalamin (VITAMIN B-12) 1,000 mcg tab Take 1 tablet by mouth once daily. Cholecalciferol, Vitamin D3, 125 mcg (5,000 unit) cap Take 1 capsule by mouth once daily. ZINC ORAL Take 1 tablet by mouth once daily. losartan (COZAAR) 100 mg tablet Take 1 tablet by mouth once daily. CPAP CPAP 8 cmH2O, mask(pt pref), chin strap, heated tubing & humidity, filters. Lifetime supplies. Dx: G47.33. (Please provide supplies) fluticasone (FLONASE) 50 mcg/actuation nasal spray Use 2 Sprays in each nostril once daily. Rinse mouth after use. MULTIVITAMIN ORAL Take by mouth. Review of Systems Constitutional: Negative for recent unintentional weight change. Cardiovascular: Negative for palpitations. Gastrointestinal: Negative for heartburn. Musculoskeletal: Negative for uncomfortable leg sensations. Neurological: Negative for memory loss. SOCIAL HISTORY: Social History Tobacco Use Smoking status: Never Smokeless tobacco: Never Vaping Use Vaping Use: Never used Substance Use Topics Alcohol use: Yes Alcohol/week: 17.5 standard drinks of alcohol Types: 7 Glasses of Wine (5oz) per week Drug use: No FAMILY HISTORY: FAMILY HISTORY Problem Relation Age of Onset No Known Problems Mother No Known Problems Father Thyroid Sister No Known Problems Brother No Known Problems Sister There is no family history of sleep disorders. PHYSICAL EXAMINATION: Vital Signs: BP 142/86 Pulse 107 Resp 16 Wt 130.6 kg (288 lb) SpO2 99% BMI 43.79 kg/m PHYSICAL EXAM: General appearance: pleasant no distress Mental status: alert andoriented ENT : Posterior airspace: Borden tongue position 3, retrognathia absent. Overbite absent. High arched palate present. Tongue scalloping/ridging absent. RRR Gait normal IMPRESSION/PLAN: G47.33 JOEY on CPAP (primary encounter diagnosis) I10 Essential hypertension E66.01 Morbid obesity (HCC) Emigdio Haider is a 57 year old female with PMH of HTN, obesity who has moderate JOEY which is controlled with CPAP 8 cmH2O (residual AHI 0.9). She uses CPAP all night, every night. She is compliant and reports subjective benefits (better sleep, more rested, no snoring). - Continue CPAP at 8cmH2O. [facility]. Her Respironics machine had been recalled, she received a new CPAP about 2 mos ago. - Remember to clean your mask and equipment regularly, as directed. - You should be eligible for new supplies approximately every 3-6 months, depending on your insurance coverage. Contact your Durable Medical Equipment (DME) company for new supplies as needed. - Follow up in 1 yr Jenifer Gipson APRN.CLAIRE documented in this encounter [facility] 01-04-2023 Miscellaneous Notes Contacted patient. Notified patient of new sleep provider starting. Scheduled patient with Eryn Gipson new patient 02/05 as well as routine sleep f/u with [facility] x2 to get on schedule. Patient states she does not have DME locally. Will reach out to insurance to determine what is covered. Will contact office to let know. Zabrina Escobedo MA Referral placed. Suresh Mcmullen APRN.CNP Ok to refer? Keira Sullivan Ma documented in this encounter [facility] 12-28-2022 History of Present illness Narrative Chief Complaint Patient presents with: Follow Up For: Cellulitis lower RIGHT leg & allergic reaction from Bactrim causing rash all over body HPI Emigdio Haider is a 57 year old female who presents here today for Above Complaints. follow up for rash/cellulitis. Patient is here for follow-up. Patient was in the office on December 23 for possible allergic reaction. Saw another provider. Area of concern was the right leg. Had originally went to [facility] ER on December 12. She was placed on Bactrim and Keflex. Developed a whole-body rash to 2 days prior to finished antibiotic. Had itching on, rash without any anaphylaxis. Was given Benadryl. On 12/23, she was given a Kenalog administration in the office. She was also given clindamycin to cover for cellulitis and also given a prednisone taper for widespread rash that is thought to be allergic reaction. At this time the patient states that her right lower leg is improving. It is still pink in color but no longer warm or painful. She does have a generalized rash that continues but remarks that it is improving. Some pruritus still present. Her blood pressure is well controlled today. She is taking her medications as prescribed. She has no chest pain, shortness of breath, syncope. She continues to follow with oncology for breast cancer. Past medical history, appointments, medications, allergies reviewed. EXAM: BP 129/77 Pulse 81 Temp 36.3 C (97.3 F) (Left Tympanic) Resp 16 Wt 130.7 kg (288 lb 3.2 oz) SpO2 96% BMI 43.82 kg/m General Appearance: Well appearing, alert, in no acute distress, well-hydrated, well nourished.. Skin: Generalized allergic rash present on chest wall, bilateral upper extremities, remnants on face. Her right lower leg has no erythema or warmth. The right lower leg has resolving cellulitis that is pink in color. Lungs: Lungs clear to auscultation. No wheezing, rhonchi, rales.. Heart: RRR without murmur, gallop, or rubs. No ectopy. Ext: +1 pitting edeama ASSESSMENT/PLAN: 1. Essential hypertension - ICD9: 401.9, ICD10: I10 (primary diagnosis) - Controlled - Continue current medications - Recommend home blood pressure monitoring, to bring results to next visit - Encouraged sodium restriction, DASH or Mediterranean diet - Recommend regular aerobic exercise - COMP METABOLIC PANEL 2. Allergic reaction, initial encounter - ICD9: 995.3, ICD10: T78.40XA -Bactrim allergy updated. Continue prednisone as prescribed. Improving. 3. Cellulitis, unspecified cellulitis site - ICD9: 682.9, ICD10: L03.90 -Finish clindamycin. 4. Screening for lipid disorders - ICD9: V77.91, ICD10: Z13.220 - LIPID PANEL BASIC Suresh Mcmullen APRN.CNP RTO in 6 months, sooner if needed. Patient has appointment next week with myself. We will keep the appointment but I commented to her that if her condition continues to improve then she may cancel. This note was partly generated using FRS voice recognition dictation and may contain some misspelled or inaccurate words missed on review. documented in this encounter [facility] 12-23-2022 Instructions Alisson Resendiz APRN.CNP - 12/23/2022 4:24 PM EDT Kenalog 40 mg given in office today. Start Prednisone taper tomorrow, take with food. Watch cellulitis, any worsening symptoms start Clindamycin. May continue to use Benadryl as needed. May add on Pepcid 20 mg twice daily as needed for increase in itching and rash. Keep skin clean and dry. Red flag symptoms go to ER Follow up on Wednesday or sooner as needed. documented in this encounter [facility] 12-23-2022 History of Present illness Narrative This is a 57 year old female who presents today with: Patient presents with: Follow Up: cellulitis right leg HISTORY OF PRESENT ILLNESS: Emigdio Haider is a 57 year old female. Patient presents with: Follow Up: cellulitis right leg Cellulitis/ Allergic reaction follow up Was seen in [facility] as well as [facility] ER 12/12/2022 . Started on Bactrim and keflex. Developed a whole body rash 2 days prior to finishing antibiotics. PCP instructed that she stop medication and use an antihistamine. Has been using Benadryl 50 mg every 4 hours. Mild improvement with itching but rash is unchanged. Rash started Wednesday and is itchy, has since spread everywhere. No difficulty breathing or swallowing. Just finished radiation due to breast cancer. Following with Oncology, no chemo. Completed 16 treatments. Follow up tomorrow. PAST MEDICAL HISTORY: PAST MEDICAL HISTORY Diagnosis Date JOEY (obstructive sleep apnea) [facility] Neha Pelayo fx. [phone] PAST SURGICAL HISTORY Procedure Laterality Date HYSTERECTOMY 2011 Total Hysterectomy-Dr. Gamble in [place] TONSILLECTOMY HX 1970 ALLERGIES Erythromycin MEDICATIONS Current Outpatient Medications Medication Sig cyanocobalamin (VITAMIN B-12) 1,000 mcg tab Take 1 tablet by mouth once daily. Cholecalciferol, Vitamin D3, 125 mcg (5,000 unit) cap Take 1 capsule by mouth once daily. ZINC ORAL Take 1 tablet by mouth once daily. losartan (COZAAR) 100 mg tablet Take 1 tablet by mouth once daily. CPAP CPAP 8 cmH2O, mask(pt pref), chin strap, heated tubing & humidity, filters. Lifetime supplies. Dx: G47.33. (Please provide supplies) fluticasone (FLONASE) 50 mcg/actuation nasal spray Use 2 Sprays in each nostril once daily. Rinse mouth after use. MULTIVITAMIN ORAL Take by mouth. No current facility-administered medications for this visit. FAMILY HISTORY Problem Relation Age of Onset No Known Problems Mother No Known Problems Father Thyroid Sister No Known Problems Brother No Known Problems Sister Social History Tobacco Use Smoking status: Never Smokeless tobacco: Never Vaping Use Vaping Use: Never used Substance Use Topics Alcohol use: Yes Alcohol/week: 17.5 standard drinks of alcohol Types: 7 Glasses of Wine (5oz) per week Drug use: No REVIEW OF SYSTEMS GENERAL: No weight loss, malaise or fevers/chills HEENT: Negative for frequent or significant headaches, No changes in hearing or vision. NECK: Negative for lumps, goiter, pain and significant neck swelling RESPIRATORY: Negative for cough, hemoptysis, wheezing, dyspnea or shortness of breath CARDIOVASCULAR: Negative for chest pain, leg swelling, orthopnea, or palpitations GI: No nausea, vomiting, or diarrhea/constipation. No hematochezia/melena. No heartburn or reflux symptoms. : No history of dysuria, frequency or incontinence MUSCULOSKELETAL: Negative for joint pain or swelling. SKIN: + Rash/ Cellulitis right lower leg. ENDOCRINE: Negative for cold or heat intolerance, polyuria, polydipsia and goiter NEURO: No history of headaches, syncope, paralysis, seizures or tremors MOOD: Negative for depression, anxiety, or suicidal ideation. EXAM: BP 160/90 Pulse 102 Resp 16 Wt 131.1 kg (289 lb) SpO2 98% BMI 43.94 kg/m PHYSICAL EXAM: General Appearance: Well appearing, alert, in no acute distress, well-hydrated, well nourished. Skin: Various dry erythematic macules notes on the whole body, worse on back. No crusting or seeping. Head: Normocephalic, no masses, lesions, tenderness or abnormalities. Eyes: Anicteric sclera. Pupils are equally round and reactive to light. Extraocular movements are intact. Oropharynx: Lips, mucosa, and tongue normal, teeth and gums normal, oropharynx normal. Lungs: Lungs clear to auscultation. No wheezing, rhonchi, rales.. Heart: RRR without murmur, gallop, or rubs. No ectopy. Extremities: +2 non-pitting edema noted to right lower leg, moderate erythema noted, no increased warmth or tenderness. Peripheral Pulses: Normal, Capillary refill <2secs, strong peripheral pulses, Pulses palpable. Neurologic: Gait normal. Sensation grossly intact. ASSESSMENT/PLAN: 1. Allergic reaction, initial encounter - ICD9: 995.3, ICD10: T78.40XA (primary diagnosis) - Kenalog given in office today. - Start Prednisone taper tomorrow. - May continue with benadryl and may add on Pepcid 20 mg BID as needed for increase in itching. - More than likely reaction to one of the antibiotics prescribed - TRIAMCINOLONE ACETONIDE 40 MG/ML SUSPENSION FOR INJECTION - PREDNISONE 10 MG TABLET 2. Cellulitis, unspecified cellulitis site - ICD9: 682.9, ICD10: L03.90 - Increase in redness more than likely due to rash. - Instructed to watch for worsening symptoms, increase in redness, swelling start Clindamycin. - Red flag symptoms go to ER. - Elevate the legs. - Follow-up on Wednesday for skin check. - CLINDAMYCIN HCL 300 MG CAPSULE Follow up 5 days for skin check. Discussed treatment plan and patient voices understanding. Patient's questions answered appropriately. Medications and potential side effects were discussed and patient voices understanding. Alisson Resendiz APRN.[employer]LEY[employer] This note was partially generated using FRS voice recognition system. Note was reviewed for accuracy. There may be minor misspellings or grammar miscues with FRS voice recognition. documented in this encounter [facility] 09-30-2022 Discharge summary Note Date/Time September 30, 2022 1:23 pm [facility] Medical Records Department [address] [place] [address] Instructions for Home/Discharge Instructions 09/30/22 1322 MR#: [id number] Acct: [id number] Name: EMIGDIO HAIDER GOLDEN Rep #[id number] : 1965 57 From: Lilly Mae MD PCP: JOSE E Lees Status:[facility] [place] Discharge Instructions Diet Discharge Diet: No restrictions Activity Discharge Activity: May Not Drive (for 2-3 days or while taking narcotic pain meds.) May shower in (days): 1 Lifting Restrictions: 10 pounds for 1 week. Dressing / Incision Call your doctor if your incision/area has: Continuous Slow Oozing, Sudden Increased Bleeding, Increased Pain/ Swelling and Increased Redness Call your doctor if you observe: Fever of 101 or Higher Suture Line Care: Avoid Pulling/Pushing and Avoid Pinching/Bending Remove Dressing in: 1 day Additional Dressing/Incision Instructions:: Remove bulky dressing tomorrow. Mayleave op-site dressing for 3-4 days. Dermabond (glue) was used at the axillary incision this may start to peel off in about 5 days. Okay to remove Steri-Strips from the breast incision in 7 to 10 days. Follow Up Care Please Follow Up With: Lilly Mae MD When: Please call [phone] for an appointment to be seen in 2 week. Test Results: Test results from this visit will be discussed in further detail at your follow-up appointment, if applicable. Discharge Plan Admission Attending Provider: Lilly Mae Primary Care Provider: Suresh Mcmullen NP Discharge Orders/Prescriptions Prescriptions: New oxycodone-acetaminophen 5-325 mg tablet 1 - 2 tab PO Q6H PRN (Reason: pain) 3 Days Qty: 14 0RF Continued losartan 100 mg tablet 100 mg PO DAILY Patient Comments: take 1 tablet by mouth once daily cholecalciferol (vitamin D3) 125 mcg (5,000 unit) capsule 5,000 unit PO DAILY Patient Comments: take 1 capsule by mouth once daily cyanocobalamin (vitamin B-12) 1,000 mcg tablet 1,000 mcg PO DAILY Patient Comments: take 1 tablet by mouth once daily zinc gluconate 50 mg tablet 50 mg PO DAILY Referrals / Follow Up: Suresh Mcmullen NP, ASSISTANT COMMUNITY DIRECTOR-C [Primary Care Provider] - Disposition Disposition (needs filled in before D/C Order can be placed): Home, Self Care 09/30/22 1328<Electronically signed by Lilly Mae MD>Lilly Mae MD CC: JOSE E Mcmullen ~ Signed [facility] Work Phone: 1(258) 736-786406-28-2023 Procedure [facility] 09-30-2022 History and physical note Author Lilly Mae [facility] September 30, 2022 10:13am Note Date/Time September 30, 2022 10:1 2am [facility] Medical Records Department [address] [place] [address] History & Physical Exam 09/30/22 1012 MR#: [id number] Acct: [id number] Name: EMIGDIO HAIDER GOLDEN Rep #:[id number] : 1965 57 From: Lilly Mae MD PCP: JOSE E Lees Status:[facility] Location: [place] [address] History and Physical Date of Admission: 09/30/22 Date of Service: 09/17/22 MR#: [id number] Acct: [id number] Name: EMIGDIO HAIDER GOLDEN Rep #: [id number] : 1965 Provider: Dr. Lilly Mae MD Age/Sex: 57/F Location: [facility] Status: Signed Intake Intake Visit Reasons: BIRADS 5 MRI F/U Chief Complaint: birads 5 Allergies No Known Allergies Allergy (Unverified 09/17/22 13:58) Medications cholecalciferol (vitamin D3) 125 mcg (5,000 unit) capsule 5,000 unit PO 08/24/22[History Confirmed 09/17/22] cyanocobalamin (vitamin B-12) 1,000 mcg tablet 1,000 mcg PO 08/24/22 [History Confirmed 09/17/22] losartan 100 mg tablet 100 mg PO 08/24/22 [History Confirmed 09/17/22] zinc gluconate 50 mg tablet 50 mg PO DAILY 08/24/22 [History Confirmed 09/17/22] PFSH Medical History (Updated 09/18/22 @ 12:[address] Lilly Mae MD) Hypertension Surgical History (Updated 09/18/22 @ 12:[address] Lilly Mae MD) S/P section S/P tonsillectomy Family History (Updated 08/24/22 @ 15:39 by María Starr) Sister Thyroid disorder Social History (Updated 08/24/22 @ 15:40 by María Starr) Smoking Status: Former smoker alcohol intake: current HPI HPI HPI: 57-year-old female presents to discuss breast MRI results and surgical options for her left invasive ductal breast cancer. Patient's MRI did showed the 1 areawe were aware of previously?did not comment on any abnormal lymph nodes called bilateral axillary lymph nodes shotty. Exam Const General: cooperative, healthy appearing and comfortable [facility] Head: normocephalic and atraumatic Neck Neck: supple Chest Other: Left breast?biopsy site healing well still some resolving ecchymosis. Assessment and Plan Assessment and Plan (1) Breast cancer, left breast: Status: Acute Plan I have given the patient options for initial surgical treatment. Options are thefollowing: lumpectomy followed by radiation therapy vs. mastectomy vs. mastectomy followed by immediate reconstruction. I have described the proceduresto the patient. I have described the advantages and disadvantages of the options, but I have told the patient that among the options, the survival rate for breast cancer is the same. I have told the patient that with all the surgeries that a sentinel lymph node biopsy is required. I have described the procedure of sentinel lymph node biopsyto the patient. I have told the patient that if the biopsy is positive for metastatic disease, then a full axillary lymph node dissection is required. I havetold the patient that adjuvant chemotherapy will be required should the lymph nodes reveal metastatic disease. Also, a full lymph node dissection will increase the risk for lymphedema, especially if there are 4 or more lymph nodes positive for metastatic disease and radiation to the axilla is also required. I have told the patient the risks of surgery, including but not limited to: infection, bleeding, scar tissue, seroma and persistent seroma, lymph leak, injury to any blood vessels, injury to any nerves (particularly the long thoracic, the thoracodorsal, and the second intercostal brachial and the resultant sequelae), lymphedema, cosmetic deformity, dysesthesias, wound infections, further surgery (especially if margins are not clear), complicationsof anesthesia, etc. the patient understands. Patient is planned to undergo an left breast ultrasound-guided wire lumpectomy with sentinel lymph node biopsy with nuclear tracer and blue dye and possible axillary lymph node dissection. I have answered all the patient?s questions at this point to her satisfaction and she has no further questions. Lilly Mae M.D. Pager: [phone] [facility] [address] [place] [address], [address] [place] [address] Office: [phone] Coding Level of Care Code Off vis,est,level 4 Diagnoses Breast cancer, left breast C50.912 09/18/22 1252 <Electronically signed by Lilly Mae MD> Date Lilly Mae MD 09/30/22 1012 <Electronically signed by Lilly Mae MD> Cosigner Signature (if applicable): CC: JOSE E Mcmullen; Dr. Lilly Mae MD~ Signed ADDENDUM by Dr. Lilly Mae MD on 09/30/22 at 1013 Addendum I have examined the patient and the H&P has been reviewed. There are no clinicalchanges since date of exam. 09/30/22 1013<Electronically signed by Lilly Mae MD> Cosigner Signature (if applicable): cc: JOSE E Mcmullen; Dr. Lilly Mae MD ~* Signed [facility] Work Phone: 1(257) 701-999805-10-2023 History of Present illness Narrative* Veronique Burrell RDMS - 08/12/2022 3:00 PM EDT Radiology Service Progress Note PATIENT NAME: Emigdio Haider DATE OF SERVICE: August 12, 2022 TIME: 3:55 PM PATIENT IDENTITY VERIFICATION COMPLETED USING TWO (2) IDENTIFIERS: Name and Date of confirmedby patient verbally. FALL SCREENING: Has the patient had 2 falls in the last year or 1 fall with injury or currently using an Ambulatory Assistive Device (Walker, Cane, Wheelchair, Crutches, etc.)? No PATIENT GENDER DATA: Female. status: : No status: NO. PATIENT RELEVANT IMPLANT DATA REVIEWED: Not Applicable RADIOLOGY DEPARTMENT: Ultrasound PERIPHERAL IV DATA: Not applicable SIGNED BY: Veronique Burrell RDMS RVT August 12, 2022 3:55 PM documented in this encounterK[facility]-10-2023 History of Present illness Narrative* Kim Leiva RT(Nahomy) - 08/12/2022 2:30 PM EDT Radiology Service Progress Note PATIENT NAME: Emigdio Haider DATE OF SERVICE: August 12, 2022 TIME: 2:21 PM PATIENT IDENTITY VERIFICATION COMPLETED USING TWO (2) IDENTIFIERS: Name and Date of confirmedby patient verbally. FALL SCREENING: Has the patient had 2 falls in the last year or 1 fall with injury or currently using an Ambulatory Assistive Device (Walker, Cane, Wheelchair, Crutches, etc.)? No PATIENT GENDER DATA: Female. status: : No status: NO. PATIENT RELEVANT IMPLANT DATA REVIEWED: Not Applicable RADIOLOGY DEPARTMENT: Biopsy and Mammography PERIPHERAL IV DATA: Not applicable SIGNED BY: RT Osorio(R) August 12, 2022 2:21 PM documented in this encounterK[facility]05-01-2023 Miscellaneous Notes* Telephone Encounter - Miriam Crump LPN - 08/03/2022 12:47 PM EDT Pt notified of provider message. Pt reports she will think about scheduling with surgery. Pt said she didn't have to be in the hospital before for a colonoscopy. Pt reports she went to a colonoscopy center. Miriam Crump LPN * Telephone Encounter - Ninfa Carreon Ma - 08/03/2022 12:45 PM EDT Xetalt message sent to pt notifying her of information below from Provider. Notified pt that she can contact main number and speak with Wire Stretcher in regards to setting up an appt. Ninfa Carreon Ma * Telephone Encounter - Suresh Mcmullen APRN.CNP - 08/03/2022 11:42 AM EDT Please let the patient know that due to her BMI being greater than 45, currently 47, she does not qualify for open access. General surgery is wanting to see her in the office first for risk stratification. I would encourage her to hold onto her prep as she can still use it for the procedure. But she needs to call to get a appointment with a general surgeon to discuss. Suresh Mcmullen APRN.CNP * Telephone Encounter - Ninfa Carreon Ma - 07/31/2022 2:14 PM EDT Sent message to ASC pool. Ninfa Carreon Ma * Telephone Encounter - Suresh Mcmullen APRN.CNP - 07/31/2022 1:53 PM EDT Can we reach out to the ASC to see why she doesn't qualify for open access so that I can communicate to patient? Suresh Mcmullen APRN.CNP * Telephone Encounter - Ninfa Carreon Ma - 07/31/2022 11:29 AM EDT See pt message and advise. Is this due to BMI? Ninfa Carreon Ma documented in this encounterK[facility]04-28-2023 History of Present illness Narrative* Suresh Mcmullen APRN.CNP - 07/31/2022 8:20 AM EDT Chief Complaint Patient presents with: 4 week f/u: BP; medication increase HPI Emigdio Haider is a 57 year old female who presents here today for Chronic Medical Conditions. follow up for HTN. Losartan dose increased from 50 to 100 mg last month. No side effects from medication. Taking daily. No CP,SOB, syncope. Does not check BP at home. Past medical history, appointments, medications, allergies reviewed. EXAM: BP 134/82 Pulse 93 Temp 36.5 C (97.7 F) (Left Tympanic) Resp 16 Wt 132.5 kg (292 lb) AyF939% BMI 47.13 kg/m General Appearance: Well appearing, alert, in no acute distress, well-hydrated, well nourished.. Lungs: Lungs clear to auscultation. No wheezing, rhonchi, rales.. Heart: RRR without murmur, gallop, or rubs. No ectopy. ASSESSMENT/PLAN: 1. Essential hypertension - ICD9: 401.9, ICD10: I10 - good control - Continue current medication(s) - Recommended regular aerobic exercise. - Recommend home blood pressure monitoring, to bring results in on next visit - Goal of BP <130/80 - BASIC METABOLIC PNL Suresh Mcmullen APRN.CNP RTO in 6 months, sooner if needed. This note was partly generated using FRS voice recognition dictation and may contain some misspelled or inaccurate words missed on review. documented in this encounterK[facility]04-28-2023 Instructions* Patient Instructions* Suresh Mcmullen APRN.CNP - 07/31/2022 8:17 AM EDT Continue Losartan 100 mg Repeat labs and visit in 6 months 3. Sooner if needed. Suresh Mcmullen APRN.CNP documented in this encounterK[facility]04-07-2023 Miscellaneous Notes* Telephone Encounter - Kathie Denton RN - 07/10/2022 9:25 AM EDT Pt called and is notified of providers results and instructions. Pt voices understanding. Pt sent through to schedule Breast US and diag. Kathie Denton RN * Telephone Encounter - Martha Ayala MD - 07/09/2022 5:03 PM EDT Please notify patient that her mammogram shows an asymmetry in her left breast; the radiologist would like additional views and an ultrasound to evaluate further Martha Ayala MD documented in this encounterK[facility]04-06-2023 Miscellaneous Notes* Letter - Mammography Coordinator - 07/09/2022 4:26 PM EDT July 10, 2022 PID: [id number] Emigdio Haider [address] [place] [address] Dear Ms. Haider, Your recent breast imaging exam on 07/08/2022 showed a possible finding that requires additional imaging studies for a complete evaluation. Most such findings are probably benign (not cancer). If you have a healthcare provider who ordered/prescribed your screening mammogram: Please call [phone] or EXT: [phone] to schedule an appointment for your additional imaging (if youhave not already done so). If you DO NOT have a healthcare provider (ie you did not have an order/prescription for your screening mammogram): Please call to schedule an appointment for your additional imaging (if you have not already done so). You must have an order/prescription from your physician when calling to schedule your appointment. If your order/prescription is not electronic, you must bring the hard copy with you on the day of your exam to avoid delays. Your imaging studies and reports are [facility] as part of your permanent medical record, and are available for your continuing care. Thank you for allowing us to help in meeting your health care needs. Sincerely, Dr. Stanton Interpreting Radiologist [facility] (Additional imaging) documented in this encounterKettering [facility]04-05-2023 History of Present illness Narrative* Renate Maier RT(R) - 07/08/2022 4:00 PM EDT Radiology Service Progress Note PATIENT NAME: Emigdio Haider DATE OF SERVICE: July 08, 2022 TIME: 3:53 PM PATIENT IDENTITY VERIFICATION COMPLETED USING TWO (2) IDENTIFIERS: Name and Date of confirmedby patient verbally. FALL SCREENING: Has the patient had 2 falls in the last year or 1 fall with injury or currently using an Ambulatory Assistive Device (Walker, Cane, Wheelchair, Crutches, etc.)? No PATIENT GENDER DATA: Female. status: : No status: NO. PATIENT RELEVANT IMPLANT DATA REVIEWED: Not Applicable RADIOLOGY DEPARTMENT: Mammography PERIPHERAL IV DATA: Not applicable SIGNED BY: RT Sonja(R) July 08, 2022 3:53 PM documented in this encounterK[facility]03-27-2023 Instructions* Patient Instructions* Suresh Mcmullen APRN.PROFESSIONAL VOLLEYBALL PLAYER - 06/29/2022 11:52 AM EDT Health Information For Patients and the Community How to Prepare for Your Colonoscopy Using Golytely, Nulytely, Trilyte or Colyte Preparations IMPORTANT - Please Read These Instructions at Least 2 Weeks Before Your Colonoscopy [place] Instructions: ?Your bowel must be empty so that your doctor can clearly view your colon. Follow all of the instructions in this handout EXACTLY as they are written. If you do NOT follow the directions for when to start drinking the bowel preparation (see next page), your colonoscopy WILL be cancelled. ?Do NOT eat any solid food the ENTIRE day before your colonoscopy. ?Buy your bowel preparation at least 5 days before your colonoscopy. ?Do NOT mix the solution until the day before your colonoscopy. Designated Bottle Tester on the Day of Your Exam A responsible family member or friend MUST come with you to your colonoscopy and REMAIN in the endoscopy area until you are discharged! You are NOT ALLOWED to drive, take a taxi or bus, or leave the Endoscopy Center ALONE. If you do not have a responsible front end driver (family member or friend) with you to take you home, your exam cannot be done with sedation and will be cancelled. Medications Some of the medicines you take may need to be stopped or adjusted before your colonoscopy. You MUST call the doctor who ordered any of the following medicines at least 2 weeks before your colonoscopy. ?Blood thinners -- such as Coumadin (warfarin), Plavix (clopidogrel), Ticlid (ticlopidine hydrochloride), Agrylin (anagrelide), Xarelto (Rivaroxaban), Pradaxa (Dabigatran), Eliquis (Apixaban), and Effient (Prasugrel). ?Insulin or diabetes pills. Please call the doctor that monitors your glucose levels. Your insulin dosage may need to be adjusted due to the diet restrictions required with this bowel preparation. (Please bring your diabetes medicines with you on the day of your procedure.) If you take aspirin, take it and ALL other medications prescribed by your doctor. On the day of your colonoscopy, take your medications with a sip of water. Revised 05/2016 1 Five (5) Days Before Your Colonoscopy ?Do NOT take medicines that stop diarrhea -- such as Imodium , Kaopectate , or Pepto Bismol . ?Do NOT take fiber supplements -- such as Metamucil , Citrucel , or Perdiem . ?Do NOT take products that contain iron -- such as multi-vitamins -- (the label lists what is in the products). ?Do NOT take vitamin E. Buy the prescription bowel preparation solution at your local pharmacy or drugstore pharmacy. Three (3) Days Before Your Colonoscopy Do NOT eat high-fiber foods -- such as popcorn, beans, seeds (flax, sunflower, quinoa), multigrain bread, nuts, salad/vegetables, or fresh and dried fruit. One (1) Day Before Your Colonoscopy Only drink clear liquids the ENTIRE DAY before your colonoscopy. Do NOT eat any solid foods. Drink at least 8 ounces of clear liquids every hour after waking up. The clear liquids you can drink include: ?water, apple, or white grape juice; broth; coffee or tea (without milk or creamer); clear carbonated beverages such as shannon omkar or lemon-chilkoot soda; Gatorade or other sports drinks (not red); Jin-Aid or other flavored drinks (not red). You may eat plain jello or other gelatins (not red) or popsicles (not red). Do NOT drink alcohol on the day before or the day of the procedure. 2 Revised 05/2016 When to Mix and Drink Your Bowel Prep Follow the instructions on the label. After mixing, place the solution in the refrigerator for a couple of hours before drinking. You may add the flavor packet that came with the bowel preparation. DO NOT add ice, sugar or any flavorings to the solution. Evening Before Your Colonoscopy ?Start drinking the bowel preparation at 6 PM the evening before your colonoscopy. Drink an 8-oz glass of bowel preparation every 10 minutes. You must finish drinking the solution by 9 PM the night before your scheduled procedure. ?You may continue to drink clear liquids only until midnight. Do NOT eat or drink ANYTHING after midnight the night before your procedure or your procedure may be cancelled. This is for your safety and will reduce the risk of having any food or liquid in your stomach move into your lungs (aspiration) during a procedure. If you take aspirin, take it and ALL other prescribed medicines with a sip of water on the day of your colonoscopy. Contact Information: If you are unable to keep your appointment or have any questions about the instructions, please call the facility where the procedure is being performed. Call between the hours of 8:00 AM and 5:00 PM. If you are calling after 5:00 PM, please call Nurse technical solutions engineer at [phone]. [facility] [address] [place] [id number] Index # [id number] Revised 05/2016 3 Colonoscopy Procedure Overview Please Read Prior to the Procedure What is a Colonoscopy A colonoscopy is an outpatient procedure in which the inside of the large intestine (colon and rectum) is examined. A colonoscopy is commonly used to evaluate gastrointestinal symptoms, such as rectal and intestinal bleeding, abdominal pain, or changes in bowel habits. Colonoscopies are also performed in individuals without symptoms to check for colorectal polyps or cancer. A screening colonoscopy is recommended for anyone 50 years of age and older, and for anyone with parents, siblings or children with a history of colorectal cancer or polyps. What Happens Before a Colonoscopy To have a successful colonoscopy, your bowel must be empty so that your physician can clearly view the colon. To do this, it is very important to read and follow all of the instructions given to you at least 2 weeks BEFORE your exam. If your bowel is not empty, your colonoscopy will not be successful and may have to be repeated. If you feel nauseated or vomit while taking the bowel preparation, wait 30 minutes before drinking more fluid and start with small sips of solution. Some activity (such as walking) or a few soda crackers may help decrease the nausea you are feeling. If the nausea persists, please contact nurse conference organizer at [phone]. You may experience skin irritation around the anus due to the passage of liquid stools. To prevent and treat skin irritation, you should: ?Apply Vaseline or Desitin ointment to the skin around the anus before drinking the bowel preparation medications. These products can be purchased at any drugstore. ?Wipe the skin after each bowel movement with disposable wet wipes instead of toilet paper. These are found in the toilet paper area of the store. ?Sit in a bathtub filled with warm water for 10 to 15 minutes after you finish passing a stool; after soaking, blot the skin dry with a soft cloth, apply Vaseline or Desitin ointment to the anal area, and place a cotton ball just outside your anus to absorb leaking fluid. What Happens During a Colonoscopy During a colonoscopy, an experienced physician uses a colonoscope (a long, flexible instrument about 1/2 inch in diameter) to view the lining of the colon. The colonoscope is inserted into the rectumand advanced through the large intestine. If necessary during a colonoscopy, small amounts of tissue can be removed for analysis (a biopsy) and polyps can be identified and entirely removed. In many cases, a colonoscopy allows accurate diagnosis and treatment of colorectal problems without the needfor a major operation. Revised 05/2016 5 ?You are asked to wear a hospital gown and an IV will be started. ?You are given a pain reliever and a sedative intravenously (in your vein). You will feel relaxed and somewhat drowsy. ?You will lie on your left side, with your knees drawn up towards your chest. ?A small amount of air is used to expand the colon so the physician can see the colon harris. ?You may feel mild cramping during the procedure. Cramping can be reduced by taking slow, deep breaths. ?The colonoscope is slowly withdrawn while the lining of your bowel is carefully examined. ?The procedure lasts from 30 minutes to 1 hour. What Happens After a Colonoscopy ?You will stay in a recovery room for observation until you are ready for discharge. ?You may feel some cramping or a sensation of having gas, but this quickly passes. ?If sedation has been given, a responsible family member or friend must drive you home. ?Avoid alcohol, driving, and operating machinery for 24 hours following the procedure. ?Unless otherwise instructed, you may immediately return to your normal diet. We recommend you waituntil the day after your procedure to resume normal activities. ?If polyps were removed or a biopsy was taken, the physician performing your colonoscopy will tell you when it is safe to resume taking your blood thinners. ?If a biopsy was taken or a polyp was removed, you may notice a little amount of rectal bleeding for 1 to 2 days after the procedure. If you have a large amount of rectal bleeding, high or persistentfevers, or severe abdominal pain within the next 2 weeks, please go to your local emergency room and call the physician who performed your exam. 6 Revised 05/2016 Copyright 1240-9539 [facility]. All rights reserved. Revised 05/2016 documented in this encounterK[facility]03-27-2023 History of Present illness Narrative* Suresh Mcmullen APRN.CNP - 06/29/2022 11:20 AM EDT Chief Complaint Patient presents with: Yearly Exam HPI Emigdio Haider is a 56 year old female who presents here today for Chronic Medical Conditions.. Patient here for wellness exam. No ongoing complaints. Due for blood work. Blood pressure is elevated today. Not checking at home. Taking losartan 50 mg once daily. No misseddoses. Has lost some weight, mentions that has less stressful job. Using CPAP nightly. Some periods of coughing at night. Not sure if this is related to her losartan.Does mention some postnasal drip that occurs at night with her CPAP mask. Requesting referral to sleep medicine, has been many years since under their care. Would like to hold off on shingles vaccine today Past medical history, appointments, medications, allergies reviewed. Previous Medical History PAST MEDICAL HISTORY Diagnosis Date JOEY (obstructive sleep apnea) STAR Pelayo fx. [phone] Previous Surgical History PAST SURGICAL HISTORY Procedure Laterality Date HYSTERECTOMY 2011 Total Hysterectomy-Dr. Gamble in [place] TONSILLECTOMY HX 1970 Family History FAMILY HISTORY Problem Relation Age of Onset No Known Problems Mother No Known Problems Father Thyroid Sister No Known Problems Brother No Known Problems Sister Patient Allergies ALLERGIES No Known Allergies Current Medications Current Outpatient Medications on File Prior to Visit Medication Sig losartan (COZAAR) 50 mg tablet take 1 tablet by mouth once daily cyanocobalamin (VITAMIN B-12) 1,000 mcg tab Take 1 tablet by mouth once daily. Cholecalciferol, Vitamin D3, 125 mcg (5,000 unit) cap take 1 capsule by mouth once daily CPAP CPAP 8 cmH2O, mask(pt pref), chin strap, heated tubing & humidity, filters. Lifetime supplies. Dx: G47.33. (Please provide supplies) fluticasone (FLONASE) 50 mcg/actuation nasal spray Use 2 Sprays in each nostril once daily. Rinse mouth after use. MULTIVITAMIN ORAL Take by mouth. No current facility-administered medications on file prior to visit. Social History Social History Tobacco Use Smoking status: Never Smokeless tobacco: Never Substance Use Topics Alcohol use: Yes Alcohol/week: 17.5 standard drinks Types: 7 Glasses of Wine (5oz) per week Drug use: No REVIEW OF SYSTEMS: as above Reviewed relevant PMHx, PSHx, Social Hx, current medications and allergies. EXAM: BP 152/94 (BP Site: Left Arm) Pulse 79 Temp 36.1 C (97 F) (Right Tympanic) Resp 16 Ht 167.6cm (5' 6") Wt 131.1 kg (289 lb) SpO2 97% BMI 46.65 kg/m General Appearance: Well appearing, alert, in no acute distress, well-hydrated, well nourished. andObese. Head: Normocephalic, no masses, lesions, tenderness or abnormalities. Eyes: Anicteric sclera. Pupils are equally round and reactive to light. Extraocular movements are intact. . Ears: External ears normal, canals clear. Nose/Sinuses: Nares normal, septum midline, mucosa normal, no drainage or sinus tenderness. Oropharynx: Lips, mucosa, and tongue normal, teeth and gums normal, oropharynx normal. Neck: Supple, no adenopathy; thyroid symmetric, normal size Lungs: Lungs clear to auscultation. No wheezing, rhonchi, rales.. Heart: RRR without murmur, gallop, or rubs. No ectopy. Abdomen: Normal abdominal exam, Abdomen soft, non-tender. Bowel sounds normal. No masses, organomegaly. Extremities: No deformities, edema Health Maintenance List COVID-19 VACCINE(1) Never done HIV SCREENING Never done SHINGRIX VACCINE(1 of 2) Never done BP CONTROLLED (<130/80) due on 07/05/2021 ANNUAL PCP TEAM CHRONIC DISEASE VISIT due on 11/08/2021 INFLUENZA(1) due on 12/04/2021 COLORECTAL CANCER SCREENING due on 01/25/2022 DEPRESSION ASSESSMENT Never done MAMMOGRAM due on 05/12/2022 LIPID SCREEN due on 12/16/2022 DIABETES SCREEN due on 06/29/2023 DTAP,TDAP,TD(3 - Td or Tdap) due on 06/01/2028 HEPATITIS B Completed HEPATITIS C SCREENING Completed PAP TESTING Discontinued HPV TESTING Discontinued ASSESSMENT/PLAN: 1. Wellness examination - ICD9: V70.0, ICD10: Z00.00 (primary diagnosis) - Counseled on healthy diet and regular exercise - Calcium intake with supplements or by diet of 1000 mg/day for under 50, 1200- 1500 mg/day for 50+ - Colorectal cancer screening recommended - agrees to Colonoscopy - Follow up for annual exam in one year 2. Essential hypertension - ICD9: 401.9, ICD10: I10 - suboptimal control - Increase losartan(Cozaar) - Recommended regular aerobic exercise. - Recommend home blood pressure monitoring, to bring results in on next visit - Goal of BP <130/80 - BASIC METABOLIC PNL - LOSARTAN 100 MG TABLET 3. JOEY (obstructive sleep apnea) - ICD9: 327.23, ICD10: G47.33 -Trial use of Flonase nightly to decrease nasal drainage. - CONSULT TO SLEEP MEDICINE - ADULT 4. Morbid obesity (HCC) - ICD9: 278.01, ICD10: E66.01 Continue working on weight loss 5. Vitamin B12 deficiency - ICD9: 266.2, ICD10: E53.8 Recheck levels - VITAMIN B12 BLOOD 6. Vitamin D deficiency - ICD9: 268.9, ICD10: E55.9 Recheck level - VITAMIN D 25 HYDROXY 7. Special screening for malignant neoplasms, colon - ICD9: V76.51, ICD10: Z12.11 Due for 10-year screening. We will set up with open access. - COLONOSCOPY SCREENING - PEG 3350 240 GRAM-ELECTROLYTES 22.72 GRAM-6.72 G-5.84 G POWDR FOR JODEE Mcmullen APRN.PROFESSIONAL VOLLEYBALL PLAYER RTO in 1 months, sooner if needed. This note was partly generated using [employer] voice recognition dictation and may contain some misspelled or inaccurate words missed on review. [facility] OPEN ACCESS QUESTIONNAIRE 1. Are you currently having any new or unusual stomach/gastrointestinal issues at this time such asconstipation, diarrhea, abdominal pain, rectal bleeding etc?No 2. Do you have any difficulty swallowing? No 3. Do you have any implanted devices such as a defibrillator, pacemaker, cardiac stents or deep brain stimulator? No 4. Do you take any Blood thinners such as Coumadin, Plavix, Xarelto, Eliquis, Brilinta or any otherblood thinner? No 5. Do you have any new or past cardiac (heart) or pulmonary (lung) issues? No 6. Do you currently use any oxygen? No 7. Have you been hospitalized in the past 6 weeks? No 8. Have you had difficulty with anesthesia previously re: Difficult intubation? No Other difficulty or allergic reaction to anesthesia other than post op N/V? No 9. Are you on dialysis? No 10. Do you have any bleeding disorders such as hemophilia or Factor 5? No 11. Are you an Insulin Dependent Diabetic? No IF ANY OF THE TOP ELEVEN QUESTIONS ARE ANSWERED YES PLEASE SCHEDULE THE PATIENT FOR A CONSULT. N/A 12. Is the patient's BMI 40 or greater? Yes / :Body mass index is 46.65 kg/m .. 13. Do you take any narcotics or anti-Anxiety medications? No 14. Do you use any illegal or recreational drugs including marijuana? No 15. Any alcohol use: No. 16. Have you been diagnosed with chronic liver disease such as hepatitis or cirrhosis? No 17. Do you have a seizure disorder? No 18. Do you have ulcerative colitis or Crohn's disease? No 19. Are you or could you be ? No 20. Any other important health information we should be made aware of prior to your colonoscopy? No To be completed by LIP: Did patient have MAC anesthesia with a previous endoscopy procedure? No Patient appropriate for Open Access Colonoscopy: Yes: appropriate for Open Access Procedure Checklist: Prior to closing the encounter: Complete questionnaire: Yes Confirm Prep order has been Ordered/Pended: Yes. Patient's procedure could be delayed if not given the script for the prep. Please ensure the prep is escripted to pharmacy or printed. Instructions for the prep will print upon filing or pending thissmartset. Please send all open access questionnaires to [facility] Pool #[id number] [facility] Miscellaneous Notes* Telephone Encounter - Lili Thornton RN - 06/25/2022 3:41 PM EDT Patient calls and notified that refills were sent but that she has to make an appointment to continue with provider as PCP. Patient set up appointment for 06/29/2022. Lili Thornton RN * Telephone Encounter - Keira Sullivan Ma - 06/25/2022 1:22 PM EDT Message left for pt to call back. Pt needs appt for any further refills. If no longer following with Dr. Ayala, please update pcp. Keira Sullivan Ma * Telephone Encounter - Martha Ayala MD - 06/25/2022 11:22 AM EDT OK for 90 day supply Needs appt Martha Ayala MD * Telephone Encounter - Keira Sullivan Ma - 06/25/2022 10:27 AM EDT Last office visit: 11/08/20 F/u scheduled: none Pt needs appt. Keira Sullivan Ma [facility] Diagnosis Essential hypertension Unspecified essential hypertension documented [facility]* Diagnosis Encounter for screening mammogram for breast cancer documented in this encounter [facility] note* Diagnosis Wellness examination- Primary Essential hypertension Unspecified essential hypertension JOEY (obstructive sleep apnea) Obstructive sleep apnea (adult) (pediatric) Morbid obesity (HCC) Morbid obesity Vitamin B12 deficiency Other B-complex deficiencies Vitamin D deficiency Unspecified vitamin D deficiency Special screening for malignant neoplasms, colon [facility] Diagnosis Abnormal mammogram- Primary Abnormal mammogram, unspecified [facility] Diagnosis Essential hypertension- Primary Unspecified essential hypertension [facility]* Diagnosis Screening for colon cancer- Primary Special screening for malignant neoplasms, colon [facility]* Diagnosis Onset Date Resolution Status Breast cancer, left breast a [facility] Work Phone: Evaluation note* Diagnosis Onset Date Resolution Status Breast cancer, left breast a cute Breast cancer, left breast a cute S/P lumpectomy, left breast acute S/P lumpectomy, left breast acute S/P lumpectomy, left breast acute Breast cancer, left breast a cute S/P lumpectomy, left breast acute Breast cancer, left breast a cute Breast cancer, left breast a cute Breast cancer, left breast a cute [facility] Work Phone: evaluation note* Diagnosis Onset Date Resolution Status Breast cancer, left breast a cute Breast cancer, left breast a cute S/P lumpectomy, left breast acute S/P lumpectomy, left breast acute S/P lumpectomy, left breast acute Breast cancer, left breast a cute S/P lumpectomy, left breast acute Breast cancer, left breast a cute Breast cancer, left breast a cute Breast cancer, left breast a cute Breast cancer, left breast a cute Breast cancer, left breast a cute [facility] Work Phone: evaluation note* Diagnosis Allergic reaction, initial encounter- Primary Cellulitis, unspecified cellulitis site [facility] Diagnosis Essential hypertension- Primary Unspecified essential hypertension Allergic reaction, initial encounter Cellulitis, unspecified cellulitis site Screening for lipid disorders [facility]* Diagnosis JOEY (obstructive sleep apnea)- Primary Obstructive sleep apnea (adult) (pediatric) [facility] Diagnosis JOEY on CPAP- Primary Obstructive sleep apnea (adult) (pediatric) Essential hypertension Unspecified essential hypertension Morbid obesity (HCC) Morbid obesity [facility]* Diagnosis Encounter for screening mammogram for breast cancer [facility]* Diagnosis Abnormal mammogram Abnormal mammogram, unspecified [facility]* Diagnosis Abnormal mammogram Abnormal mammogram, unspecified [facility]* Diagnosis JOEY (obstructive sleep apnea) Obstructive sleep apnea (adult) (pediatric) [facility]* Diagnosis Essential hypertension- Primary Unspecified essential hypertension Allergic reaction, initial encounter Other fatigue Vitamin D deficiency Unspecified vitamin D deficiency Vitamin B12 deficiency Other B-complex deficiencies JOEY (obstructive sleep apnea) Obstructive sleep apnea (adult) (pediatric) Screening for colon cancer Special screening for malignant neoplasms, colon Screening cholesterol level Screening for lipoid disorders Screening for diabetes mellitus [facility]* Diagnosis Onset Date Resolution Status Breast cancer, left breast a cute Breast cancer, left breast a cute S/P lumpectomy, left breast acute Breast cancer, left breast a cute Breast cancer, left breast a cute [facility] Work Phone: Evaluation note* Diagnosis Screening for colon cancer Special screening for malignant neoplasms, colon [facility] Diagnosis JOEY on CPAP- Primary Obstructive sleep apnea (adult) (pediatric) Class 3 severe obesity with body mass index (BMI) of 40.0 to 44.9 in adult, unspecified obesity type, unspecified whether serious comorbidity present (HCC) [facility]* Diagnosis Essential hypertension- Primary Unspecified essential hypertension Lower leg edema Edema History of Graves' disease Personal history of other endocrine, metabolic, and immunity disorders JOEY (obstructive sleep apnea) Obstructive sleep apnea (adult) (pediatric) Dyslipidemia, goal LDL below 100 Other and unspecified hyperlipidemia Screening for diabetes mellitus History of breast cancer Personal history of malignant neoplasm of breast [facility]* Diagnosis Vitamin D deficiency Unspecified vitamin D deficiency Vitamin B12 deficiency Other B-complex deficiencies [facility]* Diagnosis Essential hypertension- Primary Unspecified essential hypertension Lower leg edema Edema Leg cramp Cramp of limb History of Graves' disease Personal history of other endocrine, metabolic, and immunity disorders [facility]* Diagnosis Essential hypertension Unspecified essential hypertension Lower leg edema Edema [facility]* Diagnosis Wellness examination- Primary Dyspepsia Dyspepsia and other specified disorders of function of stomach Essential hypertension Unspecified essential hypertension Dyslipidemia, goal LDL below 100 Other and unspecified hyperlipidemia History of Graves' disease Personal history of other endocrine, metabolic, and immunity disorders History of breast cancer Personal history of malignant neoplasm of breast JOEY (obstructive sleep apnea) Obstructive sleep apnea (adult) (pediatric) Encounter for screening mammogram for breast cancer documented in this encounter [facility] Discharge instructions Additional Instructions Implant Used?: Yes [facility] Work Phone: Reason for referral (narrative)* Diagnostic Procedure Only (Routine) - Pending Review Specialty Diagnoses / Procedures Referred By Mey izquierdo Referred To Contact [facility] Diagnoses Encounter for screening mammogram for breast cancer Procedures VALENTINE SCREENING SCREENING MAMMOGRAPHY BI 2-VIEW BREAST INC CAD Martha Ayala MD [address] [place] [address] [facility] [address] [place] [address] Referral ID Status Reason Start Date Expiration Date Visits Requested Visits Authorized [id number] Pending Review Auto-Generat ed Referral 06/24/2022 07/24/2023 1 1 [facility] for referral (narrative)* Diagnostic Procedure Only (Routine) - Authorized Specialty Diagnoses / Procedures Referred By Mey izquierdo Referred To Contact [facility] Diagnoses Abnormal mammogram Procedures US BREAST LTD LEFT US BREAST UNI REAL TIME WITH IMAGE LIMITED Martha Ayala MD [address] [place] [address] [facility] [address] [place] [address] Referral ID Status Reason Start Date Expiration Date Visits Requested Visits Authorized [id number] Authorized Auto-Generat ed Referral 07/09/2022 08/08/2023 1 1 * Diagnostic Procedure Only (Routine) - Authorized Specialty Diagnoses / Procedures Referred By Mey izquierdo Referred To Contact [facility] Diagnoses Abnormal mammogram Procedures VALENTINE DIAGNOSTIC LEFT DIAGNOSTIC MAMMOGRAPHY COMPUTER-AIDED DETCJ UNI Martha Ayala MD [address] [place] [address] [facility] [address] [place] [address] Referral ID Status Reason Start Date Expiration Date Visits Requested Visits Authorized [id number] Authorized Auto-Generat ed Referral 07/09/2022 08/08/2023 1 1 [facility] for referral (narrative)* Diagnostic Procedure Only (Routine) - Closed Specialty Diagnoses / Procedures Referred By Mey izquierdo Referred To Contact [facility] Diagnoses Encounter for screening mammogram for breast cancer Procedures VALENTINE SCREENING SCREENING MAMMOGRAPHY BI 2-VIEW BREAST INC CAD Martha Ayala MD [address] [place] [address] [facility] [address] [place] [address] Referral ID Status Reason Start Date Expiration Date V isits Requested Visits Authorized [id number] Closed Auto-Generate d Referral 06/24/2022 07/24/2023 1 1 [facility] for referral (narrative)* Diagnostic Procedure Only (Routine) - Closed Specialty Diagnoses / Procedures Referred By Mey izquierdo Referred To Contact [facility] Diagnoses Abnormal mammogram Procedures US BREAST LTD LEFT US BREAST UNI REAL TIME WITH IMAGE LIMITED Martha Ayala MD [address] [place] [address] [facility] [address] [place] [address] Referral ID Status Reason Start Date Expiration Date V isits Requested Visits Authorized [id number] Closed Auto-Generate d Referral 07/09/2022 08/08/2023 1 1 [facility] for referral (narrative)* Outpatient Procedure (Routine) - Authorized Specialty Diagnoses / Procedures Referred By Mey izquierdo Referred To Contact [facility] Diagnoses Screening for colon cancer Procedures COLONOSCOPY SCREENING COLONOSCOPY FLX DX W/COLLJ SPEC WHEN PFHernandez Britton MD [address] [address] [facility] [address] [place] [address] Referral ID Status Reason Start Date Expiration Date Visits Requested Visits Authorized [id number] Authorized Auto-Generat ed Referral 07/23/2023 2024 1 1 [facility] for visit Narrative* Diagnostic Procedure Only (Routine) - Closed Specialty Diagnoses / Procedures Referred By Mey izquierdo Referred To Contact [facility] Diagnoses Encounter for screening mammogram for breast cancer Procedures VALENTINE SCREENING SCREENING MAMMOGRAPHY BI 2-VIEW BREAST INC CAD Martha Ayala MD [address] [place] [address] [facility] [address] [place] [address] Referral ID Status Reason Start Date Expiration Date V isits Requested Visits Authorized [id number] Closed Auto-Generate d Referral 06/24/2022 07/24/2023 1 1 [facility] for visit Narrative* Diagnostic Procedure Only (Routine) - Closed Specialty Diagnoses / Procedures Referred By Mey izquierdo Referred To Contact [facility] Diagnoses Abnormal mammogram Procedures VALENTINE DIAGNOSTIC LEFT DIAGNOSTIC MAMMOGRAPHY COMPUTER-AIDED DETCJ UNI Martha Ayala MD [address] [place] [address] [facility] [address] [place] [address] Referral ID Status Reason Start Date Expiration Date V isits Requested Visits Authorized [id number] Closed Auto-Generate d Referral 07/09/2022 08/08/2023 1 1 [facility] Reason for Referral Specialty Diagnoses / Procedures Referred By Mey izquierdo Referred To Contact Diagnoses JOEY (obstructive sleep apnea) Procedures CONSULT TO SLEEP MEDICINE - ADULT OFFICE/OUTPATIENT [facility] MDM 60-74 MINUTES Suresh Mcmullen SURETY BOND AGENT.PROFESSIONAL VOLLEYBALL PLAYER [address] [place] [address] Referral ID Status Reason Start Date Expiration Date Visits Requested Visits Authorized [id number] Authorized PCP Requested Referral 06/29/2022 06/29/2023 1 1 Specialty Diagnoses / Procedures Referred By Contac t Referred To Contact [facility] Diagnoses Special screening for malignant neoplasms, colon Procedures COLONOSCOPY SCREENING COLONOSCOPY FLX DX W/COLLJ SPEC WHEN PFRMD Suresh Mcmullen APRN.PROFESSIONAL VOLLEYBALL PLAYER [address] [place] [address] [facility] [address] [place] [address] Referral ID Status Reason Start Date Expiration Date Visits Requested Visits Authorized [id number] Pending Review Auto-Generat ed Referral 06/29/2022 06/30/2023 1 1 Specialty Diagnoses / Procedures Referred By Contac t Referred To Contact General Surgery Diagnoses Screening for colon cancer Procedures CONSULT TO GENERAL SURGERY OFFICE/OUTPATIENT [facility] 60-74 MINUTES Suresh Mcmullen SURETY BOND AGENT.PROFESSIONAL VOLLEYBALL PLAYER [address] [place] [address] Referral ID Status Reason Start Date Expiration Date Visits Requested Visits Authorized [id number] Authorized PCP Requested Referral 08/03/2022 08/03/2023 1 1 Specialty Diagnoses / Procedures Referred By Contac t Referred To Contact Pulmonary and Critical Care Medicine Diagnoses JOEY (obstructive sleep apnea) Procedures CONSULT TO PULM/CRITICAL CARE OFFICE/OUTPATIENT [facility] 60-74 MINUTES Suresh Mcmullen, SURETY BOND AGENT.PROFESSIONAL VOLLEYBALL PLAYER [address] [place] [address] Referral ID Status Reason Start Date Expiration Date Visits Requested Visits Authorized [id number] Authorized PCP Requested Referral 01/04/2023 01/04/2024 1 1 Specialty Diagnoses / Procedures Referred By Contac t Referred To Contact General Surgery Diagnoses Screening for colon cancer Procedures CONSULT TO GENERAL SURGERY OFFICE/OUTPATIENT [facility] MDM 60 MINUTES Alisson Resendiz, SURETY BOND AGENT.PROFESSIONAL VOLLEYBALL PLAYER [address] [place] [address] Referral ID Status Reason Start Date Expiration Date Visits Requested Visits Authorized [id number] Authorized PCP Requested Referral 06/29/2023 06/28/2024 1 1 Chief Complaint and Reason for Visit Chief Complaint BIRADS 5 BREAST CANCER BIRADS 5 MRI F/U Malignant neoplasm of unspecified site of unspecif Malignant neoplasm of unspecified site of unspecif Reason for Visit Breast cancer, left breast Chief Complaint BIRADS 5 BREAST CANCER BIRADS 5 MRI F/U Malignant neoplasm of unspecified site of unspecif Malignant neoplasm of unspecified site of unspecif NEW-BREAST CA MALIGNANT NEOPLASM 09/30 F/U Malignant neoplasm of unspecified site of left fem MALIGNANT NEOPLASM F/U MALIGNANT NEOPLASM F/U CONSULT - BREAST MALIGNANT NEOPLASM F/U REVIEW ONCOTYPE (MAKE SURE RESULTED) OTV OTV OTV RADIATION cellulitis of right leg Reason for Visit Breast cancer, left breast Breast cancer, left breast S/P lumpectomy, left breast S/P lumpectomy, left breast S/P lumpectomy, left breast Breast cancer, left breast S/P lumpectomy, left breast Breast cancer, left breast Breast cancer, left breast Breast cancer, left breast Breast cancer, left breast Chief Complaint BIRADS 5 BREAST CANCER BIRADS 5 MRI F/U Malignant neoplasm of unspecified site of unspecif Malignant neoplasm of unspecified site of unspecif NEW-BREAST CA MALIGNANT NEOPLASM 09/30 F/U Malignant neoplasm of unspecified site of left fem MALIGNANT NEOPLASM F/U MALIGNANT NEOPLASM F/U CONSULT - BREAST MALIGNANT NEOPLASM F/U REVIEW ONCOTYPE (MAKE SURE RESULTED) OTV OTV OTV cellulitis of right leg ULTRASOUND RADIATION OTV Reason for Visit Breast cancer, left breast Breast cancer, left breast S/P lumpectomy, left breast S/P lumpectomy, left breast S/P lumpectomy, left breast Breast cancer, left breast S/P lumpectomy, left breast Breast cancer, left breast Breast cancer, left breast Breast cancer, left breast Breast cancer, left breast Breast cancer, left breast Chief Complaint 3 MO - LABS RADIATION BREAST FU 4 MONTH F/U BREAST screening 3 [place] - NO LABS Reason for Visit Breast cancer, left breast Breast cancer, left breast S/P lumpectomy, left breast Breast cancer, left breast Breast cancer, left breast Advance Directives No Advanced Directives Records Found Advance Directive Response Recorded Date/ Time Name of Medical Power of Leather Stamper ZAIRE MORROW September 23, 2022 11:13am Living Will Yes September 23, 2022 11:13am Power of Leather Stamper Yes September 23 11:13am Advance Directive Response Recorded Date/ Time Name of Medical Power of Leather Stamper ZAIRE MORROW September 23, 2022 11:13am Name of Medical Power of Leather Stamper Travon Haider December 12, 2022 1:55pm Living Will Yes December 12, 023 1:55pm Power of Leather Stamper Yes December 12, 2022 1:55pm Advance Directive Response Recorded Date/ Time Living Will Yes December 12, 023 1:55pm Power of Leather Stamper Yes December 12, 2022 1:55pm Medications Administered Section Inactive Administered Medications - up to 3 most recent administrations Medication Order MAR Action Action Date Dose Rate Site triamcinolone acetonide 40 mg injection (KeNALog 40) 40 mg, INTRAMUSCULAR, ONCE, 1 dose, On Wed12/23/22 at 1630 Given 12/23/2022 4:34 PM EDT 40 mg Arm, Right Summary Purpose Family History No Family History Records Found Additional Source Comments Source Comments (unrecognize d section and content) In the event this informatio n is protected by the Federal Confidentiality of Alcohol and Drug Abuse Patient Records regulations: The Federal rules restrict any use of the information to criminally investigate or prosecute any alcohol or drug abuse patient.[facility] MemorialIn the event this information is protected by the Federal Confidentiality of Alcohol and Drug Abuse Patient Records regulations: The Federal rules restrict any use of the information to criminally investigate or prosecute any alcohol or drug abuse patient.[facility] MemorialIn the event this information is protected by the Federal Confidentiality of Alcohol and Drug Abuse Patient Records regulations: The Federal rules restrict any use of the information to criminally investigate or prosecute any alcohol or drug abuse patient.[facility] MemorialIn the event this information is protected by the Federal Confidentiality of Alcohol and Drug Abuse Patient Records regulations: The Federal rules restrict any use of the information to criminally investigate or prosecute any alcohol or drug abuse patient.[facility] MemorialIn the event this information is protected by the Federal Confidentiality of Alcohol and Drug Abuse Patient Records regulations: The Federal rules restrict any use of the information to criminally investigate or prosecute any alcohol or drug abuse patient.[facility] MemorialIn the event this information is protected by the Federal Confidentiality of Alcohol and Drug Abuse Patient Records regulations: The Federal rules restrict any use of the information to criminally investigate or prosecute any alcohol or drug abuse patient.[facility] MemorialIn the event this information is protected by the Federal Confidentiality of Alcohol and Drug Abuse Patient Records regulations: The Federal rules restrict any use of the information to criminally investigate or prosecute any alcohol or drug abuse patient.[facility] MemorialIn the event this information is protected by the Federal Confidentiality of Alcohol and Drug Abuse Patient Records regulations: The Federal rules restrict any use of the information to criminally investigate or prosecute any alcohol or drug abuse patient.[facility] MemorialIn the event this information is protected by the Federal Confidentiality of Alcohol and Drug Abuse Patient Records regulations: The Federal rules restrict any use of the information to criminally investigate or prosecute any alcohol or drug abuse patient.[facility] MemorialIn the event this information is protected by the Federal Confidentiality of Alcohol and Drug Abuse Patient Records regulations: The Federal rules restrict any use of the information to criminally investigate or prosecute any alcohol or drug abuse patient.[facility] MemorialIn the event this information is protected by the Federal Confidentiality of Alcohol and Drug Abuse Patient Records regulations: The Federal rules restrict any use of the information to criminally investigate or prosecute any alcohol or drug abuse patient.[facility] MemorialIn the event this information is protected by the Federal Confidentiality of Alcohol and Drug Abuse Patient Records regulations: The Federal rules restrict any use of the information to criminally investigate or prosecute any alcohol or drug abuse patient.[facility] MemorialIn the event this information is protected by the Federal Confidentiality of Alcohol and Drug Abuse Patient Records regulations: The Federal rules restrict any use of the information to criminally investigate or prosecute any alcohol or drug abuse patient.[facility] MemorialIn the event this information is protected by the Federal Confidentiality of Alcohol and Drug Abuse Patient Records regulations: The Federal rules restrict any use of the information to criminally investigate or prosecute any alcohol or drug abuse patient.[facility] MemorialIn the event this information is protected by the Federal Confidentiality of Alcohol and Drug Abuse Patient Records regulations: The Federal rules restrict any use of the information to criminally investigate or prosecute any alcohol or drug abuse patient.[facility] MemorialIn the event this information is protected by the Federal Confidentiality of Alcohol and Drug Abuse Patient Records regulations: The Federal rules restrict any use of the information to criminally investigate or prosecute any alcohol or drug abuse patient.[facility] MemorialIn the event this information is protected by the Federal Confidentiality of Alcohol and Drug Abuse Patient Records regulations: The Federal rules restrict any use of the information to criminally investigate or prosecute any alcohol or drug abuse patient.[facility] MemorialIn the event this information is protected by the Federal Confidentiality of Alcohol and Drug Abuse Patient Records regulations: The Federal rules restrict any use of the information to criminally investigate or prosecute any alcohol or drug abuse patient.[facility] MemorialIn the event this information is protected by the Federal Confidentiality of Alcohol and Drug Abuse Patient Records regulations: The Federal rules restrict any use of the information to criminally investigate or prosecute any alcohol or drug abuse patient.[facility] MemorialIn the event this information is protected by the Federal Confidentiality of Alcohol and Drug Abuse Patient Records regulations: The Federal rules restrict any use of the information to criminally investigate or prosecute any alcohol or drug abuse patient.[facility] MemorialIn the event this information is protected by the Federal Confidentiality of Alcohol and Drug Abuse Patient Records regulations: The Federal rules restrict any use of the information to criminally investigate or prosecute any alcohol or drug abuse patient.[facility] MemorialIn the event this information is protected by the Federal Confidentiality of Alcohol and Drug Abuse Patient Records regulations: The Federal rules restrict any use of the information to criminally investigate or prosecute any alcohol or drug abuse patient.[facility] MemorialIn the event this information is protected by the Federal Confidentiality of Alcohol and Drug Abuse Patient Records regulations: The Federal rules restrict any use of the information to criminally investigate or prosecute any alcohol or drug abuse patient.[facility] MemorialIn the event this information is protected by the Federal Confidentiality of Alcohol and Drug Abuse Patient Records regulations: The Federal rules restrict any use of the information to criminally investigate or prosecute any alcohol or drug abuse patient.[facility] MemorialIn the event this information is protected by the Federal Confidentiality of Alcohol and Drug Abuse Patient Records regulations: The Federal rules restrict any use of the information to criminally investigate or prosecute any alcohol or drug abuse patient.[facility] MemorialIn the event this information is protected by the Federal Confidentiality of Alcohol and Drug Abuse Patient Records regulations: The Federal rules restrict any use of the information to criminally investigate or prosecute any alcohol or drug abuse patient.[facility] MemorialIn the event this information is protected by the Federal Confidentiality of Alcohol and Drug Abuse Patient Records regulations: The Federal rules restrict any use of the information to criminally investigate or prosecute any alcohol or drug abuse patient.[facility] MemorialIn the event this information is protected by the Federal Confidentiality of Alcohol and Drug Abuse Patient Records regulations: The Federal rules restrict any use of the information to criminally investigate or prosecute any alcohol or drug abuse patient.[facility] Reason for Visit (unrecogniz ed section and content) Reason Comments Refill Request Reason Comments Yearly Exam Reason Comments Results Appointment Reason Comments Mammogram Result Call Back Reason Comments 4 week f/u BP; medication incre ase Reason Comments Follow Up cellulitis right leg Reason Comments Follow Up For Cellulitis lower RIG HT leg & allergic reaction from Bactrim causing rash all over body Reason Comments New Patient Pt reported moved 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 Reason Comments Radiology US Specialty Diagnoses / Procedures Referred By Contac t Referred To Contact [facility] Diagnoses Abnormal mammogram Procedures US BREAST LTD LEFT US BREAST UNI REAL TIME WITH IMAGE LIMITED Martha Ayala MD [address] [place] [address] [facility] [address] [place] [address] Referral ID Status Reason Start Date Expiration Date V isits Requested Visits Authorized [id number] Closed Auto-Generate d Referral 07/09/2022 08/08/2023 1 1 Reason Comments 6 Month Exam Reason Comments Colon Consult Specialty Diagnoses / Procedures Referred By Contac t Referred To Contact General Surgery Diagnoses Screening for colon cancer Procedures CONSULT TO GENERAL SURGERY OFFICE/OUTPATIENT NEW HIGH MDM 60 MINUTES Alisson Resendiz, SANTO.PROFESSIONAL VOLLEYBALL PLAYER [address] [place] [address] Referral ID Status Reason Start Date Expiration Date V isits Requested Visits Authorized [id number] Closed PCP Requested Referral 06/29/2023 06/28/2024 1 1 Reason Comments Follow Up JOEY Follow up Reason Comments 6 Month Exam Reason Onset Date Comments Refill Request 01/27/2024 Reason Comments 12/13/2023 COLON SANTAMARIA Reason Comments Follow Up 1 month follow B Reason Comments Results Labs Reason Onset Date Comments Refill Request 03/21/2024 Reason Comments Wellness Care Teams (unrecognized sec tion and content) Electric Organ Assembler Relationship Specialty Start Date End Date Martha Ayala MD [address] [place], [place] [id number] PCP - General Family Medicine 12/16/17 Electric Organ Assembler Relationship Specialty Start Date End Date Martha Ayala MD [address] [place], [place] [id number] PCP - General Family Medicine 12/16/17 Electric Organ Assembler Relationship Specialty Start Date End Date Martha Ayala MD [address] [place], [place] [id number] PCP - General Family Medicine 12/16/17 Electric Organ Assembler Relationship Specialty Start Date End Date Martha Ayala MD [address] [facility] [place] [address] PCP - General Family Medicine 12/16/17 Electric Organ Assembler Relationship Specialty Start Date End Date Martha Ayala MD [address] [facility] [place] [address] PCP - General Family Medicine 12/16/17 Electric Organ Assembler Relationship Specialty Start Date End Date Martha Ayala MD [address] [facility] [place] [address] PCP - General Family Medicine 12/16/17 Electric Organ Assembler Relationship Specialty Start Date End Date Martha Ayala MD [address] [facility] [place] [address] PCP - General Family Medicine 12/16/17 Electric Organ Assembler Relationship Specialty Start Date End Date Martha Ayala MD [address] [facility] [place] [address] PCP - General Family Medicine 12/16/17 Team Status: Active Member Role Status Dates Suresh Mcmullen ASSISTANT COMMUNITY DIRECTOR, ASSISTANT COMMUNITY DIRECTOR-C Primary Care Provider Active Team Status: Inactive Member Role Status Dates Dr. Lilly Mae MD Attending Provider Active Team Status: Inactive Member Role Status Dates Suresh Mcmullen NP, ASSISTANT COMMUNITY DIRECTOR-C Primary Care Provider, Referring Provider Active Dr. Lilly Mae MD Attending Provider Active Team Status: Active Member Role Status Dates Suresh Mcmullen ASSISTANT COMMUNITY DIRECTOR, ASSISTANT COMMUNITY DIRECTOR-C Primary Care Provider, Referring Provider Active Dr. Lilly Mae MD Attending Provider, Other Pro vider Active Team Status: Inactive Member Role Status Dates No Primary Care Physician Primary Care Provider Active Dr. Lilly Mae MD Attending Provider, Referring Provider Active Team Status: Inactive Member Role Status Dates Dr. Lilly Mae MD Attending Provider, Referring Provider Active Suresh Mcmullen ASSISTANT COMMUNITY DIRECTOR, ASSISTANT COMMUNITY DIRECTOR-C Primary Care Provider Active Team Status: Inactive Member Role Status Dates Suresh Mcmullen NP, ASSISTANT COMMUNITY DIRECTOR-C Primary Care Provider, Referring Provider Active Dr. Noy Sorenson MD Attending Provider Active Team Status: Inactive Member Role Status Dates Suresh Mcmullen ASSISTANT COMMUNITY DIRECTOR, ASSISTANT COMMUNITY DIRECTOR-C Primary Care Provider, Referring Provider Active Dr. Bear Kapadia DO Attending Provider Active Team Status: Active Member Role Status Dates Suresh Mcmullen ASSISTANT COMMUNITY DIRECTOR, ASSISTANT COMMUNITY DIRECTOR-C Primary Care Provider Active Dr. Bear Kapadia DO Attending Provider, Referring P rovider Active Team Status: Inactive Member Role Status Dates Suresh Mcmullen ASSISTANT COMMUNITY DIRECTOR, ASSISTANT COMMUNITY DIRECTOR-C Primary Care Provider Active Dr. Bear Kapadia DO Attending Provider, Referring P rovider Active Team Status: Inactive Member Role Status Dates Suresh Mcmullen ASSISTANT COMMUNITY DIRECTOR, ASSISTANT COMMUNITY DIRECTOR-C Primary Care Provider Active Dr. Noy Sorenson MD Attending Provider, Referrin g Provider Active Team Status: Active Member Role Status Dates Suresh Mcmullen ASSISTANT COMMUNITY DIRECTOR, ASSISTANT COMMUNITY DIRECTOR-C Primary Care Provider Active Dr. Noy Sorenson MD Attending Provider, Referrin g Provider Active Dr. Bear Kapadia DO Other Provider Active Team Status: Inactive Member Role Status Dates Suresh Mcmullen ASSISTANT COMMUNITY DIRECTOR, ASSISTANT COMMUNITY DIRECTOR-C Primary Care Provider Active Dr. Constance Haas MD Emergency Provider Active Team Status: Inactive Member Role Status Dates Dr. Constance Haas MD Attending Provider Active Suresh Mcmullen ASSISTANT COMMUNITY DIRECTOR, ASSISTANT COMMUNITY DIRECTOR-C Primary Care Provider Active Electric Organ Assembler Relationship Specialty Start Date End Date Martha Ayala MD [address] [place] [address] PCP - General Family Medicine 12/16/17 Electric Organ Assembler Relationship Specialty Start Date End Date Martha Ayala MD [address] [place] [address] PCP - General Family Medicine 12/16/17 Electric Organ Assembler Relationship Specialty Start Date End Date Martha Ayala MD [address] [place] [address] PCP - General Family Medicine 12/16/17 Electric Organ Assembler Relationship Specialty Start Date End Date Martha Ayala MD [address] [place] [address] PCP - General Family Medicine 12/16/17 Electric Organ Assembler Relationship Specialty Start Date End Date Martha Ayala MD [address] [facility] [place] [address] PCP - General Family Medicine 12/16/17 Electric Organ Assembler Relationship Specialty Start Date End Date Martha Ayala MD [address] [facility] [place] [address] PCP - General Family Medicine 12/16/17 Electric Organ Assembler Relationship Specialty Start Date End Date Martha Ayala MD [address] [facility] [place] [address] PCP - General Family Medicine 12/16/17 Electric Organ Assembler Relationship Specialty Start Date End Date Martha Ayala MD [address] [facility] [place] [address] PCP - General Family Medicine 12/16/17 Electric Organ Assembler Relationship Specialty Start Date End Date Martha Ayala MD [address] [facility] [place] [address] PCP - General Family Medicine 12/16/17 Electric Organ Assembler Relationship Specialty Start Date End Date Martha Ayala MD [address] [facility] [place] [address] PCP - General Family Medicine 12/16/17 Electric Organ Assembler Relationship Specialty Start Date End Date Martha Ayala MD [address] [facility] [place] [address] PCP - General Family Medicine 12/16/17 Electric Organ Assembler Relationship Specialty Start Date End Date Martha Ayala MD [address] [place] [address] PCP - General Family Medicine 12/16/17 Electric Organ Assembler Relationship Specialty Start Date End Date Martha Ayala MD [address] [place] [address] PCP - General Family Medicine 12/16/17 Electric Organ Assembler Relationship Specialty Start Date End Date Martha Ayala MD [address] [place] [address] PCP - General Family Medicine 12/16/17 Electric Organ Assembler Relationship Specialty Start Date End Date Martha Ayala MD [address] [place] [address] PCP - General Family Medicine 12/16/17 Electric Organ Assembler Relationship Specialty Start Date End Date Martha Ayala MD [address] [place] [address] PCP - General Family Medicine 12/16/17 Electric Organ Assembler Relationship Specialty Start Date End Date Martha Ayala MD [address] [place] [address] PCP - General Family Medicine 12/16/17 Alisson Resendiz APRN.CNP [address] [place] [address] Senior [employer] Programmer Family Medicine 03/12/24 Electric Organ Assembler Relationship Specialty Start Date End Date Martha Ayala MD [address] [place] [address] PCP - General Family Medicine 12/16/17 Alisson Resendiz APRN.PROFESSIONAL VOLLEYBALL PLAYER [address] [place], [place] [id number] [facility] 03/12/24 Suresh Mcmullen APRN.PROFESSIONAL VOLLEYBALL PLAYER [address] [place], [place] [address] [facility] 03/21/24 Goals (unrecognized section and content) Goals may be documented in a n alternate section INFORMATION SOURCE (unrecogn ized section and content) DATE CREATED AUTHOR 07/12/2024 [facility] DATE CREATED AUTHOR AUTHOR'S CARIDADIZ ATION 08/12/2024 [facility] FOR RECORDS PERTAINING TO PATIENTS WHO ARE OR HAVE BEEN ENROLLED IN A CHEMICAL DEPENDENCY/SUBSTANCEABUSE PROGRAM, SOME INFORMATION MAY BE OMITTED. This clinical summary was aggregated from multiple sources. Caution should be exercised in using it in the provision of clinical care. This summary normalizes information from multiple sources, and as a consequence, information in this document may materially change the coding, format and clinical context of patient data. In addition, data may be omitted in some cases. CLINICAL DECISIONS SHOULD BE BASED ON THE PRIMARY CLINICAL RECORDS. [employer] provides no warranty or guarantee of the accuracy or completeness of information in this document.
[2025-02-21 17:20] LABS: AST(SGOT) 28 U/L (<=31); Alanine Aminotransfer ALT/SGPT 20 U/L (<=34); Albumin, Serum 3.9 g/dL (3.4-4.8); Alkaline Phosphatase 118 U/L (35-104); Anion Gap 11 (5-15); BUN 6 mg/dL (4-19); BUN/Creat Ratio 9.9 RATIO (10-20); Calcium,Total 10.0 mg/dL (7.6-11.0); Carbon Dioxide 26.3 mmol/L (21.0-32.0); Chloride 101 mmol/L (98-108); Cholesterol 181 mg/dL (<=200); Globulin 3.5 g/dL (2.2-4.2); Glucose 86 mg/dL (70-99); Low Density Lipoprotein Calc. 117 mg/dL; Potassium 3.7 mmol/L (3.3-5.1); T4 Total, Thyroxin 8.4 ug/dL (4.8-13.9); Triglycerides 92 mg/dL; Very Low Density Lipoprotein 18 mg/dL (5-40); Vitamin B12 1227 pg/mL (180-914); Vitamin D,25 Hydroxy 68.6 ng/mL (30-100); cholesterol:hdl ratio screen 3.86
== END | disposition home or self-care (01) ==
LOC: VSLAB 09:51
PROVIDERS: PCP Nurse Practitioner Family; Referring Provider Nurse Practitioner Family; Visit Provider Nurse Practitioner Family
DX: I10 Essential (primary) hypertension (principal); E53.8 Deficiency of other specified B group vitamins; E55.9 Vitamin D deficiency, unspecified; E78.5 Hyperlipidemia, unspecified; Z86.39 Personal history of other endocrine, nutritional and metabolic disease
CPT/HCPCS: 36415; 80053; 80061; 82306; 82607; 84436; 84439; 84443; 85025

== ENCOUNTER → 2025-02-23 | Outpatient (CLI) | payer OTHER, SELFPAY ==
[2025-02-23 10:46] LABS: Hematocrit 54.8 % (37-47); Hemoglobin 18.7 g/dL (12.0-15.0); Immature Granulocytes Count 0.030 X10^3/uL (0.0-0.0); Mean Corp Hgb Conc 34.1 g/dL (32-36); Mean Corpuscular Volume 102.2 fL (81-99); Mean Platelet Vol. 11.3 fl (6.2-12.0); NRBC Flagged by Analyzer 0 % (0-5); Platelet Count 179 K/mm3 (150-450); RBC Distribution Width CV 13.6 % (11.6-14.6); RBC Distribution Width SD 51.6 fl (35.1-43.9); Red Blood Count 5.36 M/mm3 (4.2-5.4); White Blood Count 5.3 K/mm3 (4.4-11.0)
[2025-02-23 11:16] LABS: Ferritin 102 ng/mL (22-378); Iron 145 ug/dL (50-170); Iron Binding Capacity,Total 264 ug/dL (250-450); Iron Binding Capacity,Unsat 119 ug/dL (228-428)
[2025-02-23 11:21] LABS: FOLATES,SERUM (FOLIC ACID) 8.12 ng/mL (4.60-34.80)
[2025-02-26 14:08] LABS: Alkaline Phosphatase, Serum 149 IU/L (49-135)
== END | disposition home or self-care (01) ==
LOC: MTLAB 07:55
PROVIDERS: PCP Nurse Practitioner Family; Referring Provider Nurse Practitioner Family; Visit Provider Nurse Practitioner Family
DX: D45 Polycythemia vera (principal)
CPT/HCPCS: 36415; 82728; 82746; 83540; 83550; 84075; 84080; 85025

== ENCOUNTER → 2025-03-15 | Outpatient (CLI) | payer BC, SELFPAY ==
--- NOTE | 2025-03-15 06:58 | BI_ITS ---
EXAM: SCRN MAMM (CAD)W/JUAN BILAT DATE: 03/15/2025 CLINICAL HISTORY: F, Age 59 y/o , SCREENING TECHNIQUE: Procedure Code: [id number] Modality: MG Procedure: SCRN MAMM (CAD)W/JUAN BILAT COMPARISON: Prior exam(s) were compared FINDINGS: TISSUE DENSITY: There are scattered areas of fibroglandular density. Bilateral Breast Mammographic Findings: No significant masses, calcifications or other abnormalities are identified. Postsurgical changes are noted in the left breast. BI/SCRN MAMM (CAD)W/JUAN BILAT IMPRESSION: No mammographic evidence of malignancy in either breast. OVERALL FINAL ASSESSMENT BI-RADS 2: BENIGN RECOMMENDATION: Routine annual follow-up in 1 Year Additional Recommendation none A letter with findings and recommendations will be mailed to the patient. Reading Location: [id number]
--- OUTSIDE RECORDS SUMMARY | 2025-03-15 07:01 | XMS RPT_ITS | CCD ---
Author Organization [facility] CliniSytn Care Team Providers Care Bank Analyst Name Role Phone Martha Ayala MD Primary Care Provider Dr. Lilly Mae Attending Provider Benedict GLOBAL TECHNICAL WRITER, GLOBAL TECHNICAL WRITER-C Suresh Primary Care Provider Benedict GLOBAL TECHNICAL WRITER, GLOBAL TECHNICAL WRITER-C Suresh Referring Provider Dr. Lilly Mae Other Provider Dr. Noy Sorenson Attending Provider Dr. Bear Kapadia Attending Provider Dr. Bear Kapadia Referring Provider Benedict GLOBAL TECHNICAL WRITER, GLOBAL TECHNICAL WRITER-C Suresh Primary Care Provider Benedict GLOBAL TECHNICAL WRITER, GLOBAL TECHNICAL WRITER-C Suresh Referring Provider Dr. Noy Sorenson Attending Provider Dr. Lilly Mae Attending Provider Dr. Bear Kapadia Attending Provider Martha Ayala MD Primary Care Provider Martín [facility]Alisson RANGEL Unavailable Benedict [facility]Ganesh RANGELsse Unavailable ALISSON RESENDIZ Attending Unavailable MARTHA [...] Allergy 3 Other: See Comments [facility] (17 sources) Sulfamethoxazole / Trimethoprim; Translations: [SULFAMETHOXAZOLE-TR IMETHOPRIM] Drug Allergy 3 Rash [facility] (1 source) Sulfamethoxazole Drug Allergy 4 [facility] (1 source) Trimethoprim Drug Allergy 4 [facility] (1 source) Sulfamethoxazole Drug Allergy 4 [facility] (1 source) Trimethoprim Drug Allergy 4 [facility] Medications Current Medications Medication Drug [...] 02-05-2023 End: 06-22-2050 CPAP/BIPAP/OTHER CPAP 8 cmH2O [facility] 1 Each 02/05/2023 06/22/2050 Active Start: 02-05-2023 End: 06-22-2050 CPAP/BIPAP/OTHER CPAP 8 cmH2 O [facility] 1 Each 0 02/05/2023 06/22/2050 Active Comment on above: CPAP 8 cmH2O [facility] fluticasone propionate 0.05 mg/actuat metered dose nasal [...] above: Take by mouth. polyethylene glycol [phone] mg / potassium chloride 2980 mg / sodium bicarbonate 6720 mg / sodium chloride 5840 mg / sodium sulfate 89851 mg powder for oral solution (1 source) [...] (12 sources) Prophylactic aromatase inhibitors given; Translations: [long term care pharmacist (current) use of aromatase inhibitors] Onset: 07-23-2023 [...] Office Visit (FAMPWS ) -------- EMIGDIO HAIDER ([id number]) 1965 F Date Time Provider Department 07/07/24 7:20 AM ALISSON RESENDIZ [facility] During your visit today, we recorded the following information about you: Pulse Respiration Blood pressure Weight 87/minute 16/minute 140/86 128.7 kg Height 1.665 m Alisson Resendiz APRN.COMPUTER SERVICE TECHNICIAN 07/07/2024 9:37 AM Signed This is a [...] therapy JOEY (obstructive sleep apnea) DME [facility] [place] fx. [phone] PAST SURGICAL HISTORY Procedure Laterality Date HYSTERECTOMY 2011 Total Hysterectomy-Dr. Gamble in [place] PAST SURGICAL HISTORY OF 09/30/2022 Lumpectomy at [facility] TONSILLECTOMY HX 1970 ALLERGIES Bactrim [Sulfamethoxazole-Trimet hoprim] [...] once daily. CPAP/BIPAP/OTHER CPAP 8 cmH2O [facility] CALCIUM ORAL Take 2 tablets by mouth [...] 87 Resp 16 Ht 166.5 cm (5' 5.55) Wt 128.7 kg (283 lb 11.7 oz) [...] ears selwyn (more content not included)... Normal [facility] Radiation Oncology Visiton 1 05-14-2023 Radiation Oncology Visit [facility] [address] [place] [address]. [place] [address] OFFICE VISIT Date of Service: 03/13/24901 MR#: [id number] Acct: [id number] Name: EMIGDIO HAIDER GOLDEN Rep #: [id number] : 1965 From: Bear Kapadia DO Age/Sex: 58/F Location: [facility] Status: Signed Intake Vital Signs 10/12/23 09:05 [...] 1 invasive ductal carcinoma (ER > 95%, TX > 95%, HER2 0+ IHC) of the [...] left breast.??? This (more content not included)... [facility] 02-10-2024 [facility] Telephone (FAMPWS) -------- EMIGDIO HAIDER ([id number]) 1965 F Date Time Provider Department 02/10/24 ALISSON RESENDIZ [facility] During your visit today, we recorded the [...] please ask if she ever saw an transit worker in the past? Thank you Alisson Resendiz APRN.Keira Henson MA 02/10/2024 4:45 PM Signed Pt notified. She denies any sx at this time, would prefer to just recheck labs as planned in June since she is not having any issues. She has seen Endo in [place] in past for Grave's Disease. WALT Singer Ashley, APRN.CNP 02/11/2024 2:30 PM Signed Noted, thank you Alisson Resendiz APRN.COMPUTER SERVICE TECHNICIAN Allergies As of Date: 02/10/2024 Noted Allergy [...] once daily. - CPAP/BIPAP/OTHER CPAP 8 cmH2O [facility] - CALCIUM ORAL Take 2 tablets by [...] Status:Closed by ALISSON RESENDIZ on 02/11/24 Normal [facility] CNOVon 02-09-2024 CNOV Office Visit (FAMPWS ) -------- EMIGDIO HAIDER ([id number]) 1965 F Date Time Provider Department 02/09/24 7:40 AM [facility]SON RESENDIZ [facility] During your visit today, we recorded the following information about you: Pulse Respiration Blood pressure Weight 100/minute 16/minute 126/86 125.2 kg Alisson Resendiz APRN.COMPUTER SERVICE TECHNICIAN 02/09/2024 8:11 AM Signed This is a [...] of radiation therapy JOEY (obstructive sleep apnea) [facility] fx. [phone] PAST SURGICAL HISTORY Procedure Laterality Date HYSTERECTOMY 2011 Total Hysterectomy-Dr. Gamble in [place] PAST SURGICAL HISTORY OF 09/30/2022 Lumpectomy at [facility] TONSILLECTOMY HX 1970 ALLERGIES Bactrim [Sulfamethoxazole-Trimet hoprim] [...] once daily. CPAP/BIPAP/OTHER CPAP 8 cmH2O [facility]ME [facility] CALCIUM ORAL Take 2 tablets by mouth [...] and bene (more content not included)... Normal [facility] Comprehensive metabolic 2000 panelon 02-09-2024 Albumin [Mass/Vol] 3.9 g/dL Normal 3.9-4.[address] [facility] Comment on above: Order Comment: Speci men Type: BLOOD SPECIMENOrdering Facility: [facility] Address: [address] [place] [address] Performed By: #### 2 4323-8, 4-7, , 3 ####[facility] LABIA [id number] [place] [address] [place] ALP [Catalytic activity/Vol] 166 U/L High 34-123 [facility] Comment on above: Order Comment: Speci men Type: BLOOD SPECIMENOrdering Facility: [facility] Address: [address] [place] [address] Performed By: #### 2 4323-8, 4-7, 56439-7, 3 ####[facility] LABCLIA [id number] [place] [address] [place] ALT [Catalytic activity/Vol] 33 U/L Normal 7-38 [facility] Comment on above: Order Comment: Speci men Type: BLOOD SPECIMENOrdering Facility: [facility] Address: [address] [place], [place] [address] Performed By: #### 2 4323-8, 3024-7, 79153-9, 6-3 ####[facility] LABCLIA [id number] [address] [address] [place] Anion gap [Moles/Vol] 15 mmol/L Normal 8-15 [facility] Comment on above: Order Comment: Speci men Type: BLOOD SPECIMENOrdering Facility: [facility] Address: [address] [place], [place] [address] Performed By: #### 2 4323-8, 3024-7, 63228-1, 6-3 ####[facility] LABCLIA [id number] [place] [id number] [place] AST [Catalytic activity/Vol] 31 U/L Normal 13-35 [facility] Comment on above: Order Comment: Speci men Type: BLOOD SPECIMENOrdering Facility: [facility] Address: [address] [place], [place] [address] Performed By: #### 2 4323-8, 3024-7, 44488-8, 6-3 ####[facility] LABCLIA [id number] [address] [address] [place] Bilirubin [Mass/Vol] 0.5 mg/dL Normal 0.2-1.3 [facility] Comment on above: Order Comment: Speci men Type: BLOOD SPECIMENOrdering Facility: [facility] Address: [address] [place] [address] Performed By: #### 2 4323-8, 302-7, 80367-8, 3015-3 ####[facility] LABCLIA [id number] [address] [address] [place] Calcium [Mass/Vol] 9.5 mg/dL Normal 8.5-10.[address] [facility] Comment on above: Order Comment: Speci men Type: BLOOD SPECIMENOrdering Facility: [facility] Address: [address] [place] [address] Performed By: #### 2 4323-8, 3024-7, 64715-6, 6-3 ####[facility] LABCLIA [id number] [address] [address] [place] Chloride [Moles/Vol] 98 mmol/L Normal 98-107 [facility] Comment on above: Order Comment: Speci men Type: BLOOD SPECIMENOrdering Facility: [facility] Address: [address] [place] [address] Performed By: #### 2 4323-8, 3024-7, , 6-3 ####[facility] LABCLIA [id number] [place] [id number] [place] CO2 [Moles/Vol] 25 mmol/L Normal 22-30 [facility] Comment on above: Order Comment: Speci men Type: BLOOD SPECIMENOrdering Facility: [facility] Address: [address] [place] [address] Performed By: #### 2 4323-8, 3024-7, , 6-3 ####[facility] LABCLIA [id number] [address] [address] [place] Creatinine [Mass/Vol] 0.61 mg/dL Normal 0.58-0.96 [facility] Comment on above: Order Comment: Speci men Type: BLOOD SPECIMENOrdering Facility: [facility] Address: [address] [place] [address] Performed By: #### 2 4323-8, 3024-7, 47498-2, 3015-3 ####[facility] LABCLIA [id number] [address] [address] [place] Creatinine and Glomerular filtration rate.predicted panel (S/P/Bld) 103 mL/min/1.73m??? Normal >=60 [facility] Comment on above: Order Comment: Sybil pagan Type: BLOOD SPECIMENOrdering Facility: [facility] Address: [address] [place] [address] Result Comment: Padmini mated Glomerular Filtration Rate [...] GFR. Performed By: #### 2 4323-8, 3024-7, 38513-2, 3015-3 ####[facility] LABCLIA [id number] [place] [address] [place] Glucose [Mass/Vol] 82 mg/dL Normal 74-[address] [facility] Comment on above: Order Comment: Sybil pagan Type: BLOOD SPECIMENOrdering Facility: [facility] Address: [address] [place] [address] Result Comment: The [place] Diabetes Association (ADA) provides guidance for cutoff [...] Standards of Medical Care in Diabetes 2016, [place] Diabetes Association. Diabetes Care. 2016.39(Suppl 1). Performed By: #### 2 4323-8, 3024-7, 31206-1, 3015-3 ####[facility] LABCLIA [id number] [place] [id number] [place] Potassium [Moles/Vol] 4.0 mmol/L Normal 3.7-5.1 [facility] Comment on above: Order Comment: Speci men Type: BLOOD SPECIMENOrdering Facility: [facility] Address: [address] [place], [place] [address] Performed By: #### 2 4323-8, 302-7, , 3015-3 ####[facility] LABCLIA [id number] [address] [address] [place] Protein [Mass/Vol] 7.1 g/dL Normal 6.3-8.[address] [facility] Comment on above: Order Comment: Speci men Type: BLOOD SPECIMENOrdering Facility: [facility] Address: [address] [place] [address] Performed By: #### 2 4323-8, 302-7, , 3 ####[facility] LABIA [id number] [place] [id number] [place] Sodium [Moles/Vol] 138 mmol/L Normal 136-[address] [facility] Comment on above: Order Comment: Speci men Type: BLOOD SPECIMENOrdering Facility: [facility] Address: [address] [place] [address] Performed By: #### 2 4323-8, 302-7, , 3 ####[facility] LABIA [id number] [place] [id number] [place] Urea nitrogen [Mass/Vol] 7 mg/dL Normal 7-21 [facility] Comment on above: Order Comment: Speci men Type: BLOOD SPECIMENOrdering Facility: [facility] Address: [address] [place] [address] Performed By: #### 2 4323-8, 302-7, , 3 ####[facility] LABIA [id number] [address] [address] [place] Magnesium SerPl-ncon 02-08 Magnesium [Mass/Vol] 1.8 mg/dL Normal 1.7-2.3 [facility] Comment on above: Order Comment: Speci men Type: BLOOD SPECIMENOrdering Facility: [facility] Address: [address] [place] [address] Performed By: #### 2 4323-8, 3024-7, 36360-8, 6-3 ####[facility] LABCLIA [id number] [place] [address] [place] T4 Free SerPl-mCncon 024 Free T4 [Mass/Vol] 1.1 ng/dL Normal 0.9-1.[address] [facility] Comment on above: Order Comment: Speci men Type: BLOOD SPECIMENOrdering Facility: [facility] Address: [address] [place] [address] Performed By: #### 2 4323-8, 3024-7, 77949-0, 6-3 ####[facility] LABCLIA [id number] [place] [address] [place] TSH SerPl-aCncon 02-09-2024 TSH Qn 4.260 m[IU]/L High 0.270-4.200 [facility] Comment on above: Order Comment: Speci men Type: BLOOD SPECIMENOrdering Facility: [facility] Address: [address] [place] [address] Performed By: #### 2 4323-8, 3024-7, 83602-1, 6-3 ####[facility] LABCLIA [id number] [place] [id number] [place] Oncology Visit Reporton 01-04 Oncology Visit Report [facility] [address] [place] [address] OFFICE VISIT Date of Service: 01/24/24 1426 MR#: [id number] Acct: [id number] Name: BARBBETZYEMIGDIO GOLDEN Rep #: [id number] : 1965 From: Noy Sorenson MD Age/Sex: 58/F [place] [facility] Status: Signed HPI Subjective Date of Service [...] null pattern Ki-67 (30-9) positive, 30% CK8 (43hfchG39) positive CK5-6 (D5 1684) negative Calponin-1 (XF300A) negative P40 (BC28) negative E-Cad (ECH-6) positive TERRAZAS-2 (SP21) positive MORPHOMETRIC ANALYSIS ER (clone 6F11) >95%, strong intensity TX (clone 16/1E2) >95%, moderate to strong intensity [...] of malignancy. AM:channing 10/05/2022 COMMENT A. Immunohistochemistry ([id number]) supports the above diagnosis. B. INVASIVE BREAST [...] fibrocystic change. Ancillary studies - previously performed (W16-3500 / WS82-229) ER ??? positive (>95%, strong intensity) TX - positive (>95%, moderate to strong intensity) [...] week substan (more content not included)... Normal [facility] CNOVon 12-30-2023 [facility] Office Visit (FAMPWS ) -------- EMIGDIO HAIDER ([id number]) 1965 F Date Time Provider Department 12/30/23 7:00 AM ALISSON RESENDIZ [facility] During your visit today, we recorded the following information about you: Pulse Respiration Blood pressure Weight 86/minute 16/minute 150/100 126.1 kg Height 1.675 m Alisson Resendiz APRN.COMPUTER SERVICE TECHNICIAN 12/30/2023 7:57 AM Signed This is a [...] radiation therapy JOEY (obstructive sleep apnea) DME [facility] fx. [phone] PAST SURGICAL HISTORY Procedure Laterality Date HYSTERECTOMY 2011 Total Hysterectomy-Dr. Gamble in [place] PAST SURGICAL HISTORY OF 09/30/2022 Lumpectomy at [facility] TONSILLECTOMY HX 1970 ALLERGIES Bactrim [Sulfamethoxazole-Trimet hoprim] and Erythromycin MEDICATIONS Current Outpatient Medications Medication Sig losartan (COZAAR) 100 mg tablet Take 1 tablet by mouth once daily. CPAP/BIPAP/OTHER CPAP 8 cmH2O [facility] CALCIUM ORAL Take 2 tablets by mouth [...] 86 Resp 16 Ht 167.5 cm (5' 5.95) Wt 126.1 kg (278 lb) SpO2 97% BMI 44.95 kg/m? BP 150/100 Pulse 86 Resp 16 Ht 167.5 cm (5' 5.95) Wt 126.1 kg (278 lb) SpO2 97% [...] Capillary refill (more content not included)... Normal [facility] Surgery Visit Reporton 11-17 Surgery Visit Report [facility] [address] [place] [address]. [address] [place] [address] OFFICE VISIT Date of Service: 11/17/23 MR#: [id number] Acct: [id number] Name: EMIGDIO HAIDER GOLDEN Rep #: [id number] : 1965 Provider: Dr. Lilly gresham MD Age/Sex: 58/F Location: [facility] Status: Signed Intake Vital Signs 07/14/23 13:51 11/01/23 14:46 Height 5 ft 8 in 5 ft 8 in Intake Visit Reasons: 6 M BREAST CHECK Chief Complaint: Breast cancer Allergies sulfamethoxazole (From Sulfamethoxazole-Trimeth oprim) Allergy (Intermediate, Verified 11/01/23 14:00) Rash trimethoprim (From Sulfamethoxazole-Trimeth oprim) Allergy (Intermediate, Verified 11/01/23 14:00) Rash [facility] Medical History Use of aromatase inhibitors Osteopenia [...] cooperative, healthy appearing and no acute distress [facility] Head: normal to inspection Chest Other: Breast [...] agreeable with plan. Lilly Mae M.D. Pager: [phone] [facility] [address] [place] [address], [facility], [address] [place] [address] Office: [phone] Coding Level of Care Code Off vis,est,level 3 Diagnoses S/P lumpectomy, left breast Z98.890 Malignant neoplasm of central portion of left breast in female, estrogen receptor positive C50.112; Z17.0 Breast location: central portion of breast Estrogen receptor status: positive Patient sex: female 11/18/23 1120 Date Lilly Landonigner Signature: Date (if applicable) CC: Normal [facility] Basic Metabolic Profile (BMP )on 11-01-2023 BUN/CRE 11.6 RATIO Normal 10-20 [facility] Comment on above: Performed By: #### L 500.2500 #### [facility] [address] [place], [address] CA,Total 9.3 mg/dL Normal 8.5-10.1 [facility] Comment on above: Performed By: #### L 500.2500 #### [facility] [address] [place], [address] Chloride [Moles/Vol] 105 mmol/L Normal 98-107 [facility] Comment on above: Performed By: #### L 500.2500 #### [facility] [address] [place], [address] CO2 [Moles/Vol] 29.0 mmol/L Normal 21.0-32.0 [facility] Comment on above: Performed By: #### L 500.2500 #### [facility] [address] [place], [address] Creatinine [Mass/Vol] 0.69 mg/dL Normal 0.55-1.[address] [facility] Comment on above: Result Comment: The validity of the calculated GFR GFRAA in patients over 70 years has not been determined. Clinical correlation is essential. Performed By: #### L 500.2500 #### [facility] [address] [place], [address] ECRCL 123.04 ml/min Normal [facility] Comment on above: Performed By: #### L 500.2500 #### [facility] [address] [place], [address] EST GFR - AA 112 mL/min Normal >60 [facility] Comment on above: Result Comment: Afri can Brazilian GFR Calc Performed By: #### L 500.2500 #### [facility] [address] [place], [address] GAP 4 Low 5-15 [facility] Comment on above: Performed By: #### L 500.2500 #### [facility] [address] [place], [address] GFR/1.73 sq M.predicted among non-blacks MDRD (S/P/Bld) [Vol rate/Area] 92 mL/min/{1.73_m2} Normal >60 [facility] Comment on above: Result Comment: Non- GFR Calc Performed By: #### L 500.2500 #### [facility] [address] [place], [address] Glucose [Mass/Vol] 99 mg/dL Normal 74-106 [facility] Comment on above: Performed By: #### L 500.2500 #### [facility] [address] [place], [address] Potassium [Moles/Vol] 3.4 mmol/L Low 3.5-5.[address] [facility] Comment on above: Performed By: #### L 500.2500 #### [facility] [address] [place], [address] Sodium [Moles/Vol] 138 mmol/L Normal 136-145 [facility] Comment on above: Performed By: #### L 500.2500 #### [facility] [address] [place], [place], [address] Urea nitrogen [Mass/Vol] 8 mg/dL Normal 7-18 [facility] Comment on above: Performed By: #### L 500.2500 #### [facility] [address] [place], [place], [address] Oncology Visit Reporton 10-04 Oncology Visit Report [facility] [address] [place], [place] [address] OFFICE VISIT Date of Service: 11/01/23 1357 MR#: [id number] Acct: [id number] Name: EMIGDIO HAIDER GOLDEN Rep #: [id number] : 1965 From: Noy Sorenson MD Age/Sex: 58/F Location: [facility] Status: Signed HPI Subjective Date of Service [...] null pattern Ki-67 (30-9) positive, 30% CK8 (27tsxpU97) positive CK5-6 (D5 1684) negative Calponin-1 (XC436S) negative P40 (BC28) negative E-Cad (ECH-6) positive TERRAZAS-2 (SP21) positive MORPHOMETRIC ANALYSIS ER (clone 6F11) >95%, strong intensity TX (clone 16/1E2) >95%, moderate to strong intensity [...] of malignancy. AM:channing 10/05/2022 COMMENT A. Immunohistochemistry ([id number]) supports the above diagnosis. B. INVASIVE BREAST CANCER SUMMARY: Procedure - excision with wire guidance Specimen: Type - partial breast Size ??? 4.0 x 3.5 x 2.0 cm Laterality - left breast Tumor: Site ??? not specified Size ??? 1.2 x 1.2 x 1.0 cm Histologic type - invasive ductal carcinoma. Focality - single focus of carcinoma. Histologic Grade (Scotia grade): Glandular/tubular differentiation - score 3 Nuclear [...] fibrocystic change. Ancillary studies - previously performed ([id number] / [id number]) ER ??? positive (>95%, strong intensity) TX - positive (>95%, moderate to strong intensity) [...] MV photons. * December 2022: Adjuvant anastrozole [facility] Medical History Use of aromatase inhibitors Osteopenia [...] week substan (more content not included)... Normal [facility] Radiation Oncology Visiton 0 10-12-2023 Radiation Oncology Visit [facility] [address] [place] [address] OFFICE VISIT Date of Service: 10/12/23900 MR#: [id number] Acct: [id number] Name: EMIGDIO HAIDER GOLDEN Rep #: [id number] : 1965 From: Bear Kapadia DO Age/Sex: 58/F [place] [facility] Status: Signed Intake Vital Signs 06/10/23 09:26 [...] 1 invasive ductal carcinoma (ER > 95%, TX > 95%, HER2 0+ IHC) of the [...] o'clock po (more content not included)... Normal [facility] CNOVon 08-06-2023 CNOV Office Visit (YUMI ) -------- EMIGDIO HAIDER ([id number]) 1965 F Date Time Provider Department 08/06/23 [...] on 02/05/23. Per note of Nahomy Gipson COMPUTER SERVICE TECHNICIAN: G47.33 JOEY on CPAP (primary encounter diagnosis) [...] no snoring). - Continue CPAP at 8cmH2O. [facility]. Her Respironics machine had been recalled, she [...] mouth once daily. CPAP/BIPAP/OTHER CPAP 8 cmH2O [facility] CALCIUM ORAL Take 2 tablets by mouth [...] of radiation therapy JOEY (obstructive sleep apnea) [facility] [place]ha Pelayo fx. [phone] FAMILY HISTORY Problem Relation Age of Onset No Known Problems Mother No Known Problems Father Thyroid Sister No Known Problems Brother No Known Problems Sister SOCIAL HISTORY Social Hi (more content not included)... Normal [facility] Lambert 07-26-2023 CLAIREN Telephone (SLEWST) -------- ANWTONJOSEEMIGDIO ([id number]) 1965 F Date Time Provider Department 07/26/23 JENIFER GIPSON During your visit today, we recorded the following information about you: Shellie Dickey LPN 07/26/2023 2:55 PM Signed [employer] message sent patient SD Card CPAP download. [...] once daily. - CPAP/BIPAP/OTHER CPAP 8 cmH2O [facility] - CALCIUM ORAL Take 2 tablets by [...] Encounter Status:Closed by SHELLIE DICKEY on 08/05/23 [facility] CNOVon 07-23-2023 CNOV Office Visit (GENSWS ) -------- EMIGDIO HAIDER ([id number]) 1965 F Date Time Provider Department 07/23/23 [...] 5:55 AM Signed HISTORY AND PHYSICAL Emigdio Haider 1965 REFERRING [...] therapy JOEY (obstructive sleep apnea) DME Neha Hines fx. [phone] PAST SURGICAL HISTORY Procedure Laterality Date HYSTERECTOMY 2011 Total Hysterectomy-Dr. Gamble in [place] PAST SURGICAL HISTORY OF 09/30/2022 Lumpectomy at [facility] TONSILLECTOMY HX 1970 Current Outpatient Medications Medication Sig losartan (COZAAR) 100 mg tablet Take 1 tablet by mouth once daily. CPAP/BIPAP/OTHER CPAP 8 cmH2O [facility] CALCIUM ORAL Take 2 tablets by mouth [...] Problem Relation (more content not included)... Normal [facility] 07-23-2023 CLAIRE Telephone ([employer]) -------- EMIGDIO HAIDER ([id number]) 1965 F Date Time Provider Department 07/23/23 [...] daily. - CPAP/BIPAP/OTHER CPAP 8 cmH2O DME [facility] - CALCIUM ORAL Take 2 tablets by [...] Encounter Status:Closed by CHAPARRO CASTILLO on 02/08/24 Normal [facility] Absolute lymphocyte countOrd ered By: Noy Sorenson on 04-14-2023 Lymphocytes Auto (Unsp spec) [#/Vol] 1.93 10*3/uL 0.83-4.51 [facility] Basophil percentageOrdered B y: Noy Sorenson on 04-14-2023 Basophils/100 WBC (Bld) 0.6 % 0-1 [facility] Bilirubin [Mass/Vol] 0.50 mg/dL 0.20-1.00 [facility] Comment on above: For patients on eltr ombopag therapy, use of Dimension Portal TBIL is not recommended. Chloride [Moles/Vol] 107 mmol/L 98-107 [facility] Eosinophils/100 WBC (Bld) 1.5 % 0-5 [facility] Glucose [Mass/Vol] 95 mg/dL 74-106 [facility] Neutrophils (Bld) [#/Vol] 8.7 10*3/uL 2.0-7.7 [facility] Neutrophils/100 WBC (Bld) 75.1 % 47-70 [facility] Potassium [Moles/Vol] 4.0 mmol/L 3.5-5.[address] [facility] Protein [Mass/Vol] 7.6 g/dL 6.4-8.2 [facility] Sodium [Moles/Vol] 140 mmol/L 136-145 [facility] WBC (Bld) [#/Vol] 11.5 10*3/uL 4.4-11.0 [facility] Blood erythrocytes count (nu mber/volume)Ordered By: Noy Sorenson on 04-14-2023 RBC (Bld) [#/Vol] 4.87 10*6/uL 4.2-5.4 [facility] Blood hemoglobin measurement (mass/volume)Ordered By: Noy Sorenson on 04-14-2023 Hemoglobin (Bld) [Mass/Vol] 16.5 g/dL 12.0-15.0 [facility] Blood lymphocytes/100 leukoc ytesOrdered By: Noy Sorenson on 04-14-2023 Lymphocytes/100 WBC (Bld) 16.8 % 19-41 [facility] Blood monocytes/100 leukocyt esOrdered By: Noy Sorenson on 04-14-2023 Monocytes/100 WBC (Bld) 5.5 % 0-10 [facility] Blood platelet mean volumeOr dered By: Noy Sorenson on 04-14-2023 Platelet mean volume (Bld) [Entitic vol] 10.3 fL 6.2-12.0 [facility] Determination of erythrocyte mean corpuscular volume (MCV)[facility] on 04-14-2023 MCV (RBC) [Entitic vol] 102.7 fL 81-99 [facility] Hematocrit Auto (Bld) [Volum e fraction]Ordered By: Noy Sorenson on 04-14-2023 Hematocrit (Bld) [Volume fraction] 50.0 % 37-47 [facility] Laboratory - Chemistry and C hemistry - challengeOrdered By: Noy Sorenson on 04-14-2023 ALP [Catalytic activity/Vol] 164 U/L 45-117 [facility] ALT [Catalytic activity/Vol] 26 U/L 13-56 [facility] CO2 [Moles/Vol] 28.0 mmol/L 21.0-32.0 [facility] Globulin (S) [Mass/Vol] 4.1 g/dL 2.2-4.2 [facility] Urea nitrogen/Creatinine [Mass ratio] 9.4 mg/mg 10-20 [facility] - Hematology and Cell countsOrdered By: Noy Sorenson on 04-14-2023 Erythrocyte distribution width (RBC) [Entitic vol] 48.8 fL 35.1-43.9 [facility] Erythrocyte distribution width (RBC) [Ratio] 12.9 % 11.6-14.6 [facility] Immature granulocytes/100 WBC (Bld) 0.500 % 0.0-0.9 [facility] Comment on above: IG% - Immature Granu locytes (promyelocytes, myelocytes and metamyelocytes) > 1% indicates that a LEFT SHIFT is Present. MCH (RBC) [Entitic mass] 33.9 pg 27.0-32.0 [facility] Nucleated RBC/100 WBC (Bld) [Ratio] 0 % 0-5 [facility] MCHC Auto (RBC) [Mass/Vol]Or dered By: Noy Sorenson on 04-14-2023 MCHC (RBC) [Mass/Vol] 33.0 g/dL 32-[address] [facility] No Panel InformationOrdered By: Noy Sorenson on 04-14-2023 Estimated GFR (MDRD) Amer 88 mL/min >60 [facility] Comment on above: GFR Calc Estimated GFR (MDRD) Non-Af Amer 73 mL/min >60 [facility] Comment on above: Non- GFR Calc Platelets bldOrdered By: Casimiro Sorenson on 04-14-2023 Platelets (Bld) [#/Vol] 232 10*3/uL 150-450 [facility] Serum or plasma albumin isabel urement (mass/volume)Ordered By: Noy Sorenson on 04-14-2023 Albumin [Mass/Vol] 3.5 g/dL 3.2-5.0 [facility] Serum or plasma albumin/glob ulin mass ratioOrdered By: Noy Sorenson on 04-14-2023 Albumin/Globulin [Mass ratio] 0.9 {ratio} 0.9-2.4 [facility] Serum or plasma calcium isabel urement (mass/volume)Ordered By: Noy Sorenson on 04-14-2023 Calcium [Mass/Vol] 9.4 mg/dL 8.5-10.1 [facility] Serum or plasma creatinine m easurement (mass/volume)Ordered By: Noy Sorenson on 04-14-2023 Creatinine [Mass/Vol] 0.85 mg/dL 0.55-1.[address] [facility] Comment on above: The validity of the calculated GFR & GFRAA in patients over 70 years has not been determined. Clinical correlation is essential. Serum or plasma urea nitroge n measurement (mass/volume)Ordered By: Noy Sorenson on 04-14-2023 Urea nitrogen [Mass/Vol] 8 mg/dL 7-18 [facility] Thin prep Papanicolaou smear with manual screeningOrdered By: Noy Sorenson on 04-14-2023 Thin prep Papanicolaou smear with manual screening 17 U/L 15-37 [facility] Thin prep Papanicolaou smear with manual screening 5 5-15 [facility] Absolute lymphocyte countOrd ered By: Constance Haas on 12-12-2022 Lymphocytes Auto (Unsp spec) [#/Vol] 0.85 10*3/uL 0.83-4.51 [facility] Basophil percentageOrdered B y: Constance Haas on 12-12-2022 Basophils/100 WBC (Bld) 0.2 % 0-1 [facility] Chloride [Moles/Vol] 106 mmol/L 98-107 [facility] Eosinophils/100 WBC (Bld) 0.7 % 0-5 [facility] Glucose [Mass/Vol] 98 mg/dL 74-106 [facility] Neutrophils (Bld) [#/Vol] 8.7 10*3/uL 2.0-7.7 [facility] Neutrophils/100 WBC (Bld) 83.1 % 47-70 [facility] Potassium [Moles/Vol] 4.3 mmol/L 3.5-5.[address] [facility] Sodium [Moles/Vol] 138 mmol/L 136-145 [facility] WBC (Bld) [#/Vol] 10.5 10*3/uL 4.4-11.0 [facility] Blood erythrocytes count (nu mber/volume)Ordered By: Constance Haas on 12-12-2022 RBC (Bld) [#/Vol] 4.73 10*6/uL 4.2-5.4 [facility] Blood hemoglobin measurement (mass/volume)Ordered By: Constance Haas on 12-12-2022 Hemoglobin (Bld) [Mass/Vol] 16.2 g/dL 12.0-15.0 [facility] Blood lymphocytes/100 leukoc ytesOrdered By: Constance Haas on 12-12-2022 Lymphocytes/100 WBC (Bld) 8.1 % 19-41 [facility] Blood monocytes/100 leukocyt esOrdered By: Constance Haas on 12-12-2022 Monocytes/100 WBC (Bld) 7.3 % 0-10 [facility] Blood platelet mean volumeOr dered By: Constance Haas on 12-12-2022 Platelet mean volume (Bld) [Entitic vol] 10.9 fL 6.2-12.0 [facility] Determination of erythrocyte mean corpuscular volume (MCV)Ordered By: Constance Haas on 12-12-2022 MCV (RBC) [Entitic vol] 104.7 fL 81-99 [facility] Hematocrit Auto (Bld) [Volum e fraction]Ordered By: Constance Haas on 12-12-2022 Hematocrit (Bld) [Volume fraction] 49.5 % 37-47 [facility] Laboratory - Chemistry and C hemistry - challengeOrdered By: Constance Haas on 12-12-2022 CO2 [Moles/Vol] 29.0 mmol/L 21.0-32.0 [facility] Urea nitrogen/Creatinine [Mass ratio] 8.8 mg/mg 10-20 [facility] - Hematology and Cell countsOrdered By: Constance Haas on 12-12-2022 Erythrocyte distribution width (RBC) [Entitic vol] 51.0 fL 35.1-43.9 [facility] Erythrocyte distribution width (RBC) [Ratio] 13.1 % 11.6-14.6 [facility] Immature granulocytes/100 WBC (Bld) 0.600 % 0.0-0.9 [facility] Comment on above: IG% - Immature Granu locytes (promyelocytes, myelocytes and metamyelocytes) > 1% indicates that a LEFT SHIFT is Present. MCH (RBC) [Entitic mass] 34.2 pg 27.0-32.0 [facility] Nucleated RBC/100 WBC (Bld) [Ratio] 0 % 0-5 [facility] MCHC Auto (RBC) [Mass/Vol]Or dered By: Constance Haas on 12-12-2022 MCHC (RBC) [Mass/Vol] 32.7 g/dL 32-[address] [facility] No Panel InformationOrdered By: Constance Haas on 12-12-2022 Estimated Creatinine Clearance Calc 90.97 ml/min [facility] Estimated GFR (MDRD) Amer 114 mL/min >60 [facility] Comment on above: GFR Calc Estimated GFR (MDRD) Non-Af Amer 94 mL/min >60 [facility] Comment on above: Non- GFR Calc Platelets bldOrdered By: Trish Haas on 12-12-2022 Platelets (Bld) [#/Vol] 174 10*3/uL 150-450 [facility] Serum or plasma calcium isabel urement (mass/volume)Ordered By: Constance Haas on 12-12-2022 Calcium [Mass/Vol] 9.2 mg/dL 8.5-10.1 [facility] Serum or plasma creatinine m easurement (mass/volume)Ordered By: Constance Haas on 12-12-2022 Creatinine [Mass/Vol] 0.68 mg/dL 0.55-1.[address] [facility] Comment on above: The validity of the calculated GFR & GFRAA in patients over 70 years has not been determined. Clinical correlation is essential. Serum or plasma urea nitroge n measurement (mass/volume)Ordered By: Constance Haas on 12-12-2022 Urea nitrogen [Mass/Vol] 6 mg/dL 7-18 [facility] Thin prep Papanicolaou smear with manual screeningOrdered By: Constance Haas on 12-12-2022 Thin prep Papanicolaou smear with manual screening 3 5-15 [facility] Absolute lymphocyte countOrd ered By: Noy Sorenson on 10-14-2022 Lymphocytes Auto (Unsp spec) [#/Vol] 2.19 10*3/uL 0.83-4.51 [facility] Basophil percentageOrdered B y: Noy Sorenson on 10-14-2022 Basophils/100 WBC (Bld) 0.5 % 0-1 [facility] Bilirubin [Mass/Vol] 0.50 mg/dL 0.20-1.00 [facility] Comment on above: For patients on eltr ombopag therapy, use of Dimension Portal TBIL is not recommended. Chloride [Moles/Vol] 106 mmol/L 98-107 [facility] Eosinophils/100 WBC (Bld) 0.9 % 0-5 [facility] Glucose [Mass/Vol] 91 mg/dL 74-106 [facility] Neutrophils (Bld) [#/Vol] 8.7 10*3/uL 2.0-7.7 [facility] Neutrophils/100 WBC (Bld) 73.9 % 47-70 [facility] Potassium [Moles/Vol] 4.0 mmol/L 3.5-5.[address] [facility] Protein [Mass/Vol] 7.8 g/dL 6.4-8.2 [facility] Sodium [Moles/Vol] 138 mmol/L 136-145 [facility] WBC (Bld) [#/Vol] 11.8 10*3/uL 4.4-11.0 [facility] Blood erythrocytes count (nu mber/volume)Ordered By: Noy Sorenson on 10-14-2022 RBC (Bld) [#/Vol] 4.94 10*6/uL 4.2-5.4 [facility] Blood hemoglobin measurement (mass/volume)Ordered By: Noy Sorenson on 10-14-2022 Hemoglobin (Bld) [Mass/Vol] 16.9 g/dL 12.0-15.0 [facility] Blood lymphocytes/100 leukoc ytesOrdered By: Noy Sorenson on 10-14-2022 Lymphocytes/100 WBC (Bld) 18.6 % 19-41 [facility] Blood monocytes/100 leukocyt esOrdered By: Noy Sorenson on 10-14-2022 Monocytes/100 WBC (Bld) 5.5 % 0-10 [facility] Blood platelet mean volumeOr dered By: [facility] on 10-14-2022 Platelet mean volume (Bld) [Entitic vol] 11.0 fL 6.2-12.0 [facility] Determination of erythrocyte mean corpuscular volume (MCV)Ordered By: Noy Sorenson on 10-14-2022 MCV (RBC) [Entitic vol] 102.0 fL 81-99 [facility] Hematocrit Auto (Bld) [Volum e fraction]Ordered By: [facility] Yas on 10-14-2022 Hematocrit (Bld) [Volume fraction] 50.4 % 37-47 [facility] Laboratory - Chemistry and C hemistry - challengeOrdered By: [facility] ALP [Catalytic activity/Vol] 138 U/L 45-117 [facility] ALT [Catalytic activity/Vol] 28 U/L 13-56 [facility] CO2 [Moles/Vol] 27.0 mmol/L 21.0-32.0 [facility] Globulin (S) [Mass/Vol] 4.3 g/dL 2.2-4.2 [facility] Urea nitrogen/Creatinine [Mass ratio] 9.5 mg/mg 10-20 [facility] - Hematology and Cell countsOrdered By: [facility] Yas on 10-14-2022 Erythrocyte distribution width (RBC) [Entitic vol] 47.8 fL 35.1-43.9 [facility] Erythrocyte distribution width (RBC) [Ratio] 12.7 % 11.6-14.6 [facility] Immature granulocytes/100 WBC (Bld) 0.600 % 0.0-0.9 [facility] Comment on above: IG% - Immature Granu locytes (promyelocytes, myelocytes and metamyelocytes) > 1% indicates that a LEFT SHIFT is Present. MCH (RBC) [Entitic mass] 34.2 pg 27.0-32.0 [facility] Nucleated RBC/100 WBC (Bld) [Ratio] 0 % 0-5 [facility] MCHC Auto (RBC) [Mass/Vol]Or dered By: [facility] on 10-14-2022 MCHC (RBC) [Mass/Vol] 33.5 g/dL 32-[address] [facility] No Panel InformationOrdered By: Noy Sorenson on 10-14-2022 Estimated GFR (MDRD) Amer 125 mL/min >60 [facility] Comment on above: GFR Calc Estimated GFR (MDRD) Non-Af Amer 103 mL/min >60 [facility] Comment on above: Non- GFR Calc Platelets bldOrdered By: Casimiro joiner Yas on 10-14-2022 Platelets (Bld) [#/Vol] 227 10*3/uL 150-450 [facility] Serum or plasma albumin isabel urement (mass/volume)Ordered By: Noy Sorenson on 10-14-2022 Albumin [Mass/Vol] 3.5 g/dL 3.2-5.0 [facility] Serum or plasma albumin/glob ulin mass ratioOrdered By: Noy Sorenson on 10-14-2022 Albumin/Globulin [Mass ratio] 0.8 {ratio} 0.9-2.4 [facility] Serum or plasma calcium isabel urement (mass/volume)Ordered By: Noy Sorenson on 10-14-2022 Calcium [Mass/Vol] 9.6 mg/dL 8.5-10.1 [facility] Serum or plasma creatinine m easurement (mass/volume)Ordered By: Noy Sorenson on 10-14-2022 Creatinine [Mass/Vol] 0.63 mg/dL 0.55-1.[address] [facility] Comment on above: The validity of the calculated GFR & GFRAA in patients over 70 years has not been determined. Clinical correlation is essential. Serum or plasma urea nitroge n measurement (mass/volume)Ordered By: Noy Sorenson on 10-14-2022 Urea nitrogen [Mass/Vol] 6 mg/dL 7-18 [facility] Thin prep Papanicolaou smear with manual screeningOrdered By: Noy Sorenson on 10-14-2022 Thin prep Papanicolaou smear with manual screening 17 U/L 15-37 [facility] Thin prep Papanicolaou smear with manual screening 5 5-15 [facility] Basophil percentageOrdered B y: Lilly Mae on 09-09-2022 Basophil percentage < 0.9 mg/dL 0.55-1.02 [facility] No Panel InformationOrdered By: Lilly Mae on 09-09-2022 Bedside Estimated GFR (eGFR) > 60.0000 mL/min >60 [facility] VALENTINE DIAG W JUAN LEFTon 08-12 [facility] US BREAST LTD LEFTon 023 [facility] VALENTINE SCREENINGon 07-08-2022 [facility] Vital Signs Date Time Vital Sign Value Performing Clinician Facility 07-07-2024 07:05-0400 Body height 166.5 cm Alisson Resendiz [facility]COMPUTER SERVICE TECHNICIAN Work Phone: [facility] 07-07-2024 07:05-0400 Body mass index (BMI) [Ratio] 46.43 kg/m2 Alisson Resendiz [facility].COMPUTER SERVICE TECHNICIAN Work Phone: [facility] 07-07-2024 07:05-0400 Body weight 128.7 kg Alisson Resendiz [facility].COMPUTER SERVICE TECHNICIAN Work Phone: [facility] 07-07-2024 07:05-0400 Diastolic blood pressure 86 mm[Hg] Alisson Resendiz [facility].COMPUTER SERVICE TECHNICIAN Work Phone: [facility] 07-07-2024 07:05-0400 Heart rate 87 /min Alisson Resendiz [facility].COMPUTER SERVICE TECHNICIAN Work Phone: [facility] 07-07-2024 07:05-0400 Respiratory rate 16 /min Alisson Resendiz [facility].COMPUTER SERVICE TECHNICIAN Work Phone: [facility] 07-07-2024 07:05-0400 SaO2% (BldA) [Mass fraction] 96 % Alisson Resendiz [facility].COMPUTER SERVICE TECHNICIAN Work Phone: [facility] 07-07-2024 07:05-0400 Systolic blood pressure 140 mm[Hg] Alisson Quintanahof [facility].COMPUTER SERVICE TECHNICIAN Work Phone: [facility] 02-09-2024 07:30-0500 Body mass index (BMI) [Ratio] 44.62 kg/m2 Alisson Resendiz [facility].COMPUTER SERVICE TECHNICIAN Work Phone: [facility] 02-09-2024 07:30-0500 Body weight 125.19 kg Alisson Tannhof [facility]AC[facility].COMPUTER SERVICE TECHNICIAN Work Phone: [facility] 02-09-2024 07:30-0500 Diastolic blood pressure 86 mm[Hg] Alisson Tannhof [facility].COMPUTER SERVICE TECHNICIAN Work Phone: [facility] 02-09-2024 07:30-0500 Heart rate 100 /min Alisson Tannhof [facility].COMPUTER SERVICE TECHNICIAN Work Phone: [facility] 02-09-2024 07:30-0500 Respiratory rate 16 /min Alisson Tannhof [facility].COMPUTER SERVICE TECHNICIAN Work Phone: [facility] 02-09-2024 07:30-0500 SaO2% (BldA) [Mass fraction] 97 % Alisson Tannhof [facility].COMPUTER SERVICE TECHNICIAN Work Phone: [facility] 02-09-2024 07:30-0500 Systolic blood pressure 126 mm[Hg] Alisson Tannhof [facility].COMPUTER SERVICE TECHNICIAN Work Phone: [facility] 12-30-2023 07:54-0400 Diastolic blood pressure 100 mm[Hg] Alisson Tannhof [facility].COMPUTER SERVICE TECHNICIAN Work Phone: [facility] 12-30-2023 07:54-0400 Systolic blood pressure 150 mm[Hg] Alisson Tannhof [facility]AC[facility].COMPUTER SERVICE TECHNICIAN Work Phone: [facility] 12-30-2023 07:08-0400 Body height 167.5 cm Alisson Tannhof [facility].COMPUTER SERVICE TECHNICIAN Work Phone: [facility] 12-30-2023 07:08-0400 Body mass index (BMI) [Ratio] 44.95 kg/m2 Alisson Tannhof [facility].COMPUTER SERVICE TECHNICIAN Work Phone: [facility] 12-30-2023 07:08-0400 Body weight 126.1 kg Alisson Tannhof [facility]AC[facility].COMPUTER SERVICE TECHNICIAN Work Phone: [facility] 12-30-2023 07:08-0400 Heart rate 86 /min Alisson Tannhof [facility].COMPUTER SERVICE TECHNICIAN Work Phone: [facility] 12-30-2023 07:08-0400 Respiratory rate 16 /min Alisson Quintanaluciasanna [facility].COMPUTER SERVICE TECHNICIAN Work Phone: [facility] 12-30-2023 07:08-0400 SaO2% (BldA) [Mass fraction] 97 % Alisson Resendiz [facility].COMPUTER SERVICE TECHNICIAN Work Phone: [facility] 08-06-2023 15:24-0400 Body mass index (BMI) [Ratio] 42.94 kg/m2 Zaire Simmons Jr., MD Work Phone: [facility] 08-06-2023 15:24-0400 Body weight 128.1 kg Zaire Simmons Jr., MD Work Phone: [facility] 08-06-2023 15:24-0400 Diastolic blood pressure 72 mm[Hg] Zaire Simmons Jr., MD Work Phone: [facility] 08-06-2023 15:24-0400 Heart rate 101 /min Zaire Simmons Jr., MD Work Phone: [facility] 08-06-2023 15:24-0400 Respiratory rate 16 /min Zaire Simmons Jr., MD Work Phone: [facility] 08-06-2023 15:24-0400 SaO2% (BldA) [Mass fraction] 97 % Zaire Simmons Jr., MD Work Phone: [facility] 08-06-2023 15:24-0400 Systolic blood pressure 126 mm[Hg] Zaire Simmons Jr., MD Work Phone: [facility] 07-23-2023 13:30-0400 Body temperature 97.39 [degF] Hernandez Rascon MD Work Phone: [facility] 07-23-2023 13:30-0400 Body weight 129.82 kg Hernandez Rascon MD Work Phone: [facility] 07-23-2023 13:30-0400 Diastolic blood pressure 86 mm[Hg] Hernandez Rascon MD Work Phone: [facility] 07-23-2023 13:30-0400 Heart rate 114 /min Hernandez Rascon MD Work Phone: [facility] 07-23-2023 13:30-0400 SaO2% (BldA) [Mass fraction] 96 % Hernandez Rascon MD Work Phone: [facility] 07-23-2023 13:30-0400 Systolic blood pressure 142 mm[Hg] Hernandez Rascon MD Work Phone: [facility] 07-14-2023 13:51-0400 Body height 172.72 cm GLOBAL TECHNICAL WRITER-C Suresh Benedict GLOBAL TECHNICAL WRITER Work Phone: [facility] 07-14-2023 13:51-0400 Body mass index (BMI) [Ratio] 43.6 kg/m2 GLOBAL TECHNICAL WRITER-C Suresh Benedict GLOBAL TECHNICAL WRITER Work Phone: [facility] 07-14-2023 13:51-0400 Body temperature 98 [degF] GLOBAL TECHNICAL WRITER-C Suresh Benedict GLOBAL TECHNICAL WRITER Work Phone: [facility] 07-14-2023 13:51-0400 Body weight 130.18 kg GLOBAL TECHNICAL WRITER-C Suresh Benedict GLOBAL TECHNICAL WRITER Work Phone: [facility] 07-14-2023 13:51-0400 Diastolic blood pressure 92 mm[Hg] GLOBAL TECHNICAL WRITER-C Suresh Benedict GLOBAL TECHNICAL WRITER Work Phone: [facility] 07-14-2023 13:51-0400 Heart rate 107 /min GLOBAL TECHNICAL WRITER-C Suresh Benedict GLOBAL TECHNICAL WRITER Work Phone: [facility] 07-14-2023 13:51-0400 Respiratory rate 18 /min GLOBAL TECHNICAL WRITER-C Suresh Benedict GLOBAL TECHNICAL WRITER Work Phone: [facility] 07-14-2023 13:51-0400 SaO2% (BldA) [Mass fraction] 96 % GLOBAL TECHNICAL WRITER-C Suresh Benedict GLOBAL TECHNICAL WRITER Work Phone: [facility] 07-14-2023 13:51-0400 Systolic blood pressure 150 mm[Hg] GLOBAL TECHNICAL WRITER-C Suresh Benedict GLOBAL TECHNICAL WRITER Work Phone: [facility] 06-29-2023 06:53-0400 Body weight 131.09 kg Alissonshahid Quintanahof PHARMACIST [facility]OSPITAL.COMPUTER SERVICE TECHNICIAN Work Phone: [facility] 06-29-2023 06:53-0400 Diastolic blood pressure 90 mm[Hg] Alisson Tannhof PHARMACIST [facility]OSPITAL.COMPUTER SERVICE TECHNICIAN Work Phone: [facility] 06-29-2023 06:53-0400 Heart rate 94 /min Alisson Tannhof PHARMACIST [facility]OSPITAL.COMPUTER SERVICE TECHNICIAN Work Phone: [facility] 06-29-2023 06:53-0400 Respiratory rate 16 /min Alissonshahid Quintanahof PHARMACIST [facility]OSPITAL.COMPUTER SERVICE TECHNICIAN Work Phone: [facility] 06-29-2023 06:53-0400 SaO2% (BldA) [Mass fraction] 98 % Alisson Tannhof PHARMACIST [facility]ITAL.COMPUTER SERVICE TECHNICIAN Work Phone: [facility] 06-29-2023 06:53-0400 Systolic blood pressure 150 mm[Hg] Alisson Tannhof PHARMACIST [facility]ITAL.COMPUTER SERVICE TECHNICIAN Work Phone: [facility] 06-10-2023 09:26-0500 Body mass index (BMI) [Ratio] 43.8 kg/m2 GLOBAL TECHNICAL WRITER-Klarissa Mcmullen GLOBAL TECHNICAL WRITER Work Phone: [facility] 06-10-2023 09:26-0500 Body temperature 98.2 [degF] GLOBAL TECHNICAL WRITER-Klarissa Mcmullen GLOBAL TECHNICAL WRITER Work Phone: [facility] 06-10-2023 09:26-0500 Body weight 130.74 kg GLOBAL TECHNICAL WRITER-Klarissa Mcmullen GLOBAL TECHNICAL WRITER Work Phone: [facility] 06-10-2023 09:26-0500 Diastolic blood pressure 83 mm[Hg] GLOBAL TECHNICAL WRITER-Klarissa Mcmullen GLOBAL TECHNICAL WRITER Work Phone: [facility] 06-10-2023 09:26-0500 Heart rate 84 /min GLOBAL TECHNICAL WRITER-Klarissa Mcmullen GLOBAL TECHNICAL WRITER Work Phone: [phone] [place], [place] [id number] 06-10-2023 09:26-0500 Respiratory rate 18 /min GLOBAL TECHNICAL WRITER-C Suresh Benedict GLOBAL TECHNICAL WRITER Work Phone: 6(596)802-915767 [place] [address] 06-10-2023 09:26-0500 SaO2% (BldA) [Mass fraction] 95 % GLOBAL TECHNICAL WRITER-C Suresh Benedict GLOBAL TECHNICAL WRITER Work Phone: 4(018)147-926867 [place] [address] 06-10-2023 09:26-0500 Systolic blood pressure 139 mm[Hg] GLOBAL TECHNICAL WRITER-C Suresh Benedict GLOBAL TECHNICAL WRITER Work Phone: 8(152)214-104067 [place] [address] 04-29-2023 14:54-0500 Diastolic blood pressure 79 mm[Hg] GLOBAL TECHNICAL WRITER-C Suresh Benedict GLOBAL TECHNICAL WRITER Work Phone: 3(654)076-362667 [place] [address] 04-29-2023 14:54-0500 Heart rate 74 /min GLOBAL TECHNICAL WRITER-C Suresh Benedict GLOBAL TECHNICAL WRITER Work Phone: 3(075)247-680767 [place] [address] 04-29-2023 14:54-0500 Respiratory rate 16 /min GLOBAL TECHNICAL WRITER-C Suresh Benedict GLOBAL TECHNICAL WRITER Work Phone: 1(771)209-959467 [place] [address] 04-29-2023 14:54-0500 Systolic blood pressure 137 mm[Hg] GLOBAL TECHNICAL WRITER-C Suresh Benedict GLOBAL TECHNICAL WRITER Work Phone: 9(466)091-968867 [place] [address] 04-29-2023 13:59-0500 Body mass index (BMI) [Ratio] 43 kg/m2 GLOBAL TECHNICAL WRITER-C Suresh Benedict GLOBAL TECHNICAL WRITER Work Phone: 0(062)271-000267 [place] [address] 04-29-2023 13:59-0500 Body temperature 97.7 [degF] GLOBAL TECHNICAL WRITER-C Suresh Benedict GLOBAL TECHNICAL WRITER Work Phone: 0(674)636-169767 [place] [address] 04-29-2023 13:59-0500 SaO2% (BldA) [Mass fraction] 96 % GLOBAL TECHNICAL WRITER-C Suresh Benedict GLOBAL TECHNICAL WRITER Work Phone: 2(581)521-572367 [place] [address] 04-14-2023 13:54-0500 Body mass index (BMI) [Ratio] 43.8 kg/m2 GLOBAL TECHNICAL WRITER-C Suresh Benedict GLOBAL TECHNICAL WRITER Work Phone: 5(012)796-237267 [place] [address] 04-14-2023 13:54-0500 Body temperature 98.3 [degF] GLOBAL TECHNICAL WRITER-C Suresh Benedict GLOBAL TECHNICAL WRITER Work Phone: [facility] 04-14-2023 13:54-0500 Body weight 130.74 kg GLOBAL TECHNICAL WRITER-C Suresh Benedict GLOBAL TECHNICAL WRITER Work Phone: [facility] 04-14-2023 13:54-0500 Diastolic blood pressure 83 mm[Hg] GLOBAL TECHNICAL WRITER-C Suresh Benedict GLOBAL TECHNICAL WRITER Work Phone: [facility] 04-14-2023 13:54-0500 Heart rate 109 /min GLOBAL TECHNICAL WRITER-C Suresh Benedict GLOBAL TECHNICAL WRITER Work Phone: [facility] 04-14-2023 13:54-0500 Respiratory rate 18 /min GLOBAL TECHNICAL WRITER-C Suresh Benedict GLOBAL TECHNICAL WRITER Work Phone: [facility] 04-14-2023 13:54-0500 SaO2% (BldA) [Mass fraction] 92 % GLOBAL TECHNICAL WRITER-C Suersh Bneedict GLOBAL TECHNICAL WRITER Work Phone: [facility] 04-14-2023 13:54-0500 Systolic blood pressure 128 mm[Hg] GLOBAL TECHNICAL WRITER-C Suresh Benedict GLOBAL TECHNICAL WRITER Work Phone: [facility] 02-05-2023 13:12-0400 Body weight 130.64 kg Jenifer Leonela [facility].COMPUTER SERVICE TECHNICIAN Work Phone: [facility] 02-05-2023 13:12-0400 Diastolic blood pressure 86 mm[Hg] Jenifer Leonela [facility].COMPUTER SERVICE TECHNICIAN Work Phone: [facility] 02-05-2023 13:12-0400 Heart rate 107 /min Jenifer Leonela [facility].COMPUTER SERVICE TECHNICIAN Work Phone: [facility] 02-05-2023 13:12-0400 Respiratory rate 16 /min Jenifer Leonela [facility].COMPUTER SERVICE TECHNICIAN Work Phone: [facility] 02-05-2023 13:12-0400 SaO2% (BldA) [Mass fraction] 99 % Jenifer Leonela [facility].COMPUTER SERVICE TECHNICIAN Work Phone: [facility] 02-05-2023 13:12-0400 Systolic blood pressure 142 mm[Hg] Jenifer Leonela [facility].COMPUTER SERVICE TECHNICIAN Work Phone: [facility] 12-28-2022 07:24-0400 Body temperature 97.3 [degF] Suresh Benedict [facility].COMPUTER SERVICE TECHNICIAN Work Phone: [facility] 12-28-2022 07:24-0400 Body weight 130.73 kg Suresh Benedict [facility].COMPUTER SERVICE TECHNICIAN Work Phone: [facility] 12-28-2022 07:24-0400 Diastolic blood pressure 77 mm[Hg] Suresh Benedict [facility].COMPUTER SERVICE TECHNICIAN Work Phone: [facility] 12-28-2022 07:24-0400 Heart rate 81 /min Suresh Benedict [facility].COMPUTER SERVICE TECHNICIAN Work Phone: [facility] 12-28-2022 07:24-0400 Respiratory rate 16 /min Suresh Benedict [facility].COMPUTER SERVICE TECHNICIAN Work Phone: [facility] 12-28-2022 07:24-0400 SaO2% (BldA) [Mass fraction] 96 % Suresh Benedict [facility].COMPUTER SERVICE TECHNICIAN Work Phone: [facility] 12-28-2022 07:24-0400 Systolic blood pressure 129 mm[Hg] Suresh Benedict [facility].COMPUTER SERVICE TECHNICIAN Work Phone: [facility] 12-23-2022 16:08-0400 Body weight 131.09 kg Alisson Manf [facility].COMPUTER SERVICE TECHNICIAN Work Phone: [facility] 12-23-2022 16:08-0400 Diastolic blood pressure 90 mm[Hg] Alisson Quintanahof [facility].COMPUTER SERVICE TECHNICIAN Work Phone: [facility] 12-23-2022 16:08-0400 Heart rate 102 /min Alisson Manf [facility].COMPUTER SERVICE TECHNICIAN Work Phone: [facility] 12-23-2022 16:08-0400 Respiratory rate 16 /min Alisson Resendiz [facility].COMPUTER SERVICE TECHNICIAN Work Phone: [facility] 12-23-2022 16:08-0400 SaO2% (BldA) [Mass fraction] 98 % Alisson Resendiz [facility].COMPUTER SERVICE TECHNICIAN Work Phone: [facility] 12-23-2022 16:08-0400 Systolic blood pressure 160 mm[Hg] Alisson Resendiz [facility].COMPUTER SERVICE TECHNICIAN Work Phone: [facility] 12-15-2022 13:02-0400 Body height 172.72 cm GLOBAL TECHNICAL WRITER-C Suresh Benedict GLOBAL TECHNICAL WRITER Work Phone: [facility] 12-15-2022 13:02-0400 Body mass index (BMI) [Ratio] 43.8 kg/m2 GLOBAL TECHNICAL WRITER-C Suresh Benedict GLOBAL TECHNICAL WRITER Work Phone: [facility] 12-15-2022 13:02-0400 Body weight 130.77 kg GLOBAL TECHNICAL WRITER-C Suresh Benedict GLOBAL TECHNICAL WRITER Work Phone: [facility] 12-15-2022 13:02-0400 Diastolic blood pressure 74 mm[Hg] GLOBAL TECHNICAL WRITER-C Suresh Benedict GLOBAL TECHNICAL WRITER Work Phone: [facility] 12-15-2022 13:02-0400 Heart rate 84 /min GLOBAL TECHNICAL WRITER-C Suresh Benedict GLOBAL TECHNICAL WRITER Work Phone: [facility] 12-15-2022 13:02-0400 Respiratory rate 16 /min GLOBAL TECHNICAL WRITER-C Suresh Benedict GLOBAL TECHNICAL WRITER Work Phone: [facility] 12-15-2022 13:02-0400 SaO2% (BldA) [Mass fraction] 94 % GLOBAL TECHNICAL WRITER-C Suresh Benedict GLOBAL TECHNICAL WRITER Work Phone: [facility] 12-15-2022 13:02-0400 Systolic blood pressure 159 mm[Hg] GLOBAL TECHNICAL WRITER-C Suresh Benedict GLOBAL TECHNICAL WRITER Work Phone: [facility] 12-12-2022 15:46-0400 Diastolic blood pressure 82 mm[Hg] GLOBAL TECHNICAL WRITER-C Suresh Benedict GLOBAL TECHNICAL WRITER Work Phone: [facility] 12-12-2022 15:46-0400 Heart rate 85 /min GLOBAL TECHNICAL WRITER-C Suresh Benedict GLOBAL TECHNICAL WRITER Work Phone: [facility] 12-12-2022 15:46-0400 Respiratory rate 18 /min GLOBAL TECHNICAL WRITER-C Suresh Benedict GLOBAL TECHNICAL WRITER Work Phone: [facility] 12-12-2022 15:46-0400 SaO2% (BldA) [Mass fraction] 93 % GLOBAL TECHNICAL WRITER-C Suresh Benedict GLOBAL TECHNICAL WRITER Work Phone: 6(176)906-740688 [place] [address] 12-12-2022 15:46-0400 Systolic blood pressure 145 mm[Hg] GLOBAL TECHNICAL WRITER-C Suresh Benedict GLOBAL TECHNICAL WRITER Work Phone: [facility] 12-12-2022 13:54-0400 Body mass index (BMI) [Ratio] 43.9 kg/m2 GLOBAL TECHNICAL WRITER-C Suresh Benedict GLOBAL TECHNICAL WRITER Work Phone: 9(119)831-644688 [place] [address] 12-12-2022 13:54-0400 Body weight 131 kg GLOBAL TECHNICAL WRITER-C Suresh Benedict GLOBAL TECHNICAL WRITER Work Phone: 2(017)793-598288 [place] [address] 12-12-2022 13:15-0400 Body height 172.72 cm GLOBAL TECHNICAL WRITER-C Suresh Benedict GLOBAL TECHNICAL WRITER Work Phone: [facility] 12-12-2022 13:15-0400 Body temperature 97.5 [degF] GLOBAL TECHNICAL WRITER-C Suresh Benedict GLOBAL TECHNICAL WRITER Work Phone: [facility] 12-09-2022 12:16-0400 Body mass index (BMI) [Ratio] 44.4 kg/m2 GLOBAL TECHNICAL WRITER-C Suresh Benedict GLOBAL TECHNICAL WRITER Work Phone: [facility] 12-09-2022 12:16-0400 Body temperature 98.1 [degF] GLOBAL TECHNICAL WRITER-C Suresh Benedict GLOBAL TECHNICAL WRITER Work Phone: [facility] 12-09-2022 12:16-0400 Body weight 132.67 kg GLOBAL TECHNICAL WRITER-C Suresh Benedict GLOBAL TECHNICAL WRITER Work Phone: [facility] 12-09-2022 12:16-0400 Diastolic blood pressure 107 mm[Hg] GLOBAL TECHNICAL WRITER-C Sruesh Benedict GLOBAL TECHNICAL WRITER Work Phone: 5(671)669-617088 [place] [address] 12-09-2022 12:16-0400 Heart rate 97 /min GLOBAL TECHNICAL WRITER-C Suresh Benedict GLOBAL TECHNICAL WRITER Work Phone: 5(855)528-958467 [place] [address] 12-09-2022 12:16-0400 Respiratory rate 18 /min GLOBAL TECHNICAL WRITER-C Suresh Benedict GLOBAL TECHNICAL WRITER Work Phone: 9(810)943-752667 [place] [address] 12-09-2022 12:16-0400 SaO2% (BldA) [Mass fraction] 96 % GLOBAL TECHNICAL WRITER-C Suresh Benedict GLOBAL TECHNICAL WRITER Work Phone: 2(651)011-863467 [place] [address] 12-09-2022 12:16-0400 Systolic blood pressure 165 mm[Hg] GLOBAL TECHNICAL WRITER-C Suresh Benedict GLOBAL TECHNICAL WRITER Work Phone: 2(040)166-330567 [place] [address] 12-02-2022 10:26-0400 Body mass index (BMI) [Ratio] 44.4 kg/m2 GLOBAL TECHNICAL WRITER-C Suresh Benedict GLOBAL TECHNICAL WRITER Work Phone: 1(092)679-634567 [place] [address] 12-02-2022 10:26-0400 Body temperature 97.7 [degF] GLOBAL TECHNICAL WRITER-C Suresh Benedict GLOBAL TECHNICAL WRITER Work Phone: 4(096)050-310767 [place] [address] 12-02-2022 10:26-0400 Body weight 132.47 kg GLOBAL TECHNICAL WRITER-C Suresh Benedict GLOBAL TECHNICAL WRITER Work Phone: 4(357)806-572067 [place] [address] 12-02-2022 10:26-0400 Diastolic blood pressure 100 mm[Hg] GLOBAL TECHNICAL WRITER-C Suresh Benedict GLOBAL TECHNICAL WRITER Work Phone: 3(390)870-467967 [place] [address] 12-02-2022 10:26-0400 Heart rate 86 /min GLOBAL TECHNICAL WRITER-C Suresh Benedict GLOBAL TECHNICAL WRITER Work Phone: 5(537)060-243967 [place] [address] 12-02-2022 10:26-0400 Respiratory rate 16 /min GLOBAL TECHNICAL WRITER-C Suresh Benedict GLOBAL TECHNICAL WRITER Work Phone: 2(007)331-997388 [place] [address] 12-02-2022 10:26-0400 SaO2% (BldA) [Mass fraction] 95 % GLOBAL TECHNICAL WRITER-C Suresh Benedict GLOBAL TECHNICAL WRITER Work Phone: [facility] 12-02-2022 10:26-0400 Systolic blood pressure 156 mm[Hg] GLOBAL TECHNICAL WRITER-C Suresh Benedict GLOBAL TECHNICAL WRITER Work Phone: 5(738)673-587567 [place] [address] 11-25-2022 08:18-0400 Body mass index (BMI) [Ratio] 44.3 kg/m2 GLOBAL TECHNICAL WRITER-C Suresh Benedict GLOBAL TECHNICAL WRITER Work Phone: 0(528)812-912267 [place] [address] 11-25-2022 08:18-0400 Body temperature 98 [degF] GLOBAL TECHNICAL WRITER-C Suresh Benedict GLOBAL TECHNICAL WRITER Work Phone: 3(533)978-801367 [place] [address] 11-25-2022 08:18-0400 Body weight 132.25 kg GLOBAL TECHNICAL WRITER-C Suresh Benedict GLOBAL TECHNICAL WRITER Work Phone: 9(002)666-827767 [place] [address] 11-25-2022 08:18-0400 Diastolic blood pressure 96 mm[Hg] GLOBAL TECHNICAL WRITER-C Suresh Benedict GLOBAL TECHNICAL WRITER Work Phone: 7(956)481-002667 [place] [address] 11-25-2022 08:18-0400 Heart rate 89 /min GLOBAL TECHNICAL WRITER-C Suresh Benedict GLOBAL TECHNICAL WRITER Work Phone: 2(034)190-017767 [place] [address] 11-25-2022 08:18-0400 Respiratory rate 18 /min GLOBAL TECHNICAL WRITER-C Suresh Benedict GLOBAL TECHNICAL WRITER Work Phone: 5(075)428-204767 [place] [address] 11-25-2022 08:18-0400 SaO2% (BldA) [Mass fraction] 95 % GLOBAL TECHNICAL WRITER-C Suresh Benedict GLOBAL TECHNICAL WRITER Work Phone: 0(696)408-798567 [place] [address] 11-25-2022 08:18-0400 Systolic blood pressure 144 mm[Hg] GLOBAL TECHNICAL WRITER-C Suresh Benedict GLOBAL TECHNICAL WRITER Work Phone: 3(875)029-900567 [place] [address] 11-18-2022 13:38-0400 Body mass index (BMI) [Ratio] 44.5 kg/m2 GLOBAL TECHNICAL WRITER-C Suresh Benedict GLOBAL TECHNICAL WRITER Work Phone: 6(390)081-274267 [place] [address] 11-18-2022 13:38-0400 Body temperature 97.5 [degF] GLOBAL TECHNICAL WRITER-C Suresh Benedict GLOBAL TECHNICAL WRITER Work Phone: [facility] 11-18-2022 13:38-0400 Body weight 132.9 kg GLOBAL TECHNICAL WRITER-C Suresh Benedict GLOBAL TECHNICAL WRITER Work Phone: [facility] 11-18-2022 13:38-0400 Diastolic blood pressure 97 mm[Hg] GLOBAL TECHNICAL WRITER-C Suresh Benedict GLOBAL TECHNICAL WRITER Work Phone: [facility] 11-18-2022 13:38-0400 Heart rate 98 /min GLOBAL TECHNICAL WRITER-C Suresh Benedict GLOBAL TECHNICAL WRITER Work Phone: [facility] 11-18-2022 13:38-0400 Respiratory rate 18 /min GLOBAL TECHNICAL WRITER-C Suresh Benedict GLOBAL TECHNICAL WRITER Work Phone: [facility] 11-18-2022 13:38-0400 SaO2% (BldA) [Mass fraction] 98 % GLOBAL TECHNICAL WRITER-C Suresh Benedict GLOBAL TECHNICAL WRITER Work Phone: [facility] 11-18-2022 13:38-0400 Systolic blood pressure 165 mm[Hg] GLOBAL TECHNICAL WRITER-C Suresh Benedict GLOBAL TECHNICAL WRITER Work Phone: [facility] 11-03-2022 13:06-0400 Body mass index (BMI) [Ratio] 44.4 kg/m2 GLOBAL TECHNICAL WRITER-C Suresh Benedict GLOBAL TECHNICAL WRITER Work Phone: [facility] 11-03-2022 13:06-0400 Body temperature 97.7 [degF] GLOBAL TECHNICAL WRITER-C Suresh Benedict GLOBAL TECHNICAL WRITER Work Phone: [facility] 11-03-2022 13:06-0400 Body weight 132.61 kg GLOBAL TECHNICAL WRITER-C Suresh Benedict GLOBAL TECHNICAL WRITER Work Phone: [facility] 11-03-2022 13:06-0400 Diastolic blood pressure 97 mm[Hg] GLOBAL TECHNICAL WRITER-C Suresh Benedict GLOBAL TECHNICAL WRITER Work Phone: [facility] 11-03-2022 13:06-0400 Heart rate 85 /min GLOBAL TECHNICAL WRITER-C Suresh Benedict GLOBAL TECHNICAL WRITER Work Phone: [facility] 11-03-2022 13:06-0400 Respiratory rate 16 /min GLOBAL TECHNICAL WRITER-C Suresh Benedict GLOBAL TECHNICAL WRITER Work Phone: [facility] 11-03-2022 13:06-0400 SaO2% (BldA) [Mass fraction] 97 % GLOBAL TECHNICAL WRITER-C Suresh Benedict GLOBAL TECHNICAL WRITER Work Phone: [facility] 11-03-2022 13:06-0400 Systolic blood pressure 154 mm[Hg] GLOBAL TECHNICAL WRITER-C Suresh Benedict GLOBAL TECHNICAL WRITER Work Phone: 0(084)[phone] [place] [address] 10-14-2022 15:43-0400 Body mass index (BMI) [Ratio] 44.2 kg/m2 GLOBAL TECHNICAL WRITER-C Suresh Benedict GLOBAL TECHNICAL WRITER Work Phone: 6(669)834-401267 [place] [address] 10-14-2022 15:43-0400 Body temperature 98 [degF] GLOBAL TECHNICAL WRITER-C Suresh Benedict GLOBAL TECHNICAL WRITER Work Phone: 5(866)111-274667 [place] [address] 10-14-2022 15:43-0400 Body weight 131.99 kg GLOBAL TECHNICAL WRITER-C Suresh Benedict GLOBAL TECHNICAL WRITER Work Phone: 1(532)823-875688 [place] [address] 10-14-2022 15:43-0400 Diastolic blood pressure 82 mm[Hg] GLOBAL TECHNICAL WRITER-C Suresh Benedict GLOBAL TECHNICAL WRITER Work Phone: 6(926)040-574288 [place] [address] 10-14-2022 15:43-0400 Heart rate 83 /min GLOBAL TECHNICAL WRITER-C Suresh Benedict GLOBAL TECHNICAL WRITER Work Phone: 2(565)284-595667 [place] [address] 10-14-2022 15:43-0400 Respiratory rate 17 /min GLOBAL TECHNICAL WRITER-C Suresh Benedict GLOBAL TECHNICAL WRITER Work Phone: 7(497)524-399588 [place] [address] 10-14-2022 15:43-0400 SaO2% (BldA) [Mass fraction] 96 % GLOBAL TECHNICAL WRITER-C Suresh Benedict GLOBAL TECHNICAL WRITER Work Phone: [facility] 10-14-2022 15:43-0400 Systolic blood pressure 130 mm[Hg] GLOBAL TECHNICAL WRITER-C Suresh Benedict GLOBAL TECHNICAL WRITER Work Phone: [facility] 09-30-2022 14:40-0400 Body temperature 97.9 [degF] GLOBAL TECHNICAL WRITER-C Suresh Cril GLOBAL TECHNICAL WRITER Work Phone: [facility] 09-30-2022 14:40-0400 Diastolic blood pressure 80 mm[Hg] GLOBAL TECHNICAL WRITER-C Suresh Benedict GLOBAL TECHNICAL WRITER Work Phone: 6(927)201-337288 [place] [address] 09-30-2022 14:40-0400 Heart rate 78 /min GLOBAL TECHNICAL WRITER-C Suresh Benedict GLOBAL TECHNICAL WRITER Work Phone: 1(310)718-135688 [place] [address] 09-30-2022 14:40-0400 Respiratory rate 16 /min GLOBAL TECHNICAL WRITER-C Suresh Benedict GLOBAL TECHNICAL WRITER Work Phone: 9(095)205-257488 [place] [address] 09-30-2022 14:40-0400 SaO2% (BldA) [Mass fraction] 94 % GLOBAL TECHNICAL WRITER-C Suresh Benedict GLOBAL TECHNICAL WRITER Work Phone: 0(033)955-288588 [place] [address] 09-30-2022 14:40-0400 Systolic blood pressure 123 mm[Hg] GLOBAL TECHNICAL WRITER-C Suresh Benedict GLOBAL TECHNICAL WRITER Work Phone: 7(819)407-347488 [place] [address] 09-30-2022 14:04-0400 Inhaled oxygen flow rate 2 L/min GLOBAL TECHNICAL WRITER-C Suresh Benedict GLOBAL TECHNICAL WRITER Work Phone: 0(608)978-356488 [place] [address] 09-30-2022 09:11-0400 Body height 172.72 cm GLOBAL TECHNICAL WRITER-C Suresh Benedict GLOBAL TECHNICAL WRITER Work Phone: 4(245)361-012688 [place] [address] 09-30-2022 09:11-0400 Body mass index (BMI) [Ratio] 44.2 kg/m2 GLOBAL TECHNICAL WRITER-C Suresh Benedict GLOBAL TECHNICAL WRITER Work Phone: 2(130)115-274188 [place] [address] 09-30-2022 09:11-0400 Body weight 132 kg GLOBAL TECHNICAL WRITER-C Suresh Benedict GLOBAL TECHNICAL WRITER Work Phone: 1(436)100-719588 [place] [address] 08-24-2022 15:41-0400 Body mass index (BMI) [Ratio] 44.1 kg/m2 GLOBAL TECHNICAL WRITER-C Suresh Benedict GLOBAL TECHNICAL WRITER Work Phone: 7(334)275-174888 [place] [address] 08-24-2022 15:41-0400 Body weight 131.54 kg GLOBAL TECHNICAL WRITER-C Suresh Benedict GLOBAL TECHNICAL WRITER Work Phone: [facility] 08-24-2022 15:41-0400 Respiratory rate 18 /min GLOBAL TECHNICAL WRITER-C Suresh Benedict GLOBAL TECHNICAL WRITER Work Phone: [facility] 07-31-2022 08:11-0400 Body temperature 97.7 [degF] Suresh Benedict [facility].COMPUTER SERVICE TECHNICIAN Work Phone: [facility] 07-31-2022 08:11-0400 Body weight 132.45 kg Suresh Benedict [facility].COMPUTER SERVICE TECHNICIAN Work Phone: [facility] 07-31-2022 08:11-0400 Diastolic blood pressure 82 mm[Hg] Suresh Benedict [facility].COMPUTER SERVICE TECHNICIAN Work Phone: [facility] 07-31-2022 08:11-0400 Heart rate 93 /min Suresh Benedict [facility].COMPUTER SERVICE TECHNICIAN Work Phone: [facility] 07-31-2022 08:11-0400 Respiratory rate 16 /min Suresh Benedict [facility].COMPUTER SERVICE TECHNICIAN Work Phone: [facility] 07-31-2022 08:11-0400 SaO2% (BldA) [Mass fraction] 99 % Suresh Benedict [facility].COMPUTER SERVICE TECHNICIAN Work Phone: [facility] 07-31-2022 08:11-0400 Systolic blood pressure 134 mm[Hg] Suresh Benedict [facility].COMPUTER SERVICE TECHNICIAN Work Phone: [facility] 06-29-2022 11:56-0400 Diastolic blood pressure 94 mm[Hg] Suresh Benedcit [facility].COMPUTER SERVICE TECHNICIAN Work Phone: [facility] 06-29-2022 11:56-0400 Systolic blood pressure 152 mm[Hg] Suresh Benedict [facility].COMPUTER SERVICE TECHNICIAN Work Phone: [facility] 06-29-2022 11:30-0400 Body height 167.6 cm Suresh Benedict [facility].COMPUTER SERVICE TECHNICIAN Work Phone: [facility] 06-29-2022 11:30-0400 Body temperature 97 [degF] Suresh Mcmullen [facility].COMPUTER SERVICE TECHNICIAN Work Phone: [facility] 06-29-2022 11:30-0400 Body weight 131.09 kg Suresh Mcmullen [facility].COMPUTER SERVICE TECHNICIAN Work Phone: [facility] 06-29-2022 11:30-0400 Heart rate 79 /min Suresh Mcmullen [facility].COMPUTER SERVICE TECHNICIAN Work Phone: [facility] 06-29-2022 11:30-0400 Respiratory rate 16 /min Suresh Mcmullen [facility].COMPUTER SERVICE TECHNICIAN Work Phone: [facility] 06-29-2022 11:30-0400 SaO2% (BldA) [Mass fraction] 97 % Suresh Mcmullen [facility].COMPUTER SERVICE TECHNICIAN Work Phone: [facility] Encounters Encounter Date Encounter Type Care Provider [...] Alisson Resendiz APRN.CNP Work Phone: [facility] Start: 07-07-2024 End: 07-07-2024 ambulatory [facility] Facility:[facility] Start: 07-07-2024 Encounter for genera l adult medical examination without abnormal findings ALISSON RESENDIZ [facility] Start: 03-21-2024 End: 03-21-2024 Refill Alisson Resendiz APRN.CNP Work Phone: [facility] Comment on above: Refill Request Start: 03-13-2024 End: 03-13-2024 ambulatory [place]h Mc[place] [place]: 02-10-2024 End: 02-11-2024 Telephone encounter Alisson Martín GONZALESCOMPUTER SERVICE TECHNICIAN Work Phone: [facility] Comment on above: Results (Labs ) Start: 02-09-2024 End: 02-09-2024 Patient encounter procedure Alisson Resendiz [facility].COMPUTER SERVICE TECHNICIAN Work Phone: [facility] Comment on above: Essential hypertensi on (Primary Dx); Lower leg edema; Leg cramp; History of Graves' disease Start: 02-09-2024 End: 02-09-2024 ambulatory MARTHA AYALA Facility:[facility] Start: 01-27-2024 End: 01-27-2024 Refill Martha Ayala MD Work Phone: [facility] Comment on above: Refill Request Start: 01-24-2024 End: 01-24-2024 ambulatory Suresh Mcmullen [place] [place]: 12-30-2023 End: 12-30-2023 ambulatory [facility] Facility:[facility] Start: 12-30-2023 End: 12-30-2023 Patient encounter procedure Alisson Martín [facility].COMPUTER SERVICE TECHNICIAN Work Phone: [facility] Comment on above: Essential hypertensi on (Primary Dx); Lower leg edema; History of Graves' disease; JOEY (obstructive sleep apnea); Dyslipidemia, goal LDL below 100; Screening for diabetes mellitus; History of breast cancer Start: 11-17-2023 End: 11-17-2023 ambulatory Suresh Benedict [place] [place]: 11-01-2023 End: 11-01-2023 ambulatory Suresh [...] (HCC) Start: 08-06-2023 End: 08-06-2023 ambulatory ZAIRE SIMMONS JR Facility:[facility] Start: 07-26-2023 ambulatory Alisson Resendiz APRN.COMPUTER SERVICE TECHNICIAN Work Phone: [facility] Comment on above: Last doctor visit Start: 07-26-2023 Telephone encounter Jenifer Steel kaykay [facility].COMPUTER SERVICE TECHNICIAN Work Phone: Neurology Start: 07-23-2023 End: 02-08-2024 Telephone encounter Hernandez Rascon MD Work Phone: General Surgery Comment on above: 12/13/2023 COLON MEDIN A Start: 07-23-2023 End: 07-23-2023 ambulatory HERNANDEZ RASCON Facility:[facility] Start: 07-23-2023 End: 07-23-2023 Patient encounter procedure Hernandez Rascon MD Work Phone: General Surgery Comment on above: Screening for colon cancer Start: 07-14-2023 End: 07-14-2023 Patient encounter procedure GLOBAL TECHNICAL WRITER-Klarissa Mcmullen GLOBAL TECHNICAL WRITER Work Phone: [facility] Work Phone: Start: 07-12-2023 End: 07-12-2023 ambulatory GLOBAL TECHNICAL WRITER-Klarissa Mcmullen GLOBAL TECHNICAL WRITER Work Phone: [facility] Work Phone: Start: 07-12-2023 End: 07-12-2023 Patient encounter procedure GLOBAL TECHNICAL WRITER-Klarissa Mcmullen GLOBAL TECHNICAL WRITER Work Phone: [facility]Outpatient Breast Imaging Work Phone: Start: 06-29-2023 End: 06-29-2023 Patient encounter procedure Alisson Resendiz APRN.COMPUTER SERVICE TECHNICIAN Work Phone: [facility] Comment on above: Essential hypertensi on (Primary Dx); Allergic reaction, initial encounter; Other fatigue; Vitamin D deficiency; Vitamin B12 deficiency; JOEY (obstructive sleep apnea); Screening for colon cancer; Screening cholesterol level; Screening for diabetes mellitus Start: 06-10-2023 End: 06-10-2023 Patient encounter procedure GLOBAL TECHNICAL WRITERRosa Mcmullen GLOBAL TECHNICAL WRITER Work Phone: [facility] Work Phone: Start: 05-17-2023 End: 05-17-2023 Patient encounter procedure GLOBAL TECHNICAL WRITER-Klarissa Mcmullen GLOBAL TECHNICAL WRITER Work Phone: [facility] Work Phone: Start: 04-29-2023 Registered Recurring GLOBAL TECHNICAL WRITER-Klarissa Mcmullen GLOBAL TECHNICAL WRITER Work Phone: [facility] Start: 04-14-2023 End: 04-14-2023 Patient encounter procedure GLOBAL TECHNICAL WRITER-Klarissa Mcmullen GLOBAL TECHNICAL WRITER Work Phone: [facility] Work Phone: Start: 02-22-2023 ambulatory Jenifer Gipson APRN.COMPUTER SERVICE TECHNICIAN Work Phone: Neurology Comment on above: CPAP supplies Start: 02-05-2023 End: 02-05-2023 Patient encounter procedure Jenifer Gipson APRN.COMPUTER SERVICE TECHNICIAN Work Phone: Neurology Comment on above: JOEY on CPAP (Primary Dx); Essential hypertension; Morbid obesity (HCC) Start: 01-04-2023 ambulatory Suresh VANG RN.COMPUTER SERVICE TECHNICIAN Work Phone: [facility] [place] Start: 01-04-2023 Patient encounter procedure Suresh Mcmullen APRN.COMPUTER SERVICE TECHNICIAN Work Phone: [facility] Comment on above: Referral to Pulmonar y doctor Start: 12-28-2022 End: 12-28-2022 Office outpatient visit 25 minutes Suresh Mcmullen APRN.COMPUTER SERVICE TECHNICIAN Work Phone: [facility] Comment on above: Essential hypertensi on (Primary Dx); Allergic reaction, initial encounter; Cellulitis, unspecified cellulitis site; Screening for lipid disorders Start: 12-23-2022 End: 12-23-2022 Patient encounter procedure Alisson Resendiz APRN.COMPUTER SERVICE TECHNICIAN Work Phone: [facility] Comment on above: Allergic reaction, i nitial encounter (Primary Dx); Cellulitis, unspecified cellulitis site Start: 12-15-2022 End: 12-15-2022 Patient encounter procedure GLOBAL TECHNICAL WRITER-C Suresh Mcmullen GLOBAL TECHNICAL WRITER Work Phone: [facility] Work Phone: Start: 12-15-2022 Registered Recurring GLOBAL TECHNICAL WRITER-C Brook fatemeh Cril GLOBAL TECHNICAL WRITER Work Phone: [facility] Start: 12-13-2022 End: 12-13-2022 ambulatory GLOBAL TECHNICAL WRITER-C Suresh Benedict GLOBAL TECHNICAL WRITER Work Phone: [facility] Work Phone: Start: 12-13-2022 End: 12-13-2022 Patient encounter procedure GLOBAL TECHNICAL WRITER-C Suresh Cril GLOBAL TECHNICAL WRITER Work Phone: [facility], [facility] Work Phone: Start: 12-12-2022 End: 12-12-2022 Emergency department patient visit GLOBAL TECHNICAL WRITER-C Suresh Mcmullen GLOBAL TECHNICAL WRITER Work Phone: [facility]Emergency Department Work Phone: Start: 12-11-2022 Registered Recurring GLOBAL TECHNICAL WRITER-C Brook fatemeh Cril GLOBAL TECHNICAL WRITER Work Phone: [facility] Start: 12-09-2022 End: 12-09-2022 Patient encounter procedure GLOBAL TECHNICAL WRITER-C Suresh Benedict GLOBAL TECHNICAL WRITER Work Phone: [facility] Work Phone: Start: 12-02-2022 End: 12-02-2022 Patient encounter procedure GLOBAL TECHNICAL WRITER-C Suresh Benedict GLOBAL TECHNICAL WRITER Work Phone: [facility] Work Phone: Start: 11-25-2022 End: 11-25-2022 Patient encounter procedure GLOBAL TECHNICAL WRITER-C Suresh Benedict GLOBAL TECHNICAL WRITER Work Phone: [facility] Work Phone: Start: 11-23-2022 Non-patient / Non-visit GLOBAL TECHNICAL WRITER-C J esse Benedict GLOBAL TECHNICAL WRITER Work Phone: [facility] Start: 11-19-2022 Non-patient / Non-visit GLOBAL TECHNICAL WRITER-C J esse Benedict GLOBAL TECHNICAL WRITER Work Phone: [facility] Start: 11-18-2022 Non-patient / Non-visit GLOBAL TECHNICAL WRITER-C J esse Benedict GLOBAL TECHNICAL WRITER Work Phone: [facility] Start: 11-18-2022 End: 11-18-2022 Patient encounter procedure GLOBAL TECHNICAL WRITER-C Suresh Benedict GLOBAL TECHNICAL WRITER Work Phone: [facility] Work Phone: Start: 11-13-2022 End: 11-13-2022 Patient encounter procedure GLOBAL TECHNICAL WRITER-C Suresh Benedict GLOBAL TECHNICAL WRITER Work Phone: [facility] Work Phone: Start: 11-10-2022 Non-patient / Non-visit GLOBAL TECHNICAL WRITER-C J esse Benedict GLOBAL TECHNICAL WRITER Work Phone: [facility] Start: 11-03-2022 End: 11-03-2022 Patient encounter procedure GLOBAL TECHNICAL WRITER-C Suresh Benedict GLOBAL TECHNICAL WRITER Work Phone: [facility] Work Phone: Start: 10-30-2022 End: 10-30-2022 Patient encounter procedure GLOBAL TECHNICAL WRITER-C Suresh Benedict GLOBAL TECHNICAL WRITER Work Phone: [facility] Work Phone: Start: 10-23-2022 End: 10-23-2022 Patient encounter procedure GLOBAL TECHNICAL WRITER-C Suresh Benedict GLOBAL TECHNICAL WRITER Work Phone: [facility] Work Phone: Start: 10-22-2022 End: 10-22-2022 Patient encounter procedure GLOBAL TECHNICAL WRITER-C Suresh Benedict GLOBAL TECHNICAL WRITER Work Phone: [facility]Outpatient Bone Densitometry Work Phone: Start: 10-16-2022 End: 10-16-2022 Patient encounter procedure GLOBAL TECHNICAL WRITER-Klarissa Mcmullen GLOBAL TECHNICAL WRITER Work Phone: [facility] Work Phone: Start: 10-14-2022 End: 10-14-2022 Patient encounter procedure GLOBAL TECHNICAL WRITER-Klarissa Mcmullen GLOBAL TECHNICAL WRITER Work Phone: [facility] Work Phone: Start: 09-30-2022 Non-patient / Non-visit GLOBAL TECHNICAL WRITER-Klarissa Mcmullen GLOBAL TECHNICAL WRITER Work Phone: [facility] Start: 09-30-2022 End: 09-30-2022 Admission to same day surgery center GLOBAL TECHNICAL WRITER-C Suresh Mcmullen GLOBAL TECHNICAL WRITER Work Phone: [facility] Start: 09-30-2022 End: 09-30-2022 ambulatory GLOBAL TECHNICAL WRITER-C Suresh Mcmullen GLOBAL TECHNICAL WRITER Work Phone: [facility] Work Phone: Start: 09-17-2022 End: 09-17-2022 Patient encounter procedure GLOBAL TECHNICAL WRITER-C Suresh Mcmullen GLOBAL TECHNICAL WRITER Work Phone: [facility] Work Phone: Start: 09-09-2022 End: 09-09-2022 Patient encounter procedure GLOBAL TECHNICAL WRITER-Klarissa Mcmullen GLOBAL TECHNICAL WRITER Work Phone: [facility] Work Phone: Start: 08-24-2022 End: 08-24-2022 Patient encounter procedure GLOBAL TECHNICAL WRITER-Klarissa Mcmullen GLOBAL TECHNICAL WRITER Work Phone: [facility]-Laboratory, Specimen Work Phone: Start: 08-24-2022 End: 08-24-2022 Patient encounter procedure GLOBAL TECHNICAL WRITER-C Suresh Mcmullen GLOBAL TECHNICAL WRITER Work Phone: [facility] Work Phone: Start: 08-12-2022 End: 08-12-2022 Subsequent hospital visit by physician Diagnostic Mammo [facility] Comment on above: Abnormal mammogram [ R92.8] Start: 07-31-2022 ambulatory Suresh VANG RN.COMPUTER SERVICE TECHNICIAN Work Phone: [facility] [place] Comment on above: Colonscopy Start: 07-31-2022 End: 07-31-2022 Office outpatient visit 15 minutes Suresh Mcmullen APRN.COMPUTER SERVICE TECHNICIAN Work Phone: [facility] [place] Comment on above: Essential hypertensi on (Primary Dx) Start: 07-10-2022 Telephone encounter Janie Stanton MD Work Phone: Mammography Comment on above: Mammogram Result Talib l Back Start: 07-09-2022 Documentation procedure Mammog aida Coordinator [facility] Start: 07-09-2022 Letter encounter Mammography Coordinator [facility] Department Start: 07-09-2022 Telephone encounter Martha will MD Work Phone: [facility] [place] Comment on above: Results; Appointment Start: 07-08-2022 End: 07-08-2022 Subsequent hospital visit by physician Screen Mammo [facility] M[facility] Comment on above: Encounter for screen ing mammogram for breast cancer [Z12.31] Start: 06-29-2022 End: 06-29-2022 Patient encounter status Suresh Mcmullen APRN.COMPUTER SERVICE TECHNICIAN Work Phone: [facility] [place] Start: 06-29-2022 End: 06-29-2022 Periodic preventive med est patient 40-64yrs Suresh Mcmullen APRN.COMPUTER SERVICE TECHNICIAN Work Phone: [facility] [place] Comment on above: Wellness examination (Primary Dx); Essential hypertension; JOEY (obstructive sleep apnea); Morbid obesity (HCC); Vitamin B12 deficiency; Vitamin D deficiency; Special screening for malignant neoplasms, colon Start: 06-25-2022 Refill Suresh VANG RN.COMPUTER SERVICE TECHNICIAN Work Phone: [facility] [place] Comment on above: Refill Request Start: 06-24-2022 ambulatory Martha velasquez MD Work Phone: [facility] [place] Procedures Date Procedure Procedure Detail Performing Clinician Start: 07-12-2023 Screening mammography GLOBAL TECHNICAL WRITER-C Suresh Mcmullen N P Work Phone: Start: 06-29-2023 Lipid 1996 panel - Serum or Plasma Hernandez Rascon MD Work Phone: Start: 10-22-2022 Dual energy X-ray absorptiometry GLOBAL TECHNICAL WRITER-C Suresh Mcmullen GLOBAL TECHNICAL WRITER Work Phone: Start: 09-30-2022 Specimen mammography GLOBAL TECHNICAL WRITER-C Suresh Mcmullen GLOBAL TECHNICAL WRITER Work Phone: Start: 09-30-2022 Breast, Lumpectomy,SN w/ Neoprobe (Left) GLOBAL TECHNICAL WRITER-C Suresh Mcmullen GLOBAL TECHNICAL WRITER Work Phone: Start: 09-30-2022 Radionuclide sentinel lymph node study GLOBAL TECHNICAL WRITER-C Suresh Mcmullen GLOBAL TECHNICAL WRITER Work Phone: Start: 09-09-2022 MRI of bilateral breasts with contrast GLOBAL TECHNICAL WRITER-Klarissa Mcmullen GLOBAL TECHNICAL WRITER Work Phone: Start: 08-12-2022 Us breast uni real time with image limited Martha Ayala MD Work Phone: Start: 08-12-2022 Digital breast tomosynthesis unilateral Martha Ayala MD Work Phone: Start: 07-08-2022 End: 07-08-2022 Mammography Bulk Order Provider Start: 05-12-2021 Mammography Suresh Benedict [facility]ACIST [facility]PITAL.COMPUTER SERVICE TECHNICIAN Work Phone: Start: 12-16-2017 Lipid 1996 panel - Serum or Plasma Alisson Resendiz PHARMACIST HOSPITAL.COMPUTER SERVICE TECHNICIAN Work Phone: Start: 01-26-2012 Colonoscopy Suresh Mcmullen [facility]ARMACIST HOSPITAL.COMPUTER SERVICE TECHNICIAN Work Phone: H/O: section S/P sectio n GLOBAL TECHNICAL WRITER-Klarissa Mcmullen GLOBAL TECHNICAL WRITER Work Phone: Plan of Treatment Date Care Activity Detail Author Start: 06-28-2028 Lipid panel Lipid Screening [facility] Start: 06-01-2028 Urine microalbumin profile [facility] Start: 02-08-2027 Diabetes Screening Diabetes Screenin g [facility] Start: 06-28-2026 Diabetes Screening Diabetes Screenin g [facility] Start: 07-07-2025 Annual PCP Team Dude Wrangler mathieu Disease Visit Annual PCP Team Chronic Disease Visit [facility] Start: 07-07-2025 Pneumococcal Vaccine : 50+ (1 of 1 - PCV) Pneumococcal Vaccine: 50+ (1 of 1 - PCV) [facility] Comment on above: Postponed from 07/22 (Declined at this time) Start: 07-07-2025 Shingrix Vaccine (1 of 2) Campos grix Vaccine (1 of 2) [facility] Comment on above: Postponed from 07/22 (Declined at this time) Start: 06-29-2025 DIABETES SCREEN DIABETES SCREEN [facility] Start: 06-29-2025 Diabetes Screening Diabetes Screenin g [facility] Start: 02-08-2025 Annual PCP Team Dude Wrangler mathieu Disease Visit Annual PCP Team Chronic Disease Visit [facility] Start: 12-29-2024 Annual PCP Team Dude Wrangler mathieu Disease Visit Annual PCP Team Chronic Disease Visit [facility] Start: 12-29-2024 Covid-19 Vaccine ( season) Covid-19 Vaccine ( season) [facility] Comment on above: Postponed from 12/04 (Declined at this time) Start: 10-02-2024 Influenza vaccination Influenza Vacc ine (#1) [facility] Comment on above: Postponed from 12/04 (Declined at this time) Start: 08-07-2024 End: 08-07-2024 Patient encounter procedure Neurology Comment on above: 1 year JOYE Start: 08-05-2024 BP Controlled (<130/80) BP Controlle d (<130/80) [facility] Start: 07-07-2024 End: 10-06-2024 Comprehensive metabolic 2000 panel - Serum or Plasma COMPREHENSIVE METABOLIC PANEL Lab Routine Dyslipidemia, goal LDL below 100 Expected: 07/07/2024, Expires: 10/06/2024 [facility] Comment on above: Expected: 07/07/2024 , Expires: 10/06/2024 Start: 07-07-2024 End: 10-06-2024 Lipid 1996 panel - Serum or Plasma LIPID PANEL, FASTING Lab Routine Dyslipidemia, goal LDL below 100 Expected: 07/07/2024, Expires: 10/06/2024 [facility] Comment on above: Expected: 07/07/2024 , Expires: 10/06/2024 Start: 07-07-2024 End: 10-06-2024 Thyrotropin [Units/volume] in Serum or Plasma THYROID STIMULATING HORMONE Lab Routine History of Graves' disease Expected: 07/07/2024, Expires: 10/06/2024 [facility] Comment on above: Expected: 07/07/2024 , Expires: 10/06/2024 Start: 07-07-2024 End: 10-06-2024 Thyroxine (T4) free [Mass/volume] in Serum or Plasma T4 FREE/FREE THYROXINE Lab Routine History of Graves' disease Expected: 07/07/2024, Expires: 10/06/2024 [facility] Comment on above: Expected: 07/07/2024 , Expires: 10/06/2024 Start: 07-05-2024 End: 07-05-2024 Patient encounter procedure 07/05/2024 7:00 AM EDT Office Visit Family [facility] Pelayo [address] [place] [address] Alisson Resendiz APRN.COMPUTER SERVICE TECHNICIAN [address] [place] [address] 6 month follow up Family [facility] Comment on above: 6 month follow up Start: 07-04-2024 Screening for malign ant neoplasm of breast Mammogram Screening [facility] Start: 06-28-2024 Annual PCP Team Dude Wrangler mathieu Disease Visit Annual PCP Team Chronic Disease Visit [facility] Start: 06-28-2024 End: 09-27-2024 Comprehensive metabolic 2000 panel - Serum or Plasma COMPREHENSIVE METABOLIC PANEL Lab Routine Dyslipidemia, goal LDL below 100 Expected: 06/28/2024, Expires: 09/27/2024 [facility] Work Phone: Comment on above: Expected: 06/28/2024 , Expires: 09/27/2024 Start: 06-28-2024 Covid-19 Vaccine () Covid-19 Vaccine () [facility] Comment on above: Postponed from 12/04 (Declined at this time) Start: 06-28-2024 End: 09-27-2024 Hemoglobin A1c in Blood HEMOGLOBIN A1C Lab Routine Screening for diabetes mellitus Expected: 06/28/2024, Expires: 09/27/2024 [facility] Comment on above: Expected: 06/28/2024 , Expires: 09/27/2024 Start: 06-28-2024 End: 09-27-2024 Lipid 1996 panel - Serum or Plasma LIPID PANEL BASIC Lab Routine Dyslipidemia, goal LDL below 100 Expected: 06/28/2024, Expires: 09/27/2024 [facility] Comment on above: Expected: 06/28/2024 , Expires: 09/27/2024 Start: 06-28-2024 Shingrix Vaccine (1 of 2) Campos grix Vaccine (1 of 2) [facility] Comment on above: Postponed from 07/22 (Declined at this time) Start: 06-28-2024 End: 09-27-2024 Thyrotropin [Units/volume] in Serum or Plasma THYROID STIMULATING HORMONE Lab Routine History of Graves' disease Expected: 06/28/2024, Expires: 09/27/2024 [facility] Comment on above: Expected: 06/28/2024 , Expires: 09/27/2024 Start: 06-28-2024 End: 09-27-2024 Thyroxine (T4) free [Mass/volume] in Serum or Plasma T4 FREE/FREE THYROXINE Lab Routine History of Graves' disease Expected: 06/28/2024, Expires: 09/27/2024 [facility] Comment on above: Expected: 06/28/2024 , Expires: 09/27/2024 Start: 06-28-2024 End: 09-27-2024 Triiodothyronine (T3) Free [Mass/volume] in Serum or Plasma T3, FREE Lab Routine History of Graves' disease Expected: 06/28/2024, Expires: 09/27/2024 [facility] Comment on above: Expected: 06/28/2024 , Expires: 09/27/2024 Start: 02-09-2024 End: 05-10-2024 Comprehensive metabolic 2000 panel - Serum or Plasma [facility] Work Phone: Comment on above: Expected: 02/09/2024 , Expires: 05/10/2024 Start: 02-09-2024 End: 05-10-2024 Magnesium [Mass/volume] in Serum or Plasma [facility] Comment on above: Expected: 02/09/2024 , Expires: 05/10/2024 Start: 02-09-2024 End: 05-10-2024 Thyrotropin [Units/volume] in Serum or Plasma [facility] Comment on above: Expected: 02/09/2024 , Expires: 05/10/2024 Start: 02-09-2024 End: 05-10-2024 Thyroxine (T4) free [Mass/volume] in Serum or Plasma [facility] Comment on above: Expected: 02/09/2024 , Expires: 05/10/2024 Start: 02-09-2024 End: 02-09-2024 Patient encounter procedure 02/09/2024 7:40 AM EST Office Visit [facility] [place] [address] [place] [address] Alisson Resendiz, SANTO.COMPUTER SERVICE TECHNICIAN [address] [facility] [address] 1 month BP check Family Rhina Pelayo Comment on above: 1 month BP check Start: 12-30-2023 End: 12-30-2023 Patient encounter procedure 12/30/2023 7:00 AM EDT Office Visit [facility] [place] [address] [place] [address] Alisson Resendiz, PHARMACIST HOSPITAL.COMPUTER SERVICE TECHNICIAN [address] [place] [address] 6 month follow up Family Rhina Pelayo Comment on above: 6 month follow up Start: 12-29-2023 Annual PCP Team Dude Wrangler mathieu Disease Visit Annual PCP Team Chronic Disease Visit [facility] Start: 12-29-2023 BP Controlled (<130/80) BP Controlle d (<130/80) [facility] Start: 12-24-2023 Annual PCP Team Dude Wrangler mathieu Disease Visit Annual PCP Team Chronic Disease Visit [facility] Start: 12-13-2023 End: 12-13-2023 Patient encounter procedure 12/13/2023 1:[address] [facility] [address] [place] [address] Hernandez Rascon MD [address] [facility] Comment on above: colon Start: 12-05-2023 Influenza vaccination Influenz a Vaccine (Season Ended) [facility] Start: 10-03-2023 Influenza vaccination Influenza Vacc ine (#1) [facility] Comment on above: Postponed from 12/04 (Declined at this time) Start: 08-06-2023 End: 08-06-2023 Patient encounter procedure Neurology Comment on above: 6 Month F/U-JOEY 6 Month F/U-JOEY faxe karthik Peralta Start: 08-01-2023 ANNUAL PCP TEAM PRIVATE EQUITY ANALYST MATHIEU DISEASE VISIT ANNUAL PCP TEAM CHRONIC DISEASE VISIT [facility] Start: 07-09-2023 Mammography [facility] Start: 07-09-2023 Screening for malign ant neoplasm of breast Mammogram Screening [facility] Start: 06-30-2023 ANNUAL PCP TEAM PRIVATE EQUITY ANALYST MATHIEU DISEASE VISIT ANNUAL PCP TEAM CHRONIC DISEASE VISIT [facility] Start: 06-30-2023 COVID-19 VACCINE (#1) COVID-19 VACCI NE (#1) [facility] Comment on above: Postponed from 01/21 (Declined at this time) Start: 06-29-2023 End: 09-28-2023 25-hydroxyvitamin D3 [Mass/volume] in Serum or Plasma [facility] Work Phone: Comment on above: Expected: 06/29/2023 , Expires: 09/28/2023 Start: 06-29-2023 End: 09-28-2023 Cobalamin (Vitamin B12) [Mass/volume] in Serum or Plasma [facility] Work Phone: Comment on above: Expected: 06/29/2023 , Expires: 09/28/2023 Start: 06-29-2023 End: 09-28-2023 Comprehensive metabolic 2000 panel - Serum or Plasma [facility] Work Phone: Comment on above: Expected: 06/29/2023 , Expires: 09/28/2023 Start: 06-29-2023 DIABETES SCREEN DIABETES SCREEN [facility] Start: 06-29-2023 End: 09-28-2023 Folate [Mass/volume] in Serum or Plasma [facility] Work Phone: Comment on above: Expected: 06/29/2023 , Expires: 09/28/2023 Start: 06-29-2023 End: 09-28-2023 Hemoglobin A1c in Blood [facility] Work Phone: Comment on above: Expected: 06/29/2023 , Expires: 09/28/2023 Start: 06-29-2023 End: 09-28-2023 Lipid 1996 panel - Serum or Plasma [facility] Work Phone: Comment on above: Expected: 06/29/2023 , Expires: 09/28/2023 Start: 06-29-2023 End: 09-28-2023 Thyrotropin [Units/volume] in Serum or Plasma [facility] Work Phone: Comment on above: Expected: 06/29/2023 , Expires: 09/28/2023 Start: 06-29-2023 End: 09-28-2023 Thyroxine (T4) free [Mass/volume] in Serum or Plasma [facility] Work Phone: Comment on above: Expected: 06/29/2023 , Expires: 09/28/2023 Start: 06-28-2023 End: 08-28-2023 Comprehensive metabolic 2000 panel - Serum or Plasma COMP METABOLIC PANEL Lab Routine Essential hypertension Expected: 06/28/2023 (Approximate), Expires: 08/28/2023 [facility] Work Phone: Comment on above: Expected: 06/28/2023 (Approximate), Expires: 08/28/2023 Start: 06-28-2023 End: 08-28-2023 Lipid 1996 panel - Serum or Plasma LIPID PANEL BASIC Lab Routine Screening for lipid disorders Expected: 06/28/2023 (Approximate), Expires: 08/28/2023 [facility] Work Phone: Comment on above: Expected: 06/28/2023 (Approximate), Expires: 08/28/2023 Start: 01-30-2023 End: 04-01-2023 Basic metabolic 2000 panel - Serum or Plasma BASIC METABOLIC PNL Lab Routine Essential hypertension Expected: 01/30/2023 (Approximate), Expires: 04/01/2023 [facility] Work Phone: Comment on above: Expected: 01/30/2023 (Approximate), Expires: 04/01/2023 Start: 12-16-2022 Lipid 1996 panel - S tsesa or Plasma Lipid Screening [facility] Start: 12-16-2022 Lipid panel Lipid Screening [facility] Start: 12-16-2022 LIPID SCREEN LIPID SCREEN [facility] Start: 12-12-2022 US.doppler Lower ext remity vein [facility] Start: 12-12-2022 End: 12-12-2022 Blood culture [facility] Start: 12-12-2022 Bacteria identified in Blood by Culture Blood Culture [facility] Start: 12-04-2022 Influenza vaccination [facility] Start: 10-02-2022 Influenza vaccination INFLUENZA (#1) [facility] Comment on above: Postponed from 12/04 (Declined at this time) Start: 09-30-2022 Anes integ extremiti es ant trunk & perineum nos ANESTH SKIN EXT/PER/ATRUNK [facility] Start: 09-30-2022 Inj radioactive trac er for id of sentinel node RA TRACER ID OF SENTINL NODE [facility] Start: 09-30-2022 Mastectomy partial PARTIAL MASTECTOM Y [facility] Start: 09-30-2022 Perq breast loc minoo ce placemt 1st lesio us imag PERQ DEV BREAST 1ST US IMAG [facility] Start: 09-30-2022 Patient discharge [facility] Start: 09-30-2022 Specimen mammography Breast Biopsy S [facility] Start: 06-29-2022 End: 08-29-2022 25-hydroxyvitamin D3 [Mass/volume] in Serum or Plasma [facility] Work Phone: Comment on above: Expected: 06/29/2022 , Expires: 08/29/2022 Start: 06-29-2022 End: 08-29-2022 Basic metabolic 2000 panel - Serum or Plasma [facility] Work Phone: Comment on above: Expected: 06/29/2022 , Expires: 08/29/2022 Start: 06-29-2022 End: 08-29-2022 Cobalamin (Vitamin B12) [Mass/volume] in Serum or Plasma [facility] Work Phone: Comment on above: Expected: 06/29/2022 , Expires: 08/29/2022 Start: 05-12-2022 Mammography MAMMOGRAM [facility] Start: 04-05-2022 DEPRESSION ASSESSMENT DEPRESSION ASS ESSMENT [facility] Start: 01-25-2022 Colonoscopy COLONOSCOPY [facility] Start: 01-25-2022 COLORECTAL CANCER SCREENING COLORECTAL CANCER SCREENING [facility] Start: 01-25-2022 Screening for malign ant neoplasm of colon [facility] Start: 12-04-2021 Influenza vaccination INFLUENZA (#1) [facility] Start: 11-08-2021 ANNUAL PCP TEAM PRIVATE EQUITY ANALYST MATHIEU DISEASE VISIT ANNUAL PCP TEAM CHRONIC DISEASE VISIT [facility] Start: 07-05-2021 BP CONTROLLED (<130/80) BP CONTROLLE D (<130/80) [facility] Start: 2014 Pneumococcal Vaccine : 50+ (1 of 1 - PCV) Pneumococcal Vaccine: 50+ (1 of 1 - PCV) [facility] Start: 2014 SHINGRIX VACCINE (1 of 2) CAMPOS GRIX VACCINE (1 of 2) [facility] Start: 2009 COLOGUARD (FIT-DNA) COLOGUARD (FIT-D NA) [facility] Start: [address] COLONOGRAPHY [facility] Start: 2009 FECAL OCCULT BLOOD FECAL OCCULT BLOO D [facility] Start: 2009 Screening for malign ant neoplasm of colon [facility] Start: 2009 SIGMOIDOSCOPY SIGMOIDOSCOPY [facility] Start: 1982 HIV SCREENING HIV SCREENING [facility] Start: 01-21-1966 COVID-19 VACCINE (#1) COVID-19 VACCI NE (#1) [facility] CBC W Auto Different ial panel - Blood [facility] End: 08-06-2025 DBT Breast - bilateral screening VALENTINE SCREENING W JUAN Radiology Routine Encounter for screening mammogram for breast cancer 1 Occurrences starting 07/07/2024 until 08/06/2025 [facility] Work Phone: Comment on above: 1 Occurrences starti ng 07/07/2024 until 08/06/2025 End: 08-08-2023 VALENTINE DIAGNOSTIC LEFT VALENTINE DIAGNOSTIC LEFT Radiology Routine Abnormal mammogram 1 Occurrences starting 07/09/2022 until 08/08/2023 [facility] Work Phone: Comment on above: 1 Occurrences starti ng 07/09/2022 until 08/08/2023 End: 07-24-2023 VALENTINE SCREENING VALENTINE SCREENING Radiology Routine Encounter for screening mammogram for breast cancer 1 Occurrences starting 06/24/2022 until 07/24/2023 [facility] Work Phone: Comment on above: 1 Occurrences starti ng 06/24/2022 until 07/24/2023 Patient Education ED Cellulitis [facility] Work Phone: Patient referral [facility] Work Phone: End: 06-30-2023 Screening colonoscopy COLONOSCOPY SCREENING Endoscopy Routine Special screening for malignant neoplasms, colon 1 Occurrences starting 06/29/2022 until 06/30/2023 [facility] Work Phone: Comment on above: 1 Occurrences starti ng 06/29/2022 until 06/30/2023 End: 2024 Screening colonoscopy COLONOSCOPY SCREENING Endoscopy Routine Screening for colon cancer 1 Occurrences starting 07/23/2023 until 2024 [facility] Work Phone: Comment on above: 1 Occurrences starti ng 07/23/2023 until 2024 End: 08-08-2023 US BREAST LTD LEFT US BREAST LTD LEFT Radiology Routine Abnormal mammogram 1 Occurrences starting 07/09/2022 until 08/08/2023 [facility] Work Phone: Comment on above: 1 Occurrences starti ng 07/09/2022 until 08/08/2023 [facility] Immunizations Immunization Date Immunization Notes Care Provider Murali landrum 12-29-2019 influenza, injectabl e, quadrivalent, contains preservative Suresh Benedict PHARMACIST [facility].COMPUTER SERVICE TECHNICIAN Work Phone: [facility] Work Phone: 12-29-2019 influenza virus vaccine, unspecified formulation Alisson Resendiz PHARMACIST [facility]OSPITAL.COMPUTER SERVICE TECHNICIAN Work Phone: [facility] 06-01-2018 tetanus toxoid, redu trey diphtheria toxoid, and acellular pertussis vaccine, adsorbed Suresh Benedict PHARMACIST [facility]PITAL.COMPUTER SERVICE TECHNICIAN Work Phone: [facility] 12-16-2017 influenza, injectabl e, quadrivalent, contains preservative Suresh Benedict PHARMACIST [facility]ITAL.COMPUTER SERVICE TECHNICIAN Work Phone: [facility] 01-04-2016 influenza, seasonal, injectable, preservative free Suresh Benedict PHARMACIST [facility]OSPITAL.COMPUTER SERVICE TECHNICIAN Work Phone: [facility] Work Phone: 01-04-2015 influenza, seasonal, injectable Suresh Benedict PHARMACIST [facility]OSPITAL.COMPUTER SERVICE TECHNICIAN Work Phone: [facility] Work Phone: 01-19-2014 influenza, injectabl e, quadrivalent, preservative free Suresh Benedict PHARMACIST [facility]OSPITAL.COMPUTER SERVICE TECHNICIAN Work Phone: [facility] Work Phone: 01-17-2013 influenza, seasonal, injectable, preservative free Suresh Benedict PHARMACIST [facility]OSPITAL.COMPUTER SERVICE TECHNICIAN Work Phone: [facility] Work Phone: 02-03-2012 influenza, seasonal, injectable, preservative free Suresh Benedict [facility]ARMACIST [facility] Work Phone: [facility] Work Phone: 10-04-2007 haemophilus influenz ae type b conjugate and Hepatitis B vaccine Suresh Benedict PHARMACIST [facility] Work Phone: [facility] Work Phone: 05-06-2007 haemophilus influenz ae type b conjugate and Hepatitis B vaccine Suresh Benedict PHARMACIST [facility] Work Phone: [facility] Work Phone: 04-05-2007 haemophilus influenz ae type b conjugate and Hepatitis B vaccine Suresh Benedict PHARMACIST [facility] Work Phone: [facility] Work Phone: 10-03-2006 hepatitis A vaccine, adult dosage Suresh Benedict PHARMACIST [facility]PITAL[facility] Work Phone: [facility] Work Phone: 04-05-2006 diphtheria, tetanus toxoids and acellular pertussis vaccine Suresh Benedict PHARMACIST [facility] Work Phone: [facility] Work Phone: 04-05-2006 hepatitis A vaccine, adult dosage Suresh Benedict [facility]ARMACIST [facility] Work Phone: [facility] Work Phone: 04-05-2006 measles, mumps and rubella virus vaccine Suresh Benedict PHARMACIST [facility] Work Phone: [facility] Work Phone: 04-05-2006 trivalent poliovirus vaccine, live, oral Suresh Benedict [facility]ARMACIST [facility] Work Phone: [facility] Work Phone: Payers Date Payer Category Payer [facility] BLUE CARD PPO OOS [id number] 2023 Private Health Insurance MMO SUP ERMED PPO [id number] 2023 Unknown [id number] 2022 Self-pay 2022 Unknown [id number] 2020 Unknown [id number] Unknown [facility] [id number] Unknown CHEMO ASSISTANCE [id number] Unknown [id number] Unknown [id number] Unknown [id number] Unknown [id number] Unknown [id number] Unknown [id number] Social History Date Type Detail Facility Start: 12-16-2017 End: 06-29-2022 Tobacco smoking status NHIS Never smoked tobacco [facility] Start: 12-16-2017 End: 06-29-2022 Tobacco use and exposure Smokeless tobacco non-user [facility] Start: 11-08-2020 End: 07-07-2024 Alcohol intake Current drinker of alcohol (finding) [facility] Start: 11-08-2020 End: 08-18-2022 Alcohol intake [facility] Start: 05-03-2019 End: 06-28-2022 History SDOH Alcohol Frequency 2 [facility] Start: 05-03-2019 End: 06-28-2022 History SDOH Alcohol Std Drinks 1 [facility] Start: 05-03-2019 End: 06-28-2022 History SDOH Social Connections Living 3 [facility] Start: 05-03-2019 History SDOH Financial 5 [facility] Start: 05-03-2019 Education 16 [facility] Start: 1965 Sex Assigned At Not on file [facility] Start: 06-28-2022 History SDOH Financial 4 [facility] Start: 09-23-2022 End: 05-17-2023 Tobacco smoking status AZIS Unknown if ever smoked [facility] Start: 1965 Sex Assigned At Female W [facility] Start: 06-28-2022 End: 08-18-2022 Social connection and isolation panel [facility] Do you belong to any clubs or organizations such as sabianism groups, unions, fraternal or athletic groups, or school groups? No [facility] Are you now , , , , never or living with a partner? [facility] How often to you hav e a drink containing alcohol? Monthly or less [facility] How many standard dr inks containing alcohol do you have on a typical day? 1 or 2 [facility] How often do you hav e 6 or more drinks on 1 occasion? Never [facility] How hard is it for y ou to pay for the very basics like food, housing, medical care, and heating Not very hard [facility] Adult Depression Screening Assessment 0 [facility] Work Phone: Do you feel stress - tense, restless, nervous, or anxious, or unable to sleep at night because your mind is troubled all the time - these days [OSQ] Not at all [facility] (I/We) worried wheth er (my/our) food would run out before (I/we) got money to buy more. Never true [facility] How often do you hav e 6 or more drinks on 1 occasion? Less than monthly [facility] Do you feel stress - tense, restless, nervous, or anxious, or unable to sleep at night because your mind is troubled all the time - these days [OSQ] Only a little [facility] NEGATED: Highlighted row [facility] Medical Equipment Procedure Code Equipment Code Equipment Origin al Text Equipment Identifier Dates Ligation clip, metallic [id number] FDA Start: 09-30-2022 Ligation clip, metallic ()[id number] FDA Start: 09-30-2022 Ligation clip, metallic [id number] FDA Start: 09-30-2022 Goals Date Patient Goal Desired Activity /State Mental Status Date Assessment Result Facility 04-29-2023 Cognitive function Voice/Name [facility] Work Phone: 09-30-2022 Cognitive function Voice/Name [facility] Work Phone: Clinical Notes 06-25-2022 to 07-07-2024 Patient Alisson Teague APRN.CNP - 07/07/2024 7:20 AM EDTTelephone Encounter [...] Promotion: - Eat healthy -- go to [employer] to get started - Have a yearly [...] sunscreen documented in this encounter [facility] 07-07-2024 History of Present illness Narrative This [...] radiation therapy JOEY (obstructive sleep apnea) DME [facility] fx. [phone] PAST SURGICAL HISTORY Procedure Laterality Date HYSTERECTOMY 2011 Total Hysterectomy-Dr. Gamble in [place] PAST SURGICAL HISTORY OF 09/30/2022 Lumpectomy at [facility] TONSILLECTOMY HX 1970 ALLERGIES Bactrim [Sulfamethoxazole-Trimethoprim] and [...] mouth once daily. CPAP/BIPAP/OTHER CPAP 8 cmH2O [facility] CALCIUM ORAL Take 2 tablets by mouth [...] 87 Resp 16 Ht 166.5 cm (5' 5.55) Wt 128.7 kg (283 lb 11.7 oz) [...] APRN.CLAIRE This note was partially generated using [employer] voice recognition system. Note was reviewed for accuracy. There may be minor misspellings or grammar miscues with [employer] voice recognition. documented in this encounter [facility] 07-07-2024 Note HNO ID: [id number] Author: ALISSON RESENDIZ APRN.COMPUTER SERVICE TECHNICIAN Service: ? Author Type: Nurse Practitioner Type: [...] of radiation therapy JOEY (obstructive sleep apnea) [facility] fx. [phone] PAST SURGICAL HISTORY Procedure Laterality Date HYSTERECTOMY 2011 Total Hysterectomy-Dr. Gamble in [place] PAST SURGICAL HISTORY OF 09/30/2022 Lumpectomy at [facility] TONSILLECTOMY HX 1970 ALLERGIES Bactrim [Sulfamethoxazole-Trimethoprim] and [...] mouth once daily. CPAP/BIPAP/OTHER CPAP 8 cmH2O [facility] CALCIUM ORAL Take 2 tablets by mouth [...] 87 Resp 16 Ht 166.5 cm (5' 5.55) Wt 128.7 kg (283 lb 11.7 oz) [...] normal. No mas (more content not included)... [facility] 03-21-2024 Telephone encounter Note The following approved medication requests have been transmitted electronically. Requested Prescriptions Pending Prescriptions Disp Refills amLODIPine (NORVASC) 5 mg tablet 90 tablet 3 Sig: Take 1 tablet by mouth once daily. hydroCHLOROthiazide 12.5 mg capsule 90 capsule 3 Sig: Take 1 capsule by mouth once daily. Suresh Mcmullen APRN.CLAIRE [facility] 03-21-2024 Miscellaneous Notes The following approved medication requests have been transmitted electronically. Requested Prescriptions Pending Prescriptions Disp Refills amLODIPine (NORVASC) 5 mg tablet 90 tablet 3 Sig: Take 1 tablet by mouth once daily. hydroCHLOROthiazide 12.5 mg capsule 90 capsule 3 Sig: Take 1 capsule by mouth once daily. Suresh Mcmullen APRN.CLAIRE Prescription Refill Information The patient has been [...] AM documented in this encounter [facility] 03-21-2024 Telephone encounter Note Prescription Refill Information [...] March 21, 2024 11:11 AM [facility] 02-11-2024 Telephone encounter Note Noted, thank you Alisson Resendiz APRN.COMPUTER SERVICE TECHNICIAN [facility] 02-11-2024 Miscellaneous Notes Noted, thank you Alisson Resendiz APRN.COMPUTER SERVICE TECHNICIAN Pt notified. She denies any sx at this time, would prefer to just recheck labs as planned in June since she is not having any issues. She has seen Endo in [place] in past for Grave's Disease. Keira Sullivan [...] please ask if she ever saw an transit worker in the past? Thank you Alisson Resendiz APRN.CNP documented in this encounter [facility] 02-10-2024 Telephone encounter Note Pt notified. She denies any sx at this time, would prefer to just recheck labs as planned in June since she is not having any issues. She has seen Endo in [place] in past for Grave's Disease. Keira Sullivan MA [facility] 02-10-2024 Telephone encounter Note Can you please [...] please ask if she ever saw an transit worker in the past? Thank you Alisson Rseendiz APRN.CNP [facility] 02-09-2024 Instructions Alisson Resendiz APRN.CNP - 02/09/2024 7:45 AM EST Get labs completed today Recommend increasing water intake Continue to take all medication as prescribed Work on eating a well balanced diet and get some form of exercise. Watch salt and processed foods in the diet. Follow up as scheduled or sooner pending test results. documented in this encounter [facility] 02-09-2024 History of Present illness Narrative This [...] of radiation therapy JOEY (obstructive sleep apnea) [facility] fx. [phone] PAST SURGICAL HISTORY Procedure Laterality Date HYSTERECTOMY 2011 Total Hysterectomy-Dr. Gamble in [place] PAST SURGICAL HISTORY OF 09/30/2022 Lumpectomy at [facility] TONSILLECTOMY HX 1970 ALLERGIES Bactrim [Sulfamethoxazole-Trimethoprim] and [...] mouth once daily. CPAP/BIPAP/OTHER CPAP 8 cmH2O [facility] CALCIUM ORAL Take 2 tablets by mouth [...] APRN.CLAIRE This note was partially generated using [employer] voice recognition system. Note was reviewed for accuracy. There may be minor misspellings or grammar miscues with [employer] voice recognition. documented in this encounter [facility] 02-09-2024 Note HNO ID: [id number] Author: ALISSON RESENDIZ APRN.CNP Service: ? Author [...] therapy JOEY (obstructive sleep apnea) DME [facility] fx. [phone] PAST SURGICAL HISTORY Procedure Laterality Date HYSTERECTOMY 2011 Total Hysterectomy-Dr. Gamble in [place] PAST SURGICAL HISTORY OF 09/30/2022 Lumpectomy at [facility] TONSILLECTOMY HX 1970 ALLERGIES Bactrim [Sulfamethoxazole-Trimethoprim] and [...] once daily. CPAP/BIPAP/OTHER CPAP 8 cmH2O DME [facility] CALCIUM ORAL Take 2 tablets by mouth [...] labs completed t (more content not included)... [facility] 01-27-2024 Telephone encounter Note OK to refill as ordered Martha Ayala MD [facility] 01-27-2024 Miscellaneous Notes OK to refill as [...] AM documented in this encounter [facility] 01-27-2024 Telephone encounter Note Prescription Refill Information [...] January 27, 2024 10:42 AM [facility] 12-30-2023 Instructions Alisson Resendiz APRN.CNP - 12/30/2023 [...] specialist. documented in this encounter [facility] 12-30-2023 History of Present illness Narrative This [...] radiation therapy JOEY (obstructive sleep apnea) DME [facility] fx. [phone] PAST SURGICAL HISTORY Procedure Laterality Date HYSTERECTOMY 2011 Total Hysterectomy-Dr. Gamble in [place] PAST SURGICAL HISTORY OF 09/30/2022 Lumpectomy at [facility] TONSILLECTOMY HX 1970 ALLERGIES Bactrim [Sulfamethoxazole-Trimethoprim] and Erythromycin MEDICATIONS Current Outpatient Medications Medication Sig losartan (COZAAR) 100 mg tablet Take 1 tablet by mouth once daily. CPAP/BIPAP/OTHER CPAP 8 cmH2O [facility] CALCIUM ORAL Take 2 tablets by mouth [...] 86 Resp 16 Ht 167.5 cm (5' 5.95) Wt 126.1 kg (278 lb) SpO2 97% BMI 44.95 kg/m BP 150/100 Pulse 86 Resp 16 Ht 167.5 cm (5' 5.95) Wt 126.1 kg (278 lb) SpO2 97% [...] APRN.CNP This note was partially generated using [employer] voice recognition system. Note was reviewed for accuracy. There may be minor misspellings or grammar miscues with [employer] voice recognition. documented in this encounter [facility] 12-30-2023 Note HNO ID: [id number] Author: ALISSON RESENDIZ APRN.CNP Service: ? Author [...] (obstructive sleep apnea) DME [facility] fx. [phone] PAST SURGICAL HISTORY Procedure Laterality Date HYSTERECTOMY 2011 Total Hysterectomy-Dr. Gamble in [place] PAST SURGICAL HISTORY OF 09/30/2022 Lumpectomy at [facility] TONSILLECTOMY HX 1970 ALLERGIES Bactrim [Sulfamethoxazole-Trimethoprim] and Erythromycin MEDICATIONS Current Outpatient Medications Medication Sig losartan (COZAAR) 100 mg tablet Take 1 tablet by mouth once daily. CPAP/BIPAP/OTHER CPAP 8 cmH2O DME [facility] CALCIUM ORAL Take 2 tablets by mouth [...] 86 Resp 16 Ht 167.5 cm (5' 5.95) Wt 126.1 kg (278 lb) SpO2 97% BMI 44.95 kg/m? BP 150/100 Pulse 86 Resp 16 Ht 167.5 cm (5' 5.95) Wt 126.1 kg (278 lb) SpO2 97% [...] Start hydrochlorothiazide, amlodi (more content not included)... [facility] 08-06-2023 Note HNO ID: [id number] Author: ZAIRE SIMMONS JR, MD Service: ? [...] on 02/05/23. Per note of Nahomy Gipson COMPUTER SERVICE TECHNICIAN: G47.33 JOEY on CPAP (primary encounter diagnosis) [...] no snoring). - Continue CPAP at 8cmH2O. [facility]. Her Respironics machine had been recalled, she [...] mouth once daily. CPAP/BIPAP/OTHER CPAP 8 cmH2O [facility] CALCIUM ORAL Take 2 tablets by mouth [...] therapy JOEY (obstructive sleep apnea) DME [facility] fx. [phone] FAMILY HISTORY Problem Relation Age of Onset [...] EXAMINATION BP 1 (more content not included)... [facility] 08-06-2023 History of Present illness Narrative ESTABLISHED PATIENT VISIT CHIEF COMPLAINT: Follow Up JOEY HISTORY OF PRESENT ILLNESS: Emigdio Haider is a 58 year old female, BMI 42.94 kg/m2 with a PMH significant for JOEY. I have never sen patient in the past but records suggest patient seen by both Dr. Gonsalez in 2018 and Nahomy Gipson CNP on 02/05/23. Per note of Nahomy Gipson COMPUTER SERVICE TECHNICIAN: G47.33 JOEY on CPAP (primary encounter diagnosis) [...] no snoring). - Continue CPAP at 8cmH2O. [facility]. Her Respironics machine had been recalled, she [...] mouth once daily. CPAP/BIPAP/OTHER CPAP 8 cmH2O [facility] CALCIUM ORAL Take 2 tablets by mouth [...] of radiation therapy JOEY (obstructive sleep apnea) [facility] fx. [phone] FAMILY HISTORY Problem Relation Age of Onset [...] which included preparing to see the patient, [id number] patient care, completing clinical documentation, obtaining and/or reviewing separately obtained history, performing a medically appropriate examination, and counseling and educating the patient/family/caregiver. Zaire Simmons MD documented in this encounter [facility] 08-05-2023 Telephone encounter Note Faxed download compliance (SD card ) request, patient notified prior to drop off. Shellie Dickey LPN [facility] 08-05-2023 Miscellaneous Notes Faxed download compliance (SD card ) request, patient notified prior to drop off. Shellie Dickey LPN MyChart message sent patient SD Card CPAP download. Shellie Dickey LPN documented in this encounter [facility] 07-26-2023 Telephone encounter Note MyChart message sent patient SD Card CPAP download. Shellie Dickey LPN [facility] 07-26-2023 Telephone encounter Note Faxed DENISE, GEN SURG OV, recent labs & consult with facesheet to Dr. Collins's office: [phone]. Zabrina Escobedo MA [facility] 07-26-2023 Miscellaneous Notes Faxed DENISE, GEN SURG OV, recent labs & consult with facesheet to Dr. Collins's office: [phone]. Zabrina Escobedo MA documented in this encounter [facility] 07-23-2023 Telephone encounter Note 12/13/2023 COLON SANTAMARIA [facility] 07-23-2023 Miscellaneous Notes 12/13/2023 COLON SANTAMARIA documented in this encounter [facility] 07-23-2023 Note HNO ID: [id number] Author: HERNANDEZ RASCON MD Service: ? Author Type: Physician Type: Progress Notes Filed: 07/25/2023 05:55 Note Text: HISTORY AND PHYSICAL Emigdio Pittenger 1965 REFERRING PHYSICIAN: Alisson Resendiz APRN.C* CHIEF [...] of radiation therapy JOEY (obstructive sleep apnea) [facility] fx. [phone] PAST SURGICAL HISTORY Procedure Laterality Date HYSTERECTOMY 2011 Total Hysterectomy-Dr. Gamble in [place] PAST SURGICAL HISTORY OF 09/30/2022 Lumpectomy at [facility] TONSILLECTOMY HX 1970 Current Outpatient Medications Medication Sig losartan (COZAAR) 100 mg tablet Take 1 tablet by mouth once daily. CPAP/BIPAP/OTHER CPAP 8 cmH2O [facility] CALCIUM ORAL Take 2 tablets by mouth [...] PHYSICAL EXAMINATION: General (more content not included)... [facility] 07-23-2023 History of Present illness Narrative HISTORY [...] of radiation therapy JOEY (obstructive sleep apnea) [facility] fx. [phone] PAST SURGICAL HISTORY Procedure Laterality Date HYSTERECTOMY 2011 Total Hysterectomy-Dr. Gamble in [place] PAST SURGICAL HISTORY OF 09/30/2022 Lumpectomy at [facility] TONSILLECTOMY HX 1970 Current Outpatient Medications Medication Sig losartan (COZAAR) 100 mg tablet Take 1 tablet by mouth once daily. CPAP/BIPAP/OTHER CPAP 8 cmH2O [facility] CALCIUM ORAL Take 2 tablets by mouth [...] entered by the nurse and reviewed by al Nursing Notes: April Barahona MA 07/23/2023 1:43 [...] MD documented in this encounter [facility] 07-23-2023 Nurse Note REVIEW OF SYSTEMS: General: [...] MA documented in this encounter [facility] 06-29-2023 Instructions Alisson Resendiz APRN.CLAIRE - 06/29/2023 7:06 AM EDT Get labs completed today Keep scheduled appt for mammogram Follow up with General surgery to discuss colonoscopy Continue to take all medication as prescribed Follow up in 6 months or sooner pending test results. documented in this encounter [facility] 06-29-2023 History of Present illness Narrative This [...] (obstructive sleep apnea) DME Neha Pelayo fx. [phone] PAST SURGICAL HISTORY Procedure Laterality Date HYSTERECTOMY 2011 Total Hysterectomy-Dr. Gamble in [place] TONSILLECTOMY HX 1970 ALLERGIES Bactrim [Sulfamethoxazole-Trimethoprim] and Erythromycin MEDICATIONS Current Outpatient Medications Medication Sig losartan (COZAAR) 100 mg tablet Take 1 tablet by mouth once daily. CPAP/BIPAP/OTHER CPAP 8 cmH2O DME [facility] CALCIUM ORAL Take 2 tablets by mouth [...] APRN.CLAIRE This note was partially generated using SimpleRelevance voice recognition system. Note was reviewed for accuracy. There may be minor misspellings or grammar miscues with Apparenton voice recognition. documented in this encounter [facility] 02-22-2023 Miscellaneous Notes My Chart message patient requested CPAP Rx to be sent to a [facility] [phone]. Chart updated, orders faxed on 02/22/2023 33 pages, Funzio message sent to patient . Shellie Dickey LPN documented in this encounter [facility] 02-05-2023 Instructions Jenifer Gipson APRN.CNP - 02/05/2023 [...] *Self-Pay documented in this encounter [facility] 02-05-2023 History of Present illness Narrative Images from the original note were not included. [facility] New Patient Evaluation PATIENT [...] hrs, 100% of days, AHI 0.9 Has [employer] Station, took SD card to [employer] yesterday for download. Uses PAP all night, [...] or near accidents due to drowsy drivin [place] Sleepiness Scale 01/30/2023 Score 1 (No daytime [...] 53.3 PRIOR SLEEP STUDIES: 11/12/16 PSG in [place], AHI 22 PAST MEDICAL HISTORY Diagnosis Date JOEY (obstructive sleep apnea) DME Neha Pelayo fx. [phone] PAST SURGICAL HISTORY Procedure Laterality Date HYSTERECTOMY 2011 Total Hysterectomy-Dr. Gamble in [place] TONSILLECTOMY HX 1970 ACTIVE PROBLEM LIST Joey [...] no snoring). - Continue CPAP at 8cmH2O. [facility]. Her Respironics machine had been recalled, she [...] APRN.CLAIRE documented in this encounter [facility] 01-04-2023 Miscellaneous Notes Contacted patient. Notified patient of new sleep provider starting. Scheduled patient with Eryn Gipson new patient 02/05 as well as routine sleep f/u with MIGUEL x2 to get on schedule. Patient states she does not have DME locally. Will reach out to insurance to determine what is covered. Will contact office to let know. Zabrina Escobedo MA Referral placed. Suresh Mcmullen APRN.CNP Ok to refer? Keira Sullivan Ma documented in this encounter [facility] 12-28-2022 History of Present illness Narrative Chief [...] the right leg. Had originally went to [facility] ER on December 12. She was placed [...] cancel. This note was partly generated using SimpleRelevance voice recognition dictation and may contain some misspelled or inaccurate words missed on review. documented in this encounter [facility] 12-23-2022 Instructions Alisson Resendiz APRN.CNP - 12/23/2022 [...] needed. documented in this encounter [facility] 12-23-2022 History of Present illness Narrative This is a 57 year old female who presents today with: Patient presents with: Follow Up: cellulitis right leg HISTORY OF PRESENT ILLNESS: Emigdio Haider is a 57 year old female. Patient presents with: Follow Up: cellulitis right leg Cellulitis/ Allergic reaction follow up Was seen in [facility] as well as [facility] ER 12/12/2022 . Started on Bactrim and [...] JOEY (obstructive sleep apnea) STAR Pelayo fx. [phone] PAST SURGICAL HISTORY Procedure Laterality Date HYSTERECTOMY 2011 Total Hysterectomy-Dr. Gamble in [place] TONSILLECTOMY HX 1970 ALLERGIES Erythromycin MEDICATIONS Current [...] discussed and patient voices understanding. Alisson Resendiz APRN.COMPUTER SERVICE TECHNICIAN This note was partially generated using SimpleRelevance voice recognition system. Note was reviewed for accuracy. There may be minor misspellings or grammar miscues with SimpleRelevance voice recognition. documented in this encounter [facility] 09-30-2022 Discharge summary Note Date/Time September 30, 2022 1:23 pm [facility] [address] [place] [address] Instructions for Home/Discharge Instructions 09/30/22 1322 MR#: [id number] Acct: [id number] Name: EMIGDIO HAIDER GOLDEN Rep #:[id number] : 1965 57 From: Lilly Mae MD PCP: JOSE E Lees Status:REG [facility] Discharge Instructions Diet Discharge Diet: No restrictions [...] With: Lilly Mae MD When: Please call [phone] for an appointment to be seen in [...] Referrals / Follow Up: Suresh Mcmullen NP, GLOBAL TECHNICAL WRITER-C [Primary Care Provider] - Disposition Disposition (needs filled in before D/C Order can be placed): Home, Self Care 09/30/22 1328<Electronically signed by Lilly Mae MD>Lilly Mae MD CC: [id number] Suresh Mcmullen ~ Signed [facility] Work Phone: 1(937) 435-713006-28-2023 Procedure [facility] 09-30-2022 History and physical note Author Lilly Mae [facility] September 30, 2022 10:13am Note Date/Time September 30, 2022 10:1 2am [facility] [address] [place] [address] History & Physical Exam 09/30/22 1012 MR#: [id number] Acct: [id number] Name: EMIGDIO HAIDER GOLDEN Rep #:[id number] : 1965 57 From: Lilly Mae MD PCP: JOSE E Lees Status:[facility] Location: [place] [address] History and Physical Date of Admission: 09/30/22 Date of Service: 09/17/22 MR#: [id number] Acct: [id number] Name: EMIGDIO HAIDER GOLDEN Rep #: [id number] : 1965 Provider: Dr. Lilly Mae MD Age/Sex: 57/F Location: [facility] Status: Signed Intake Intake Visit Reasons: [...] Const General: cooperative, healthy appearing and comfortable [facility] Head: normocephalic and atraumatic Neck Neck: supple [...] no further questions. Lilly Mae M.D. Pager: [phone] [facility] [address] [place] [address], [address] [place] [address] Office: [phone] Coding Level of Care Code Off vis,est,level [...] Mcmullen; Dr. Lilly Mae MD ~* Signed [facility] Work Phone: 1(190) 234-363105-10-2023 History of Present illness Narrative* Veronique Burrell [...] 3:55 PM [facility] History of Present illness Narrative* Kim Leiva RT(R) - 08/12/2022 2:30 PM EDT Radiology Service [...] 2:21 PM [facility] Miscellaneous Notes* Telephone Encounter - Miriam Crump [...] Carreon Ma - 08/03/2022 12:45 PM EDT Flasma message sent to pt notifying her of information below from Provider. Notified pt that she can contact main number and speak with Tire And Lube Technician in regards to setting up an appt. Nifna Carreon Ma * Telephone Encounter - Suresh [...] Carreon Ma [facility] History of Present illness Narrative* Suresh Mcmullen [...] Resp 16 Wt 132.5 kg (292 lb) CjX343% BMI 47.13 kg/m General Appearance: Well appearing, [...] of BP <130/80 - BASIC METABOLIC PNL Surehs Mcmullen APRN.CNP RTO in 6 months, sooner if needed. This note was partly generated using SimpleRelevance voice recognition dictation and may contain some misspelled or inaccurate words missed on review. documented in this encounter[facility]-28-2023 Instructions* Patient Instructions* Suresh Mcmullen APRN.CNP - 07/31/2022 8:17 AM EDT Continue Losartan 100 mg Repeat labs and visit in 6 months 3. Sooner if needed. Suresh Mcmullen APRN.CNP documented in this encounter[facility]-07-2023 Miscellaneous Notes* Telephone Encounter - Kathie Denton [...] and an ultrasound to evaluate further Martha D Elderbrock, MD documented in this encounterK[facility]-06-2023 Miscellaneous Notes* Letter - Mammography Coordinator - 07/09/2022 4:26 PM EDT July 10, 2022 PID: [id number] Emigdio Haider [address] [place] [address] Dear Ms. Haider, Your recent breast imaging exam on 07/08/2022 showed a possible finding that requires additional imaging studies for a complete evaluation. Most such findings are probably benign (not cancer). If you have a healthcare provider who ordered/prescribed your screening mammogram: Please call [phone] or EXT: [phone] to schedule an appointment for your additional [...] are kept on file at [facility] as part of your permanent medical record, and are available for your continuing care. Thank you for allowing us to help in meeting your health care needs. Sincerely, Dr. Stanton Interpreting Radiologist [facility] (Additional imaging) documented in this encounterK[facility]23 History of Present illness Narrative* Renate Maier [...] 3:53 PM documented in this encounterK[facility]03-27-2023 Instructions* Patient Instructions* Suresh Mcmullen APRN.COMPUTER SERVICE TECHNICIAN - 06/29/2022 11:52 AM EDT Health Information [...] until the day before your colonoscopy. Designated Inventory Control Manager on the Day of Your Exam A responsible family member or friend MUST come with you to your colonoscopy and REMAIN in the endoscopy area until you are discharged! You are NOT ALLOWED to drive, take a taxi or bus, or leave the Endoscopy Center ALONE. If you do not have a responsible bulk truck driver (family member or friend) with you [...] carbonated beverages such as shannon omkar or lemon-chipewwa soda; Gatorade or other sports drinks (not [...] calling after 5:00 PM, please call Nurse contract recruiter at [phone]. [facility] [address] [place] [id number] Index # [id number] Revised 05/2016 3 Colonoscopy Procedure Overview Please [...] If the nausea persists, please contact nurse continuous wave operator at [phone]. You may experience skin irritation around the [...] performed your exam. 6 Revised 05/2016 Copyright 1611-2284 [facility]. All rights reserved. Revised 05/2016 documented in this encounter[facility]23 History of Present illness Narrative* Suresh Mcmullen [...] Diagnosis Date JOEY (obstructive sleep apnea) STAR dai. [phone] Previous Surgical History PAST SURGICAL HISTORY Procedure Laterality Date HYSTERECTOMY 2011 Total Hysterectomy-Dr. Gamble in [place] TONSILLECTOMY HX 1970 Family History FAMILY HISTORY [...] (Right Tympanic) Resp 16 Ht 167.6cm (5' 6) Wt 131.1 kg (289 lb) SpO2 97% [...] GRAM-6.72 G-5.84 G POWDR FOR JODEE Mcmullen APRN.COMPUTER SERVICE TECHNICIAN RTO in 1 months, sooner if needed. This note was partly generated using SimpleRelevance voice recognition dictation and may contain some misspelled or inaccurate words missed on review. WSTR OPEN ACCESS QUESTIONNAIRE 1. Are you currently [...] Please send all open access questionnaires to [facility] Pool #[id number] documented in this encounter[facility]23 Miscellaneous Notes* Telephone Encounter - Lili Thornton [...] appt. Keira Sullivan Ma documented in [facility] [place] [facility]* Diagnosis Essential hypertension Unspecified essential hypertension documented [facility] [place] [facility]* Diagnosis Encounter for screening mammogram for breast cancer [facility]* Diagnosis Wellness examination- Primary Essential hypertension Unspecified essential hypertension JOEY (obstructive sleep apnea) Obstructive sleep apnea (adult) (pediatric) Morbid obesity (HCC) Morbid obesity Vitamin B12 deficiency Other B-complex deficiencies Vitamin D deficiency Unspecified vitamin D deficiency Special screening for malignant neoplasms, colon documented in this encounter [facility] note* Diagnosis Abnormal mammogram- Primary Abnormal mammogram, unspecified documented in this encounter [facility] note* Diagnosis Essential hypertension- Primary Unspecified essential hypertension documented in this encounter [facility] note* Diagnosis Screening for colon cancer- Primary Special screening for malignant neoplasms, colon documented in this encounter [facility] note* Diagnosis Onset Date Resolution Status Breast cancer, left breast a [facility] Work Phone: Evaluation note* Diagnosis Onset Date [...] a cute Breast cancer, left breast a [facility] Work Phone: evaluation note* Diagnosis Onset Date [...] a cute Breast cancer, left breast a [facility] Work Phone: evaluation note* Diagnosis Allergic reaction, initial encounter- Primary Cellulitis, unspecified cellulitis site documented in this encounter [facility] note* Diagnosis Essential hypertension- Primary Unspecified essential hypertension Allergic reaction, initial encounter Cellulitis, unspecified cellulitis site Screening for lipid disorders documented in this encounter [facility] note* Diagnosis JOEY (obstructive sleep apnea)- Primary Obstructive sleep apnea (adult) (pediatric) [facility] JOEY on CPAP- Primary Obstructive sleep apnea (adult) (pediatric) Essential hypertension Unspecified essential hypertension Morbid obesity (HCC) Morbid obesity [facility] Diagnosis Encounter for screening mammogram for breast cancer [facility] Diagnosis Abnormal mammogram Abnormal mammogram, unspecified [facility] Diagnosis Abnormal mammogram Abnormal mammogram, unspecified [facility]* Diagnosis JOEY (obstructive sleep apnea) Obstructive sleep apnea (adult) (pediatric) [facility]* Diagnosis Essential hypertension- Primary Unspecified essential hypertension Allergic reaction, initial encounter Other fatigue Vitamin D deficiency Unspecified vitamin D deficiency Vitamin B12 deficiency Other B-complex deficiencies JOEY (obstructive sleep apnea) Obstructive sleep apnea (adult) (pediatric) Screening for colon cancer Special screening for malignant neoplasms, colon Screening cholesterol level Screening for lipoid disorders Screening for diabetes mellitus [facility]* Diagnosis Onset Date Resolution Status Breast cancer, left breast a cute Breast cancer, left breast a cute S/P lumpectomy, left breast acute Breast cancer, left breast a cute Breast cancer, left breast a cute [facility] Work Phone: Evaluation note* Diagnosis Screening for colon cancer Special screening for malignant neoplasms, colon [facility]* Diagnosis JOEY on CPAP- Primary Obstructive sleep apnea (adult) (pediatric) Class 3 severe obesity with body mass index (BMI) of 40.0 to 44.9 in adult, unspecified obesity type, unspecified whether serious comorbidity present (HCC) [facility]* Diagnosis Essential hypertension- Primary Unspecified essential hypertension Lower leg edema Edema History of Graves' disease Personal history of other endocrine, metabolic, and immunity disorders JOEY (obstructive sleep apnea) Obstructive sleep apnea (adult) (pediatric) Dyslipidemia, goal LDL below 100 Other and unspecified hyperlipidemia Screening for diabetes mellitus History of breast cancer Personal history of malignant neoplasm of breast [facility]* Diagnosis Vitamin D deficiency Unspecified vitamin D deficiency Vitamin B12 deficiency Other B-complex deficiencies [facility]* Diagnosis Essential hypertension- Primary Unspecified essential hypertension Lower leg edema Edema Leg cramp Cramp of limb History of Graves' disease Personal history of other endocrine, metabolic, and immunity disorders [facility] Diagnosis Essential hypertension Unspecified essential hypertension Lower leg edema Edema [facility] [place]* Diagnosis Wellness examination- Primary Dyspepsia Dyspepsia [...] for breast cancer documented in this encounter [facility] Discharge instructions Additional Instructions Implant Used?: Yes [facility] Work Phone: Reason for referral (narrative)* Diagnostic Procedure Only (Routine) - Pending Review Specialty Diagnoses / Procedures Referred By Mey izquierdo Referred To Contact [facility] Diagnoses Encounter for screening mammogram for breast cancer Procedures VALENTINE SCREENING SCREENING MAMMOGRAPHY BI 2-VIEW BREAST INC CAD Martha Ayala MD [address] [place] [address] [facility] [address] [address] Referral ID Status Reason Start Date Expiration Date Visits Requested Visits Authorized [id number] Pending Review Auto-Generat ed Referral 06/24/2022 07/24/2023 1 1 [facility] for referral (narrative)* Diagnostic Procedure Only (Routine) - Authorized Specialty Diagnoses / Procedures Referred By Mey izquierdo Referred To Contact [facility] Diagnoses Abnormal mammogram Procedures US BREAST LTD LEFT US BREAST UNI REAL TIME WITH IMAGE LIMITED Martha Ayala MD [address] [place] [address] [facility] [address] [place] [address] Referral ID Status Reason Start Date Expiration Date Visits Requested Visits Authorized [id number] Authorized Auto-Generat ed Referral 07/09/2022 08/08/2023 1 1 * Diagnostic Procedure Only (Routine) - Authorized Specialty Diagnoses / Procedures Referred By Mey izquierdo Referred To Contact [facility] Diagnoses Abnormal mammogram Procedures VALENTINE DIAGNOSTIC LEFT DIAGNOSTIC MAMMOGRAPHY COMPUTER-AIDED DETCJ UNI Martha Ayala MD [address] [place] [address] [facility] [address] [place] [address] Referral ID Status Reason Start Date Expiration Date Visits Requested Visits Authorized [id number] Authorized Auto-Generat ed Referral 07/09/2022 08/08/2023 1 1 [facility] for referral (narrative)* Diagnostic Procedure Only (Routine) - Closed Specialty Diagnoses / Procedures Referred By Mey izquierdo Referred To Contact [facility] Diagnoses Encounter for screening mammogram for breast cancer Procedures VALENTINE SCREENING SCREENING MAMMOGRAPHY BI 2-VIEW BREAST INC CAD Martha Ayala MD [address] [place] [address] [facility] [address] [place] [address] Referral ID Status Reason Start Date Expiration Date V isits Requested Visits Authorized [id number] Closed Auto-Generate d Referral 06/24/2022 07/24/2023 1 1 [facility] for referral (narrative)* Diagnostic Procedure Only (Routine) - Closed Specialty Diagnoses / Procedures Referred By Mey izquierdo Referred To Contact [facility] Diagnoses Abnormal mammogram Procedures US BREAST LTD LEFT US BREAST UNI REAL TIME WITH IMAGE LIMITED Martha Ayala MD [address] [place] [address] [facility] [address] [place] [address] Referral ID Status Reason Start Date Expiration Date V isits Requested Visits Authorized [id number] Closed Auto-Generate d Referral 07/09/2022 08/08/2023 1 1 [facility] for referral (narrative)* Outpatient Procedure (Routine) - Authorized Specialty Diagnoses / Procedures Referred By Mey izquierdo Referred To Contact [facility] Diagnoses Screening for colon cancer Procedures COLONOSCOPY SCREENING COLONOSCOPY FLX DX W/COLLJ SPEC WHEN Hernandez Williamson MD [address] [address] [facility] [address] [place] [address] Referral ID Status Reason Start Date Expiration Date Visits Requested Visits Authorized [id number] Authorized Auto-Generat ed Referral 07/23/2023 2024 1 1 [facility] for visit Narrative* Diagnostic Procedure Only (Routine) - Closed Specialty Diagnoses / Procedures Referred By Mey izqueirdo Referred To Contact [facility] Diagnoses Encounter for screening mammogram for breast cancer Procedures VALENTINE SCREENING SCREENING MAMMOGRAPHY BI 2-VIEW BREAST INC [facility] Martha Ayala MD [address] [place] [address] [facility] [address] [place] [address] Referral ID Status Reason Start Date Expiration Date V isits Requested Visits Authorized [id number] Closed Auto-Generate d Referral 06/24/2022 07/24/2023 1 1 [facility] for visit Narrative* Diagnostic Procedure Only (Routine) - Closed Specialty Diagnoses / Procedures Referred By Mye izquierdo Referred To Contact [facility] Diagnoses Abnormal mammogram Procedures VALENTINE DIAGNOSTIC LEFT DIAGNOSTIC MAMMOGRAPHY COMPUTER-AIDED DETCJ UNI Martha Ayala MD [address] [place] [address] [facility] [address] [place] [address] Referral ID Status Reason Start Date Expiration Date V isits Requested Visits Authorized [id number] Closed Auto-Generate d Referral 07/09/2022 08/08/2023 1 1 [facility] Reason for Referral Specialty Diagnoses / Procedures Referred By Mey izquierdo Referred To Contact Diagnoses JOEY (obstructive sleep apnea) Procedures CONSULT TO SLEEP MEDICINE - ADULT OFFICE/OUTPATIENT [facility] MDM 60-74 MINUTES Benedict, Suresh, PHARMACIST HOSPITAL.COMPUTER SERVICE TECHNICIAN [address] [place] [address] Referral ID Status Reason Start Date Expiration Date Visits Requested Visits Authorized [id number] Authorized PCP Requested Referral 06/29/2022 06/29/2023 1 1 Specialty Diagnoses / Procedures Referred By Contac t Referred To Contact [facility] Diagnoses Special screening for malignant neoplasms, colon Procedures COLONOSCOPY SCREENING COLONOSCOPY FLX DX W/COLLJ SPEC WHEN PFRMD Suresh Mcmullen PHARMACIST HOSPITAL.COMPUTER SERVICE TECHNICIAN [address] [place] [address] [facility] [address] [place] [address] Referral ID Status Reason Start Date Expiration Date Visits Requested Visits Authorized [id number] Pending Review Auto-Generat ed Referral 06/29/2022 06/30/2023 1 1 Specialty Diagnoses / Procedures Referred By Contac t Referred To Contact General Surgery Diagnoses Screening for colon cancer Procedures CONSULT TO GENERAL SURGERY OFFICE/OUTPATIENT NEW HIGH MDM 60-74 MINUTES Suresh Mcmullen, PHARMACIST HOSPITAL.COMPUTER SERVICE TECHNICIAN [address] [place] [address] Referral ID Status Reason Start Date Expiration Date Visits Requested Visits Authorized [id number] Authorized PCP Requested Referral 08/03/2022 08/03/2023 1 1 Specialty Diagnoses / Procedures Referred By Contac t Referred To Contact Pulmonary and Critical Care Medicine Diagnoses JOEY (obstructive sleep apnea) Procedures CONSULT TO PULM/CRITICAL CARE OFFICE/OUTPATIENT NEW HIGH MDM 60-74 MINUTES Suresh Mcmullen, PHARMACIST HOSPITAL.COMPUTER SERVICE TECHNICIAN [address] [place] [address] Referral ID Status Reason Start Date Expiration Date Visits Requested Visits Authorized [id number] Authorized PCP Requested Referral 01/04/2023 01/04/2024 1 1 Specialty Diagnoses / Procedures Referred By Contac t Referred To Contact General Surgery Diagnoses Screening for colon cancer Procedures CONSULT TO GENERAL SURGERY OFFICE/OUTPATIENT NEW HIGH MDM 60 MINUTES Alisson Resendiz, PHARMACIST HOSPITAL.COMPUTER SERVICE TECHNICIAN [address] [place] [address] Referral ID Status Reason Start Date Expiration Date Visits Requested Visits Authorized [id number] Authorized PCP Requested Referral 06/29/2023 06/28/2024 1 [...] Date/ Time Name of Medical Power of Data Warehouse Administrator ZAIRE MORROW September 23, 2022 11:13am Living Will Yes September 23, 2022 11:13am Power of Data Warehouse Administrator Yes September 23 11:13am Advance Directive Response Recorded Date/ Time Name of Medical Power of Data Warehouse Administrator ZAIRE MORROW September 23, 2022 11:13am Name of Medical Power of Data Warehouse Administrator Travon Haider December 12, 2022 1:55pm Living Will Yes December 12 023 1:55pm Power of Data Warehouse Administrator Yes December 12, 2022 1:55pm Advance Directive Response Recorded Date/ Time Living Will Yes December 12, 023 1:55pm Power of Data Warehouse Administrator Yes December 12, 2022 1:55pm Medications Administered [...] any alcohol or drug abuse patient.[facility] the event this information is protected by the Federal Confidentiality of Alcohol and Drug Abuse Patient Records regulations: The Federal rules restrict any use of the information to criminally investigate or prosecute any alcohol or drug abuse patient.[facility] the event this information is protected by the Federal Confidentiality of Alcohol and Drug Abuse Patient Records regulations: The Federal rules restrict any use of the information to criminally investigate or prosecute any alcohol or drug abuse patient.[facility] the event this information is protected by the Federal Confidentiality of Alcohol and Drug Abuse Patient Records regulations: The Federal rules restrict any use of the information to criminally investigate or prosecute any alcohol or drug abuse patient.[facility] the event this information is protected by the Federal Confidentiality of Alcohol and Drug Abuse Patient Records regulations: The Federal rules restrict any use of the information to criminally investigate or prosecute any alcohol or drug abuse patient.[facility] the event this information is protected by the Federal Confidentiality of Alcohol and Drug Abuse Patient Records regulations: The Federal rules restrict any use of the information to criminally investigate or prosecute any alcohol or drug abuse patient.[facility] the event this information is protected by the Federal Confidentiality of Alcohol and Drug Abuse Patient Records regulations: The Federal rules restrict any use of the information to criminally investigate or prosecute any alcohol or drug abuse patient.[facility] the event this information is protected by the Federal Confidentiality of Alcohol and Drug Abuse Patient Records regulations: The Federal rules restrict any use of the information to criminally investigate or prosecute any alcohol or drug abuse patient.[facility] the event this information is protected by the Federal Confidentiality of Alcohol and Drug Abuse Patient Records regulations: The Federal rules restrict any use of the information to criminally investigate or prosecute any alcohol or drug abuse patient.[facility] the event this information is protected by the Federal Confidentiality of Alcohol and Drug Abuse Patient Records regulations: The Federal rules restrict any use of the information to criminally investigate or prosecute any alcohol or drug abuse patient.[facility] the event this information is protected by the Federal Confidentiality of Alcohol and Drug Abuse Patient Records regulations: The Federal rules restrict any use of the information to criminally investigate or prosecute any alcohol or drug abuse patient.[facility] the event this information is protected by the Federal Confidentiality of Alcohol and Drug Abuse Patient Records regulations: The Federal rules restrict any use of the information to criminally investigate or prosecute any alcohol or drug abuse patient.[facility] the event this information is protected by the Federal Confidentiality of Alcohol and Drug Abuse Patient Records regulations: The Federal rules restrict any use of the information to criminally investigate or prosecute any alcohol or drug abuse patient.[facility] the event this information is protected by the Federal Confidentiality of Alcohol and Drug Abuse Patient Records regulations: The Federal rules restrict any use of the information to criminally investigate or prosecute any alcohol or drug abuse patient.[facility] the event this information is protected by the Federal Confidentiality of Alcohol and Drug Abuse Patient Records regulations: The Federal rules restrict any use of the information to criminally investigate or prosecute any alcohol or drug abuse patient.[facility] the event this information is protected by the Federal Confidentiality of Alcohol and Drug Abuse Patient Records regulations: The Federal rules restrict any use of the information to criminally investigate or prosecute any alcohol or drug abuse patient.[facility] the event this information is protected by the Federal Confidentiality of Alcohol and Drug Abuse Patient Records regulations: The Federal rules restrict any use of the information to criminally investigate or prosecute any alcohol or drug abuse patient.[facility] the event this information is protected by the Federal Confidentiality of Alcohol and Drug Abuse Patient Records regulations: The Federal rules restrict any use of the information to criminally investigate or prosecute any alcohol or drug abuse patient.[facility] the event this information is protected by the Federal Confidentiality of Alcohol and Drug Abuse Patient Records regulations: The Federal rules restrict any use of the information to criminally investigate or prosecute any alcohol or drug abuse patient.[facility] the event this information is protected by the Federal Confidentiality of Alcohol and Drug Abuse Patient Records regulations: The Federal rules restrict any use of the information to criminally investigate or prosecute any alcohol or drug abuse patient.[facility] the event this information is protected by the Federal Confidentiality of Alcohol and Drug Abuse Patient Records regulations: The Federal rules restrict any use of the information to criminally investigate or prosecute any alcohol or drug abuse patient.[facility] the event this information is protected by the Federal Confidentiality of Alcohol and Drug Abuse Patient Records regulations: The Federal rules restrict any use of the information to criminally investigate or prosecute any alcohol or drug abuse patient.[facility] the event this information is protected by the Federal Confidentiality of Alcohol and Drug Abuse Patient Records regulations: The Federal rules restrict any use of the information to criminally investigate or prosecute any alcohol or drug abuse patient.[facility] the event this information is protected by the Federal Confidentiality of Alcohol and Drug Abuse Patient Records regulations: The Federal rules restrict any use of the information to criminally investigate or prosecute any alcohol or drug abuse patient.[facility] the event this information is protected by the Federal Confidentiality of Alcohol and Drug Abuse Patient Records regulations: The Federal rules restrict any use of the information to criminally investigate or prosecute any alcohol or drug abuse patient.[facility] the event this information is protected by the Federal Confidentiality of Alcohol and Drug Abuse Patient Records regulations: The Federal rules restrict any use of the information to criminally investigate or prosecute any alcohol or drug abuse patient.[facility] the event this information is protected by the Federal Confidentiality of Alcohol and Drug Abuse Patient Records regulations: The Federal rules restrict any use of the information to criminally investigate or prosecute any alcohol or drug abuse patient.[facility] the event this information is protected by the Federal Confidentiality of Alcohol and Drug Abuse Patient Records regulations: The Federal rules restrict any use of the information to criminally investigate or prosecute any alcohol or drug abuse patient.[facility] Reason for Visit (unrecogniz ed section and [...] Reason Comments New Patient Pt reported moved [facility] no current sleep provider x5 years. Reason Comments Radiology US Specialty Diagnoses / Procedures Referred By Contac t Referred To Contact [facility] IMAGING Diagnoses Abnormal mammogram Procedures US BREAST LTD LEFT US BREAST UNI REAL TIME WITH IMAGE LIMITED Martha Ayala MD [address] [place] [address] [facility] [address] [place] [address] Referral ID Status Reason Start Date Expiration Date V isits Requested Visits Authorized [id number] Closed Auto-Generate d Referral 07/09/2022 08/08/2023 1 1 Reason Comments 6 Month Exam Reason Comments Colon Consult Specialty Diagnoses / Procedures Referred By Contac t Referred To Contact General Surgery Diagnoses Screening for colon cancer Procedures CONSULT TO GENERAL SURGERY OFFICE/OUTPATIENT [facility] 60 MINUTES Alisson Resendiz, SANT[facility].COMPUTER SERVICE TECHNICIAN [address] [place] [address] Referral ID Status Reason Start Date Expiration Date V isits Requested Visits Authorized [id number] Closed PCP Requested Referral 06/29/2023 06/28/2024 1 1 Reason Comments Follow Up JOEY Follow up Reason Comments 6 Month Exam Reason Onset Date Comments Refill Request 01/27/2024 Reason Comments 12/13/2023 COLON SANTAMARIA Reason Comments Follow Up 1 month follow B Reason Comments Results Labs Reason Onset Date Comments Refill Request 03/21/2024 Reason Comments Wellness Care Teams (unrecognized sec tion and content) Bank Analyst Relationship Specialty Start Date End Date Martha Ayala MD [address], [place] [id number] PCP - General Family Medicine 12/16/17 Bank Analyst Relationship Specialty Start Date End Date Martha Ayala MD [address], [place] [id number] PCP - General Family Medicine 12/16/17 Bank Analyst Relationship Specialty Start Date End Date Martha Ayala MD [address], [place] [id number] PCP - General Family Medicine 12/16/17 Bank Analyst Relationship Specialty Start Date End Date Martha Ayala MD [address] [place] [address] PCP - General Family Medicine 12/16/17 Bank Analyst Relationship Specialty Start Date End Date Martha Ayala MD [address] [place] [address] PCP - General Family Medicine 12/16/17 Bank Analyst Relationship Specialty Start Date End Date Martha Ayala MD [address] [place] [address] PCP - General Family Medicine 12/16/17 Bank Analyst Relationship Specialty Start Date End Date Martha Ayala MD [address] [place] [address] PCP - General Family Medicine 12/16/17 Bank Analyst Relationship Specialty Start Date End Date Martha Ayala MD [address] [place] [address] PCP - General Family Medicine 12/16/17 Team Status: Active Member Role Status Dates Suresh Mcmullen NP, GLOBAL TECHNICAL WRITER-C Primary Care Provider Active Team Status: Inactive Member Role Status Dates Dr. Lilly Mae MD Attending Provider Active Team Status: Inactive Member Role Status Dates Suresh Mcmullen NP, GLOBAL TECHNICAL WRITER-C Primary Care Provider, Referring Provider Active Dr. Lilly Mae MD Attending Provider Active Team Status: Active Member Role Status Dates Suresh Mcmullen NP, GLOBAL TECHNICAL WRITER-C Primary Care Provider, Referring Provider Active Dr. Lilly Mae MD Attending Provider, Other Pro vider Active Team Status: Inactive Member Role Status Dates No Primary Care Physician Primary Care Provider Active Dr. Lilly Mae MD Attending Provider, Referring Provider Active Team Status: Inactive Member Role Status Dates Dr. Lilly Mae MD Attending Provider, Referring Provider Active Suresh Mcmullen GLOBAL TECHNICAL WRITER, GLOBAL TECHNICAL WRITER-C Primary Care Provider Active Team Status: Inactive Member Role Status Dates Suresh Mcmullen NP, GLOBAL TECHNICAL WRITER-C Primary Care Provider, Referring Provider Active Dr. Noy Sorenson MD Attending Provider Active Team Status: Inactive Member Role Status Dates Suresh Mcmullen GLOBAL TECHNICAL WRITER, GLOBAL TECHNICAL WRITER-C Primary Care Provider, Referring Provider Active Dr. Bear Kapadia DO Attending Provider Active Team Status: Active Member Role Status Dates Suresh Mcmullen GLOBAL TECHNICAL WRITER, GLOBAL TECHNICAL WRITER-C Primary Care Provider Active Dr. Bear Kapadia DO Attending Provider, Referring P rovider Active Team Status: Inactive Member Role Status Dates Suresh Mcmullen GLOBAL TECHNICAL WRITER, GLOBAL TECHNICAL WRITER-C Primary Care Provider Active Dr. Bear Kapadia DO Attending Provider, Referring P rovider Active Team Status: Inactive Member Role Status Dates Suresh Mcmullen GLOBAL TECHNICAL WRITER, GLOBAL TECHNICAL WRITER-C Primary Care Provider Active Dr. Noy Sorenson MD Attending Provider, Referrin g Provider Active Team Status: Active Member Role Status Dates Suresh Mcmullen GLOBAL TECHNICAL WRITER, GLOBAL TECHNICAL WRITER-C Primary Care Provider Active Dr. Noy Sorenson MD Attending Provider, Referrin g Provider Active Dr. Bear Kapadia DO Other Provider Active Team Status: Inactive Member Role Status Dates Suresh Mcmullen GLOBAL TECHNICAL WRITER, GLOBAL TECHNICAL WRITER-C Primary Care Provider Active Dr. Constance Haas MD Emergency Provider Active Team Status: Inactive Member Role Status Dates Dr. Constance Haas MD Attending Provider Active Suresh Mcmullen GLOBAL TECHNICAL WRITER, GLOBAL TECHNICAL WRITER-C Primary Care Provider Active Bank Analyst Relationship Specialty Start Date End Date Martha Ayala MD [address] [place] [address] PCP - General Family Medicine 12/16/17 Bank Analyst Relationship Specialty Start Date End Date Martha Ayala MD [address] [place] [address] PCP - General Family Medicine 12/16/17 Bank Analyst Relationship Specialty Start Date End Date Martha Ayala MD [address] [place] [address] PCP - General Family Medicine 12/16/17 Bank Analyst Relationship Specialty Start Date End Date Martha Ayala MD [address] [place] [address] PCP - General Family Medicine 12/16/17 Bank Analyst Relationship Specialty Start Date End Date Martha Ayala MD [address] [place] [address] PCP - General Family Medicine 12/16/17 Bank Analyst Relationship Specialty Start Date End Date Martha Ayala MD [address] [place] [address] PCP - General Family Medicine 12/16/17 Bank Analyst Relationship Specialty Start Date End Date Martha Ayala MD [address] [place] [address] PCP - General Family Medicine 12/16/17 Bank Analyst Relationship Specialty Start Date End Date Martha Ayala MD [address] [place] [address] PCP - General Family Medicine 12/16/17 Bank Analyst Relationship Specialty Start Date End Date Martha Ayala MD [address] [place] [address] PCP - General Family Medicine 12/16/17 Bank Analyst Relationship Specialty Start Date End Date Martha Ayala MD [address] [place] [address] PCP - General Family Medicine 12/16/17 Bank Analyst Relationship Specialty Start Date End Date Martha Ayala MD [address] [place] [address] PCP - General Family Medicine 12/16/17 Bank Analyst Relationship Specialty Start Date End Date Martha Ayala MD [address] [place] [address] PCP - General Family Medicine 12/16/17 Bank Analyst Relationship Specialty Start Date End Date Martha Ayala MD [address] [place] [address] PCP - General Family Medicine 12/16/17 Bank Analyst Relationship Specialty Start Date End Date Martha Ayala MD [address] [place] [address] PCP - General Family Medicine 12/16/17 Bank Analyst Relationship Specialty Start Date End Date Martha Ayala MD [address] [place] [address] PCP - General Family Medicine 12/16/17 Bank Analyst Relationship Specialty Start Date End Date Martha Ayala MD [address] [place] [address] PCP - General Family Medicine 12/16/17 Bank Analyst Relationship Specialty Start Date End Date Martha Ayala MD [address] [place] [address] PCP - General Family Medicine 12/16/17 Alisson Resendiz APRN.CNP [address] [place] [address] [facility] 03/12/24 Bank Analyst Relationship Specialty Start Date End Date Martha Ayala MD [address] [place] [address] PCP - General Family Medicine 12/16/17 Alisson Resendiz APRN.COMPUTER SERVICE TECHNICIAN [address] [place] [address] [facility] 03/12/24 Suresh Mcmullen APRN.COMPUTER SERVICE TECHNICIAN [address] [place] [address] [facility] 03/21/24 Goals (unrecognized section and content) Goals may be documented in a n alternate section INFORMATION SOURCE (unrecogn ized section and content) DATE CREATED AUTHOR 07/12/2024 [facility] DATE CREATED AUTHOR AUTHOR'S MIRZA ATBERNY 08/12/2024 [facility] FOR RECORDS PERTAINING TO PATIENTS WHO ARE [...] BE BASED ON THE PRIMARY CLINICAL RECORDS. [employer] provides no warranty or guarantee of the accuracy or completeness of information in this document.
== END | disposition home or self-care (01) ==
PROVIDERS: PCP Nurse Practitioner Family; Referring Provider Nurse Practitioner Family; Visit Provider Nurse Practitioner Family
DX: Z12.31 Encounter for screening mammogram for malignant neoplasm of breast (principal)
CPT/HCPCS: 77063; 77067